=== PATIENT | female | born 1950 | race African-American/Black ===

== ENCOUNTER 2018-03-31 09:09 | Emergency (ER) | payer MEDICARE ==
[2018-03-31 10:10] LABS: #Basophils 0.1 thou/uL (0.0-0.2); #Eosinphils 0.1 thou/uL (0.0-0.7); #Monocytes 1.2 thou/uL (0.11-0.59); #Neutrophils 5.9 thou/uL (1.40-6.50); %Basophils 0.5 % (0.0-1.0); %Eosinophils 0.7 % (0.0-10.0); %Lymphocytes 21.6 % (21.0-51.0); %Monocytes 12.7 % (0.0-10.0); %Neutrophils 64.5 % (42.0-75.0); Hemoglobin 12.7 g/dL (12.0-16.0); Mean Corpuscular HGB CONC 32.3 g/dL (32.0-36.0); Mean Corpuscular Volume 80.3 fL (78.0-98.0); Mean Platelet Volume 8.4 fL (7.4-10.4); Platelet Count 314 thou/uL (130-400); Red Blood Cell (RBC) Count 4.88 mill/uL (4.20-5.40); White Blood Cell (WBC) Count 9.1 thou/uL (4.8-10.8)
[2018-03-31 10:27] LABS: ALT (SGPT) 36 U/L (8-55); AST (SGOT) 39 U/L (5-34); Albumin 3.9 g/dL (3.4-4.8); Alkaline Phosphatase 85 U/L (40-150); Anion Gap 13 mmol/L (10-20); BUN (Urea Nitrogen) 9 mg/dL (9.8-20.1); Bilirubin, Total 0.3 mg/dL (0.2-1.2); Calc. Creatinine Clearance 0 mL/min (70-130); Calcium 9.6 mg/dL (7.8-10.44); Carbon Dioxide 30 mmol/L (23-31); Chloride 91 mmol/L (98-107); Estimated GFR-MDRD 87; Globulin 4.6 g/dL (2.4-3.5); Glucose 68 mg/dL (80-115); Protein, Total 8.5 g/dL (6.0-8.3); Sodium 131 mmol/L (136-145)
[2018-03-31 10:32] LABS: Potassium 2.9 mmol/L (3.5-5.1)
[2018-03-31] MEDS ORDERED: Ondansetron HCl/PF 4 MG/2 ML Vial ONE (10:34)
--- NOTE | 2018-03-31 10:59 | RAD ---
CHEST ONE VIEW: HISTORY: Cough. COMPARISON: Radiograph from 12/13/2016 FINDINGS: The lungs are clear. No pneumothorax or effusion. The cardiac silhouette and mediastinal contours a re within normal limits. IMPRESSION: No acute intrathoracic abnormality. POS: [facility]
[2018-03-31] MEDS ORDERED: Potassium Chloride 20 MEQ TAB ONE (11:33)
== END 2018-03-31 12:35 | disposition home or self-care (01) ==
LOC: ERS 09:09
DX: R05 Cough (principal); E87.6 Hypokalemia; R11.0 Nausea; E11.9 Type 2 diabetes mellitus without complications; I10 Essential (primary) hypertension; J45.909 Unspecified asthma, uncomplicated; F32.9 Major depressive disorder, single episode, unspecified; Z87.891 Personal history of nicotine dependence
CPT/HCPCS: 36415; 71045; 80053; 83605; 85025; 87040; 87804; 96374; J2405

== ENCOUNTER 2018-05-14 08:35 | Outpatient (CLI) | payer MEDICARE ==
--- NOTE | 2018-05-14 11:17 | ULT ---
HEPATIC DOPPLER ULTRASOUND: 05/14/2018 HISTORY: Hepatitis C. TECHNIQUE: Multiplanar, pino-scale, sonographic imaging of the abdomen obtained. The hepatic and splenic vascul ature is assessed with color-flow and spectral analysis. FINDINGS: The imaged pancreas appears grossly unremarkable. No focal liver lesion or intrahepatic biliary dilatation is seen. The common bile duct measures 2-3 mm, within normal limits. The coastal/harbor defense officer reports a negative [place] sign. Imaged IVC is patent and demonstrates appropriate wa veform. The hepatic parenchyma is mildly heterogeneous, consistent with the provided history of hepatitis C. The main portal vein, the right portal vein, and the left portal vein are patent and demonstrate norm al directional flow. The hepatic artery is patent as well. The right, middle, and left hepatic veins are patent and demonstrate appropriate waveforms. Incidental note is made of cholelithiasis. No gallbladder wall thickening. The spleen is normal in size, measuring up to 7.6 cm. The splenic artery and vein are patent and dem onstrate appropriate arterial and venous waveforms bilaterally. Imaged abdominal aorta is grossly un remarkable. The kidneys are not imaged on this exam. IMPRESSION: Patent hepatic and splenic vasculature, as detailed above. Incidental note is made of cholelithiasis . POS: [facility]
== END 2018-05-14 08:36 | disposition home or self-care (01) ==
LOC: ULT 08:35
PROVIDERS: ATTEND Internal Medicine Gastroenterology
DX: B19.20 Unspecified viral hepatitis C without hepatic coma (principal)
CPT/HCPCS: 76705

== ENCOUNTER 2019-03-07 07:29 | Emergency (ER) | payer MEDICARE ==
[2019-03-07 08:48] LABS: #Basophils 0.1 thou/uL (0.0-0.2); #Eosinphils 0.3 thou/uL (0.0-0.7); #Lymphocytes 2.3 thou/uL (1.20-3.40); #Neutrophils 3.6 thou/uL (1.40-6.50); %Basophils 1.1 % (0.0-1.0); %Eosinophils 4.7 % (0.0-10.0); %Monocytes 14.2 % (0.0-10.0); Hemoglobin 13.5 g/dL (12.0-16.0); Mean Corpuscular HGB CONC 33.2 g/dL (32.0-36.0); Mean Corpuscular Hemoglobin 28.3 pg (27.0-31.0); Mean Corpuscular Volume 85.3 fL (78.0-98.0); Mean Platelet Volume 8.4 fL (7.4-10.4); Platelet Count 259 thou/uL (130-400); RBC Distribution Width 17.7 % (11.5-14.5); Red Blood Cell (RBC) Count 4.79 mill/uL (4.20-5.40); White Blood Cell (WBC) Count 7.3 thou/uL (4.8-10.8)
--- NOTE | 2019-03-07 08:59 | CT ---
CT Brain WO Con: 03/07/2019 8:26 AM CLINICAL HISTORY: Leg weakness. COMPARISON: None. FINDINGS: Hemorrhage: None. Ventricular system: Mild prominence of ventricular system. Cerebral parenchyma: Mild bilateral periventricular white matter hypoattenuation. Midline shift: None. Mass: No mass effect. Calvarium: Normal. Visualized Paranasal sinuses: Clear. IMPRESSION: No acute intracranial hemorrhage or mass effect Mild prominence of ventricular system. Possibility of normal pressure hydrocephalus should be exclude d clinically. Mild periventricular white matter hypoattenuation. This could relate to gliosis or transependymal CSF migration.
[2019-03-07 09:09] LABS: ALT (SGPT) 51 U/L (8-55); AST (SGOT) 88 U/L (5-34); Alkaline Phosphatase 88 U/L (40-110); Anion Gap 14 mmol/L (10-20); BUN (Urea Nitrogen) 12 mg/dL (9.8-20.1); Bilirubin, Total 0.4 mg/dL (0.2-1.2); CK (CPK) 161 U/L (29-168); Calc. Creatinine Clearance 0 mL/min (70-130); Calcium 9.8 mg/dL (7.8-10.44); Carbon Dioxide 29 mmol/L (23-31); Chloride 94 mmol/L (98-107); Estimated GFR-MDRD 74; Globulin 4.3 g/dL (2.4-3.5); Potassium 3.2 mmol/L (3.5-5.1); Protein, Total 8.3 g/dL (6.0-8.3); Sodium 134 mmol/L (136-145)
[2019-03-07 09:14] LABS: Glucose 48 mg/dL (80-115)
[2019-03-07] MEDS ORDERED: Dextrose 50% Abboject 50 ML SYRINGE ONE (09:26)
[2019-03-07 11:30] LABS: Bilirubin Negative (Negative); Blood, Urine Negative (Negative); Glucose, Urine (Dipstick) 100 mg/dL (Negative); Leukocyte Small (Negative); Nitrite Positive (Negative); Protein, Urine (Dipstick) Negative (Neg-Trace); Urobilinogen 0.2 mg/dL (Less than 2)
[2019-03-07 11:33] LABS: Clarity Clear (Clear)
[2019-03-07 11:39] LABS: Bacteria/HPF 3+ HPF (None Seen); RBC/HPF None Seen HPF (0-3); Squamous Epithelial 0-3 HPF (0-3)
[2019-03-07] MEDS ORDERED: Acetaminophen 500 MG TAB ONE (11:58)
--- NOTE | 2019-03-07 13:06 | RAD ---
Exam: XR Shoulder Rt 3 View STANDARD HISTORY: Right shoulder pain. COMPARISON: None FINDINGS: There are calcifications seen lateral to the right humeral head likely related to calcific peritendin itis. Mild right acromioclavicular joint osteoarthritis is present. No acute fracture, dislocation, or other acute osseous abnormality is identified. Vascular calcifications are seen in the thoracic aortic arch. IMPRESSION: 1. Mild right acromioclavicular joint osteoarthritis. 2. Findings likely related to calcific peritendinitis. 3. No acute osseous abnormality seen involving the right shoulder.
--- NOTE | 2019-03-12 10:35 | EKG ---
Test Reason : WEAKNESS Blood Pressure : / mmHG Vent. Rate : 079 BPM Atrial Rate : 079 BPM P-R Int : 146 ms QRS Dur : 074 ms QT Int : 386 ms P-R-T Axes : 048 005 019 degrees QTc Int : 442 ms Normal sinus rhythm Septal infarct , age undetermined Abnormal ECG Confirmed by RICHY LOVELL MD ([id number]), international editorial producer DOREEN FERRIS ([id number]) on 03/12/2019 10:35:27 AM Referred By: Confirmed By:RICHY LOVELL MD
== END 2019-03-07 15:17 | disposition home or self-care (01) ==
LOC: ERS 07:29
DX: N39.0 Urinary tract infection, site not specified (principal); M19.90 Unspecified osteoarthritis, unspecified site; I10 Essential (primary) hypertension; J45.909 Unspecified asthma, uncomplicated; F32.9 Major depressive disorder, single episode, unspecified; E11.9 Type 2 diabetes mellitus without complications; Z79.84 Long term (current) use of oral hypoglycemic drugs; Z87.891 Personal history of nicotine dependence; Z79.899 Other long term (current) drug therapy
CPT/HCPCS: 36415; 36416; 70450; 80053; 81003; 81015; 82550; 84443; 84484; 85025; 93005; 96361; 96374

== ENCOUNTER 2019-08-15 06:08 | Outpatient (CLI) | payer MEDICARE ==
[2019-08-15 09:49] LABS: Anion Gap 19 mmol/L (10-20); BUN (Urea Nitrogen) 9 mg/dL (9.8-20.1); Calc. Creatinine Clearance 0 mL/min (70-130); Calcium 9.6 mg/dL (7.8-10.44); Carbon Dioxide 22 mmol/L (23-31); Chloride 97 mmol/L (98-107); Estimated GFR-MDRD 73; Glucose 61 mg/dL (80-115); Potassium 4.8 mmol/L (3.5-5.1); Sodium 133 mmol/L (136-145)
[2019-08-15 11:01] LABS: #Eosinphils 0.2 thou/uL (0.0-0.7); #Lymphocytes 2.6 thou/uL (1.20-3.40); #Monocytes 0.9 thou/uL (0.11-0.59); #Neutrophils 4.1 thou/uL (1.40-6.50); %Basophils 0.1 % (0.0-1.0); %Eosinophils 2.7 % (0.0-10.0); %Lymphocytes 32.9 % (21.0-51.0); %Neutrophils 52.3 % (42.0-75.0); Hemoglobin 14.1 g/dL (12.0-16.0); MDiff Complete? YES; Mean Corpuscular HGB CONC 33.2 g/dL (32.0-36.0); Mean Corpuscular Hemoglobin 28.9 pg (27.0-31.0); Mean Corpuscular Volume 86.9 fL (78.0-98.0); Mean Platelet Volume 8.3 fL (7.4-10.4); Platelet Count 328 thou/uL (130-400); Platelet Morphology Comment Appears Adequate; Polychromasia SLIGHT = 2-3 cells (100X) (0-2/hpf); RBC Distribution Width 15.4 % (11.5-14.5); Red Blood Cell (RBC) Count 4.89 mill/uL (4.20-5.40); Target Cells MODERATE= 6-15 cells (100X) (0-1/hpf); White Blood Cell (WBC) Count 7.8 thou/uL (4.8-10.8)
== END 2019-08-15 06:09 | disposition home or self-care (01) ==
LOC: LABBT 06:08
PROVIDERS: ATTEND Thoracic Surgery (Cardiothoracic Vascular Surgery)
DX: Z01.812 Encounter for preprocedural laboratory examination (principal); I73.9 Peripheral vascular disease, unspecified
CPT/HCPCS: 80048; 85025

== ENCOUNTER → 2019-08-16 | Day surgery (SDC) | payer MEDICARE ==
[2019-08-15 08:24] VITALS: BMI 31.2
[~2019-08-16] MED LIST: Fentanyl 100 MCG/2 ML VIAL ONE; Iopamidol 370 76% 100 ML VIAL ONE; Lidocaine 1% (PF) 30 ML VIAL ONE; Midazolam HCl 2 mg/2 ml Vial ONE; hydrALAZINE 20 MG/ML VIAL ONE; traMADol HCl 50 MG TAB ONE
--- NOTE | 2019-08-16 13:20 | OP ---
DATE OF PROCEDURE: 08/16/2019 PROCEDURES PERFORMED: Left femoral venous line placement with ultrasound guidance, aortography with peripheral runoff with ultrasound guidance with selective left lower extremity arteriography. PREOPERATIVE DIAGNOSES: Peripheral vascular disease with ischemic tissue loss, left lower extremity. POSTOPERATIVE DIAGNOSES: Peripheral vascular disease with ischemic tissue loss, left lower extremity. ANESTHESIA: 1% lidocaine, local anesthesia with intravenous sedation consisting of 1 mg of Versed and 25 mcg of fentanyl. FINDINGS: Normal aortoiliac segments by arteriography with some calcification in the superficial femorals with minimal luminal irregularity bilaterally. There was trifurcation vessel disease on the right side. The anterior tibial and peroneal were both occluded. She had single-vessel runoff through the posterior tibial that was diseased proximally on the left lower extremity. Her posterior tibial was occluded and reconstituted very faintly at the ankle. The peroneal crossed down to the foot and was disease free. The anterior tibial crossed in well into the foot, but had proximal disease. FLOUROSCOPY TIME : 9.1 minutes CONTRAST: 60 ml NARRATIVE REPORT: After informed consent was obtained, the patient was taken to the blood bank laboratory professional and placed in supine position on the blood bank laboratory professional table because the patient had very poor peripheral venous access. Left femoral sheath was placed. Her left femoral pulse was palpated and the femoral vessels were identified ultrasonographically. Lidocaine was used to infiltrate skin and subcutaneous tissues in the upper thigh overlying the femoral vein and the femoral vein was punctured by the Seldinger technique. A 4-Finnish femoral line was placed and secured with suture and aspirated and flushed easily. The patient was then given IV sedation while the right femoral vasculature was ultrasonographically examined. Lidocaine was used to anesthetize the skin and subcutaneous tissues overlying the common femoral artery and then a micropuncture technique followed by a 5-Finnish femoral sheath was used to cannulate the right common femoral artery on both the right and left sides appropriate of vascular positioning. The wire was confirmed by fluoroscopy prior to cannulating the vessel with the sheath. Wire was placed through a Contra catheter and advanced up into the aorta at about the level of L1. Contrast was injected and then, the catheter was drawn down to just above the level of the bifurcation and an additional aortogram was performed to get better visualization of the iliofemoral segments. The iliofemoral segments were quite smooth in their contour and it was elected not to perform obliques to visualize the vessels as an overlock orthopedic hardware. Glidewire and angled catheter were used to selectively cannulate the left iliofemoral system, advancing the wire well down into the superficial femoral artery and the catheter down to just above the femoral bifurcation. Dye injection was performed, which flowed briskly and was followed down to below the knee. The principal abnormality lay in the trifurcation and additional images using DSA were used to map out the tibial vasculature and follow the outflow into the foot. Wire was reinserted and the catheter withdrawn through the right femoral sheath and injection was done to image the right lower extremity was followed down to the lower leg and again finding trifurcation disease. Additional DSA injections were performed to image the tibial vasculatures that crossed into the foot. The femoral sheath was then removed and hemostasis was achieved with direct pressure and the patient was taken to the recovery area in stable condition. Job ID: [id number] MTDD
== END ==
LOC: CCL 05:56
PROVIDERS: ATTEND Thoracic Surgery (Cardiothoracic Vascular Surgery)
PROC: 06HN33Z Insertion of Infusion Device into Left Femoral Vein, Percutaneous Approach (ICD-10-PCS; principal; 2019-08-16)
DX: I70.245 Atherosclerosis of native arteries of left leg with ulceration of other part of foot (principal); I10 Essential (primary) hypertension; E11.49 Type 2 diabetes mellitus with other diabetic neurological complication; F32.9 Major depressive disorder, single episode, unspecified; J45.909 Unspecified asthma, uncomplicated; Z79.4 Long term (current) use of insulin; Z79.899 Other long term (current) drug therapy; Z87.891 Personal history of nicotine dependence; Z88.0 Allergy status to penicillin; Z88.5 Allergy status to narcotic agent; Z88.8 Allergy status to other drugs, medicaments and biological substances; Z91.012 Allergy to eggs
CPT/HCPCS: 75630; 75716; 76942; 99152; 99153; C1725; C1769; J0360; J1644; J2001; J2250; J3010; Q9967

== ENCOUNTER 2019-08-24 09:03 | Outpatient (CLI) | payer MEDICARE ==
--- NOTE | 2019-08-25 12:12 | EKG ---
Test Reason : Blood Pressure : / mmHG Vent. Rate : 099 BPM Atrial Rate : 099 BPM P-R Int : 134 ms QRS Dur : 078 ms QT Int : 336 ms P-R-T Axes : 058 035 041 degrees QTc Int : 431 ms Normal sinus rhythm Cannot rule out Anterior infarct (cited on or before 07-MAR-2019) Abnormal ECG When compared with ECG of 07-MAR-2019 07:38, Questionable change in initial forces of Septal leads Confirmed by LYNN ROSS, SAlycia ([id number]) on 08/25/2019 12:12:09 PM Referred By: JACKELINE Confirmed By:DR. Antonio BAILEY MD
== END 2019-08-24 09:04 | disposition home or self-care (01) ==
LOC: LABBT 09:03
PROVIDERS: ATTEND Thoracic Surgery (Cardiothoracic Vascular Surgery)
DX: Z01.818 Encounter for other preprocedural examination (principal); I73.9 Peripheral vascular disease, unspecified
CPT/HCPCS: 93005; 93010

== ENCOUNTER 2019-08-24 13:30 | Inpatient (IN) | payer MEDICARE ==
[2019-08-29] MEDS ORDERED: Protamine Sulfate 50 MG/5 ML VIAL ONE (06:34)
[2019-08-29] MEDS ORDERED: Heparin 5,000 UNITS/ML VIAL ONE (06:34)
[2019-08-29] MEDS ORDERED: Fentanyl 250 MCG/5 ML VIAL ONE (06:47)
[2019-08-29] MEDS ORDERED: Heparin 10,000 UNITS/1 ML VIAL ONE ×2 (06:48→14:44)
[2019-08-29] MEDS ORDERED: Protamine Sulfate 250 MG/25 ML VIAL ONE (06:48)
[2019-08-29] MEDS ORDERED: Promethazine HCl 25 MG/ML VIAL SLOW IVP PRN (07:15)
[2019-08-29] MEDS ORDERED: Morphine Sulfate 2 MG/ML SYRINGE SLOW IVP PRN (07:15)
[2019-08-29] MEDS ORDERED: Ondansetron HCl/PF 4 MG/2 ML Vial IVP PRN (07:15)
[2019-08-29] MEDS ORDERED: Promethazine HCl 25 MG/ML VIAL IM PRN (07:15)
[2019-08-29] MEDS ORDERED: HYDROmorphone 2 MG/ML VIAL SLOW IVP PRN (07:15)
[2019-08-29] MEDS ORDERED: Meperidine HCl/PF 25 MG/ML VIAL SLOW IVP PRN (07:15)
[2019-08-29] MEDS ORDERED: PACU-Morphine 4MG/ML VIAL SLOW IVP PRN (07:15)
[2019-08-29 07:21] LABS: #Basophils 0.1 thou/uL (0.0-0.2); #Eosinphils 0.2 thou/uL (0.0-0.7); #Lymphocytes 1.7 thou/uL (1.20-3.40); #Monocytes 0.8 thou/uL (0.11-0.59); #Neutrophils 3.3 thou/uL (1.40-6.50); %Basophils 0.9 % (0.0-1.0); %Eosinophils 3.6 % (0.0-10.0); %Neutrophils 54.6 % (42.0-75.0); Hemoglobin 13.9 g/dL (12.0-16.0); Mean Corpuscular HGB CONC 33.3 g/dL (32.0-36.0); Mean Corpuscular Hemoglobin 28.8 pg (27.0-31.0); Mean Corpuscular Volume 86.4 fL (78.0-98.0); Mean Platelet Volume 8.4 fL (7.4-10.4); Platelet Count 253 thou/uL (130-400); RBC Distribution Width 15.2 % (11.5-14.5); Red Blood Cell (RBC) Count 4.83 mill/uL (4.20-5.40); White Blood Cell (WBC) Count 6.1 thou/uL (4.8-10.8)
[2019-08-29 07:31] LABS: Anion Gap 23 mmol/L (10-20); BUN (Urea Nitrogen) 7 mg/dL (9.8-20.1); Calc. Creatinine Clearance 71 mL/min (70-130); Carbon Dioxide 21 mmol/L (23-31); Chloride 92 mmol/L (98-107); Estimated GFR-MDRD 66; Glucose 199 mg/dL (80-115); Potassium 4.5 mmol/L (3.5-5.1); Sodium 131 mmol/L (136-145)
[2019-08-29] MEDS ORDERED: Promethazine 25 MG TAB PO PRN (07:34)
[2019-08-29] MEDS ORDERED: PROVENTIL INHALER 6.7 G (200 INHALATIONS) INH PRN ×2 (07:34→08:00)
[2019-08-29] MEDS ORDERED: Insulin Regular 300 UNITS/3 ML VIAL SC PRN (07:35)
[2019-08-29] MEDS ORDERED: Dextrose 5% in Water 1,000 ML IV PRN (07:35)
[2019-08-29] MEDS ORDERED: Acetaminophen 325 MG TAB PO PRN (07:35)
[2019-08-29] MEDS ORDERED: hydrALAZINE 20 MG/ML VIAL SLOW IVP PRN (07:35)
[2019-08-29] MEDS ORDERED: Ondansetron PF 4 MG/2 ML Vial IVP PRN (07:35)
[2019-08-29] MEDS ORDERED: Dextrose 50% Abboject 50 ML SYRINGE SLOW IVP PRN (07:35)
[2019-08-29] MEDS ORDERED: Fentanyl 100 MCG/2 ML VIAL SLOW IVP PRN (07:35)
[2019-08-29] MEDS ORDERED: traMADol HCl 50 MG TAB PO PRN (07:35)
[2019-08-29] MEDS ORDERED: Sodium Chloride 0.9% 1,000 ML IV SCH ×2 (07:45→15:45)
[2019-08-29] MEDS ORDERED: Sodium Chloride 0.9% 10 ML ONE ×2 (08:02→09:04)
--- NOTE | 2019-08-29 08:05 | RAD ---
XR Chest 1 View HISTORY: Preoperative evaluation COMPARISON: 03/31/2018 FINDINGS: The heart size is normal. The lungs are well expanded without focal areas of consolidation, pneumothorax or pleural effusions. IMPRESSION: No radiographic evidence of acute cardiopulmonary process.
[2019-08-29] MEDS ORDERED: Norepinephrine 4 MG/4 ML VIAL ONE ×2 (08:25→08:26)
[2019-08-29] MEDS ORDERED: Albuterol Sulfate HFA (OR ONLY) ONE (08:25)
[2019-08-29] MEDS ORDERED: SUGAMMADEX SODIUM 500 MG/5 ML VIAL ONE (08:28)
[2019-08-29] MEDS ORDERED: Digoxin 0.5 MG/2 ML AMP ONE (08:47)
[2019-08-29] MEDS ORDERED: Gabapentin 400 MG CAP PO SCH (09:00)
[2019-08-29] MEDS ORDERED: Non-Formulary Item 1 EACH (Gabapentin [Gabapentin] 2 TAB) PO SCH (09:00)
[2019-08-29] MEDS ORDERED: Aspirin Chewable 81 MG TAB PO SCH (09:00)
[2019-08-29] MEDS ORDERED: Diltiazem HCl 125 MG, Admixture Fee 1 EACH in Sodium Chloride 0.9% 100 ML IVPB SCH (09:00)
[2019-08-29] MEDS ORDERED: Iopamidol 370 76% 100 ML VIAL ONE ×2 (09:38→14:38)
--- NOTE | 2019-08-29 09:53 | RAD ---
XR Chest 1 View Portable HISTORY: Line placement COMPARISON: Earlier exam of same date FINDINGS: There has been interval placement of a right subclavian central venous catheter with tip in the projection of the SVC and a right-sided chest tube with tip directed inferiorly in the medial right lower chest.. No pneumothorax is seen. Remainder the exam is unremarkable. IMPRESSION: No radiographic evidence of acute cardiopulmonary process.
[2019-08-29] MEDS ORDERED: Rocuronium Bromide 10 MG/ML (10ML VIAL) ONE (10:27)
[2019-08-29] MEDS ORDERED: PROPOFOL 200 MG/20 ML VIAL ONE (10:27)
[2019-08-29] MEDS ORDERED: PHENYLEPHRINE-NS 100 MCG/ML 10 ML SYRINGE ONE (10:27)
[2019-08-29] MEDS ORDERED: Calcium Chloride 1 GM/10 ML Abboject SYRINGE ONE (10:27)
[2019-08-29] MEDS ORDERED: EPHEDRINE 25 MG/5 ML SYRINGE ONE (10:27)
[2019-08-29] MEDS: Hydrochlorothiazide 25 MG TAB PO SCH (10:28)
[2019-08-29] MEDS: Aspirin 81 mg Enteric Coated Tablet PO SCH (10:28)
[2019-08-29] MEDS ORDERED: Ketorolac Tromethamine 30 MG/ML VIAL IVP SCH (12:00)
[2019-08-29 13:37] LABS: CKMB 6.2 ng/mL (0-6.6)
[2019-08-29] MEDS: Fentanyl 100 MCG/2 ML VIAL SLOW IVP PRN ×3 (14:01→20:02)
--- NOTE | 2019-08-29 14:42 | CON ---
DATE OF CONSULTATION: 08/29/2019 REASON FOR CONSULTATION: Elevated troponin and recent decompensation prior to surgery. Primary utilization coordinator, none. HISTORY OF PRESENT ILLNESS: Ms. Cadet is a 69-year-old woman, who is scheduled for a fem-pop bypass to the left. She underwent induction and intubation. She began developing a tachycardia and hypotension. Initially, it was thought she had a pneumothorax. She underwent a chest tube placement successfully. Dr. Baldev Zaldivar, who was assisting also felt she had ST-segment elevation noted transiently. The patient was sedated at the time and has no recollection. Her troponin is mildly elevated at 0.6. Ms. Hartley who is now awake and alert, did state she does not recall having a chest pain, pressure, or other associated symptoms. She has no previous history of underlying coronary artery disease. She quit all tobacco products 11 years ago. She does have severe PVD as described above. PAST MEDICAL HISTORY: PAD, hypertension, asthma, depression, diabetes mellitus, avascular necrosis, hysterectomy, hip replacement, back surgery, elbow surgery. HOME MEDICATIONS: Include gabapentin, metformin, albuterol, Humalog, Lantus, promethazine, pantoprazole. FAMILY HISTORY: Positive for CAD. SOCIAL HISTORY: As described above. REVIEW OF SYSTEMS: Ten-point review of systems is reviewed and is as above, otherwise negative. PHYSICAL EXAMINATION: GENERAL: Patient is a pleasant female, who is in no acute distress. The patient appears their stated age. VITAL SIGNS: Blood pressure 160/69, pulse 113, respirations 20. NEUROLOGIC: The patient is alert and oriented x3 with no focal neurologic deficits. HEENT: Sclerae without icterus. Mouth has moist mucous membranes with normal pallor. NECK: No JVD. Carotid upstroke brisk. No bruits bilaterally. LUNGS: Clear to auscultation with unlabored respirations. BACK: No scoliosis or kyphosis. CARDIAC: Regular rate and rhythm with normal S1 and S2. No S3 or S4 noted. No significant rubs, murmurs, thrills, or gallops noted throughout the precordium. PMI is not displaced. There is no parasternal heave. ABDOMEN: Soft, nontender, nondistended. No peritoneal signs present. No hepatosplenomegaly. No abnormal striae. EXTREMITIES: Decreased pulse in left popliteal region versus right. No cyanosis, clubbing, or edema. SKIN: No gross abnormalities. PERTINENT LABORATORY DATA: Hemoglobin 13.9, hematocrit 41.7. Peak troponin 0.62, creatinine 1.01. IMPRESSION: 1. EKG changes. 2. Elevated troponin. 3. Tachycardia. 4. Peripheral arterial disease. RECOMMENDATIONS: Ms. Hartley has no previous symptoms of underlying coronary artery disease. She does have PAD, which increases her risk of having concomitant CAD. Given her risk factors in addition to the elevated troponin, we would recommend coronary angiography plus PCI. I discussed the procedure in full detail with Ms. Hartley. The risks of the procedure were also discussed. The risks of the procedure included but are not limited to the following: , stroke, ND, need for emergency surgery, loss of limb, bleeding, and infection, as well as a reaction to the dye causing kidney failure and needing long-term dialysis. I also discussed the risks of PCI to include all of the above including coronary dissection and perforation in addition to acute stent thrombosis and restenosis. All questions about the procedure were answered. Given the above, the patient agreed to proceed with above procedure. I would recommend a drug-coated stent if needed. The patient is in agreement. No contraindications. Job ID: [id number]
[2019-08-29] MEDS ORDERED: Verapamil 5 MG/2 ML VIAL ONE (14:44)
[2019-08-29] MEDS ORDERED: Nitroglycerin 100MG/250ML BOT 250 ML ONE (14:44)
--- NOTE | 2019-08-29 15:01 | CON ---
DATE OF CONSULTATION: 08/29/2019 SERVICE: Pulmonary Medicine. REASON FOR CONSULTATION: ICU patient. HISTORY OF PRESENT ILLNESS: The patient is a 69-year-old white female with past medical history significant for severe peripheral vascular disease. She presented for outpatient elective surgery. After induction of anesthesia, the patient had very severely dropped blood pressures. This happened in the time that her central line was being placed in the right subclavian. She became more challenging to ventilate, and apparently had a carbon dioxide level that went up. There was a concern that she had a tension pneumothorax. A chest tube was emergently placed in the operating room empirically. That being said, there was no significant gush of air, and the carbon dioxide level did not improve significantly. The case was abandoned after having never been attempted. The patient does have asthma at home and typically uses her albuterol less than once every 6 weeks. She came to this appointment in her usual state of health. She did get a nebulized medication during this event, but did not seem to have any significant impact on what occurred here. Either way, she was extubated comfortably in PACU and is currently on room air. She denies any current chest discomfort, nausea, or vomiting. She had never had any recent fevers or chills. She is not experiencing a cough. Otherwise, she is in her usual state of health. She is a little bummed out about having a chest tube, and not having a vascular procedure performed. PAST MEDICAL HISTORY: 1. Peripheral vascular disease. 2. Type 2 diabetes mellitus. 3. Hypertension. 4. Asthma, previously well controlled. 5. Major depressive disorder. 6. Avascular necrosis of bilateral hips. PAST SURGICAL HISTORY: 1. Hysterectomy, partial. 2. Bilateral hip replacement. 3. Back surgery x2. 4. Left elbow surgery. FAMILY HISTORY: Noncontributory. SOCIAL HISTORY: She quit smoking 10 years ago, but prior to that had a greater than [id number] history of smoking. Denies any alcohol or significant drug use. She has no exposure to chemicals, dust, asbestos, or tuberculosis. ALLERGIES: PENICILLIN, AND LISINOPRIL. REVIEW OF SYSTEMS: General, head, ears, eyes, nose, throat, cardiovascular, respiratory, GI, , musculoskeletal, neurologic, and skin is negative except as mentioned in the HPI. MEDICATIONS: List of the patient's inpatient and outpatient medications were reviewed. No specific updates were made at this time. PHYSICAL EXAMINATION: VITAL SIGNS: Afebrile; pulse 113; blood pressure 146/94; respirations 24; and saturation 99%, currently on room air. GENERAL: The patient is awake and alert, in no apparent distress. LUNGS: Decent air entry. There is really not a prolonged expiratory phase or significant wheezing. I had the patient do a forced exhalation and there is no wheezing elicited. HEART: Tachycardic. Regular. ABDOMEN: Soft, nontender, and nondistended. Bowel sounds are positive. MUSCULOSKELETAL: No cyanosis or clubbing. There is no pitting in bilateral lower extremities. NEUROLOGIC: Grossly nonfocal. LABORATORY DATA: WBC 6.1, hemoglobin 13.9, platelets 253,000. Differentials essentially unremarkable. INR 1.0. PH of 7.50, pCO2 of 26, pO2 of 158, while wearing 30% FiO2. At the time, she was intubated. Troponin 0.629, CK-MB 6.2. Calcium 10.0. Basic metabolic profile is essentially unremarkable with a slightly elevated anion gap, slightly reduced bicarb. Sodium 131. Nitrites are positive , though there is minimal pyuria present. HIV was previously negative though hepatitis C antibody was previously positive significantly so. IMAGING DATA: Chest x-ray demonstrates excellent aeration of bilateral lung koenig. There is not significant hyperexpansion of bilateral lungs. There is a chest tube in good position, as well as a right subclavian central venous catheter is in good position. ASSESSMENT: 1. Spell of undetermined etiology. 2. Pneumothorax secondary to empiric chest tube placement for presumed tension pneumothorax, which was not present. 3. Suspected low-cardiac output state. 4. [id number] myocardial infarction. PLAN: My suspicion is the stress of the surgery put her body into low-cardiac output state. I would encourage a risk stratification for heart-related issues prior to repeat attempts at a peripheral revascularization procedure. There is no evidence of ST elevation on her EKG. She continues to have a little bit of sinus tachycardia. I will get a D-dimer, we will trend the troponins through time. Cardiology consultation will be placed. It does not appear that she has any acute lung issues. DuoNeb will be provided as needed, and we will give the patient her insulin, gabapentin, and Protonix, which she takes at home. Critical Care will follow, but from my perspective, she is likely stable for transition to the floor. 70 minutes have been devoted to this patient in various activities. I personally reviewed all imaging studies and laboratory data noted within this document. For fifty percent of this time, I was interacting with the patient at the bedside or coordinating care with the care team. For the remainder of the time I was immediately available to the patient in the hospital unit. Job ID: [id number] MTDD
[2019-08-29] MEDS ORDERED: Sodium Chloride 0.9% 200 ML IV PRN (15:32)
[2019-08-29] MEDS ORDERED: Nitroglycerin 0.4 MG TAB (25 Tab Bottle) SL PRN (15:32)
--- NOTE | 2019-08-29 15:37 | OP ---
DATE OF PROCEDURE: 08/29/2019 PROCEDURES PERFORMED: Right subclavian central line placement, right 32-Swiss tube thoracostomy, and right femoral arterial line placement with ultrasonographic guidance. PREOPERATIVE DIAGNOSES: Peripheral vascular disease with poor peripheral venous access. POSTOPERATIVE DIAGNOSES: Peripheral vascular disease with poor peripheral venous access, high airway pressures associated with hemodynamic compromise, and atrial fibrillation. ANESTHESIA: General endotracheal anesthesia. INDICATIONS: The patient is a 69-year-old woman with severe peripheral vascular disease with gangrenous changes affecting the left great toe. She has very poor peripheral venous access and in the recent past, multiple attempts at peripheral IV establishment and even lobotomy for labs have been unsuccessful. She is to undergo a femoral distal bypass grafting for limb salvage. A 22-gauge IV had been established in the holding area, sufficient for induction. Shortly after induction, while anesthesia was attempting to place a left radial arterial line, I placed a subclavian line on the right side and shortly thereafter, her airway pressures were noted to have increased to around the peak of 40. They held stable initially, but then hilary associated with tachycardia and hypotension. FINDINGS: No air araujo heard upon entering the chest. NARRATIVE REPORT: After informed consent was obtained, the patient was taken to the operating room, placed in supine position on the operating table. After the induction of general anesthesia, an intubation using the GlideScope, the Anesthesia crew worked on placing a left radial arterial line with ultrasonographic guidance. Meanwhile, she was placed in Trendelenburg and a right upper chest was prepped and draped in sterile fashion. A single stick was used to place a right subclavian central line by the Seldinger technique, although the needle had to be redirected after initially hitting a rib. The subclavian vein was cannulated with a large-bore needle at a relatively shallow position. A guidewire placed easily. The tract was dilated and the line was advanced over the wire easily. All 3 ports easily aspirated and flushed. The line was secured to the skin with suture and dressed after several minutes of ongoing attempts at radial arterial line placement. The patient's airway pressures hilary, her end-tidal CO2 fell. She became tachycardic and her cuffed blood pressure began to fall. It was difficult to hear breath sounds on either side. Her right anterior chest was prepped and draped in sterile fashion and at the top of the breast and below the subclavian central line, incision was made slightly lateral to the midclavicular line. Blunt dissection was used to retract down through the subcutaneous tissue in the musculature of the anterior chest wall. An interspace was palpated and blunt dissection was used to enter the pleural space. No air araujo was heard in the lung, could readily be palpated. A chest tube was inserted and secured to the skin with suture and connected to close suction drainage. No air leak was noted in the Pleur-Evac. The patient's right leg was frog-legged. Femoral pulse was palpable, though somewhat diminished. Ultrasound was used to identify it and then, the right groin was prepped and draped in sterile fashion with the ultrasound probe in a sterile sleeve. The femoral bifurcation was identified and then, the probe advanced cephalad. Using a 5-Swiss femoral sheath kit, the common femoral artery was cannulated by the Seldinger technique. The wire and catheter easily advanced. There was good blood return from the IV catheter, although initially it was consistent with a somewhat low blood pressure. It was secured and connected to a pressure monitoring line while ongoing resuscitative efforts were continued. At about this point, the anesthetic agents and her paralytic agents were starting to wear off and her blood pressure increased. Initially, there had been a significant disparity between her cuff pressure and her femoral arterial pressure as she woke and ultimately was extubated. This difference dramatically narrowed. The patient was transported to the intensive care unit in stable condition choosing to abort the planned procedure. Job ID: [id number]
--- NOTE | 2019-08-29 16:14 | CT ---
CT arteriogram chest with IV contrast and 3-D imaging HISTORY: Chest pain. FINDINGS: No filling defects are evident within the central pulmonary arteries. There is poor opacifi cation of the peripheral arteries with motion artifact also obscuring detail. Good contrast opacification of the thoracic aorta with normal origin of the great vessels at the aort ic arch. Prominent calcification throughout the arterial structures. No mediastinal hematoma. Right thoracostomy tube extends through the lateral margin of the right pectoralis musculature and to the right posterior lung base. Moderate amount of right chest wall gas likely related to chest tube insertion. Minimal residual pneumothorax. Tiny nonspecific subpleural nodule within the anterolateral aspect of the left upper lobe. Dystrophic calcification associated with the partially visualized right rotator cuff. Within the partially visualized upper abdomen, calcifications are associated with the pancreatic pare nchyma and in the dependent portion of the gallbladder lumen. IMPRESSION : No CT evidence of pulmonary embolus. Prominent atherosclerosis. Right thoracostomy tube with minimal residual pneumothorax. Tube extends through the lateral aspect o f the right pectoralis musculature. Cholelithiasis. Chronic pancreatitis. Calcific tendinosis right rotator cuff.
[2019-08-29] MEDS: Gabapentin 300 MG CAP PO SCH ×2 (16:24→20:03)
[2019-08-29] MEDS: HumaLOG 300 UNITS/3 ML VIAL SC PRN ×2 (16:26→21:19)
[2019-08-29] MEDS: Sodium Chloride 0.9% 1,000 ML IV SCH ×2 (17:33→19:01)
[2019-08-29 19:18] LABS: CKMB 9.7 ng/mL (0-6.6)
[2019-08-29] MEDS ORDERED: Enoxaparin Sodium 40 MG/0.4 ML SYRINGE SC SCH (21:00)
[2019-08-29] MEDS: traMADol HCl 50 MG TAB PO PRN (21:18)
[2019-08-30] MEDS: Fentanyl 100 MCG/2 ML VIAL SLOW IVP PRN ×3 (02:02→18:20)
[2019-08-30 04:27] LABS: #Eosinphils 0.3 thou/uL (0.0-0.7); #Lymphocytes 2.1 thou/uL (1.20-3.40); #Monocytes 1.2 thou/uL (0.11-0.59); #Neutrophils 5.4 thou/uL (1.40-6.50); %Basophils 0.5 % (0.0-1.0); %Eosinophils 2.9 % (0.0-10.0); %Lymphocytes 23.5 % (21.0-51.0); %Monocytes 12.9 % (0.0-10.0); %Neutrophils 60.2 % (42.0-75.0); Mean Corpuscular HGB CONC 33.7 g/dL (32.0-36.0); Mean Corpuscular Hemoglobin 29.6 pg (27.0-31.0); Mean Corpuscular Volume 87.8 fL (78.0-98.0); Mean Platelet Volume 8.3 fL (7.4-10.4); Platelet Count 254 thou/uL (130-400); Red Blood Cell (RBC) Count 3.38 mill/uL (4.20-5.40); White Blood Cell (WBC) Count 8.9 thou/uL (4.8-10.8)
[2019-08-30 04:54] LABS: Anion Gap 10 mmol/L (10-20); BUN (Urea Nitrogen) 8 mg/dL (9.8-20.1); Calc. Creatinine Clearance 68 mL/min (70-130); Calcium 7.8 mg/dL (7.8-10.44); Carbon Dioxide 24 mmol/L (23-31); Chloride 102 mmol/L (98-107); Estimated GFR-MDRD 63; Glucose 260 mg/dL (80-115); Potassium 4.4 mmol/L (3.5-5.1); Sodium 132 mmol/L (136-145)
[2019-08-30] MEDS: traMADol HCl 50 MG TAB PO PRN ×2 (06:37→20:32)
[2019-08-30] MEDS: HumaLOG 300 UNITS/3 ML VIAL SC PRN ×3 (07:09→21:58)
[2019-08-30] MEDS ORDERED: Insulin Glargine 25 UNITS in Pre-Filled Syringe SC SCH (09:00)
[2019-08-30] MEDS ORDERED: Protamine Sulfate 50 MG/5 ML VIAL ONE (09:51)
[2019-08-30] MEDS ORDERED: Heparin 5,000 UNITS/ML VIAL ONE (09:51)
[2019-08-30] MEDS ORDERED: PROPOFOL 200 MG/20 ML VIAL ONE (10:19)
[2019-08-30] MEDS ORDERED: Rocuronium Bromide 10 MG/ML (10ML VIAL) ONE (10:19)
[2019-08-30] MEDS ORDERED: Ketorolac Tromethamine 30 MG/ML VIAL ONE (10:19)
[2019-08-30] MEDS ORDERED: Labetalol HCl 100 MG/20 ML VIAL ONE (10:19)
[2019-08-30] MEDS ORDERED: Succinylcholine Chloride 20 MG/ML 10 ml SYRINGE FS ONE (10:19)
[2019-08-30] MEDS ORDERED: Ondansetron PF 4 MG/2 ML Vial ONE (10:19)
[2019-08-30] MEDS ORDERED: Lidocaine 1% PF 5 ML VIAL ONE (10:19)
[2019-08-30] MEDS ORDERED: Fentanyl 100 MCG/2 ML VIAL ONE ×2 (10:53→14:49)
--- NOTE | 2019-08-30 14:52 | PRG ---
DATE OF SERVICE: 08/30/2019 SERVICE: Pulmonary Medicine. INTERVAL HISTORY: The patient is doing okay from respiratory standpoint. Denies any current chest discomfort, fevers, or chills. Otherwise, there have been no overnight events. She had a cardiac catheterization yesterday as well as a CT of the chest. All of these were negative for an explanation of what happened here. She remains with a chest tube on the right. PHYSICAL EXAMINATION: VITAL SIGNS: Afebrile, pulse 89, blood pressure 135/63, respirations 19, saturation 97%, currently on 2 L nasal cannula. GENERAL: The patient is awake and alert, in no apparent distress. LUNGS: Decent air entry. There is no prolonged expiratory phase or wheezing appreciated. HEART: Normal rate, regular. ABDOMEN: Soft, nontender, and nondistended. Bowel sounds are positive. MUSCULOSKELETAL: No cyanosis or clubbing. There is no pitting in the bilateral lower extremities. NEUROLOGIC: Grossly nonfocal. Chest tube on the right is without air leak. LABORATORY DATA: Sodium 132, which is gently up trending. Basic metabolic profile is otherwise unremarkable with a creatinine that is stable at 1.05. Troponin peaked at 1.17. Hemoglobin 10.0. Basic metabolic profile is otherwise unremarkable. IMAGING DATA: CTA of the chest demonstrates no evidence of a pulmonary embolism. Right-sided thoracostomy tube is traversing through some musculature. Subcutaneous air and minimal residual anterior pneumothorax are present, likely not communicating. ASSESSMENT: 1. Acute hypoxic respiratory failure, resolved. 2. Iatrogenic pneumothorax secondary to empiric chest tube placement for presumed tension, which ultimately was not present. 3. Lvl-MF-zwnurjont elevation myocardial infarction, cardiac catheterization non-impressive, by report. DISCUSSION AND PLAN: It is my understanding the patient will undergo her peripheral vascular procedure today. I will continue to follow in this location. Hopefully, the chest tube will be removed in short period of time. At this point, she is optimized from a respiratory standpoint to proceed with intervention. Job ID: [id number]
[2019-08-30] MEDS ORDERED: Ondansetron HCl/PF 4 MG/2 ML Vial IVP PRN (17:21)
[2019-08-30] MEDS ORDERED: Promethazine HCl 25 MG/ML VIAL IM PRN (17:21)
[2019-08-30] MEDS ORDERED: Promethazine HCl 25 MG/ML VIAL SLOW IVP PRN (17:21)
--- NOTE | 2019-08-30 18:03 | PRG ---
DATE OF SERVICE: 08/30/2019 SUBJECTIVE: Ms. Hartley is doing well. No current complaints. OBJECTIVE: VITAL SIGNS: Blood pressure 135/63, pulse 89, temperature afebrile. LUNGS: Clear to auscultation. HEART: Regular rate and rhythm. ABDOMEN: Soft, nontender, nondistended. EXTREMITIES: No edema. Decreased pulse on left versus right. IMPRESSION: 1. Coronary artery disease. 2. Preoperative clearance. 3. Ms. Hartley is currently doing well. She recently underwent coronary angiography and was found to have moderate underlying coronary artery disease. At this point, we would recommend continue medical therapy. After IV fluids, her heart rate improved. We will add low-dose beta-juancho therapy. Otherwise, I have no further recommendations. Job ID: [id number]
--- NOTE | 2019-08-30 18:24 | RAD ---
RADIOGRAPH CHEST 1 VIEW: DATE: 08/30/2019 HISTORY: 69-year-old female status post central line placement COMPARISON: 08/29/2019 FINDINGS: There are no airspace densities, pulmonary edema, pneumothorax, or cardiomegaly. The lateral costophr enic angles are sharp. Previously, right subclavian central venous catheter tip was at SVC/right atrial junction. Currently, that tip is in the right atrium. The right-sided chest tube has been daniel fili. IMPRESSION: 1. No acute cardiopulmonary findings. 2. Interval removal of right-sided large caliber chest tube, without pneumothorax. 3. Right subclavian central venous catheter distal tip is now in the right atrium.
[2019-08-30] MEDS: Gabapentin 300 MG CAP PO SCH ×2 (18:36→21:56)
[2019-08-30] MEDS: Aspirin 81 mg Enteric Coated Tablet PO SCH (18:36)
[2019-08-30] MEDS: Sodium Chloride 0.9% 1,000 ML IV SCH (18:37)
[2019-08-30] MEDS: Pantoprazole 40 MG GRANULES PACKET PO SCH (18:37)
[2019-08-30] MEDS: Hydrochlorothiazide 25 MG TAB PO SCH (18:37)
[2019-08-30] MEDS: Ketorolac Tromethamine 30 MG/ML VIAL IVP SCH (18:43)
--- NOTE | 2019-08-30 18:51 | OP ---
DATE OF PROCEDURE: 08/30/2019 PROCEDURES PERFORMED: Left iliofemoral endarterectomy and common femoral artery to anterior tibial artery bypass with reverse greater saphenous vein graft. PREOPERATIVE DIAGNOSIS: Peripheral vascular disease with ischemic tissue loss, left lower extremity. POSTOPERATIVE DIAGNOSIS: Peripheral vascular disease with ischemic tissue loss, left lower extremity. ANESTHESIA: General endotracheal anesthesia. INDICATIONS: The patient is a 69-year-old diabetic woman, who has developed a dry gangrenous changes of her left great toe. Arteriography demonstrated trifurcation vessel disease with anterior tibial runoff to the foot. Screening ultrasonography suggested good quality greater saphenous vein. She was taken to the operating room yesterday, but the procedure was aborted when she became unstable shortly after induction and placement of a right subclavian line because of poor peripheral venous access. She has had an extensive workup looking for cause of her deterioration and she has been stable overnight. She has returned to the operating room for revascularization. FINDINGS: Extensive plaque in the common femoral artery primarily posteriorly at about the level of a deep penetrating branch. The anterior tibial was diffusely diseased, but became better quality distally in the leg. The majority of the greater saphenous vein harvested from saphenofemoral junction to where it originated from the foot was fairly good size, 34 mm and fairly good quality. There was one segment that was about a handbreadth in length in the mid calf, where it was a paired system one vessel being about 1.5 mm and rather thin walled and the other being about 2 mm. Both of these branches were harvested and left intact. Postoperatively, she had a palpable pulse in the dorsalis pedis in the foot. DESCRIPTION OF PROCEDURE: After informed consent was obtained, the patient was taken to the operating room, placed in supine position on the operating table. After the induction of general anesthesia, her abdomen, left groin and left lower extremity were prepped and draped in sterile fashion excluding her gangrenous toe from the operative field. The leg was internally rotated to allow for exposure of the anterior compartment. An incision was made anterolaterally about 1/2 handbreadths below the knee and extended for about a handbreadth. The anterior compartment was entered and blunt dissection was used to separate the muscle bellies. The anterior tibial artery and vein were identified for the entire length of that when the anterior tibial was diseased vessel with much of it being fairly hard. The incision was extended about half a handbreadth or a little bit more to expose the anterior tibial more distally while it never became a normal vessel, fairly distally in the wound. The plaque became more scattered and the vessel was more compressible and that wound was packed and attention was turned to the groin. An oblique incision was made about a fingerbreadth below the groin crease. The incision was carried through the subcutaneous tissue. The greater saphenous vein was identified at the saphenofemoral junction and anterolateral tributary to the saphenous was mobilized to allow for medial retraction, so that the dissection could be carried deep to expose the femoral vasculature. The common femoral artery was identified. The bifurcation was relatively distal, but there was hard plaque palpable in the mid to proximal common femoral. The artery was mobilized proximally to a little bit above the inguinal ligament. The plaque primarily was posteriorly, but it did extend somewhat medially and anteriorly associated and that general area was a fairly large deep penetrating branch. The saphenous vein was then harvested through a skin bridge approach. The counter incisions in the thigh were able to be kept fairly small as was the most proximal incision below the knee. The middle incision in the calf was made about 1.5 Handbreadths below the knee to avoid issues of intersecting skin incisions in case of revascularization failure. At about the mid calf, the greater saphenous proved to be a paired system with a very small, very superficial branch and modest size deeper branch. These were both harvested intact and proved to become confluent with a greater saphenous below that level. The saphenous was taken down all the way to the ankle, ligating and dividing it as it emerged from the foot. It was delivered from the operative bed and it was prepared for use as a graft and the graft was very carefully examined. There seem to be better flow when injecting irrigation through the vein with both of those veins of the dual segment open. There did not seem to be enough uniform caliber vein to excise that and do an end-to-end anastomosis and examination of the anterolateral branch that drainage of the saphenous system showed that it became really quite small after just a very few centimeters. It was opted to leave the vein intact as harvested utilizing both branches of the dual segment. An interosseous tunnel was obliquely developed from the medial aspect of the lower leg to the anterolateral incision and the patient was heparinized. After adequate circulation time of heparin, the anterior tibial was opened longitudinally distally between vascular clamps and the reverse saphenous vein was anastomosed to it end-to-side with running 7-0 Prolene suture. It was distended and oriented past through the interosseous tunnel medially and then deep to the skin bridges up to the groin incision. A vascular clamp was applied to the vein graft at the groin incision to maintain its orientation while retractors were put in place to re-expose the iliofemoral system. Hemoclips were used to control small side branches and vascular clamps were applied to the distal external iliac and distal common femoral. Longitudinal arteriotomy was made in the common femoral and the anastomosis of the saphenous vein to it was initiated. The posterior plaque as it extended up along the medial aspect of the artery, though not sick proved to be too hard to drive a needle through and began to separate. The anastomosis was abandoned and an endarterectomy performed of the iliofemoral system. This required distal extension of the incision, transection of the plaque proximally and tacking down the feathered edges of the plaque in the distal common femoral. The vein was spatulated more generously and then anastomosed to the endarterectomized segment of the femoral artery with running 5-0 Prolene suture. The vessels forward and back bled. The suture line secured and antegrade flow was allowed into the graft as well as the [place] vasculature. The wound was inspected for hemostasis. One bleeding point on the proximal anastomosis was controlled with a [id number] Prolene suture and 2 bleeding points on the graft itself, where a very small side branches had not been ligated were controlled with silk sutures. Protamine was administered when hemostasis was adequate. The incisions were closed in layers of subcutaneous and subcuticular Vicryl. Dermabond was applied as the patient had no air leak for what proved for the empirically inserted chest tube. It was opted to remove it. A Valsalva maneuver was performed by the block stacker using the Ambu bag. The chest tube was removed after prepping the site and then the skin loosely closed with a 4-0 Vicryl subcuticular suture. The patient was awakened and extubated in operating room and taken to the recovery area in good condition with a palpable dorsalis pedis pulse. Estimated blood loss during the procedure was 200 mL. She received 2350 mL of crystalloid and had 450 mL urine output. Instrument, needle, and sponge counts were correct. Job ID: [id number]
[2019-08-30] MEDS: Metoprolol Tartrate 25 MG TAB PO SCH (21:56)
[2019-08-30] MEDS: Insulin Glargine 15 UNITS in Pre-Filled Syringe 1 EACH SC SCH (21:57)
[2019-08-30] MEDS ORDERED: methylPREDNISolone Sod Succ/PF 125 MG/2 ML VIAL IVP SCH (22:30)
[2019-08-31] MEDS: Ketorolac Tromethamine 30 MG/ML VIAL IVP SCH ×3 (00:43→10:58)
[2019-08-31] MEDS: Sodium Chloride 0.9% 1,000 ML IV SCH ×2 (01:20→07:30)
[2019-08-31] MEDS: Fentanyl 100 MCG/2 ML VIAL SLOW IVP PRN (03:18)
[2019-08-31 05:10] LABS: #Lymphocytes 0.5 thou/uL (1.20-3.40); #Monocytes 0.1 thou/uL (0.11-0.59); #Neutrophils 8.8 thou/uL (1.40-6.50); %Basophils 0.1 % (0.0-1.0); %Eosinophils 0.1 % (0.0-10.0); %Lymphocytes 5.1 % (21.0-51.0); %Monocytes 1.5 % (0.0-10.0); %Neutrophils 93.2 % (42.0-75.0); Hemoglobin 7.6 g/dL (12.0-16.0); Mean Corpuscular HGB CONC 32.9 g/dL (32.0-36.0); Mean Corpuscular Volume 88.2 fL (78.0-98.0); Mean Platelet Volume 8.2 fL (7.4-10.4); Platelet Count 211 thou/uL (130-400); Red Blood Cell (RBC) Count 2.63 mill/uL (4.20-5.40); White Blood Cell (WBC) Count 9.4 thou/uL (4.8-10.8)
[2019-08-31 05:22] LABS: Anion Gap 10 mmol/L (10-20); BUN (Urea Nitrogen) 5 mg/dL (9.8-20.1); Calc. Creatinine Clearance 87 mL/min (70-130); Calcium 7.3 mg/dL (7.8-10.44); Carbon Dioxide 24 mmol/L (23-31); Chloride 106 mmol/L (98-107); Estimated GFR-MDRD 82; Glucose 232 mg/dL (80-115); Potassium 4.5 mmol/L (3.5-5.1); Sodium 135 mmol/L (136-145)
[2019-08-31] MEDS: traMADol HCl 50 MG TAB PO PRN ×3 (05:22→19:43)
[2019-08-31] MEDS: Gabapentin 300 MG CAP PO SCH ×3 (07:26→19:43)
[2019-08-31] MEDS: Aspirin 81 mg Enteric Coated Tablet PO SCH (07:26)
[2019-08-31] MEDS: Hydrochlorothiazide 25 MG TAB PO SCH (07:26)
[2019-08-31] MEDS: Metoprolol Tartrate 25 MG TAB PO SCH ×2 (07:27→19:43)
[2019-08-31] MEDS: Pantoprazole 40 MG GRANULES PACKET PO SCH (07:27)
[2019-08-31] MEDS: Insulin Glargine 15 UNITS in Pre-Filled Syringe 1 EACH SC SCH ×2 (07:28→19:44)
[2019-08-31] MEDS: HumaLOG 300 UNITS/3 ML VIAL SC PRN ×4 (07:28→19:44)
[2019-08-31] MEDS: Iron Polysaccharides Complex 150 MG CAP PO SCH ×2 (09:42→17:21)
--- NOTE | 2019-08-31 10:22 | PRG ---
DATE OF SERVICE: 08/31/2019 SERVICE: Pulmonary Medicine. INTERVAL HISTORY: The patient is doing outstanding from respiratory standpoint. She is on room air. She had a vascular procedure done yesterday. This was without complication or incident at this time around. Otherwise, there has been no interval change to her condition. PHYSICAL EXAMINATION: VITAL SIGNS: Afebrile. Pulse 85, blood pressure 114/47, respirations 21, saturation 95%, currently on room air. GENERAL: The patient is awake and alert, in no apparent distress. LUNGS: Wonderful air entry without any prolonged expiratory phase or wheezing present. HEART: Normal rate and regular. ABDOMEN: Soft, nontender, nondistended. Bowel sounds are positive. MUSCULOSKELETAL: No cyanosis or clubbing. There is no pitting in the bilateral lower extremities. NEUROLOGIC: Grossly nonfocal. LABORATORY DATA: WBC 9.4, hemoglobin 7.6, and platelets 211,000. Basic metabolic profile is otherwise unremarkable. Calcium is 7.3. Sodium continues to improve to 135. IMAGING STUDIES: Chest x-ray demonstrates no acute cardiopulmonary abnormality. Right-sided chest tube has been removed without pneumothorax. Subclavian central venous catheter is in the right atrium. ASSESSMENT: 1. Acute hypoxic respiratory failure, resolved. 2. Iatrogenic pneumothorax, secondary to empiric chest tube placement for presumed tension, which ultimately was not present, status post removal. 3. Non-ST elevation myocardial infarction. 4. Peripheral vascular disease, status post left iliofemoral endarterectomy and common femoral artery to anterior tibial artery with reverse saphenous vein graft, postop day 1. 5. Acute blood loss anemia. DISCUSSION AND PLAN: The patient is doing great from respiratory standpoint. At this point, she has no further requirements for Inpatient Pulmonary or Critical Care opinion, and I will sign off. Please call with additional questions or concerns through time. Job ID: [id number]
--- NOTE | 2019-08-31 16:12 | PRG ---
DATE OF SERVICE: 08/31/2019 SUBJECTIVE: Ms. Hartley is doing very well postoperatively. No current complaints. Heart rate and blood pressure are stable. She did not require pressor agents. She did well postoperatively. OBJECTIVE: VITAL SIGNS: Blood pressure 120/70, pulse 96, and temperature 97.8. LUNGS: Clear to auscultation. HEART: Regular rate and rhythm. ABDOMEN: Soft, nontender, and nondistended. EXTREMITIES: No edema. IMPRESSION: 1. Moderate coronary artery disease. 2. Severe peripheral vascular disease, status post femoral-popliteal bypass. RECOMMENDATIONS: Ms. Hartley is currently doing well. Continue aspirin in addition to low-dose beta-juancho therapy. Physical therapy and rehab. Plan is to follow Ms. Hartley in the next 1 to 2 weeks. Please re-consult if needed. Job ID: [id number]
--- NOTE | 2019-08-31 22:27 | EKG ---
Test Reason : PREOP Blood Pressure : / mmHG Vent. Rate : 094 BPM Atrial Rate : 094 BPM P-R Int : 128 ms QRS Dur : 082 ms QT Int : 346 ms P-R-T Axes : 063 051 050 degrees QTc Int : 432 ms Normal sinus rhythm Normal ECG When compared with ECG of 24-AUG-2019 15:14, Nonspecific T wave abnormality no longer evident in Anterior leads Confirmed by Cristhian CUNHA ([id number]) on 08/31/2019 10:27:04 PM Referred By: JACKELINE Confirmed By:Cristhian CUNHA
--- NOTE | 2019-08-31 22:28 | EKG ---
Test Reason : Blood Pressure : / mmHG Vent. Rate : 119 BPM Atrial Rate : 119 BPM P-R Int : 140 ms QRS Dur : 078 ms QT Int : 328 ms P-R-T Axes : 063 032 043 degrees QTc Int : 461 ms Sinus tachycardia with Premature atrial complexes Otherwise normal ECG When compared with ECG of 29-AUG-2019 07:02, (Unconfirmed) Premature atrial complexes are now Present Confirmed by Cristhian CUNHA ([id number]) on 08/31/2019 10:28:35 PM Referred By: HAMZAH Confirmed By:Cristhian CUNHA
[2019-09-01 05:22] LABS: Band 4 % (5-11); Hemoglobin 7.2 g/dL (12.0-16.0); Hypochromia SLIGHT = 6-15 cells (100X) (0-5/hpf); Lymphocytes 8 % (21-51); MDiff Complete? YES; Mean Corpuscular HGB CONC 34.6 g/dL (32.0-36.0); Mean Corpuscular Hemoglobin 30.1 pg (27.0-31.0); Mean Corpuscular Volume 86.9 fL (78.0-98.0); Monocytes 3 % (0-10); Neutrophil 85 % (42-75); Platelet Count 201 thou/uL (130-400); Platelet Morphology Comment Appears Adequate; Red Blood Cell (RBC) Count 2.39 mill/uL (4.20-5.40); White Blood Cell (WBC) Count 19.7 thou/uL (4.8-10.8)
[2019-09-01] MEDS: HumaLOG 300 UNITS/3 ML VIAL SC PRN (05:43)
[2019-09-01 05:53] VITALS: BMI 32.1
[2019-09-01 07:15] VITALS: BP 121/72; TEMP 98.3
[2019-09-01] MEDS: Insulin Glargine 15 UNITS in Pre-Filled Syringe 1 EACH SC SCH (08:50)
[2019-09-01] MEDS: Gabapentin 300 MG CAP PO SCH (08:50)
[2019-09-01] MEDS: Pantoprazole 40 MG GRANULES PACKET PO SCH (08:50)
[2019-09-01] MEDS: Iron Polysaccharides Complex 150 MG CAP PO SCH (08:50)
[2019-09-01] MEDS: Hydrochlorothiazide 25 MG TAB PO SCH (08:50)
[2019-09-01] MEDS: Aspirin 81 mg Enteric Coated Tablet PO SCH (08:50)
[2019-09-01] MEDS: traMADol HCl 50 MG TAB PO PRN (08:56)
--- NOTE | 2019-09-01 18:35 | DIS ---
DATE OF ADMISSION: 08/29/2019 DATE OF DISCHARGE: 09/01/2019 PRINCIPAL DIAGNOSIS: Peripheral vascular disease with left lower extremity tissue loss. SECONDARY DIAGNOSES: Hemodynamic collapse under anesthesia, hypertension, diabetes mellitus, coronary artery disease, and acute blood loss anemia. PROCEDURES PERFORMED: Right subclavian central line placement, right femoral arterial line placement with ultrasonographic guidance, right chest tube placement on 08/29/2019, cardiac catheterization on 08/29/2019, left iliofemoral endarterectomy with common femoral artery to anterior tibial artery bypass with reverse greater saphenous vein graft on 08/30/2019. HISTORY OF PRESENT ILLNESS AND HOSPITAL COURSE: The patient is a 69-year-old diabetic hypertensive woman, who developed gangrenous changes involving the great toe on the left side. She had no palpable pulses in her feet, and arteriography demonstrated trifurcation vessel disease bilaterally. She appeared to have adequate runoff through the anterior tibial on the symptomatic side. She was admitted for revascularization because of extremely poor peripheral access. After induction of anesthesia, while the anesthesiologist attempted radial arterial line placement , I placed a right subclavian central line. Radial arterial line placement proved unsuccessful. Shortly after her central line placement, she was noted to have a rise in her peak airway pressures. It was difficult to appreciate breath sounds on either side, and her blood pressure and end-tidal CO2 dropped. A right-sided chest tube was placed anteriorly empirically. No air araujo was heard on entering the chest. The chest tube was secured, and while anesthesia addressed fluid and pressor management, I placed a right femoral arterial line for blood pressure control. She went into a rapid atrial fibrillation during this, but she converted with 0.5 mg of digoxin and a bolus of Cardizem. She remained tachycardic, however. Echocardiography showed no obvious wall motion abnormalities. Her RV appeared to be working well. Her LV was gallito well, but appeared empty. Cardiac catheterization because of an elevated troponin demonstrated some rather trivial disease in her LAD and circumflex system. A CT of the chest to rule out pulmonary embolism was negative. She was given further hydration overnight, and once she had been awakened in the operating room, her course was relatively uneventful other than the tachycardia. Low-dose beta blockade was added in addition to the fluids, and by the next morning, her heart rate was down into the 80s. The next day she underwent revascularization of her leg and had an uneventful overnight stay in the intensive care unit. Immediately postoperatively, it was easy to palpate the dorsalis pedis pulse, and in the mid thigh, the graft had a palpable pulse in it. Overnight, her foot and leg were a little bit swollen, and it was not quite as easy to feel dorsalis pedis pulse, and the pulse in the graft required Doppler interrogation to identify. She was transferred out of the intensive care unit to the [facility] unit. She ambulated without particular difficulty during the night, and this morning, her foot was noticeably more swollen and is considerably more difficult to palpate her pulse. She had brisk capillary refill, however, and she had no ischemic symptoms in her foot. Her hemoglobin had dropped to around 10 the morning of her revascularization, was in upper 7s on postop day 1, and in the low 7s this morning. She was started on Niferex on postop day 1. As she had no orthostatics symptoms either, it was opted to send her home on iron replacement rather than transfusing her. I will plan on seeing her in the office in about 2 weeks' time and a recheck of CBC then. Job ID: [id number] [facility]
== END 2019-09-01 10:58 | disposition home or self-care (01) | DRG 252 ==
LOC: SURG A 08-29 06:04 → CCU 08-29 09:01 → SURG A 08-31 11:34
PROVIDERS: ADMIT Thoracic Surgery (Cardiothoracic Vascular Surgery); ATTEND Thoracic Surgery (Cardiothoracic Vascular Surgery)
PROC: 05H533Z Insertion of Infusion Device into Right Subclavian Vein, Percutaneous Approach (ICD-10-PCS; 2019-08-29)
PROC: 04HY32Z Insertion of Monitoring Device into Lower Artery, Percutaneous Approach (ICD-10-PCS; 2019-08-29)
PROC: 0W9900Z Drainage of Right Pleural Cavity with Drainage Device, Open Approach (ICD-10-PCS; 2019-08-29)
PROC: 4A023N7 Measurement of Cardiac Sampling and Pressure, Left Heart, Percutaneous Approach (ICD-10-PCS; 2019-08-29)
PROC: 04CL0ZZ Extirpation of Matter from Left Femoral Artery, Open Approach (ICD-10-PCS; principal; 2019-08-30)
PROC: 041L09Q Bypass Left Femoral Artery to Lower Extremity Artery with Autologous Venous Tissue, Open Approach (ICD-10-PCS; 2019-08-30)
DX: E11.52 Type 2 diabetes mellitus with diabetic peripheral angiopathy with gangrene (principal); J96.01 Acute respiratory failure with hypoxia; I21.4 Non-ST elevation (NSTEMI) myocardial infarction; I96 Gangrene, not elsewhere classified; J93.83 Other pneumothorax; D62 Acute posthemorrhagic anemia; E11.49 Type 2 diabetes mellitus with other diabetic neurological complication; I10 Essential (primary) hypertension; J45.909 Unspecified asthma, uncomplicated; F32.9 Major depressive disorder, single episode, unspecified; Z96.643 Presence of artificial hip joint, bilateral; I48.91 Unspecified atrial fibrillation; I25.10 Atherosclerotic heart disease of native coronary artery without angina pectoris; R79.89 Other specified abnormal findings of blood chemistry; Z90.711 Acquired absence of uterus with remaining cervical stump; Z79.4 Long term (current) use of insulin
CPT/HCPCS: 36415; 36416; 71045; 71275; 76000; 80048; 82553; 84484; 85025; 86850; 86900; 86901; 93005; 93010; 93306; 93454; C1769; J0360; J1160; J1642; J1644; J1650; J1815; J1885; J2001; J2405; J2704; J2720; J2930; J3010; J3490; Q9967

== ENCOUNTER 2019-10-30 10:41 | Emergency (ER) | payer MEDICARE ==
[2019-10-30 11:25] LABS: #Basophils 0.1 thou/uL (0.0-0.2); #Eosinphils 0.1 thou/uL (0.0-0.7); #Lymphocytes 2.3 thou/uL (1.20-3.40); #Monocytes 0.9 thou/uL (0.11-0.59); #Neutrophils 4.1 thou/uL (1.40-6.50); %Basophils 1.1 % (0.0-1.0); %Eosinophils 1.4 % (0.0-10.0); %Lymphocytes 30.9 % (21.0-51.0); %Monocytes 11.6 % (0.0-10.0); Hemoglobin 9.9 g/dL (12.0-16.0); Mean Corpuscular HGB CONC 30.3 g/dL (32.0-36.0); Mean Corpuscular Hemoglobin 22.9 pg (27.0-31.0); Mean Corpuscular Volume 75.5 fL (78.0-98.0); Mean Platelet Volume 9.7 fL (7.4-10.4); Platelet Count 397 thou/uL (130-400); RBC Distribution Width 19.3 % (11.5-14.5); Red Blood Cell (RBC) Count 4.33 mill/uL (4.20-5.40); White Blood Cell (WBC) Count 7.4 thou/uL (4.8-10.8)
[2019-10-30 11:47] LABS: ALT (SGPT) 28 U/L (8-55); AST (SGOT) 61 U/L (5-34); Albumin 3.6 g/dL (3.4-4.8); Alkaline Phosphatase 82 U/L (40-110); Anion Gap 18 mmol/L (10-20); BUN (Urea Nitrogen) 13 mg/dL (9.8-20.1); Bilirubin, Total 0.3 mg/dL (0.2-1.2); Calc. Creatinine Clearance 0 mL/min (70-130); Calcium 9.2 mg/dL (7.8-10.44); Carbon Dioxide 22 mmol/L (23-31); Chloride 103 mmol/L (98-107); Estimated GFR-MDRD 70; Glucose 90 mg/dL (80-115); Lipase 32 U/L (8-78); Magnesium 1.3 mg/dL (1.6-2.6); Potassium 4.7 mmol/L (3.5-5.1); Protein, Total 8.6 g/dL (6.0-8.3); Sodium 138 mmol/L (136-145)
[2019-10-30] MEDS ORDERED: Ondansetron PF 4 MG/2 ML Vial ONE (12:02)
[2019-10-30] MEDS ORDERED: Morphine 4 MG/ML VIAL ONE (12:02)
[2019-10-30] MEDS ORDERED: Ketorolac Tromethamine 30 MG/ML VIAL ONE (12:06)
[2019-10-30 14:14] LABS: Lactic Acid 1.4 mmol/L (0.5-2.2)
== END 2019-10-30 14:50 | disposition home or self-care (01) ==
LOC: ERS 10:41
DX: R10.10 Upper abdominal pain, unspecified (principal); I10 Essential (primary) hypertension; R11.2 Nausea with vomiting, unspecified; E11.9 Type 2 diabetes mellitus without complications; J45.909 Unspecified asthma, uncomplicated; M19.90 Unspecified osteoarthritis, unspecified site; F32.9 Major depressive disorder, single episode, unspecified; Z87.891 Personal history of nicotine dependence; Z79.4 Long term (current) use of insulin; Z79.899 Other long term (current) drug therapy; Z79.82 Long term (current) use of aspirin
CPT/HCPCS: 80053; 83605; 83690; 83735; 85025; 93005; 94760; 96361; 96372; 96374; 96375; J0500; J1885; J2270; J2405

== ENCOUNTER 2019-12-23 19:39 | Emergency (ER) | payer MEDICARE ==
[2019-12-23 20:57] LABS: #Basophils 0.1 thou/uL (0.0-0.2); #Eosinphils 0.2 thou/uL (0.0-0.7); #Lymphocytes 4.1 thou/uL (1.20-3.40); %Basophils 1.2 % (0.0-1.0); %Eosinophils 2.3 % (0.0-10.0); %Lymphocytes 43.5 % (21.0-51.0); %Monocytes 10.8 % (0.0-10.0); %Neutrophils 42.2 % (42.0-75.0); Anisocytosis MODERATE=16-30 cells (100X) (0-5/hpf); Hemoglobin 10.2 g/dL (12.0-16.0); MDiff Complete? YES; Mean Corpuscular HGB CONC 31.9 g/dL (32.0-36.0); Mean Corpuscular Hemoglobin 23.8 pg (27.0-31.0); Mean Corpuscular Volume 74.6 fL (78.0-98.0); Mean Platelet Volume 10.3 fL (7.4-10.4); Platelet Count 338 thou/uL (130-400); Platelet Morphology Comment Appears Adequate; Red Blood Cell (RBC) Count 4.29 mill/uL (4.20-5.40); Target Cells SLIGHT = 2-5 cells (100X) (0-1/hpf); White Blood Cell (WBC) Count 9.4 thou/uL (4.8-10.8)
[2019-12-23 20:58] LABS: ALT (SGPT) 29 U/L (8-55); AST (SGOT) 65 U/L (5-34); Albumin 3.8 g/dL (3.4-4.8); Alkaline Phosphatase 97 U/L (40-110); Anion Gap 16 mmol/L (10-20); BUN (Urea Nitrogen) 7 mg/dL (9.8-20.1); Bilirubin, Total 0.3 mg/dL (0.2-1.2); Calc. Creatinine Clearance 0 mL/min (70-130); Calcium 8.9 mg/dL (7.8-10.44); Carbon Dioxide 22 mmol/L (23-31); Chloride 99 mmol/L (98-107); Estimated GFR-MDRD 58; Globulin 4.3 g/dL (2.4-3.5); Glucose 240 mg/dL (80-115); Potassium 4.4 mmol/L (3.5-5.1); Protein, Total 8.1 g/dL (6.0-8.3); Sodium 133 mmol/L (136-145)
--- NOTE | 2019-12-23 21:10 | CT ---
CT head noncontrast HISTORY: Fall. Syncope. COMPARISON: 03/07/2019. FINDINGS: There is no evidence of acute intracranial hemorrhage or infarct. The ventricles appear nor mal in size, shape and position. There is no mass effect or shift of midline structures. Scalp swelling and hyperdensity at the left parietal lobe and may represent the recent injury. IMPRESSION : No acute intracranial abnormalities are demonstrated.
--- NOTE | 2019-12-23 21:11 | RAD ---
Chest one view HISTORY: Syncope. COMPARISON: 08/30/2019. FINDINGS: Cardiac silhouette and pulmonary vasculature are unremarkable. Mediastinum is midline. No lobar consolidation or evidence of pneumothorax. IMPRESSION : No abnormalities are demonstrated.
[2019-12-23 21:13] LABS: CKMB 1.5 ng/mL (0-6.6)
[2019-12-23] MEDS ORDERED: Acetaminophen 500 MG TAB ONE (23:01)
[2019-12-23 23:06] LABS: Troponin I 0.018 ng/mL (< 0.028)
== END 2019-12-23 23:24 | disposition home or self-care (01) ==
LOC: ERS 19:39
DX: R55 Syncope and collapse (principal); S00.03XA Contusion of scalp, initial encounter; E11.9 Type 2 diabetes mellitus without complications; I10 Essential (primary) hypertension; J45.909 Unspecified asthma, uncomplicated; M19.90 Unspecified osteoarthritis, unspecified site; F32.9 Major depressive disorder, single episode, unspecified; K86.1 Other chronic pancreatitis; Z87.891 Personal history of nicotine dependence; Z79.4 Long term (current) use of insulin; Z79.82 Long term (current) use of aspirin; Z79.899 Other long term (current) drug therapy; W01.198A Fall on same level from slipping, tripping and stumbling with subsequent striking against other object, initial encounter
CPT/HCPCS: 36415; 70450; 71045; 80053; 82553; 84484; 85025; 93005

== ENCOUNTER 2019-12-26 14:52 | Observation (INO) | payer MEDICARE ==
[2019-12-26 16:11] LABS: #Basophils 0.1 thou/uL (0.0-0.2); #Eosinphils 0.3 thou/uL (0.0-0.7); #Lymphocytes 3.7 thou/uL (1.20-3.40); #Monocytes 0.8 thou/uL (0.11-0.59); #Neutrophils 4.7 thou/uL (1.40-6.50); %Basophils 1.1 % (0.0-1.0); %Eosinophils 3.2 % (0.0-10.0); %Lymphocytes 38.7 % (21.0-51.0); %Monocytes 7.9 % (0.0-10.0); %Neutrophils 49.2 % (42.0-75.0); Hemoglobin 10.1 g/dL (12.0-16.0); Mean Corpuscular HGB CONC 32.2 g/dL (32.0-36.0); Mean Corpuscular Hemoglobin 24.3 pg (27.0-31.0); Mean Corpuscular Volume 75.6 fL (78.0-98.0); Platelet Count 316 thou/uL (130-400); RBC Distribution Width 23.4 % (11.5-14.5); Red Blood Cell (RBC) Count 4.14 mill/uL (4.20-5.40); White Blood Cell (WBC) Count 9.6 thou/uL (4.8-10.8)
--- NOTE | 2019-12-26 16:17 | CT ---
EXAM: CT brain without contrast HISTORY: Syncope COMPARISON: 12/23/2019 TECHNIQUE: Multiple contiguous axial images were obtained and a CT of the brain without contrast. FINDINGS: There are scattered hypodensities in the subcortical and periventricular white matter consi stent with small vessel ischemic disease. There is no evidence of hydrocephalus, intracranial hemorrhage, or extra-axial fluid collection. The calvarium and overlying soft tissues are unremarkable. The visualized paranasal sinuses and masto id air cells are well aerated. IMPRESSION: No evidence of acute intracranial abnormality
[2019-12-26 16:24] LABS: ALT (SGPT) 21 U/L (8-55); AST (SGOT) 36 U/L (5-34); Alkaline Phosphatase 96 U/L (40-110); Anion Gap 17 mmol/L (10-20); BUN (Urea Nitrogen) 10 mg/dL (9.8-20.1); Bilirubin, Total 0.2 mg/dL (0.2-1.2); Calc. Creatinine Clearance 0 mL/min (70-130); Calcium 9.1 mg/dL (7.8-10.44); Carbon Dioxide 19 mmol/L (23-31); Chloride 103 mmol/L (98-107); Estimated GFR-MDRD 51; Globulin 4.6 g/dL (2.4-3.5); Glucose 221 mg/dL (80-115); Potassium 3.8 mmol/L (3.5-5.1); Protein, Total 8.6 g/dL (6.0-8.3); Sodium 135 mmol/L (136-145)
[2019-12-26 16:28] LABS: Hypochromia SLIGHT = 6-15 cells (100X) (0-5/hpf); Large Platelets SLIGHT; MDiff Complete? YES; Microcytosis SLIGHT = 6-15 cells (100X) (0-5/hpf); Platelet Morphology Comment Appears Adequate; Polychromasia SLIGHT = 2-3 cells (100X) (0-2/hpf); Schistocytes SLIGHT = 2-5 cells (100X) (0-1/hpf); Target Cells MARKED = >16 cells (100X) (0-1/hpf); Tear Drops SLIGHT = 2-5 cells (100X) (0-1/hpf)
--- NOTE | 2019-12-26 16:32 | RAD ---
XR Chest 1 View Portable HISTORY: Syncope COMPARISON: 12/23/2019 FINDINGS: The heart size is normal. The lungs are well expanded without focal areas of consolidation, pneumothorax or pleural effusions. IMPRESSION: No radiographic evidence of acute cardiopulmonary process.
[2019-12-26] MEDS ORDERED: Clopidogrel Bisulfate 300 MG TAB ONE (17:20)
--- NOTE | 2019-12-26 17:54 | PDOC.FPRHP ---
- History of Present Illness Chief Complaint: Syncope History of Present Illness: Patient presents with syncope. Has had 2 episodes of syncope since Thursday. She states these are the only episodes of syncope she has ever had. Was seen here in the ER for the same on 12/23/2019 and was d/c'd. She reports that the falls typically happen when she is walking. The most recent fall happened after she had walked 4-5 steps. Before that she was sitting down, slowly stood up to get her cane, then began to walk. She denies dizziness, lightheadedness, and vision changes prior to episodes. Patient endorsed LOC after syncopizing and hitting her head both times noting she feels knots on her head. She reports that when the episodes happen, the syncope "hits her" suddenly and she wakes up on the ground. She states "a long time ago" she was told she had an irregular heart rhythm but was not put on any medication as a result and has never been told that again. She denies hx of heart disease/murmurs/valve disorders, ID, stroke, of any blood disorders or past occurrences of anemia, hx of seizures, bowel/ urinary incontinence with syncope, postictal state, syncope with prolonged standing or when feeling hot, recent/recurrent low BGs, recent changes to HTN regimen and states she does not check her BP regularly but does not know of any recent lows. CXR was normal, head CT w/o contrast was normal. Reviewed inpatient/ER record from prior stay that showed patient had an elevated troponin of 0.018 with similar complaint on 12/23/2019 but the troponin resolved and the patient was discharged home at that time. Troponin today was 0.066 and are being trended. CBC showed a microcytic anemia with target cells but similar work up on 2019 showed a similar mild microcytic anemia with anisocytes but no significant target cells. - Allergies/Adverse Reactions Allergies Allergy/AdvReac Type Severity Reaction Status Date / Time CARL Inhibitors Allergy Verified 08/30/19 07:49 lisinopril Allergy Verified 08/30/19 07:49 nalbuphine HCl [From Nubain] Allergy Verified 08/30/19 07:49 Penicillins Allergy Verified 08/30/19 07:49 pentazocine lactate Allergy Verified 08/30/19 07:49 [From Talwin] EGGS Allergy Uncoded 08/30/19 07:49 - Home Medications Medication Instructions Recorded Confirmed Type Hydrochlorothiazide 50 mg PO DAILY #0 03/26/13 12/27/19 History Albuterol Sulfate [Proair HFA] 2 puff INH BID PRN 03/09/14 12/27/19 History Gabapentin 2 tab PO TID 09/09/16 12/27/19 History Insulin Glargine,Hum.Rec.Anlog 40 unit SQ BID 09/09/16 12/27/19 History [Lantus Solostar] Lidocaine [Lidocaine 5% Ointment] 1 - 2 applic TOP QID 09/09/16 12/27/19 History metFORMIN HCl [Metformin ER 1 tab PO BID 09/09/16 12/27/19 History Gastric] HumaLOG [HumaLOG Vial] 12 unit SC BID-AC 08/24/19 12/27/19 History Iron Polysaccharides Complex 150 mg PO BID-WM #1 cap 09/01/19 12/27/19 Rx [Niferex] Metoprolol Succinate [Toprol XL] 25 mg PO DAILY #30 tab 09/01/19 12/27/19 Rx traMADol HCl [Ultram] 50 mg PO Q6H PRN tab 09/01/19 12/27/19 Rx Calcium Carbonate [Tums] 1,000 mg PO Q4H PRN tab 12/27/19 Rx Gabapentin [Neurontin] 1,200 mg PO TID cap 12/27/19 Rx Hydrochlorothiazide 50 mg PO DAILY tab 12/27/19 Rx Insulin Glargine [Lantus Vial] 20 units SC BID vial 12/27/19 Rx Iron Polysaccharides Complex 150 mg PO BID-WM cap 12/27/19 Rx [Niferex] Metoprolol Succinate [Toprol XL] 25 mg PO DAILY tab 12/27/19 Rx Pantoprazole [Protonix] 40 mg PO DAILY 12/27/19 12/27/19 History Pantoprazole [Protonix] 40 mg PO DAILY tab 12/27/19 Rx - History PMHx: Flu vaccine up to date, Tetanus not up to date, Pneumococcal vaccine up to date. Chronic pancreatitis, DMII, HTN, asthma, arthritis, depression, NSTEMI 08/2019 PSHx: b/l hip replacement, back sx x2, L elbow sx, partial hysterectomy and tubal ligation, tonsillectomy FHx: Mom has "some kind of heart disease" Social: Patient is a former tobacco user but quit smoking about 15 years ago. Smokes marijuana about once/wk and drinks socially (2 drinks about once/wk). - Review of Systems General: denies: fever/chills, fatigue Eyes: denies: eye pain, vision changes ENT: denies: nasal congestion, rhinorrhea Respiratory: denies: cough, congestion, shortness of breath Cardiovascular: denies: chest pain, palpitation Gastrointestinal: reports: nausea (Persistent, not new). denies: vomiting, diarrhea, GI bleeding Genitourinary: denies: incontinence, dysuria, discharge Skin: denies: rashes, lesions Musculoskeletal: denies: pain, tenderness, stiffness, swelling Neurological: reports: numbness (tingling in fingers/toes w/out insulin), syncope, other (Headache 2/2 hitting head with syncopal episodes). denies: seizure, weakness Psychological: reports: depression (Known hx). denies: anxiety - Vital signs BP: 151/44, Pulse: 84, Resp: 18, Temp: 98.0 (Oral), Pain: 0, O2 sat: 99 on ( Room Air) - Physical Exam Constitutional: NAD, awake, alert and oriented, well developed HEENT: normocephalic and atraumatic, PERRLA (Minimal reactivity to light), EOMI , conjunctiva clear, no scleral icterus, grossly normal vision, grossly normal hearing -HEENT: Poor dentition, missing most teeth Neck: supple, FROM, no JVD Chest: no-tender to palpation, no lesions Heart: RRR, normal S1/S2, no murmurs/rubs/gallops, pulses present, no edema Lungs: CTAB, no respiratory distress, good air movement Abdomen: soft, non-tender, no masses/distention Musculoskeletal: normal structure, normal tone, ROM grossly normal Neurological: no focal deficit, CN II-XII intact, normal sensation -Neurological: No nystagmus Skin: good turgor, capillary refill <2 seconds, no jaundice, other (healing incision on L paz) Heme/Lymphatic: no unusual bruising or bleeding, no purpura, no petechia Psychiatric: normal mood and affect, intact recent and remote memory FMR H&P: Results - Labs Result Diagrams: 12/27/19 02:28 12/27/19 02:28 Lab results: WBC 9.6 thou/uL (4.8-10.8) 12/26/19 15:53 Hgb 10.1 g/dL (12.0-16.0) L 12/26/19 15:53 Hct 31.3 % (36.0-47.0) L 12/26/19 15:53 MCV 75.6 fL (78.0-98.0) L 12/26/19 15:53 Plt Count 316 thou/uL (130-400) 12/26/19 15:53 Neutrophils % 49.2 % (42.0-75.0) 12/26/19 15:53 Sodium 135 mmol/L (136-145) L 12/26/19 15:53 Potassium 3.8 mmol/L (3.5-5.1) 12/26/19 15:53 Chloride 103 mmol/L (98-107) 12/26/19 15:53 Carbon Dioxide 19 mmol/L (23-31) L 12/26/19 15:53 BUN 10 mg/dL (9.8-20.1) 12/26/19 15:53 Creatinine 1.27 mg/dL (0.6-1.1) H 12/26/19 15:53 Glucose 221 mg/dL (80-115) H 12/26/19 15:53 Calcium 9.1 mg/dL (7.8-10.44) 12/26/19 15:53 Total Bilirubin 0.2 mg/dL (0.2-1.2) 12/26/19 15:53 AST 36 U/L (5-34) H 12/26/19 15:53 ALT 21 U/L (8-55) 12/26/19 15:53 Alkaline Phosphatase 96 U/L (40-110) 12/26/19 15:53 CK-MB (CK-2) 2.0 ng/mL (0-6.6) 12/26/19 15:53 B-Natriuretic Peptide 65.3 pg/mL (0-100) 12/26/19 15:53 Serum Total Protein 8.6 g/dL (6.0-8.3) H 12/26/19 15:53 Albumin 4.0 g/dL (3.4-4.8) 12/26/19 15:53 - EKG Interpretation EKG: Normal sinus rhythm FMR H&P: A/P - Problem List (1) Microcytic anemia Current Visit: Yes Onset Date: Unknown Status: Chronic Code(s): D50.9 - IRON DEFICIENCY ANEMIA, UNSPECIFIED (2) Target cells present on peripheral blood smear Current Visit: Yes Status: Acute Code(s): R71.8 - OTHER ABNORMALITY OF RED BLOOD CELLS (3) Syncope Current Visit: Yes Onset Date: ~12/23/19 Status: Acute Code(s): R55 - SYNCOPE AND COLLAPSE Qualifiers: Syncope type: unspecified Qualified Code(s): R55 - Syncope and collapse Comment: Suspected 2/2 orthostatic hypotension (4) Diabetes mellitus Current Visit: Yes Status: Chronic Code(s): E11.9 - TYPE 2 DIABETES MELLITUS WITHOUT COMPLICATIONS Qualifiers: Diabetes mellitus type: type 2 Diabetes mellitus ad terminal makeup operator insulin use: with ad terminal makeup operator use Diabetes mellitus complication status: with hypoglycemia Diabetes mellitus complication detail: without coma Qualified Code(s): E11.649 - Type 2 diabetes mellitus with hypoglycemia without coma; Z79.4 - retirement (current) use of insulin (5) HTN (hypertension) Current Visit: Yes Status: Chronic Code(s): I10 - ESSENTIAL (PRIMARY) HYPERTENSION Qualifiers: Hypertension type: essential hypertension Qualified Code(s): I10 - Essential (primary) hypertension Assessment and Plan: - Hx of HTN, well-controlled on meds - Continue home meds - Monitor BP (6) Status post left hip replacement Current Visit: Yes Status: Acute Code(s): Z96.642 - PRESENCE OF LEFT ARTIFICIAL HIP JOINT - Plan Syncope, likely 2/2 orthostatic hypotension - Pt has had two episodes of syncope - the first on 12/23/2019 and the second on 12/25/2019 - with no prior episodes - Assoc with standing/walking - No hx of seizures/postictal state, heart disease, recent low BGs, changes in BP meds and recent low BPs, vasovagal Sx, mechanical - Was told once she had an irregular heart rhythm but did not require tx - no murmur on PE - Head CT (12/26/2019) normal - EKG normal - 08/2019: NSTEMI with heart cath by [place] who noted Bypass by Ze Echo showing mild mitral/tricuspid regurg but no aortic valve dysfunction/ structural abnormality; EF ~65% - UDS pending - Orthostatic BP pending - Soft fluids started - skin turgor and cap refill normal - Consider PT consult/walking program Microcytic anemia - CBC showed mild microcytic anemia (12/26/2019) consistent with prior visits - Blood smear (12/26/2019) showed marked target cells, inconsistent with prior visits - Iron studies pending (12/26/2019) - serum iron, ferritin, TIBC, % saturation DMII - Hx of DMII - Hypoglycemia protocol - Started SS - Heart healthy and carb conscious diet S/p b/l hip replacements - Patient endorses pain/instability with walking requiring use of a cane - Consider PT eval/walking program Disposition/LOS: Dispo: Admit to tele obs Diet: Heart healthy Code status: Full Ppx: Lovenox FMR H&P: Upper Level - Plan Date/Time: 12/26/191751 ISara MD, have evaluated this patient and agree with findings/plan as outlined by statistics intern resident. Pertinent changes/additions are listed here. This is a 69yo AA F with PMH DM, HTN, who presents to the ER after 2 syncopal episodes over the weekend. The patient was seen in the ER on 12/22 and evaluated for syncope. She then had another episode today. She states the episodes are mostly associated when getting up from sitting/lying down. She states that both times she had LOC. It was witnessed. No tongue biting, shaking, loss of bowels, or post ictal state. She denies dizziness, chest pain, NVD, abd pain, swelling in extremities, palpitations prio to or after episodes. She reports hx of arrhythmia, but is unsure what. She had an echo done recently here that was normal. She denies any vision changes or headache currently. Reports normal PO intake. Denies any dysuria. States she used to have hypoglycemic episodes but she changed her insulin regimen and has not had any issues with this lately. Endorses drug use - marijuana. See statistics intern note for full HPI/details PE: General: NAD, well developed HEENT: NC/AT, EOMI, trachea midline Cardio: RRR, no murmurs, rubs or gallops, normal S1/S2 Resp: CTAB, no wheezes, crackles, or rales Abd: soft, non distended, normal bs Skin: MMM, normal cap refill, good skin turgor Neuro: CN II-XII intact, no nystagmus noted, sensation decreased on L forehead and R chin MSK: scar noted on LLE, no edema b/l Psych: axox3 Plan: Syncope 2/2 suspected orthostatic hypotension Patient reporting syncope that is mostly associated with position. Denies any dizziness, vertigo episodes. EKG with no abnormalities. CXR normal. CT brain normal. Differential includes: orthostatics, vasovagal, cardiac cause ( arrhythmia vs structural), medication, drugs. - Will obtain orthostatics - Will start mIVF, encourage PO hydration - Patient with initial trop 0.066, will continue to trend to r/o ACS. - Patient with hx of CAD, echo in 08/2019 showing EF>65%, no noted or diastolic dysfunction. BNP nml. - Carotid doppler US ordered in ER - Will obtain UDS to r/o. Endorses marijuana use. - Admit to tele, obs Mild Anemia CBC with H/H: .07/08.3 - appears microcytic, will further work up with iron studies TEE BUN/Cr: - Will give mIVF, will continue to monitor Mod CAD - aware, s/p cath earlier this year - continue metoprolol, monitor on tele DM Glucose 220 on admission. - A1c pending - SS, will continue home meds PVD s/p femoral distal bypass grafting on LLE - aware HTN - aware, needs med rec Dispo: admit to tele, obs Ppx: lovenox Code: FULL Case discussed with Dr. Gongora Addendum - Attending - Attending Attestation Date/Time: 12/27/19 1383 I personally evaluated the patient and discussed the management with the team. I agree with the History, Examination, Assessment and Plan documented above with any addition or exceptions noted below. Recent TTE with no syncope-compatible findings. Will observe on tele. Get orthostatics.
--- NOTE | 2019-12-26 18:18 | PDOC.FPRHP ---
- History of Present Illness Chief Complaint: Syncope History of Present Illness: Patient presents with syncope. Has had 4 episodes of syncope since Thursday. Was seen here in the ER for the same and was d/c'd. Patient endorsed LOC after syncopizing and hitting her head recently as well. She endorsed positional and exertional syncope as well. Reviewed inpatient/ER record from prior stay patient had an elevated troponin with similar complaint on 22 December but the troponin resolved and the patient was discharged home at that time. She was referred to cardiology. - Allergies/Adverse Reactions Allergies Allergy/AdvReac Type Severity Reaction Status Date / Time CARL Inhibitors Allergy Verified 08/30/19 07:49 lisinopril Allergy Verified 08/30/19 07:49 nalbuphine HCl [From Nubain] Allergy Verified 08/30/19 07:49 Penicillins Allergy Verified 08/30/19 07:49 pentazocine lactate Allergy Verified 08/30/19 07:49 [From Talwin] EGGS Allergy Uncoded 08/30/19 07:49 - Home Medications Medication Instructions Recorded Confirmed Type Hydrochlorothiazide 25 mg PO DAILY #0 03/26/13 08/24/19 History Albuterol Sulfate [Proair HFA] 2 puff INH BID PRN 03/09/14 08/24/19 History Gabapentin 2 tab PO TID 09/09/16 08/24/19 History Insulin Glargine,Hum.Rec.Anlog 40 unit SQ BID 09/09/16 08/24/19 History [Lantus Solostar] Lidocaine [Lidocaine 5% Ointment] 1 - 2 applic TOP QID 09/09/16 08/24/19 History Tramadol HCl 1 - 2 tab PO TID PRN 09/09/16 08/24/19 History metFORMIN HCl [Metformin ER 0.5 tab PO BID 09/09/16 08/24/19 History Gastric] Aspirin [Aspir-Low] 81 mg PO DAILY 08/15/19 08/24/19 History HumaLOG [HumaLOG Vial] 12 unit SC BID-AC 08/24/19 08/24/19 History Promethazine [Phenergan] 25 mg PO Q6HR PRN 08/24/19 08/24/19 History HYDROcodone Bit/APAP 5/325 [[place] 1 - 2 tab PO Q4HR PRN 09/01/19 09/01/19 History 5/325] Iron Polysaccharides Complex 150 mg PO BID-WM #1 cap 09/01/19 Rx [Niferex] Metoprolol Succinate [Toprol XL] 25 mg PO DAILY #30 tab 09/01/19 Rx traMADol HCl [Ultram] 50 mg PO Q6H PRN tab 09/01/19 Rx traMADol HCl [Ultram] 100 mg PO Q6H PRN tab 09/01/19 Rx - History PMHx: Flu vaccine up to date, Tetanus not up to date, Pneumococcal vaccine up to date, CHRONIC PANCREATITIS, Past medical history includes history of diabetes , Past medical history includes history of hypertension, Past medical history includes pulmonary disease, asthma. confirmed , ARTHRITIS. Depression PSHx: bilat HIP REPLACEMENT, BACK SX X2, LT ELBOW SX, Surgical history of hysterectomy, Notes: PARTIAL, Surgical history of tonsillectomy, Surgical history of tubal ligation. FHx: Social: Patient is a former tobacco user, smoked cigarettes, Patient quit smoking more than 10 years ago, Patient currently uses drugs, abuses marijuana, Infrequent drug use, Patient drinks socially (2 drinks every other day). - Vital signs BP: [] HR: [] RR: [] Tmax: [] Pox: []% on [] Wt: [] FMR H&P: Results - Labs Result Diagrams: 12/26/19 15:53 12/26/19 15:53 Lab results: WBC 9.6 thou/uL (4.8-10.8) 12/26/19 15:53 Hgb 10.1 g/dL (12.0-16.0) L 12/26/19 15:53 Hct 31.3 % (36.0-47.0) L 12/26/19 15:53 MCV 75.6 fL (78.0-98.0) L 12/26/19 15:53 Plt Count 316 thou/uL (130-400) 12/26/19 15:53 Neutrophils % 49.2 % (42.0-75.0) 12/26/19 15:53 Sodium 135 mmol/L (136-145) L 12/26/19 15:53 Potassium 3.8 mmol/L (3.5-5.1) 12/26/19 15:53 Chloride 103 mmol/L (98-107) 12/26/19 15:53 Carbon Dioxide 19 mmol/L (23-31) L 12/26/19 15:53 BUN 10 mg/dL (9.8-20.1) 12/26/19 15:53 Creatinine 1.27 mg/dL (0.6-1.1) H 12/26/19 15:53 Glucose 221 mg/dL (80-115) H 12/26/19 15:53 Calcium 9.1 mg/dL (7.8-10.44) 12/26/19 15:53 Total Bilirubin 0.2 mg/dL (0.2-1.2) 12/26/19 15:53 AST 36 U/L (5-34) H 12/26/19 15:53 ALT 21 U/L (8-55) 12/26/19 15:53 Alkaline Phosphatase 96 U/L (40-110) 12/26/19 15:53 CK-MB (CK-2) 2.0 ng/mL (0-6.6) 12/26/19 15:53 B-Natriuretic Peptide 65.3 pg/mL (0-100) 12/26/19 15:53 Serum Total Protein 8.6 g/dL (6.0-8.3) H 12/26/19 15:53 Albumin 4.0 g/dL (3.4-4.8) 12/26/19 15:53 FMR H&P: Upper Level - Plan Date/Time: 12/26/191815 I, [], have evaluated this patient and agree with findings/plan as outlined by senior internet sales consultant resident. Pertinent changes/additions are listed here.
[2019-12-26 19:57] LABS: Troponin I 0.047 ng/mL (< 0.028)
[2019-12-26 21:40] LABS: Bilirubin Negative (Negative); Blood, Urine Negative (Negative); Clarity Clear (Clear); Glucose, Urine (Dipstick) Normal (Negative); Ketone, Urine Negative (Negative); Leukocyte 250 Leu/uL (Negative); Nitrite Negative (Negative); Protein, Urine (Dipstick) Negative (Neg-Trace); RBC/HPF 0-3 HPF (0-3); Specific Gravity, Urine 1.007 (1.002-1.036); Squamous Epithelial 0-3 HPF (0-3); Urobilinogen Normal mg/dL (Less than 2); pH, Urine 6.5 (5.0-9.0)
[2019-12-26 21:41] LABS: Bacteria/HPF 1+ HPF (None Seen)
[2019-12-26 23:11] LABS: Troponin I 0.068 ng/mL (< 0.028)
[2019-12-27 00:13] VITALS: BMI 29.6
[2019-12-27] MEDS ORDERED: Ondansetron ODT 4 MG TAB PO PRN (00:13)
[2019-12-27] MEDS ORDERED: Nicotine 14 MG PATCH TD PRN (00:13)
[2019-12-27] MEDS ORDERED: Calcium Carbonate 500 MG ChewTAB PO PRN (00:13)
[2019-12-27] MEDS ORDERED: Acetaminophen 650 MG Suppository PR PRN (00:13)
[2019-12-27] MEDS ORDERED: Ondansetron PF 4 MG/2 ML Vial IVP PRN (00:13)
[2019-12-27] MEDS ORDERED: Acetaminophen 325 MG TAB PO PRN (00:13)
[2019-12-27] MEDS ORDERED: Dextrose 5% in Water 1,000 ML IV PRN (00:13)
[2019-12-27] MEDS ORDERED: HumaLOG 300 UNITS/3 ML VIAL SC PRN (00:13)
[2019-12-27] MEDS ORDERED: Dextrose 50% Abboject 50 ML SYRINGE SLOW IVP PRN (00:13)
[2019-12-27] MEDS ORDERED: Insulin Glargine 20 UNITS in Pre-Filled Syringe 1 EACH SC SCH (00:30)
[2019-12-27 01:05] LABS: Amphetamine Not Detected (NotDetected); Barbiturates Screen Not Detected (NotDetected); Benzodiazepine Screen Not Detected (NotDetected); Cocaine Metabolite Screen Not Detected (NotDetected); Medtox Control Line Valid? VALID (VALID); Medtox Reader # READER 1; Methadone Not Detected (NotDetected); Methamphetamine Not Detected (NotDetected); Opiate Screen Not Detected (NotDetected); Oxycodone Screen Not Detected (NotDetected); Phencyclidine (PCP) Not Detected (NotDetected); THC/Cannabinoid Screen Detected (NotDetected); Tricyclic Screen Not Detected (NotDetected)
[2019-12-27] MEDS: Lactated Ringer's 1,000 ML IV SCH ×2 (01:11→08:45)
[2019-12-27 02:40] LABS: #Basophils 0.1 thou/uL (0.0-0.2); #Eosinphils 0.4 thou/uL (0.0-0.7); #Lymphocytes 2.9 thou/uL (1.20-3.40); #Monocytes 0.7 thou/uL (0.11-0.59); #Neutrophils 3.5 thou/uL (1.40-6.50); %Basophils 1.3 % (0.0-1.0); %Eosinophils 4.7 % (0.0-10.0); %Lymphocytes 38.4 % (21.0-51.0); %Monocytes 9.5 % (0.0-10.0); %Neutrophils 46.1 % (42.0-75.0); Hemoglobin 8.6 g/dL (12.0-16.0); Mean Corpuscular HGB CONC 30.9 g/dL (32.0-36.0); Mean Corpuscular Hemoglobin 23.3 pg (27.0-31.0); Mean Corpuscular Volume 75.5 fL (78.0-98.0); Platelet Count 269 thou/uL (130-400); RBC Distribution Width 23.2 % (11.5-14.5); Red Blood Cell (RBC) Count 3.67 mill/uL (4.20-5.40); White Blood Cell (WBC) Count 7.6 thou/uL (4.8-10.8)
[2019-12-27 02:44] LABS: Hemoglobin A1c 6.5 % (4.0-6.0)
[2019-12-27] MEDS ORDERED: PROVENTIL INHALER 6.7 G (200 INHALATIONS) INH PRN (02:44)
[2019-12-27 02:57] LABS: Iron 28 ug/dL (50-170); Iron Binding Capacity, Total 373 mcg/dL (265-497)
[2019-12-27 03:01] LABS: Troponin I 0.039 ng/mL (< 0.028)
[2019-12-27 03:07] LABS: Anion Gap 10 mmol/L (10-20); BUN (Urea Nitrogen) 7 mg/dL (9.8-20.1); Calc. Creatinine Clearance 89 mL/min (70-130); Calcium 8.7 mg/dL (7.8-10.44); Carbon Dioxide 25 mmol/L (23-31); Chloride 107 mmol/L (98-107); Estimated GFR-MDRD 83; Glucose 203 mg/dL (80-115); Potassium 3.4 mmol/L (3.5-5.1); Sodium 139 mmol/L (136-145)
--- NOTE | 2019-12-27 06:54 | PDOC.FM ---
- Subjective Subjective: Pt resting comfortably in bed at bedside. She had no complaints overnight. No acute events occurred overnight. She states that she is feeling better and not having any lightheadedness or dizziness. - Objective Vital Signs & Weight: Vital Signs (12 hours) Temp Pulse Resp BP Pulse Ox 12/27/19 04:13 98.2 F 75 18 141/67 H 96 12/26/19 20:00 98 Weight Weight 85.729 kg Result Diagrams: 12/27/19 02:28 12/27/19 02:28 Phys Exam - Physical Examination Constitutional: NAD HEENT: PERRLA, moist MMs Respiratory: no wheezing, no rales, no rhonchi, clear to auscultation bilateral Cardiovascular: RRR, no significant murmur, no rub Gastrointestinal: soft, non-tender, no distention, positive bowel sounds Musculoskeletal: no edema, pulses present Psychiatric: normal affect, A&O x 3 Dx/Plan - Plan Plan: 69 y/o F with DMII and HTN presented to ED after syncopal episodes. ## Syncope Patient reporting syncope that is mostly associated with position. Denies any dizziness, vertigo episodes. EKG with no abnormalities. CXR normal. CT brain normal. -vasovagal vs. orthostatic hypotension vs. mechanical/arrythmia vs. medicines/ drugs -echo in 08/2019 showing EF>65%, no noted or diastolic dysfunction -trend trops: 0.066-->0.047-->0.068-->0.039 -BNP = nl -UDS + cannabinoids -cartoid doppler ordered in ED, pending report -will obtain orthostatics ## TEE -[employer]: 1.27-->0.83 -mIVF started, PO hydration encouraged ## Asymptomatic UTI -UA showed leukocytesterase and WBCs ## CAD s/p bypass -continue metoprolol, monitor on tele ## Mild Anemia - H/H: 10.1/31.3--> 8.4 -appears microcyctic -serum iron low, TIBC, ferritin, % saturation nl -pt home medication: ferrous sulfate ## HTN - on HCTZ ## DM -mild SSI -A1C = 6.5 -held home metformin -on gabapentin ## PVD -s/p femoral distal bypass grafting on LLE ## Asthma -albuterol inhaler prn ## Tobacco abuse -counseling with patient -nicotine patch prn Code: Full VTE PPX: Lovenox GI PPX: Protonix Diet: CC PCP: Sanjay Dispo: admitted to observation telemetry, expected length of stay < 48 hours. had no telemetry events since hospitilization. pt feeling clinically better. f/ u with carotid doppler results. anemia work up can be managed outpatient. plan to d/c home today pending results of tests. Addendum - Attending - Attending Attestation Date/Time: 12/27/19 3862 I personally evaluated the patient and discussed the management with Dr. Grace. I agree with the History, Examination, Assessment and Plan documented above with any addition or exceptions noted below. Patient feeling improved. Negative workup thus far. No indication for further eval. Stable for discharge.
--- NOTE | 2019-12-27 07:54 | ULT ---
BILATERAL CAROTID DUPLEX ULTRASOUND: HISTORY: Syncope with fall TECHNIQUE: Grayscale, color-flow and spectral Doppler ultrasound imaging of the extracranial carotid artery syst ems was performed bilaterally. FINDINGS: There is plaque formation the right ICA and CCA. The left side cannot be evaluated due to bandages an d IV The peak systolic velocity in the right ICA measures 89 cm/s with an end-diastolic velocity of 22 cm/ s and a systolic ratio of 0.84. Flow in right vertebral artery remains antegrade. IMPRESSION: 1. No evidence of hemodynamically significant stenosis in the right ICA. 2. The left side could not be evaluated.
[2019-12-27] MEDS ORDERED: Iron Polysaccharides Complex 150 MG CAP PO SCH (08:00)
[2019-12-27 08:43] VITALS: TEMP 98.1
[2019-12-27] MEDS ORDERED: Enoxaparin Sodium 40 MG/0.4 ML SYRINGE SC SCH (09:00)
[2019-12-27] MEDS ORDERED: Prevnar 13-Val Conj/PF 0.5 ML SYRINGE IM ONE (09:00)
[2019-12-27] MEDS ORDERED: Hydrochlorothiazide 25 MG TAB PO SCH (09:00)
[2019-12-27] MEDS ORDERED: Gabapentin 400 MG CAP PO SCH (09:00)
[2019-12-27] MEDS: Insulin Glargine 20 UNITS in Pre-Filled Syringe 1 EACH SC SCH ×2 (10:47→12:01)
[2019-12-27 12:25] VITALS: BP 153/68
[2019-12-27 12:45] LABS: Glucose 278 mg/dL (80-115)
--- NOTE | 2019-12-28 12:56 | DIS ---
DATE OF ADMISSION: 12/26/2019 DATE OF DISCHARGE: 12/27/2019 RESIDENT: Aidee Grace DO ADMITTING ATTENDING: Davi Gongora MD DISCHARGE ATTENDING: Eulalio Rondon MD CONSULTS: None. PROCEDURES: CT brain without contrast showed no evidence of acute intracranial abnormality. Chest x-ray showed no radiographic evidence of acute cardiopulmonary process. Carotid ultrasound Doppler showed no evidence of hemodynamically significant stenosis in the right ICA. The left side could not be evaluated due to left EJ. PRIMARY DIAGNOSES: Syncope, acute kidney injury, microcytic anemia. SECONDARY DIAGNOSES: Hypertension, type 2 diabetes, peripheral vascular disease , asthma, and THC use. DISCHARGE MEDICATIONS: 1. Lantus 20 units b.i.d. 2. ProAir 2 puffs b.i.d. p.r.n. 3. Gabapentin 2 tabs p.o. t.i.d. 4. Humalog 12 units b.i.d. 5. Hydrochlorothiazide 50 mg p.o. daily. 6. Niferex 150 mg p.o. b.i.d. 7. Metoprolol succinate 25 mg p.o. daily. 8. Pantoprazole 40 mg p.o. daily. 9. Metformin 1 tab p.o. b.i.d. 10. Tramadol 50 p.o. q.6 p.r.n. DISCONTINUED MEDICATIONS: None. HISTORY OF PRESENT ILLNESS: This is a 69-year-old female with past medical history of hypertension and type 2 diabetes, who presented to the ED after a syncopal episode. She had 2 episodes of syncope since Thursday, and these are the only episodes of syncope she ever had. She reports that she was outside in the heat when she lost her balance and lost consciousness and hit her head. This was a witnessed event. She denied being on any anticoagulation and did not have any chest pain, shortness of breath, or palpitations and stated that her daughter did not notice any seizure like events. Pt denies recurrent low blood glucose readings or recent changes to hypertension regimen. HOSPITAL COURSE: The patient's hospital course included a syncopal workup and she was admitted to telemetry where she had no noted cardiac events. Her trended troponin declined. Her last echo had been done on 08/2019 and showed EF > 65 % with no or diastolic dysfunction. Orthostatic vital signs were obtained, and these were not positive for orthostasis, however, this was also after patient had 2 L of fluids. The patient was also found to have mild TEE with creatinine of 1.27 that resolved to 0.83 with fluids. The patient was also found to have mild anemia with initial hemoglobin of 10.1 that dropped to 8.4 the next day. Iron studies showed that her serum iron was low, but her TIBC, ferritin, and percent saturation was normal. She had no active bleeding and this was determined to be something that could be managed outpatient as patient has had chronic anemia since 2017. It was determined that the patient's syncope was a multifocal issues to do with orthostasis, her anemia and possibly sensitivity to her hypertensive medications in addition to being in the heat. Before discharge pt was feeling well. She understood the importance of outpatient follow up for her anemia and agreed to plan. DISPOSITION: Stable. DISCHARGE INSTRUCTIONS: 1. Location: Home. 2. Diet: Consistent carb. 3. Activity: As tolerated. 4. Follow up: 1 to 2 weeks with [facility] Job ID: [id number] [facility]ITAL[facility]
== END 2019-12-27 13:45 | disposition home or self-care (01) ==
LOC: ERS 14:52 → ERHOLD 17:17 → 2NO 23:59
PROVIDERS: ADMIT Emergency Medicine; ATTEND Emergency Medicine
DX: R55 Syncope and collapse (principal); N17.9 Acute kidney failure, unspecified; D50.9 Iron deficiency anemia, unspecified; I10 Essential (primary) hypertension; E11.649 Type 2 diabetes mellitus with hypoglycemia without coma; E11.51 Type 2 diabetes mellitus with diabetic peripheral angiopathy without gangrene; J45.909 Unspecified asthma, uncomplicated; F12.10 Cannabis abuse, uncomplicated; K86.1 Other chronic pancreatitis; M19.90 Unspecified osteoarthritis, unspecified site; F32.9 Major depressive disorder, single episode, unspecified; I25.2 Old myocardial infarction; I25.10 Atherosclerotic heart disease of native coronary artery without angina pectoris; N39.0 Urinary tract infection, site not specified; Z87.891 Personal history of nicotine dependence; Z79.4 Long term (current) use of insulin; Z79.899 Other long term (current) drug therapy; Z88.0 Allergy status to penicillin; Z88.5 Allergy status to narcotic agent; Z88.8 Allergy status to other drugs, medicaments and biological substances; Z91.012 Allergy to eggs; Z95.1 Presence of aortocoronary bypass graft; Z95.820 Peripheral vascular angioplasty status with implants and grafts; Z96.642 Presence of left artificial hip joint; Z23 Encounter for immunization
CPT/HCPCS: 70450; 71045; 80048; 80053; 80306; 82553; 82728; 82947; 82962; 83036; 83540; 83550; 83880; 84484 ×3; 85025 ×2; 90670; 93005; 93880; 96360; 96361; 99285; G0009; 36415; 36416; 81003; 81015; 90471; 96372; G0378; J1650; J1815

== ENCOUNTER 2020-05-15 20:15 | Inpatient (IN) | payer MEDICARE ==
[2020-05-15] MEDS ORDERED: Ondansetron PF 4 MG/2 ML Vial ONE (20:41)
--- NOTE | 2020-05-15 20:45 | RAD ---
PORTABLE CHEST: 05/15/20 COMPARISON: 12/26/19 exam. Heart size and mediastinum are within normal limits. The lungs are clear of infiltrates. IMPRESSION: No active intrathoracic disease. POS: [facility]
[2020-05-15 21:02] LABS: Mean Corpuscular Hemoglobin 30.4 pg (27.0-31.0); Mean Corpuscular Volume 89.6 fL (78.0-98.0); Mean Platelet Volume 8.8 fL (7.4-10.4); Platelet Count 263 thou/uL (130-400); Red Blood Cell (RBC) Count 4.62 mill/uL (4.20-5.40)
[2020-05-15 21:21] LABS: ALT (SGPT) 34 U/L (8-55); AST (SGOT) 41 U/L (5-34); Albumin 4.2 g/dL (3.4-4.8); Alkaline Phosphatase 92 U/L (40-110); Anion Gap 24 mmol/L (10-20); BUN (Urea Nitrogen) 23 mg/dL (9.8-20.1); Bilirubin, Total 0.8 mg/dL (0.2-1.2); CK (CPK) 67 U/L (29-168); Calc. Creatinine Clearance 0 mL/min (70-130); Calcium 9.7 mg/dL (7.8-10.44); Carbon Dioxide 26 mmol/L (23-31); Chloride 84 mmol/L (98-107); Globulin 5.3 g/dL (2.4-3.5); Glucose 516 mg/dL (80-115); Lipase 107 U/L (8-78); Potassium 4.9 mmol/L (3.5-5.1); Protein, Total 9.5 g/dL (6.0-8.3); Sodium 129 mmol/L (136-145)
--- NOTE | 2020-05-15 21:25 | CT ---
CT Brain WO Con History: Nausea and vomiting Comparison: CT brain December 26, 2019 Findings: No acute hemorrhage or infarct. No midline shift or mass effect. Ventricular size and extra -axial CSF spaces are normal. Calvarium is intact. Paranasal sinuses and mastoids are clear. Impression: Mild microangiopathic changes. No acute intracranial abnormality.
[2020-05-15 21:28] LABS: #Lymphocytes 1.5 thou/uL (1.20-3.40); #Neutrophils 14.4 thou/uL (1.40-6.50); %Basophils 0.2 % (0.0-1.0); %Eosinophils 0.1 % (0.0-10.0); %Lymphocytes 8.4 % (21.0-51.0); %Monocytes 11.3 % (0.0-10.0); %Neutrophils 80.1 % (42.0-75.0); Platelet Morphology Comment Appears Adequate; RBC Morphology Normal
[2020-05-15] MEDS ORDERED: Vancomycin 1 GM/200 ML BAG ONE ×2 (21:36→22:32)
[2020-05-15] MEDS ORDERED: Cefepime 2 GM VIAL ONE (21:36)
[2020-05-15 22:16] LABS: Bilirubin Negative (Negative); Blood, Urine Trace (Negative); Clarity Turbid (Clear); Glucose, Urine (Dipstick) Greater than 1000 mg/dL (Negative); Ketone, Urine 10 mg/dL (Negative); Leukocyte 75 Leu/uL (Negative); Nitrite Negative (Negative); Protein, Urine (Dipstick) 10 mg/dL (Neg-Trace); RBC/HPF 0-3 HPF (0-3); Specific Gravity, Urine 1.017 (1.002-1.036); Squamous Epithelial None Seen HPF (0-3); Urobilinogen Normal mg/dL (Less than 2); WBC/HPF 21-50 HPF (0-3)
[2020-05-15 22:18] LABS: Bacteria/HPF 2+ HPF (None Seen)
[2020-05-15] MEDS ORDERED: Dextrose 5% in Water 1,000 ML IV PRN (22:49)
[2020-05-15] MEDS ORDERED: Ondansetron PF 4 MG/2 ML Vial IVP PRN (22:49)
[2020-05-15] MEDS ORDERED: Dextrose 50% Abboject 50 ML SYRINGE SLOW IVP PRN (22:49)
[2020-05-15 23:01] LABS: SARS-CoV-2 NAA Rapid Test Not Detected (NotDetected)
--- NOTE | 2020-05-15 23:24 | PDOC.BPN ---
- Brief Progress Note [id number] dictated
[2020-05-15 23:46] LABS: Vancomycin, Trough 8.5 ug/mL
[2020-05-15] MEDS ORDERED: metroNIDAZOLE 500 MG in Premix Bag 1 BAG IVPB SCH (23:59)
[2020-05-16] MEDS ORDERED: Acetaminophen 500 MG TAB ONE (00:27)
[2020-05-16 00:33] LABS: Actual Bicarbonate (HCO3v) 18 mEq/L (22-28); Analyzer IN Cardio ER; Base Excess -2.6 mEq/L (-2.0 to +3.0); pH (venous) 7.51 (7.32-7.43)
--- NOTE | 2020-05-16 01:11 | HP ---
CHIEF COMPLAINT: Nausea, vomiting, and diarrhea. HISTORY OF PRESENT ILLNESS: Ms. Hartley is a 70-year-old female with past medical history of diabetes mellitus, chronic pancreatitis, hypertension, arthritis, among others, presented to the emergency room with generalized weakness, nausea, vomiting, diarrhea for the last 2 days. The patient is unable to keep anything in her stomach. She said that she fell and hit her head, but did not lose consciousness. She denies chest pain, shortness of breath, fever, or chills. Initial workup in the emergency room, the patient was found to be hyperglycemic with a glucose more than 500. Lipase 107. Anion gap is 24, but CO2 is 26. Venous pH is being done for further assessment at the time of dictation. The patient also was found to have urinary tract infection. The patient appeared septic. The patient is on IV antibiotics, on IV fluids, on insulin. She is being admitted to the hospital for further management. PAST MEDICAL HISTORY: 1. Chronic pancreatitis. 2. Diabetes mellitus. 3. Hypertension. 4. Asthma. 5. Arthritis. PAST SURGICAL HISTORY: 1. Bilateral hip replacement. 2. Back surgery. 3. Elbow surgery. 4. Hysterectomy. 5. Tonsillectomy. 6. Tubal ligation. PAST PSYCHIATRIC HISTORY: Depression. SOCIAL HISTORY: The patient is a former smoker. The patient uses marijuana. She drinks socially. FAMILY HISTORY: Reviewed and noncontributory. HOME MEDICATIONS: See home medication reconciliation form for updated medications. ALLERGIES: ALLERGIC TO CARL INHIBITORS, EGGS, NALBUPHINE (NUBAIN), PENICILLIN, PENTAZOCINE (TALWIN). REVIEW OF SYSTEMS: Review of 14 systems negative except what is mentioned in history of present illness. PHYSICAL EXAMINATION: GENERAL: The patient is awake, alert, in moderate distress. VITAL SIGNS: Blood pressure is 153/56, pulse is 118, respiratory rate is 24, oxygen saturation 95%, temperature is 99.1. HEAD AND NECK: Normocephalic, atraumatic. Mucous membranes dry. HEART: S1, S2. Regular. Tachycardic. ABDOMEN: Soft. Mild diffuse tenderness. Bowel sounds present. NEUROLOGIC: Awake, alert, oriented. No focal deficit. PSYCH: Unable to assess. EXTREMITIES: No clubbing or cyanosis. GENITOURINARY: Suprapubic tenderness. No flank tenderness. LABORATORY DATA: As mentioned above in history of present illness. CT of the brain was done. No acute finding. ASSESSMENT AND PLAN: 1. Severe hyperglycemia secondary to diabetes mellitus, at the time of this dictation. 2. Sepsis. 3. Acute urinary tract infection. 4. Acute kidney injury. 5. Hypertension. 6. Asthma. 7. Arthritis. PLAN: 1. Admit. 2. Continue with IV fluids. 3. Insulin. 4. Monitor and correct electrolytes. 5. Septic workup including urine cultures. 6. IV antibiotics. 7. Reconcile home medications. 8. DVT prophylaxis as appropriate. 9. Expected length of stay, 2 midnights or more. Job ID: [id number]
[2020-05-16] MEDS: HumaLOG 300 UNITS/3 ML VIAL SC PRN ×4 (02:15→17:41)
[2020-05-16] MEDS: Sodium Chloride 0.9% 1,000 ML IV SCH ×5 (02:16→23:47)
[2020-05-16 02:49] VITALS: BMI 27.2
[2020-05-16] MEDS: metroNIDAZOLE 500 MG in Premix Bag 1 BAG IVPB SCH ×4 (02:57→20:20)
[2020-05-16] MEDS ORDERED: Gabapentin 300 MG CAP PO SCH ×2 (03:00→20:00)
[2020-05-16] MEDS ORDERED: Pharmacy to Dose : VANC/ABX'S IVPB PRN (04:23)
--- NOTE | 2020-05-16 08:26 | PDOC.HOSPP ---
- Subjective Encounter Date: 05/16/20 Subjective: Patient with PMH of DM and HTN presents to ED for evaluation of weakness, nausea, vomiting & diarrhea x 2 days. With above symptoms also refers new onse of urinary frequency/hesitancy and back pain. Found to have sepsis due to UTI & hyperglycemia. During my assessment this morning she actually appears non toxic. Her only complain this morning is mild back pain as well as weakness. Currently on broad spectrum antibiotics, IVF and SQ insulin. - Objective Vital Signs & Weight: Vital Signs (12 hours) Temp Pulse Resp BP Pulse Ox 05/16/20 04:48 99.2 F 108 H 19 127/76 100 05/16/20 01:41 100.2 F H 118 H 20 153/74 H 94 L Weight Weight 158 lb 9 oz I&O: 05/15/20 05/16/20 05/17/20 06:59 06:59 06:59 Intake Total 1040 Balance 1040 Result Diagrams: 05/16/20 07:49 05/16/20 09:40 Additional Labs: Accuchecks 05/16/20 05/16/20 05/15/20 04:27 02:10 22:47 POC Glucose 375 H 473 H 382 H Hospitalist ROS - Review of Systems Constitutional: reports: weakness. denies: fever, chills, sweats, malaise, other Respiratory: denies: cough, dry, shortness of breath, hemoptysis, SOB with excertion, pleuritic pain, sputum, wheezing, other Cardiovascular: denies: chest pain, palpitations, orthopnea, paroxysmal noc. dyspnea, edema, light headedness, other Gastrointestinal: reports: nausea, vomiting, diarrhea. denies: abdominal pain, constipation, melena, hematochezia, other Genitourinary: reports: frequency, other (hesitancy) - Medication Medications: Active Medications Generic Name Dose Route Start Last Admin Trade Name Freq PRN Reason Stop Dose Admin Sodium Chloride 1,000 mls @ 175 mls/hr 05/15/20 23:00 05/16/20 06:12 Normal Saline 0.9% IV Not Given .Q5H43M MARGARITA Metronidazole 500 mg/ Device 100 mls @ 100 mls/hr 05/16/20 03:00 05/16/20 02:57 IVPB 100 mls 0300,0900,1500,2100 MARGARITA Administration Insulin Human Lispro 0 units 05/15/20 22:49 05/16/20 04:32 Humalog 300 Units/3 Ml Vial SC 13 unit .AGGRESSIVE SLIDING PRN Administration Aggressive Correctional Scale - Exam General Appearance: NAD, awake alert Eye: PERRL, anicteric sclera ENT: normocephalic atraumatic, no oropharyngeal lesions Neck: supple, symmetric, no JVD Heart: RRR, no murmur, no gallops Respiratory: CTAB, no wheezes, no rales, no ronchi, normal chest expansion, no tachypnea, normal percussion Gastrointestinal: soft, non-tender, non-distended, normal bowel sounds, no palpable masses, no hepatomegaly, no splenomegaly, no bruit Hosp A/P - Plan old records reviewed/req A/P: History of DM & HTN on insulin and diuretic presents with 2 day progression of feeling unwell including NVD, urinary frequency. Noted to have l eukocytosis of 18 increased to 29 this morning. UA suggestive of infection. Patient with tenderness to right CVA likely in setting of pyelonephritis. # Sepsis: Likely in setting or UTI/pyelonephritis. Urine culture growing E.coli >100,000. Blood cultures are negative. During my assessment she already appears and feels greatly improved. She will remain on IV Cefepime. Discontinue Vancomycin & Flagyl. If back pain remains and no clinical improvement observed we will proceed with CT abdomen to rule out obstructive uropathy or abscess. # DM with hyperglycemia: Infection contributing. Restarted on long acting insulin regimen per home dose plus sliding scale. Continue with aggressive IVF hydration. Continue with treatment of underlying infection. # TEE: Likely due to dehydration in setting of use of diuretics, poor oral intake and hyperosmolar diuresis in setting of hyperglycemia. Continue with generous IVF hydration. RF is improved this morning. Monitor closely. # HTN: Hold HCTZ, Lasix and Amlodipine. Can continue with Metoprolol. Monitor hemodynamics closely. # Generalized weakness: In setting of UTI and some degree of hydration. Continue with above management. Will consider PT/OT pending progression. Anticipate improvement with treatment of underlying issues. DISPOSITION: Inpatient treatment for sepsis. Likely will remain in the hospital for 2-3 days.
[2020-05-16] MEDS ORDERED: Albuterol Sulfate 1.25 MG/3 ML NEB NEB PRN (08:28)
[2020-05-16 08:36] LABS: Hemoglobin 11.8 g/dL (12.0-16.0); Mean Corpuscular HGB CONC 32.2 g/dL (32.0-36.0); Mean Corpuscular Hemoglobin 29.8 pg (27.0-31.0); Mean Corpuscular Volume 92.5 fL (78.0-98.0); Mean Platelet Volume 9.7 fL (7.4-10.4); Platelet Count 198 thou/uL (130-400); RBC Distribution Width 16.4 % (11.5-14.5); Red Blood Cell (RBC) Count 3.95 mill/uL (4.20-5.40); White Blood Cell (WBC) Count 29.9 thou/uL (4.8-10.8)
[2020-05-16] MEDS ORDERED: Famotidine/PF 20 mg/2ml Vial SLOW IVP SCH (09:00)
[2020-05-16] MEDS: Enoxaparin Sodium 30 MG/0.3 ML SYRINGE SC SCH (09:22)
[2020-05-16 09:57] LABS: Band 20 % (5-11); Lymphocytes 10 % (21-51); MDiff Complete? YES; Monocytes 6 % (0-10); Neutrophil 63 % (42-75); Platelet Morphology Comment Appears Adequate; Polychromasia SLIGHT = 2-3 cells (100X) (0-2/hpf); Target Cells SLIGHT = 2-5 cells (100X) (0-1/hpf)
[2020-05-16] MEDS ORDERED: Vancomycin 1 GM in Premix Bag 1 BAG IVPB SCH (10:00)
[2020-05-16 10:12] LABS: ALT (SGPT) 25 U/L (8-55); AST (SGOT) 26 U/L (5-34); Albumin 3.7 g/dL (3.4-4.8); Alkaline Phosphatase 79 U/L (40-110); Anion Gap 17 mmol/L (10-20); BUN (Urea Nitrogen) 16 mg/dL (9.8-20.1); Bilirubin, Total 0.8 mg/dL (0.2-1.2); Calc. Creatinine Clearance 48 mL/min (70-130); Calcium 9.1 mg/dL (7.8-10.44); Carbon Dioxide 24 mmol/L (23-31); Chloride 101 mmol/L (98-107); Globulin 4.3 g/dL (2.4-3.5); Glucose 141 mg/dL (80-115); Potassium 3.8 mmol/L (3.5-5.1); Sodium 138 mmol/L (136-145)
[2020-05-16] MEDS: Insulin Glargine 30 UNITS in Pre-Filled Syringe 1 EACH SC SCH ×2 (10:29→20:20)
[2020-05-16] MEDS: Acetaminophen 325 MG TAB PO PRN ×3 (13:33→23:47)
[2020-05-16] MEDS: traMADol HCl 50 MG TAB PO PRN (20:19)
[2020-05-16] MEDS ORDERED: Insulin Glargine 15 UNITS in Pre-Filled Syringe 1 EACH SC SCH (21:00)
[2020-05-16] MEDS: Cefepime 1 GM in Sodium Chloride 0.9% 100 ML IVPB SCH (21:27)
[2020-05-17] MEDS: metroNIDAZOLE 500 MG in Premix Bag 1 BAG IVPB SCH (03:06)
[2020-05-17 06:25] LABS: #Eosinphils 0.1 thou/uL (0.0-0.7); #Lymphocytes 2.2 thou/uL (1.20-3.40); #Monocytes 2.1 thou/uL (0.11-0.59); #Neutrophils 14.1 thou/uL (1.40-6.50); %Basophils 0.2 % (0.0-1.0); %Eosinophils 0.7 % (0.0-10.0); %Lymphocytes 11.8 % (21.0-51.0); %Monocytes 11.1 % (0.0-10.0); %Neutrophils 76.2 % (42.0-75.0); Hemoglobin 10.4 g/dL (12.0-16.0); Mean Corpuscular HGB CONC 33.2 g/dL (32.0-36.0); Mean Corpuscular Hemoglobin 30.6 pg (27.0-31.0); Mean Corpuscular Volume 92.1 fL (78.0-98.0); Mean Platelet Volume 8.9 fL (7.4-10.4); Platelet Count 178 thou/uL (130-400); RBC Distribution Width 14.1 % (11.5-14.5); Red Blood Cell (RBC) Count 3.39 mill/uL (4.20-5.40); White Blood Cell (WBC) Count 18.5 thou/uL (4.8-10.8)
[2020-05-17 06:27] LABS: ALT (SGPT) 22 U/L (8-55); AST (SGOT) 37 U/L (5-34); Albumin 2.9 g/dL (3.4-4.8); Alkaline Phosphatase 69 U/L (40-110); Anion Gap 12 mmol/L (10-20); BUN (Urea Nitrogen) 8 mg/dL (9.8-20.1); Bilirubin, Total 0.6 mg/dL (0.2-1.2); Calc. Creatinine Clearance 65 mL/min (70-130); Calcium 7.9 mg/dL (7.8-10.44); Carbon Dioxide 25 mmol/L (23-31); Chloride 101 mmol/L (98-107); Globulin 3.5 g/dL (2.4-3.5); Glucose 107 mg/dL (80-115); Potassium 3.4 mmol/L (3.5-5.1); Protein, Total 6.4 g/dL (6.0-8.3); Sodium 135 mmol/L (136-145)
[2020-05-17 06:41] LABS: Hemoglobin A1c 8.8 % (4.0-6.0)
[2020-05-17] MEDS: Insulin Glargine 30 UNITS in Pre-Filled Syringe 1 EACH SC SCH ×2 (09:33→20:26)
[2020-05-17] MEDS: traMADol HCl 50 MG TAB PO PRN ×2 (09:35→18:44)
[2020-05-17] MEDS: Famotidine/PF 20 mg/2ml Vial SLOW IVP SCH (09:35)
[2020-05-17] MEDS: Enoxaparin Sodium 30 MG/0.3 ML SYRINGE SC SCH (09:42)
[2020-05-17] MEDS: Sodium Chloride 0.9% 1,000 ML IV SCH ×2 (10:16→12:46)
--- NOTE | 2020-05-17 13:52 | PDOC.HOSPP ---
- Subjective Encounter Date: 05/17/20 Subjective: Patient seen and examined this morning at bedside. Patient refers great improvement over the last 24 hrs. Denies any fever chills malaise. Refers her back pain is also better with less urinary hesitancy. Denies any dysuria, abdominal pain, nausea, vomiting, diarrhea. - Objective Vital Signs & Weight: Vital Signs (12 hours) Temp Pulse Resp BP Pulse Ox 05/17/20 12:16 98.3 F 77 16 163/76 H 96 05/17/20 07:25 98.2 F 78 16 130/66 97 05/17/20 04:24 98.7 F 79 19 128/70 95 Weight Admit Weight 158 lb 8.96 oz Weight 158 lb 8.96 oz I&O: 05/16/20 05/17/20 05/18/20 06:59 06:59 06:59 Intake Total 1040 4774 Output Total 400 Balance 1040 4374 Result Diagrams: 05/17/20 05:41 05/17/20 05:41 Additional Labs: Accuchecks 05/17/20 05/17/20 05/16/20 08:43 04:18 23:38 POC Glucose 147 H 124 H 105 H 05/16/20 05/16/20 20:06 15:05 POC Glucose 140 H 261 H Hospitalist ROS - Review of Systems Constitutional: denies: fever, chills, sweats, weakness, malaise, other Respiratory: denies: cough, dry, shortness of breath, hemoptysis, SOB with excertion, pleuritic pain, sputum, wheezing, other Gastrointestinal: denies: nausea, vomiting, abdominal pain, diarrhea, constipation, melena, hematochezia, other Genitourinary: reports: frequency. denies: dysuria, incontinence, hematuria, retention Musculoskeletal: reports: back pain (improving back pain). denies: neck pain, shoulder pain, arm pain, hand pain, leg pain, foot pain, other Neurological: denies: weakness, numbness, incoordination, change in speech, confusion, seizures, other - Medication Medications: Active Medications Generic Name Dose Route Start Last Admin Trade Name Freq PRN Reason Stop Dose Admin Acetaminophen 650 mg 05/15/20 22:49 05/16/20 23:47 Acetaminophen 325 Mg Tab PO 650 mg Q4H PRN Administration Headache/Fever/Mild Pain (1-3) Enoxaparin Sodium 30 mg 05/16/20 09:00 05/17/20 09:42 Enoxaparin Sodium 30 Mg/0.3 Ml Syringe SC 30 mg 0900 MARGARITA Administration Famotidine 20 mg 05/17/20 09:00 05/17/20 09:35 Famotidine/Pf 20 Mg/2ml Vial SLOW IVP 20 mg DAILY MARGARITA Administration Sodium Chloride 1,000 mls @ 126 mls/hr 05/15/20 23:00 05/17/20 12:46 Normal Saline 0.9% IV Not Given .Q7H57M MARGARITA Cefepime HCl 1 gm/ Sodium 100 mls @ 200 mls/hr 05/16/20 21:00 05/16/20 21:27 Chloride IVPB 100 mls 2100 MARGARITA Administration Insulin Glargine 30 units/ 0.3 mls @ 0 mls/hr 05/16/20 09:00 05/17/20 09:33 Miscellaneous Medication SC 0.3 mls BID MARGARITA Administration Insulin Human Lispro 0 units 05/15/20 22:49 05/16/20 17:41 Humalog 300 Units/3 Ml Vial SC 9 unit .AGGRESSIVE SLIDING PRN Administration Aggressive Correctional Scale Metoprolol Succinate 50 mg 05/16/20 09:00 05/17/20 09:35 Metoprolol Succinate Xl 50 Mg Tab PO 50 mg DAILY MARGARITA Administration Ondansetron HCl 4 mg 05/15/20 22:49 05/17/20 09:32 Ondansetron Pf 4 Mg/2 Ml Vial IVP 4 mg Q6H PRN Administration Nausea/Vomiting Tramadol HCl 50 mg 05/16/20 19:51 05/17/20 09:35 Tramadol Hcl 50 Mg Tab PO 50 mg Q6H PRN Administration Mild Breakthrough Pain - Exam General Appearance: NAD, awake alert Eye: PERRL, anicteric sclera ENT: normocephalic atraumatic, no oropharyngeal lesions, moist mucosa Neck: supple, symmetric, no JVD, no thyromegaly, no lymphadenopathy, no carotid bruit Heart: RRR, no murmur, no gallops, no rubs, normal peripheral pulses Respiratory: CTAB, no wheezes, no rales, no ronchi, normal chest expansion, no tachypnea, normal percussion Gastrointestinal: soft, non-tender, non-distended, normal bowel sounds, no palpable masses, no hepatomegaly, no splenomegaly, no bruit Hosp A/P - Plan A/P: History of DM & HTN on insulin and diuretic presents with 2 day progression of feeling unwell including NVD, urinary frequency. Noted to have leukocytosis of 18 increased to 29 this morning. UA suggestive of infection. Patient with tenderness to right CVA likely in setting of pyelonephritis. # Sepsis: Likely in setting or UTI/pyelonephritis. Urine culture growing E.coli >100,000. Blood cultures are negative. Continues to improve steadily. Tells me her back pain and hesitancy are almost resolved. This morning she is feeling hungry and is asking to be fed. She will remain on IV Cefepime for now with plans to deescalate once sensitivities are available. # DM with hyperglycemia: Infection contributing. Continue with long acting insulin regimen per home dose plus sliding scale. Continue with generous IVF hydration. Continue with treatment of underlying infection. # TEE: Resolved. Likely due to dehydration in setting of use of diuretics, poor oral intake and hyperosmolar diuresis in setting of hyperglycemia. Continue with generous IVF hydration. Monitor closely. # HTN: Hold HCTZ, Lasix and Amlodipine. Can continue with Metoprolol. Monitor hemodynamics closely. # Generalized weakness: In setting of UTI and some degree of hydration. Continue with above management. Will consider PT/OT pending progression. Continues to improve with treatment of underlying issues. DISPOSITION: Inpatient treatment for sepsis. Anticipate DC home given her quick improvement.
[2020-05-17] MEDS: Cefepime 1 GM in Sodium Chloride 0.9% 100 ML IVPB SCH (20:26)
[2020-05-17] MEDS ORDERED: Gabapentin 300 MG CAP PO SCH (21:00)
[2020-05-18] MEDS: Sodium Chloride 0.9% 1,000 ML IV SCH ×2 (02:25→06:47)
[2020-05-18 06:42] LABS: Anion Gap 15 mmol/L (10-20); BUN (Urea Nitrogen) 5 mg/dL (9.8-20.1); Calc. Creatinine Clearance 79 mL/min (70-130); Calcium 8.3 mg/dL (7.8-10.44); Carbon Dioxide 23 mmol/L (23-31); Chloride 105 mmol/L (98-107); Potassium 3.5 mmol/L (3.5-5.1); Sodium 139 mmol/L (136-145)
[2020-05-18 06:46] LABS: Glucose 25 mg/dL (80-115)
[2020-05-18 07:51] LABS: Band 7 % (5-11); Hemoglobin 11.6 g/dL (12.0-16.0); Lymphocytes 11 % (21-51); MDiff Complete? YES; Mean Corpuscular Hemoglobin 31.4 pg (27.0-31.0); Mean Corpuscular Volume 92.4 fL (78.0-98.0); Mean Platelet Volume 8.9 fL (7.4-10.4); Monocytes 3 % (0-10); Neutrophil 79 % (42-75); Platelet Count 201 thou/uL (130-400); Platelet Morphology Comment Appears Adequate; Polychromasia SLIGHT = 2-3 cells (100X) (0-2/hpf); RBC Distribution Width 14.1 % (11.5-14.5); Red Blood Cell (RBC) Count 3.69 mill/uL (4.20-5.40); Target Cells SLIGHT = 2-5 cells (100X) (0-1/hpf); White Blood Cell (WBC) Count 13.8 thou/uL (4.8-10.8)
[2020-05-18] MEDS: Enoxaparin Sodium 30 MG/0.3 ML SYRINGE SC SCH (08:53)
[2020-05-18] MEDS: Insulin Glargine 30 UNITS in Pre-Filled Syringe 1 EACH SC SCH ×2 (08:54→20:54)
[2020-05-18] MEDS: Famotidine/PF 20 mg/2ml Vial SLOW IVP SCH (08:54)
--- NOTE | 2020-05-18 12:19 | PDOC.HOSPP ---
- Subjective Encounter Date: 05/18/20 Subjective: Seen and examined at bedside. No overnight events. Refers overall improvement with resolving weakness. No fever chills malaise. No dysuria, hesitancy, frequency or back pain. - Objective Vital Signs & Weight: Vital Signs (12 hours) Temp Pulse Resp BP Pulse Ox 05/18/20 10:50 97.4 F L 78 18 164/76 H 94 L 05/18/20 07:19 97.8 F 81 18 165/70 H 96 05/18/20 03:19 98.1 F 78 21 H 147/69 H 96 Weight Admit Weight 158 lb 8.96 oz Weight 158 lb 9.009 oz I&O: 05/17/20 05/18/20 05/19/20 06:59 06:59 06:59 Intake Total 4774 4462 Output Total 400 600 Balance 4374 3862 Result Diagrams: 05/18/20 05:36 05/18/20 05:36 Additional Labs: Accuchecks 05/18/20 05/18/20 05/17/20 10:54 06:20 19:35 POC Glucose 113 H 117 H 113 H 05/17/20 05/17/20 17:42 15:34 POC Glucose 83 66 L Hospitalist ROS - Review of Systems Constitutional: denies: fever, chills, sweats, weakness, malaise, other Respiratory: denies: cough, dry, shortness of breath, hemoptysis, SOB with excertion, pleuritic pain, sputum, wheezing, other Cardiovascular: denies: chest pain, palpitations, orthopnea, paroxysmal noc. dyspnea, edema, light headedness, other Gastrointestinal: denies: nausea, vomiting, abdominal pain, diarrhea, constipation, melena, hematochezia, other Genitourinary: denies: dysuria, frequency, incontinence, hematuria, retention, other Musculoskeletal: denies: neck pain, shoulder pain, arm pain, back pain, hand pain, leg pain, foot pain, other - Medication Medications: Active Medications Generic Name Dose Route Start Last Admin Trade Name Freq PRN Reason Stop Dose Admin Acetaminophen 650 mg 05/15/20 22:49 05/16/20 23:47 Acetaminophen 325 Mg Tab PO 650 mg Q4H PRN Administration Headache/Fever/Mild Pain (1-3) Dextrose/Water 25 gm 05/15/20 22:49 05/18/20 05:41 Dextrose 50% Abboject 50 Ml Syringe SLOW IVP 25 gm PRN PRN Administration Hypoglycemia Enoxaparin Sodium 30 mg 05/16/20 09:00 05/18/20 08:53 Enoxaparin Sodium 30 Mg/0.3 Ml Syringe SC 30 mg 0900 MARGARITA Administration Famotidine 20 mg 05/17/20 09:00 05/18/20 08:54 Famotidine/Pf 20 Mg/2ml Vial SLOW IVP 20 mg DAILY MARGARITA Administration Sodium Chloride 1,000 mls @ 126 mls/hr 05/15/20 23:00 05/18/20 06:47 Normal Saline 0.9% IV Not Given .Q7H57M MARGARITA Cefepime HCl 1 gm/ Sodium 100 mls @ 200 mls/hr 05/16/20 21:00 05/17/20 20:26 Chloride IVPB 100 mls 2100 MARGARITA Administration Insulin Glargine 30 units/ 0.3 mls @ 0 mls/hr 05/16/20 09:00 05/18/20 08:54 Miscellaneous Medication SC Not Given BID [facility] Insulin Human Lispro 0 units 05/15/20 22:49 05/16/20 17:41 Humalog 300 Units/3 Ml Vial SC 9 unit .AGGRESSIVE SLIDING PRN Administration Aggressive Correctional Scale Metoprolol Succinate 50 mg 05/16/20 09:00 05/18/20 08:54 Metoprolol Succinate Xl 50 Mg Tab PO 50 mg DAILY MARGARITA Administration Ondansetron HCl 4 mg 05/15/20 22:49 05/17/20 09:32 Ondansetron Pf 4 Mg/2 Ml Vial IVP 4 mg Q6H PRN Administration Nausea/Vomiting Tramadol HCl 50 mg 05/16/20 19:51 05/17/20 18:44 Tramadol Hcl 50 Mg Tab PO 50 mg Q6H PRN Administration Mild Breakthrough Pain - Exam General Appearance: NAD, awake alert Eye: PERRL, anicteric sclera ENT: normocephalic atraumatic, no oropharyngeal lesions, moist mucosa Neck: supple, symmetric, no JVD, no thyromegaly, no lymphadenopathy, no carotid bruit Heart: RRR, no murmur, no gallops, no rubs, normal peripheral pulses Respiratory: CTAB, no wheezes, no rales, no ronchi, normal chest expansion, no tachypnea, normal percussion Gastrointestinal: soft, non-tender, non-distended, normal bowel sounds, no palpable masses, no hepatomegaly, no splenomegaly, no bruit Hosp A/P - Plan A/P: History of DM & HTN on insulin and diuretic presents with 2 day progression of feeling unwell including NVD, urinary frequency. Noted to have leukocytosis of 18 increased to 29 during admission. UA suggestive of infection. Patient with tenderness to right CVA likely in setting of pyelonephritis. # Sepsis: Likely in setting or UTI/pyelonephritis. Urine culture growing P roteus & E.coli >100,000. Blood cultures are negative. Continues to improve steadily. Tells me her back pain and hesitancy have resolved. Continue with IV Cefepime and transition to PO ABX in AM if she continues to improve. # DM with hyperglycemia: Hypoglycemic this morning in the 20s. Patient was asleep. Does tell me that at home she takes 30U BID but sometimes she has to hold it if glucose is low. Extensively advised and educated about proper use of long acting insulin. Suggested outpatient follow up with PCP once discharge to assure long acting is better dosed. Hold morning dose insulin. # TEE: Resolved. Likely due to dehydration in setting of use of diuretics, poor oral intake and hyperosmolar diuresis in setting of hyperglycemia. Received generous IVFs. DC IVF and continue to encourage PO intake. Monitor closely. # HTN: Hold HCTZ & Lasix. Restart Amlodipine, cont Metoprolol. Monitor hemodynamics closely. # Generalized weakness: In setting of UTI and some degree of hydration. Continue with above management. DISPOSITION: Anticipate DC home in 1-2 days given her quick improvement.
[2020-05-18] MEDS: Gabapentin 300 MG CAP PO SCH ×2 (14:07→20:43)
[2020-05-18] MEDS: Acetaminophen 325 MG TAB PO PRN (17:30)
[2020-05-18] MEDS: traMADol HCl 50 MG TAB PO PRN (17:30)
[2020-05-18] MEDS: Cefepime 1 GM in Sodium Chloride 0.9% 100 ML IVPB SCH (20:43)
[2020-05-19 05:54] LABS: Anion Gap 16 mmol/L (10-20); BUN (Urea Nitrogen) 4 mg/dL (9.8-20.1); Calc. Creatinine Clearance 83 mL/min (70-130); Carbon Dioxide 21 mmol/L (23-31); Chloride 105 mmol/L (98-107); Glucose 96 mg/dL (80-115); Potassium 3.5 mmol/L (3.5-5.1); Sodium 138 mmol/L (136-145)
[2020-05-19 06:16] LABS: Band 2 % (5-11); Eosinophils 1 % (0-10); Hemoglobin 10.7 g/dL (12.0-16.0); Hypochromia SLIGHT = 6-15 cells (100X) (0-5/hpf); Lymphocytes 19 % (21-51); MDiff Complete? YES; Mean Corpuscular Hemoglobin 31.1 pg (27.0-31.0); Mean Corpuscular Volume 91.4 fL (78.0-98.0); Monocytes 15 % (0-10); Neutrophil 63 % (42-75); Platelet Count 177 thou/uL (130-400); Platelet Morphology Comment Appears Adequate; RBC Distribution Width 13.8 % (11.5-14.5); Red Blood Cell (RBC) Count 3.45 mill/uL (4.20-5.40); Target Cells SLIGHT = 2-5 cells (100X) (0-1/hpf); White Blood Cell (WBC) Count 8.6 thou/uL (4.8-10.8)
[2020-05-19] MEDS: traMADol HCl 50 MG TAB PO PRN (07:16)
[2020-05-19] MEDS: Enoxaparin Sodium 30 MG/0.3 ML SYRINGE SC SCH (08:54)
[2020-05-19] MEDS: Famotidine/PF 20 mg/2ml Vial SLOW IVP SCH (08:55)
[2020-05-19] MEDS: Gabapentin 300 MG CAP PO SCH (08:55)
[2020-05-19] MEDS: Insulin Glargine 30 UNITS in Pre-Filled Syringe 1 EACH SC SCH (08:56)
[2020-05-19] MEDS ORDERED: Amlodipine 10 MG TAB PO SCH (09:00)
--- NOTE | 2020-05-19 09:46 | PDOC.DS.DS ---
Provider - Provider Date of Admission: 05/15/20 23:42 Date of Discharge: 05/19/20 Admitting Provider: Neil Larkin MD Primary Care Physician: WALT Herbert Course - Hospital Course Hospital Course: Patient initially admitted with cc of nausea, vomiting, diarrhea, urinary hesitancy and back pain. Work up revealed evidence of urinary tract infection. Started on broad spectrum antibiotics with great response over several days. er urinary cultures are positive for E.coli & Proteus sp. Blood cultures remained negative. She has now been transitioned to PO ABX. During her stay she was also treated for hyperglycemia likely in setting of acute infection and holding one dose of insulin. During her stay she was noted to be hypoglycemic and after further question she admitted to frequently holding or adjusting her long acting insulin. I strongly advised patient to discuss her DM with PCP. She is medically stable to transition her care to the outpatient basis. Resuscitation Status: 05/15/20 22:49 Resuscitation Status Routine Resuscitation Status: FULL: Full Resuscitation - Labs Lab Results: 05/19/20 05:17 05/19/20 05:17 Abnormal Lab Results - Last 48 hrs 05/18/20 05:36: BUN 5 L 05/18/20 05:36: WBC 13.8 H, RBC 3.69 L, Hgb 11.6 L, Hct 34.1 L, MCH 31.4 H, Neut rophils % (Manual) 79 H, Lymphocytes % (Manual) 11 L 05/19/20 05:17: Carbon Dioxide 21 L, BUN 4 L 05/19/20 05:17: RBC 3.45 L, Hgb 10.7 L, Hct 31.5 L, MCH 31.1 H, Band Neuts % (Manual) 2 L, Lymphocytes % (Manual) 19 L, Monocytes % (Manual) 15 H Microbiology - Entire Visit 05/15/20 21:45 Urine Straight Catheter Urine Culture - Final Escherichia coli Proteus mirabilis 05/15/20 20:46 Venous blood - Left Hand Blood Culture - Preliminary NO GROWTH AT 48 HOURS 05/15/20 20:50 Venous blood - Right Hand Blood Culture - Preliminary NO GROWTH AT 48 HOURS - Physical Exam Vitals: Vital Signs (12 hours) Temp Pulse Resp BP Pulse Ox 05/19/20 08:00 98.2 F 89 16 148/81 H 97 05/19/20 03:40 98.1 F 73 20 150/75 H 96 05/18/20 23:30 97.9 F 69 20 151/73 H 97 Weight Admit Weight 158 lb 8.96 oz Weight 158 lb 9.009 oz Physical Exam: The patient was seen and examined on the day of discharge. Problem - Discharge Plan Assessment: A/P: History of DM & HTN on insulin and diuretic presents with 2 day progression of feeling unwell including NVD, urinary frequency. Noted to have leukocytosis of 18 increased to 29 during admission. UA suggestive of UTI. Patient with tenderness to right CVA likely in setting of pyelonephritis. # Sepsis: Likely in setting or UTI/pyelonephritis. Urine culture growing Proteus & E.coli >100,000. Blood cultures are negative. Afebrile, leukocytosis has resolved. Tells me her back pain and hesitancy have resolved. Treated with course of IV Cefepime now transitioned to PO ABX. # DM with hyperglycemia: Did have episode of hypoglycemia while admitted. Does tell me that at home she takes 30U BID but sometimes she has to hold it if glucose is low. Extensively advised and educated about proper use of long acting insulin. Suggested outpatient follow up with PCP once discharge to assure long acting is better dosed. # TEE: Resolved. Likely due to dehydration in setting of use of diuretics, poor oral intake and hyperosmolar diuresis in setting of hyperglycemia. Received generous IVFs. DC IVF and continue to encourage PO intake. # HTN: Restart Amlodipine, Metoprolol and diuretics upon discharge. # Generalized weakness: Resolved. In setting of UTI and some degree of dehydration. Plan - Discharge Medications Prescriptions: Cefuroxime Axetil [Ceftin] 500 mg PO BID 5 Days #20 tab Home Medications: Medication Instructions Recorded Confirmed Type Hydrochlorothiazide 50 mg PO DAILY #0 03/26/13 05/16/20 History Gabapentin 600 mg PO TID 09/09/16 05/16/20 History metFORMIN HCl [Metformin ER 1,000 mg PO BID 09/09/16 05/16/20 History Gastric] HumaLOG [HumaLOG Vial] 12 unit SC ACHS 08/24/19 05/16/20 History traMADol HCl [Ultram] 50 mg PO Q6H PRN tab 09/01/19 05/16/20 Rx Pantoprazole [Protonix] 40 mg PO DAILY 12/27/19 05/16/20 History Albuterol Sulfate [Albuterol 8.5 gm IH BID PRN 05/16/20 05/16/20 History Sulfate Hfa] Amlodipine [Norvasc] 10 mg PO DAILY 05/16/20 05/16/20 History Furosemide 20 mg PO DAILY 05/16/20 05/16/20 History Insulin Glargine [Lantus Vial] 30 units SC BID 05/16/20 05/16/20 History Metoprolol Succinate [Toprol XL] 50 mg PO DAILY 05/16/20 05/16/20 History Acetaminophen [Tylenol Regular 650 mg PO Q4H PRN tab 05/19/20 Rx Strength] Cefuroxime Axetil [Ceftin] 500 mg PO BID 5 Days #20 tab 05/19/20 Rx Allergies: CARL Inhibitors Allergy (Verified 05/16/20 02:37) aspirin Allergy (Verified 05/16/20 02:37) lisinopril Allergy (Verified 05/16/20 02:37) nalbuphine HCl [From Nubain] Allergy (Verified 05/16/20 02:37) Penicillins Allergy (Verified 05/16/20 02:37) pentazocine lactate [From Talwin] Allergy (Verified 05/16/20 02:37) EGGS Allergy (Uncoded 08/30/19 07:49) - Follow up Plan Referrals: Lorna Alexander FNP [Primary Care Provider] - Disposition: HOME Quality - Care Measures CORE MEASURES:: N/A
[2020-05-19 12:00] VITALS: BP 135/84; TEMP 97.9
--- NOTE | 2020-05-22 05:17 | PQF ---
CLINICAL DOCUMENTATION CLARIFICATION FORM: Dear : Ethan Rodriguez Date / Time: 05/22/20 5894 Please exercise your independent, professional judgment in responding to the clarification form. Clinical indicators are provided on the bottom of this form for your review Please check appropriate box(es): [ ] DKA with Coma [ ] DKA without Coma [ ] DM uncontrolled [ ] Other diagnosis, please specify: [ ] Unable to determine Physician Signature: Date/Time: For continuity of documentation, please document condition throughout progress notes and discharge summary. Thank You. To be completed by CDI/Coding staff for physician review: Present Clinical Indicators - Signs / Symptoms / Labs Results and Location in Medical Record [X] Glucose 516, POC Glucose 382, Lactic acid 3.9, Sodium 129, WBC 18.0, Ketones in urine 10 A Laboratory 05/15 [X] BP 127/91, Pulse 118, Resp 26, Temp 103.4 Vital signs 05/15 [X] Pt presented with generalized weakness, nausea, vomiting, diarrhea for last 2 days H&P p1 05/15 Dr Larkin [X] In ER found to be hyperglycemic with glucose more than 500 H&P p1 05/15 Dr Larkin [X] Severe Hyperglycemia secondary to DM H&P p2 05/15 Dr Larkin Present Risk Factors Results and Location in Medical Record [X] 70 year-old Female H&P p1 05/15 Dr Larkin [X] DM H&P p1 05/15 Dr Larkin [X] HTN H&P p1 05/15 Dr Larkin [X] Sepsis H&P p2 05/15 Dr Larkin [X] TEE H&P p2 05/15 Dr Larkin [X] UTI H&P p2 05/15 Dr Larkin Present Treatments Results and Location in Medical Record [X] Insulin Glargibe 30 Units AUG 17 [X] Humalog 9 units AUG 17 [X] IV Dextrose 50 % AUG 17 [X] Monitor and correct electrolytes .H&P p2 05/15 Dr Lrakin [employer] Signature: Ameena Thackerantonio Barragan Phone #: [phone] Date/Time: 05/22/2020 0517 This is a permanent part of the Medical Record [facility]
--- NOTE | 2020-05-26 16:27 | EKG ---
Test Reason : Blood Pressure : / mmHG Vent. Rate : 117 BPM Atrial Rate : 117 BPM P-R Int : 136 ms QRS Dur : 072 ms QT Int : 312 ms P-R-T Axes : 057 012 040 degrees QTc Int : 435 ms Sinus tachycardia Otherwise normal ECG Confirmed by RICK REYES M.D. ([id number]), film editor supervisor PATRIZIA HERNANDEZ ([id number]) on 05/26/2020 4:27:26 PM Referred By: Confirmed By:RICK REYES M.D.
== END 2020-05-19 11:50 | disposition home or self-care (01) | DRG 872 ==
LOC: ERS 20:15 → ERHOLD 23:42 → SURG B 05-16 01:54
PROVIDERS: ADMIT Internal Medicine; ATTEND Internal Medicine
DX: A41.51 Sepsis due to Escherichia coli [E. coli] (principal); N17.9 Acute kidney failure, unspecified; N12 Tubulo-interstitial nephritis, not specified as acute or chronic; Z20.828 Contact with and (suspected) exposure to other viral communicable diseases; E11.65 Type 2 diabetes mellitus with hyperglycemia; J45.909 Unspecified asthma, uncomplicated; I10 Essential (primary) hypertension; M19.90 Unspecified osteoarthritis, unspecified site; Z96.643 Presence of artificial hip joint, bilateral; F12.10 Cannabis abuse, uncomplicated; F32.9 Major depressive disorder, single episode, unspecified; E86.0 Dehydration; E11.649 Type 2 diabetes mellitus with hypoglycemia without coma; Z91.012 Allergy to eggs; Z88.0 Allergy status to penicillin; Z91.018 Allergy to other foods; Z98.51 Tubal ligation status; Z90.710 Acquired absence of both cervix and uterus; Z87.891 Personal history of nicotine dependence; Z79.899 Other long term (current) drug therapy; Z79.4 Long term (current) use of insulin
CPT/HCPCS: 36415; 36416; 70450; 71045; 80048; 80053; 80202; 81003; 81015; 82010; 82550; 82805; 83036; 83605; 83690; 85025; 87040; 87077; 87086; 87186; 93005; 96365; 96367; 96375; J0692; J1650; J1815; J2405; J3370; J3490; S0028; U0002

== ENCOUNTER 2020-06-06 13:10 | Inpatient (IN) | payer MEDICARE ==
[2020-06-06] MEDS ORDERED: Promethazine HCl 25 MG/ML VIAL ONE (14:15)
[2020-06-06 14:21] LABS: Hemoglobin 12.7 g/dL (12.0-16.0); Mean Corpuscular HGB CONC 32.2 g/dL (32.0-36.0); Mean Corpuscular Hemoglobin 28.8 pg (27.0-31.0); Mean Corpuscular Volume 89.5 fL (78.0-98.0); Mean Platelet Volume 8.4 fL (7.4-10.4); Platelet Count 314 thou/uL (130-400); RBC Distribution Width 13.6 % (11.5-14.5); White Blood Cell (WBC) Count 21.6 thou/uL (4.8-10.8)
[2020-06-06 14:31] LABS: ALT (SGPT) 19 U/L (8-55); AST (SGOT) 28 U/L (5-34); Albumin 3.8 g/dL (3.4-4.8); Alkaline Phosphatase 92 U/L (40-110); Anion Gap 21 mmol/L (10-20); BUN (Urea Nitrogen) 11 mg/dL (9.8-20.1); Bilirubin, Total 0.7 mg/dL (0.2-1.2); CK (CPK) 16 U/L (29-168); Calc. Creatinine Clearance 0 mL/min (70-130); Calcium 9.5 mg/dL (7.8-10.44); Carbon Dioxide 26 mmol/L (23-31); Chloride 92 mmol/L (98-107); Globulin 5.1 g/dL (2.4-3.5); Glucose 170 mg/dL (80-115); Lipase 24 U/L (8-78); Potassium 3.7 mmol/L (3.5-5.1); Protein, Total 8.9 g/dL (6.0-8.3); Sodium 135 mmol/L (136-145)
[2020-06-06 14:33] LABS: Band 9 % (5-11); Lymphocytes 8 % (21-51); MDiff Complete? YES; Monocytes 10 % (0-10); Neutrophil 73 % (42-75); Platelet Morphology Comment Appears Adequate; RBC Morphology Normal
--- NOTE | 2020-06-06 15:00 | CT ---
CT arteriogram chest with IV contrast and 3-D imaging HISTORY: Dyspnea. COMPARISON: 08/29/2019. FINDINGS: There is good contrast opacification pulmonary arteries and thoracic aorta with normal bran cj of the great vessels at the aortic arch. Tiny focus of residual scarring within the right middle lobe is stable. Tiny nonspecific subpleural nodule at the lateral aspect of the left upper lob e. No lobar consolidation, pleural fluid, or pneumothorax. Calcified granulomata are consistent with hea led granulomatous disease. Old right anterolateral rib fractures. Hyperdense stones in the dependent portion of the gallbladder lumen. IMPRESSION : No evidence of pulmonary embolus. Cholelithiasis. Chronic-type findings as detailed above.
--- NOTE | 2020-06-06 15:28 | RAD ---
PORTABLE CHEST ONE VIEW: 06/06/20 at 1:36 p.m. HISTORY: Nausea, vomiting, weakness, COMPARISON: 05/15/20. FINDINGS: The heart size is normal. The lungs are expanded without lobar consolidation, pneumothoraces, or pleu ral effusions. IMPRESSION: No radiographic evidence of acute cardiopulmonary process. POS: AH
[2020-06-06 15:31] LABS: Bilirubin Negative (Negative); Blood, Urine 2+ (Negative); Clarity Extra Turbid (Clear); Glucose, Urine (Dipstick) Normal (Negative); Ketone, Urine Negative (Negative); Leukocyte 500 Leu/uL (Negative); Nitrite Negative (Negative); Protein, Urine (Dipstick) 30 mg/dL (Neg-Trace); Specific Gravity, Urine 1.034 (1.002-1.036); Squamous Epithelial None Seen HPF (0-3); Urobilinogen Normal mg/dL (Less than 2); WBC/HPF Greater than 50 HPF (0-3)
[2020-06-06 15:32] LABS: Bacteria/HPF 1+ HPF (None Seen)
[2020-06-06] MEDS ORDERED: Vancomycin 1 GM/200 ML BAG ONE ×2 (15:48→16:18)
[2020-06-06 15:51] LABS: SARS-CoV-2 NAA Rapid Test DETECTED (NotDetected)
--- NOTE | 2020-06-06 16:13 | PDOC.FPRHP ---
- History of Present Illness Chief Complaint: dysuria History of Present Illness: 70 yo F with PMH DM2, HTN, HepC, chronic pancreatitis, asthma presents with a 1 week history of dysuria. She is shaking with chills, feeling unwell, and only responds with one word answers. History is difficult to obtain. She reports a history of UTI in the past. She denies any cough, respiratory symptoms, or covid contacts. Has chronic back pain that is bothering her now, but no CVA tenderness. I could not gather with who or where she lives. ED Course: plavix, decadron, vanc, levaquin, 30ml/kg bolus, phenergan - Allergies/Adverse Reactions Allergies Allergy/AdvReac Type Severity Reaction Status Date / Time CARL Inhibitors Allergy Verified 05/16/20 02:37 aspirin Allergy Verified 05/16/20 02:37 lisinopril Allergy Verified 05/16/20 02:37 nalbuphine HCl [From Nubain] Allergy Verified 05/16/20 02:37 Penicillins Allergy Verified 05/16/20 02:37 pentazocine lactate Allergy Verified 05/16/20 02:37 [From Talwin] EGGS Allergy Uncoded 08/30/19 07:49 - Home Medications Medication Instructions Recorded Confirmed Type Hydrochlorothiazide 50 mg PO DAILY #0 03/26/13 05/16/20 History Gabapentin 600 mg PO TID 09/09/16 05/16/20 History metFORMIN HCl [Metformin ER 1,000 mg PO BID 09/09/16 05/16/20 History Gastric] HumaLOG [HumaLOG Vial] 12 unit SC ACHS 08/24/19 05/16/20 History traMADol HCl [Ultram] 50 mg PO Q6H PRN tab 09/01/19 05/16/20 Rx Pantoprazole [Protonix] 40 mg PO DAILY 12/27/19 05/16/20 History Albuterol Sulfate [Albuterol 8.5 gm IH BID PRN 05/16/20 05/16/20 History Sulfate Hfa] Amlodipine [Norvasc] 10 mg PO DAILY 05/16/20 05/16/20 History Furosemide 20 mg PO DAILY 05/16/20 05/16/20 History Insulin Glargine [Lantus Vial] 30 units SC BID 05/16/20 05/16/20 History Metoprolol Succinate [Toprol XL] 50 mg PO DAILY 05/16/20 05/16/20 History Acetaminophen [Tylenol Regular 650 mg PO Q4H PRN tab 05/19/20 Rx Strength] Cefuroxime Axetil [Ceftin] 500 mg PO BID 5 Days #20 tab 05/19/20 Rx - History Past hx unable to be obtained from patient, obtained through chart review PMHx: Chronic pancreatitis, DMII, HTN, asthma, arthritis, depression, NSTEMI 08/2019 with cath PSHx: b/l hip replacement, back sx x2, L elbow sx, partial hysterectomy and tubal ligation, tonsillectomy, L iliofemoral endarterectomy w/ common femoral a to anterior tibial a bypass with reverse greater saphenous vein graft 08/30/19 FHx: HTN, DM, asthma Social: Patient is a former tobacco user but quit smoking about 15 years ago. Smokes marijuana about once/wk and drinks socially (2 drinks about once/wk). - Review of Systems General: reports: fever/chills, fatigue ENT: denies: nasal congestion, rhinorrhea Respiratory: reports: shortness of breath. denies: cough Cardiovascular: denies: chest pain, edema Gastrointestinal: denies: nausea, vomiting, diarrhea, constipation, abdominal pain Genitourinary: reports: incontinence, dysuria Skin: denies: rashes, lesions Musculoskeletal: reports: pain (back pain, chronic) Neurological: denies: syncope, seizure Psychological: reports: anxiety, depression - Vital signs BP: 176/98 HR: 114 RR: 30 Tmax: 103 Pox: 92% on RA Wt: 63 kg - Physical Exam -Constitutional: feeling unwell, tachypneic HEENT: normocephalic and atraumatic, EOMI, MMM Neck: trachea midline Heart: normal S1/S2, no murmurs/rubs/gallops (tachycardia), no edema Lungs: no wheezing, other (course breath sounds bilaterally) Abdomen: soft, non-tender Musculoskeletal: normal structure, normal tone -Musculoskeletal: no CVA tenderness Neurological: no focal deficit Skin: capillary refill <2 seconds Heme/Lymphatic: no unusual bruising or bleeding Psychiatric: intact recent and remote memory (oriented to person, place, and time) FMR H&P: Results - Labs Result Diagrams: 06/06/20 13:49 06/06/20 13:49 Lab results: WBC 21.6 thou/uL (4.8-10.8) H 06/06/20 13:49 Hgb 12.7 g/dL (12.0-16.0) 06/06/20 13:49 Hct 39.4 % (36.0-47.0) 06/06/20 13:49 MCV 89.5 fL (78.0-98.0) 06/06/20 13:49 Plt Count 314 thou/uL (130-400) 06/06/20 13:49 Band Neuts % (Manual) 9 % (5-11) 06/06/20 13:49 Sodium 135 mmol/L (136-145) L 06/06/20 13:49 Potassium 3.7 mmol/L (3.5-5.1) 06/06/20 13:49 Chloride 92 mmol/L (98-107) L 06/06/20 13:49 Carbon Dioxide 26 mmol/L (23-31) 06/06/20 13:49 BUN 11 mg/dL (9.8-20.1) 06/06/20 13:49 Creatinine 1.11 mg/dL (0.6-1.1) H 06/06/20 13:49 Glucose 170 mg/dL (80-115) H 06/06/20 13:49 Lactic Acid 2.2 mmol/L (0.5-2.2) 06/06/20 13:49 Calcium 9.5 mg/dL (7.8-10.44) 06/06/20 13:49 Total Bilirubin 0.7 mg/dL (0.2-1.2) 06/06/20 13:49 AST 28 U/L (5-34) 06/06/20 13:49 ALT 19 U/L (8-55) 06/06/20 13:49 Alkaline Phosphatase 92 U/L (40-110) 06/06/20 13:49 Creatine Kinase 16 U/L (29-168) L 06/06/20 13:49 B-Natriuretic Peptide 16.8 pg/mL (0-100) 06/06/20 13:49 Serum Total Protein 8.9 g/dL (6.0-8.3) H 06/06/20 13:49 Albumin 3.8 g/dL (3.4-4.8) 06/06/20 13:49 Lipase 24 U/L (8-78) 06/06/20 13:49 Urine Ketones Negative mg/dL (Negative) 06/06/20 15:13 Urine Blood 2+ (Negative) A 06/06/20 15:13 Urine Nitrite Negative (Negative) 06/06/20 15:13 Ur Leukocyte Esterase 500 Karen/uL (Negative) A 06/06/20 15:13 Urine RBC 11-20 HPF (0-3) A 06/06/20 15:13 Urine WBC Greater than 50 HPF (0-3) A 06/06/20 15:13 Ur Squamous Epith Cells None Seen HPF (0-3) 06/06/20 15:13 Urine Bacteria 1+ HPF (None Seen) A 06/06/20 15:13 - EKG Interpretation EKG: sinus tachycardia FMR H&P: Upper Level - Plan 70 yo F presents to the ED for dysuria and is admitted for sepsis 2/2 UTI. Sepsis 2/2 UTI - Tmax 103, tachycardia, tachypnea, WBC 21 on admission - UA with with WBC, LE, bacteria, protein, RBCs - Blood and urine cx pending - Has hx UTIs in past -ecoli and proteus. No history of obstruction but if clinical status worsens may consider this - CXR and CTA negative for acute process - s/p vanc, levaquin in ED, will continue levaquin (06/06) Anion gap metabolic acidosis - initial gap of 17 - likely 2/2 above with lactic acidosis possible - ABG is pending - lactic acid 2->11, will trend, continue IVF COVID+ - no respiratory symptoms or known contacts - test + 06/06 - s/p decadron in ED, will not continue or pursue other covid treatments at this time considering no O2 requirement - initial dimer 0.78 Leukocytosis 2/2 above IDDM2 - likely will not have good PO intake - start home long acting at half dose of 10u daily, continue metformin - SSI and hypoglycemia protocol CKD3 - stable, at baseline HTN - will restart home BP meds as tolerates - HCTZ, amlodipine, metoprolol Hx chronic pancreatitis, Hep C, anxiety, depression, former smoker IVF: LR @ 100 Diet: CC DVT ppx: lovenox PCP: Amor Attending: Mateus Dispo: admit to inpatient, expected LOS >48h Addendum - Attending - Attending Attestation Date/Time: 06/06/202107 I personally evaluated the patient and discussed the management with Dr. Wilson. I agree with the History, Examination, Assessment and Plan documented above with any addition or exceptions noted below. Patient is improved significantly since admission.
[2020-06-06] MEDS ORDERED: Dexamethasone 4 mg/ml Vial ONE (16:18)
[2020-06-06] MEDS ORDERED: Clopidogrel Bisulfate 75 MG TAB ONE (16:18)
[2020-06-06] MEDS ORDERED: Acetaminophen 650 MG Suppository PR PRN (16:35)
[2020-06-06] MEDS ORDERED: Calcium Carbonate 500 MG ChewTAB PO PRN (16:35)
[2020-06-06] MEDS ORDERED: Dextrose 50% Abboject 50 ML SYRINGE SLOW IVP PRN (16:48)
[2020-06-06] MEDS ORDERED: HumaLOG 300 UNITS/3 ML VIAL SC PRN (16:48)
[2020-06-06] MEDS ORDERED: Dextrose 5% in Water 1,000 ML IV PRN (16:48)
[2020-06-06] MEDS ORDERED: Lactated Ringer's 1,000 ML IV SCH (17:00)
[2020-06-06 17:26] LABS: Lactic Acid 11.1 mmol/L (0.5-2.2)
[2020-06-06] MEDS ORDERED: traMADol HCl 50 MG TAB PO PRN (18:51)
[2020-06-06 19:19] LABS: Actual Bicarbonate (HCO3a) 25.6 mEq/L (22-28); Analyzer IN Cardio ER; Base Excess (BEa) 1.5 mEq/L (-2.0 to +3.0); CO2 Tension 38.4 mmHg (35.0-45.0); Calcium, Ionized (arterial) 1.09 mmol/L (1.12-1.30); Carboxyhemoglobin (COHb) 0.3 gm% (0.0-3.0); Hemoglobin (Hb) 11.3 g/dL (12.0-16.0); Potassium - ABG Lab 3.64 mmol/L (3.70-5.30); pH, Arterial 7.44 (7.35-7.45)
[2020-06-06 19:21] LABS: Puncture Site RRA
[2020-06-06] MEDS: Gabapentin 300 MG CAP PO SCH (20:45)
[2020-06-06] MEDS: Lactated Ringer's 1,000 ML IV SCH (20:45)
[2020-06-06] MEDS: metFORMIN 500 MG TAB PO SCH (20:46)
[2020-06-06] MEDS: Acetaminophen 325 MG TAB PO PRN (21:27)
[2020-06-06 22:16] VITALS: BMI 21.2
[2020-06-07] MEDS: Lactated Ringer's 1,000 ML IV SCH ×5 (03:27→22:43)
[2020-06-07] MEDS: HumaLOG 300 UNITS/3 ML VIAL SC PRN ×3 (04:39→17:08)
[2020-06-07 07:00] LABS: Anion Gap 14 mmol/L (10-20); BUN (Urea Nitrogen) 10 mg/dL (9.8-20.1); Calc. Creatinine Clearance 56 mL/min (70-130); Calcium 8.7 mg/dL (7.8-10.44); Carbon Dioxide 26 mmol/L (23-31); Chloride 100 mmol/L (98-107); Glucose 272 mg/dL (80-115); Potassium 3.8 mmol/L (3.5-5.1); Sodium 136 mmol/L (136-145)
[2020-06-07 07:07] LABS: Band 13 % (5-11); Hemoglobin 11.1 g/dL (12.0-16.0); Hypochromia SLIGHT = 6-15 cells (100X) (0-5/hpf); Lymphocytes 4 % (21-51); MDiff Complete? YES; Mean Corpuscular HGB CONC 33.6 g/dL (32.0-36.0); Mean Corpuscular Hemoglobin 30.4 pg (27.0-31.0); Mean Corpuscular Volume 90.5 fL (78.0-98.0); Monocytes 3 % (0-10); Neutrophil 80 % (42-75); Platelet Count 240 thou/uL (130-400); Platelet Morphology Comment Appears Adequate; RBC Distribution Width 13.5 % (11.5-14.5); Red Blood Cell (RBC) Count 3.65 mill/uL (4.20-5.40); White Blood Cell (WBC) Count 25.2 thou/uL (4.8-10.8)
--- NOTE | 2020-06-07 07:13 | PDOC.FM ---
- Subjective Subjective: Pt is doing well this morning. Much improved. AAO x 3. She denies flank pain. She was treated with broad spectrum abx less than a month ago for similar experience and switched to PO abx. Proteus and E.coli were noted in urine on last visit fairly susceptible to most abx. She occasionally wears a brief but denies significant incontinence. - Objective Vital Signs & Weight: Vital Signs (12 hours) Temp Pulse Resp BP Pulse Ox 06/07/20 03:45 97.6 F 75 18 139/73 100 06/06/20 23:45 97.6 F 75 16 113/71 100 06/06/20 21:27 99.7 F H 06/06/20 19:30 100 06/06/20 19:25 99.4 F 97 18 132/79 100 Weight Weight 63.5 kg I&O: 06/06/20 06/07/20 06/08/20 06:59 06:59 06:59 Intake Total 1650 Balance 1650 Result Diagrams: 06/07/20 06:17 06/07/20 06:17 Phys Exam - Physical Examination Constitutional: NAD HEENT: PERRLA, sclera anicteric Respiratory: no wheezing, clear to auscultation bilateral Cardiovascular: RRR, no significant murmur Gastrointestinal: soft, non-tender, no distention, positive bowel sounds Musculoskeletal: no edema, pulses present Neurological: non-focal, normal sensation Psychiatric: normal affect, A&O x 3 Skin: no rash, cap refill <2 seconds Dx/Plan - Plan Plan: 70 yo F presents to the ED for dysuria and is admitted for sepsis 2/2 UTI. Sepsis (resolved) 2/2 Acute Complicated UTI - Tmax 103, tachycardia, tachypnea, WBC 21 on admission - UA with with WBC, LE, bacteria, protein, RBCs - Blood and urine cx pending - Has hx UTIs in past -ecoli and proteus. No history of obstruction and clinically improving. - CXR and CTA negative for acute process - s/p vanc, levaquin in ED, will continue levaquin (06/06) and consider switching to ceftriaxone. She was treated in the last 90 days with broad spectrum abx but as she is improving will not increase coverage. No imaging indicated. Anion gap metabolic acidosis - resolved, likely 2/2 lactic acidosis COVID+ - no respiratory symptoms or known contacts - test + 06/06 - Pt placed on 2 L NC yesterday but is doing well at this time without oxygen therapy. Continue to monitor. Does not require COVID medications. - initial dimer 0.78 Leukocytosis 2/2 above IDDM2 - Has appetite today. Monitor. - start home long acting at half dose of 10u daily, continue metformin - SSI and hypoglycemia protocol CKD3 - stable, at baseline HTN - will restart home BP meds as tolerates - HCTZ, amlodipine, metoprolol Hx chronic pancreatitis, Hep C, anxiety, depression, former smoker IVF: LR @ 100 Diet: CC DVT ppx: lovenox PCP: Amor Attending: Mateus Dispo: admit to inpatient, expected LOS >48h Addendum - Attending - Attending Attestation Date/Time: 06/07/20 2508 I personally evaluated the patient and discussed the management with Dr. Olivier. I agree with the History, Examination, Assessment and Plan documented above with any addition or exceptions noted below. Patient feeling much better. Continue treatment for UTI. Her sepsis picture is improved. Continue IV abx and await culture results. Hopeful d/c tomorrow. Suspect that COVID is not the cause of her presentation to hospital.
[2020-06-07] MEDS: Gabapentin 300 MG CAP PO SCH ×3 (08:44→21:32)
[2020-06-07] MEDS: metFORMIN 500 MG TAB PO SCH ×2 (08:44→21:32)
[2020-06-07] MEDS: Enoxaparin Sodium 40 MG/0.4 ML SYRINGE SC SCH (08:44)
[2020-06-07] MEDS: Acetaminophen 325 MG TAB PO PRN (08:55)
[2020-06-07] MEDS ORDERED: Insulin Glargine 20 UNITS in Pre-Filled Syringe SC SCH (09:00)
[2020-06-07] MEDS ORDERED: Insulin Glargine 10 UNITS in Pre-Filled Syringe SC SCH (09:00)
[2020-06-07] MEDS ORDERED: Insulin Glargine 30 UNITS in Pre-Filled Syringe 1 EACH SC SCH (21:00)
[2020-06-08] MEDS: Lactated Ringer's 1,000 ML IV SCH (04:35)
[2020-06-08] MEDS: HumaLOG 300 UNITS/3 ML VIAL SC PRN (05:11)
--- NOTE | 2020-06-08 06:56 | PDOC.FM ---
- Subjective Subjective: Pt is doing well. She has no concerns. She was unable to get IV access yesterday and was not administered levaquin IV for 12 hours. At 0500 she was administered PO levaquin. AAO x 3. - Objective Vital Signs & Weight: Vital Signs (12 hours) Temp Pulse Resp BP Pulse Ox 06/08/20 04:00 98.4 F 90 20 144/82 H 99 06/08/20 00:00 98.2 F 92 20 146/80 H 98 06/07/20 20:00 97.8 F 93 20 136/74 100 Weight Weight 63.5 kg I&O: 06/06/20 06/07/20 06/08/20 06:59 06:59 06:59 Intake Total 1650 950 Balance 1650 950 Result Diagrams: 06/08/20 06:34 06/08/20 06:34 Phys Exam - Physical Examination Constitutional: NAD HEENT: PERRLA, moist MMs Neck: no JVD, full ROM Respiratory: no wheezing, clear to auscultation bilateral Cardiovascular: RRR, no significant murmur Gastrointestinal: soft, positive bowel sounds Musculoskeletal: no edema, pulses present Neurological: non-focal, moves all 4 limbs Psychiatric: normal affect, A&O x 3 Skin: no rash, cap refill <2 seconds Dx/Plan - Plan Plan: 70 yo F presents to the ED for dysuria and is admitted for sepsis 2/2 UTI. Sepsis (resolved) 2/2 Acute Complicated UTI - Will switch to bactrim DS BID x 13 more days. Follow up with [facility] in 10 days. - procalcintonin downtrending COVID+ - no respiratory symptoms or known contacts - test + 06/06 - Discussed return precautions and Isolation precautions. Leukocytosis 2/2 above IDDM2 - start home long acting insulin, continue metformin - BG 200's so but only received 1 dose of long acting. Will not change at this time. - SSI and hypoglycemia protocol CKD3 - stable, at baseline HTN - will restart home BP meds Hx chronic pancreatitis, Hep C, anxiety, depression, former smoker IVF: PO Diet: CC DVT ppx: lovenox PCP: Amor Dispo: hopeful discharge today Addendum - Attending - Attending Attestation Date/Time: 06/08/20 1103 I personally evaluated the patient and discussed the management with Dr. Olivier. I agree with the History, Examination, Assessment and Plan documented above with any addition or exceptions noted below. Patient stable, feeling well. She is overall stable for discharge. Has no respiratory issues from her COVID infection at this time. Presentation more c/w UTI. On appropriate abx therapy and stable for discharge with continued oral abx.
[2020-06-08 06:57] LABS: Anion Gap 18 mmol/L (10-20); BUN (Urea Nitrogen) 8 mg/dL (9.8-20.1); Calc. Creatinine Clearance 59 mL/min (70-130); Calcium 8.8 mg/dL (7.8-10.44); Carbon Dioxide 25 mmol/L (23-31); Chloride 98 mmol/L (98-107); Glucose 238 mg/dL (80-115); Potassium 3.7 mmol/L (3.5-5.1); Sodium 137 mmol/L (136-145)
[2020-06-08] MEDS ORDERED: Non-Formulary Item 1 EACH (Albuterol Sulfate [Albuterol Sulfate Hfa] 8.5 GM Hfa.Aer.Ad) IH PRN (06:58)
[2020-06-08] MEDS ORDERED: PROVENTIL INHALER 6.7 G (200 INHALATIONS) INH PRN (07:07)
[2020-06-08 07:48] LABS: Band 7 % (5-11); Hemoglobin 11.1 g/dL (12.0-16.0); Lymphocytes 18 % (21-51); MDiff Complete? YES; Mean Corpuscular HGB CONC 33.3 g/dL (32.0-36.0); Mean Corpuscular Hemoglobin 30.4 pg (27.0-31.0); Mean Corpuscular Volume 91.2 fL (78.0-98.0); Mean Platelet Volume 9.1 fL (7.4-10.4); Monocytes 6 % (0-10); Neutrophil 69 % (42-75); Platelet Count 123 thou/uL (130-400); RBC Distribution Width 13.2 % (11.5-14.5); Red Blood Cell (RBC) Count 3.66 mill/uL (4.20-5.40); White Blood Cell (WBC) Count 16.8 thou/uL (4.8-10.8)
[2020-06-08 08:41] VITALS: BP 144/83; TEMP 98.3
[2020-06-08] MEDS: Enoxaparin Sodium 40 MG/0.4 ML SYRINGE SC SCH (09:00)
[2020-06-08] MEDS ORDERED: Amlodipine 10 MG TAB PO SCH (09:00)
[2020-06-08] MEDS ORDERED: Metoprolol Tartrate 25 MG TAB PO SCH (09:00)
[2020-06-08] MEDS ORDERED: Aspirin 81 mg Enteric Coated Tablet PO SCH (09:00)
[2020-06-08] MEDS ORDERED: Metoprolol Tartrate 50 MG TAB PO SCH (09:00)
[2020-06-08] MEDS ORDERED: Hydrochlorothiazide 25 MG TAB PO SCH (09:00)
[2020-06-08] MEDS ORDERED: Insulin Glargine 30 UNITS in Pre-Filled Syringe 1 EACH SC SCH (09:00)
[2020-06-08] MEDS: metFORMIN 500 MG TAB PO SCH (09:28)
[2020-06-08] MEDS: Gabapentin 300 MG CAP PO SCH ×2 (09:29→16:27)
--- NOTE | 2020-06-09 15:23 | EKG ---
Test Reason : Blood Pressure : / mmHG Vent. Rate : 107 BPM Atrial Rate : 107 BPM P-R Int : 118 ms QRS Dur : 074 ms QT Int : 326 ms P-R-T Axes : 054 007 031 degrees QTc Int : 435 ms Sinus tachycardia Otherwise normal ECG Confirmed by MAARIS ROSS, SRAVANI ([id number]), food editor PATRIZIA HERNANDEZ ([id number]) on 06/09/2020 3:22:29 PM Referred By: Confirmed By:SRAVANI GLEZ MD
== END 2020-06-08 15:22 | disposition home or self-care (01) | DRG 871 ==
LOC: ERS 13:10 → T4-B 16:06
PROVIDERS: ADMIT Student in an Organized Health Care Education/Training Program; ATTEND Student in an Organized Health Care Education/Training Program
PROC: 8E0ZXY6 Isolation (ICD-10-PCS; principal; 2020-06-06)
DX: A41.9 Sepsis, unspecified organism (principal); U07.1 COVID-19; K86.1 Other chronic pancreatitis; N39.0 Urinary tract infection, site not specified; E87.2 Acidosis; J45.909 Unspecified asthma, uncomplicated; M19.90 Unspecified osteoarthritis, unspecified site; E11.22 Type 2 diabetes mellitus with diabetic chronic kidney disease; I12.9 Hypertensive chronic kidney disease with stage 1 through stage 4 chronic kidney disease, or unspecified chronic kidney disease; N18.30 Chronic kidney disease, stage 3 unspecified; B18.2 Chronic viral hepatitis C; Z96.643 Presence of artificial hip joint, bilateral; Z90.710 Acquired absence of both cervix and uterus; Z98.51 Tubal ligation status; Z87.891 Personal history of nicotine dependence; Z88.8 Allergy status to other drugs, medicaments and biological substances; Z88.0 Allergy status to penicillin; Z79.82 Long term (current) use of aspirin; Z79.899 Other long term (current) drug therapy; Z79.51 Long term (current) use of inhaled steroids; Z79.4 Long term (current) use of insulin; I25.2 Old myocardial infarction
CPT/HCPCS: 0240U; 36415; 36416; 36600; 71045; 71275; 80048; 80053; 81003; 81015; 82550; 82805; 83605; 83690; 83880; 84145; 84484; 85025; 85379; 87040; 87077; 87086; 87186; 93005; J1100; J1650; J1815; J1956; J2550; J3370

== ENCOUNTER 2020-07-02 13:33 | Inpatient (IN) | payer MEDICARE ==
[2020-07-02 14:23] LABS: Bacteria/HPF 3+ HPF (None Seen); Bilirubin Negative (Negative); Blood, Urine 2+ (Negative); Clarity Extra Turbid (Clear); Glucose, Urine (Dipstick) Normal (Negative); Ketone, Urine Negative (Negative); Leukocyte 500 Leu/uL (Negative); Nitrite Negative (Negative); Protein, Urine (Dipstick) 100 mg/dL (Neg-Trace); RBC/HPF 21-50 HPF (0-3); Squamous Epithelial None Seen HPF (0-3); Transitional Epithelial 0-3 HPF (None Seen); Urobilinogen 3 mg/dL (Less than 2); WBC/HPF Greater than 50 HPF (0-3)
[2020-07-02 15:10] LABS: Hemoglobin 11.4 g/dL (12.0-16.0); Mean Corpuscular HGB CONC 32.3 g/dL (32.0-36.0); Mean Corpuscular Hemoglobin 29.2 pg (27.0-31.0); Mean Corpuscular Volume 90.6 fL (78.0-98.0); Platelet Count 256 thou/uL (130-400); RBC Distribution Width 14.4 % (11.5-14.5); Red Blood Cell (RBC) Count 3.91 mill/uL (4.20-5.40); White Blood Cell (WBC) Count 20.3 thou/uL (4.8-10.8)
[2020-07-02 15:28] LABS: ALT (SGPT) 17 U/L (8-55); AST (SGOT) 39 U/L (5-34); Albumin 3.5 g/dL (3.4-4.8); Alkaline Phosphatase 110 U/L (40-110); Anion Gap 18 mmol/L (10-20); BUN (Urea Nitrogen) 17 mg/dL (9.8-20.1); Band 20 % (5-11); Bilirubin, Total 1.4 mg/dL (0.2-1.2); Calc. Creatinine Clearance 0 mL/min (70-130); Calcium 9.2 mg/dL (7.8-10.44); Carbon Dioxide 28 mmol/L (23-31); Chloride 101 mmol/L (98-107); Globulin 4.6 g/dL (2.4-3.5); Glucose 181 mg/dL (80-115); Lymphocytes 5 % (21-51); MDiff Complete? YES; Monocytes 6 % (0-10); Neutrophil 69 % (42-75); Platelet Morphology Comment Appears Adequate; Polychromasia SLIGHT = 2-3 cells (100X) (0-2/hpf); Potassium 4.5 mmol/L (3.5-5.1); Protein, Total 8.1 g/dL (5.8-8.1); Sodium 142 mmol/L (136-145); Target Cells SLIGHT = 2-5 cells (100X) (0-1/hpf)
[2020-07-02] MEDS ORDERED: Acetaminophen 500 MG TAB ONE ×2 (15:38→15:41)
[2020-07-02] MEDS ORDERED: Vancomycin 1 GM/200 ML BAG ONE ×2 (16:03→17:01)
[2020-07-02] MEDS ORDERED: cefTRIAXone\\ROCEPHIN 2 GM VIAL ONE (16:03)
--- NOTE | 2020-07-02 16:14 | PDOC.FPRHP ---
- History of Present Illness Chief Complaint: AMS History of Present Illness: Pt is a 70 yo F with a pmh of DM, HTN, Hx of pancreatitis, asthma, Neuropathy, and GERD who presents to the ED for uncontrollable urination x2 days. She was having confusion, diarrhea, and vomiting for 3 days. She has had two UTIs recently and she was hospitalized for one last month. She wears briefs and is incontinent. ED Course: She received Tylenol, 2L of NS, Vanc, and Rocephin. - Allergies/Adverse Reactions Allergies Allergy/AdvReac Type Severity Reaction Status Date / Time CARL Inhibitors Allergy Verified 06/07/20 03:56 egg Allergy Verified 06/07/20 04:07 lisinopril Allergy Verified 06/07/20 03:56 nalbuphine HCl [From Nubain] Allergy Verified 06/07/20 03:56 Penicillins Allergy Verified 06/07/20 03:56 pentazocine lactate Allergy Verified 06/07/20 03:56 [From Ronn] - Home Medications Medication Instructions Recorded Confirmed Type Hydrochlorothiazide 50 mg PO DAILY #0 03/26/13 07/02/20 History Gabapentin 600 mg PO TID 09/09/16 07/02/20 History metFORMIN HCl [Metformin ER 1,000 mg PO BID 09/09/16 07/02/20 History Gastric] HumaLOG [HumaLOG Vial] 12 unit SC ACHS 08/24/19 07/02/20 History traMADol HCl [Ultram] 50 mg PO Q6H PRN tab 09/01/19 07/02/20 Rx Pantoprazole [Protonix] 40 mg PO DAILY 12/27/19 07/02/20 History Albuterol Sulfate [Albuterol 8.5 gm IH BID PRN 05/16/20 07/02/20 History Sulfate Hfa] Amlodipine [Norvasc] 10 mg PO DAILY 05/16/20 07/02/20 History Furosemide 20 mg PO DAILY 05/16/20 07/02/20 History Insulin Glargine [Lantus Vial] 30 units SC BID 05/16/20 06/06/20 History Acetaminophen [Tylenol Regular 650 mg PO Q4H PRN tab 05/19/20 06/06/20 Rx Strength] Aspirin [Ecotrin Low Strength] 81 mg PO DAILY 06/06/20 07/02/20 History Cholecalciferol (Vitamin D3) 125 mcg PO DAILY 06/06/20 07/02/20 History [Vitamin D3] Metoprolol Tartrate [Lopressor] 0.5 tab PO BID 06/06/20 07/02/20 History [place]-3 Fatty Acids/Fish Oil [Fish 1 cap PO DAILY 06/06/20 07/02/20 History Oil 1,000 mg Capsule] Levofloxacin [Levaquin] 750 mg PO DAILY #8 tab 06/08/20 Rx - History PMHx: DM, HTN, Pancreatitis, Neuropathy, Asthma, GERD PSHx: Hysterectomy, Tonsillectomy, Bilateral hip replacement, Back Surgery FHx: DM, HTN, Cancer unknown Social: No tobacco or recreational drugs. Drinks occasionally - Review of Systems General: denies: fever/chills ENT: reports: rhinorrhea. denies: nasal congestion Respiratory: denies: cough, shortness of breath Cardiovascular: denies: chest pain Gastrointestinal: reports: nausea, vomiting, diarrhea, abdominal pain Genitourinary: reports: polyuria Skin: denies: rashes, lesions Musculoskeletal: denies: pain, arthritis/arthralgias Neurological: denies: syncope, weakness - Vital signs BP: 148/63 HR: 102 RR: 23 Tmax: 103.0 Pox: 100% on RA Wt: 63.5 kg - Physical Exam Constitutional: NAD, awake, alert and oriented (A&O x2) HEENT: normocephalic and atraumatic, conjunctiva clear, MMM, oropharynx clear Neck: supple, FROM Heart: normal S1/S2 -Heart: Tachycardic Lungs: CTAB, no respiratory distress Abdomen: soft, non-tender, bowel sounds present -Abdomen: tender to palpitation over the epigastrium Musculoskeletal: normal structure, normal tone Neurological: no focal deficit, CN II-XII intact Skin: no rash/lesions, good turgor Heme/Lymphatic: no unusual bruising or bleeding, no purpura Psychiatric: normal mood and affect FMR H&P: Results - Labs Result Diagrams: 07/02/20 14:53 07/02/20 14:53 Lab results: WBC 20.3 thou/uL (4.8-10.8) H 07/02/20 14:53 Hgb 11.4 g/dL (12.0-16.0) L 07/02/20 14:53 Hct 35.4 % (36.0-47.0) L 07/02/20 14:53 MCV 90.6 fL (78.0-98.0) 07/02/20 14:53 Plt Count 256 thou/uL (130-400) 07/02/20 14:53 Band Neuts % (Manual) 20 % (5-11) H 07/02/20 14:53 Sodium 142 mmol/L (136-145) 07/02/20 14:53 Potassium 4.5 mmol/L (3.5-5.1) 07/02/20 14:53 Chloride 101 mmol/L (98-107) 07/02/20 14:53 Carbon Dioxide 28 mmol/L (23-31) 07/02/20 14:53 BUN 17 mg/dL (9.8-20.1) 07/02/20 14:53 Creatinine 1.45 mg/dL (0.6-1.1) H 07/02/20 14:53 Glucose 181 mg/dL (80-115) H 07/02/20 14:53 Lactic Acid 2.8 mmol/L (0.5-2.2) H 07/02/20 14:53 Calcium 9.2 mg/dL (7.8-10.44) 07/02/20 14:53 Total Bilirubin 1.4 mg/dL (0.2-1.2) H 07/02/20 14:53 AST 39 U/L (5-34) H 07/02/20 14:53 ALT 17 U/L (8-55) 07/02/20 14:53 Alkaline Phosphatase 110 U/L (40-110) 07/02/20 14:53 Serum Total Protein 8.1 g/dL (5.8-8.1) 07/02/20 14:53 Albumin 3.5 g/dL (3.4-4.8) 07/02/20 14:53 Urine Ketones Negative mg/dL (Negative) 07/02/20 13:50 Urine Blood 2+ (Negative) A 07/02/20 13:50 Urine Nitrite Negative (Negative) 07/02/20 13:50 Ur Leukocyte Esterase 500 Karen/uL (Negative) A 07/02/20 13:50 Urine RBC 21-50 HPF (0-3) A 07/02/20 13:50 Urine WBC Greater than 50 HPF (0-3) A 07/02/20 13:50 Ur Squamous Epith Cells None Seen HPF (0-3) 07/02/20 13:50 Urine Bacteria 3+ HPF (None Seen) A 07/02/20 13:50 - EKG Interpretation EKG: Tachycardic, Q waves but no T wave inversions FMR H&P: A/P - Problem List (1) Sepsis Current Visit: Yes Status: Acute Code(s): A41.9 - SEPSIS, UNSPECIFIED ORGANISM (2) UTI (urinary tract infection) Current Visit: Yes Status: Acute (3) Asthma Current Visit: No Status: Acute Code(s): J45.909 - UNSPECIFIED ASTHMA, UNCOMPLICATED Qualifiers: Asthma severity: mild intermittent Asthma complication type: uncomplicated (4) GERD (gastroesophageal reflux disease) Current Visit: No Status: Acute Code(s): K21.9 - GASTRO-ESOPHAGEAL REFLUX DISEASE WITHOUT ESOPHAGITIS (5) Diabetes mellitus Current Visit: No Status: Chronic Code(s): E11.9 - TYPE 2 DIABETES MELLITUS WITHOUT COMPLICATIONS Qualifiers: Diabetes mellitus type: type 2 Diabetes mellitus jail insulin use: with jail use Diabetes mellitus complication status: with hypoglycemia Diabetes mellitus complication detail: without coma Qualified Code(s): E11.649 - Type 2 diabetes mellitus with hypoglycemia without coma; Z79.4 - snf (current) use of insulin (6) HTN (hypertension) Current Visit: No Status: Chronic Code(s): I10 - ESSENTIAL (PRIMARY) HYPERTENSION Qualifiers: Hypertension type: essential hypertension Qualified Code(s): I10 - Essential (primary) hypertension - Plan 70 yo F with a pmh of DM, HTN, Hx of pancreatitis, Neuropathy, and GERD who presents to the ED for uncontrollable urination x2 days. Sepsis 2/2 UTI - s/p Vanc, rocephin, 2L NS in ED - will bolus 1 L LR followed by 75 mls/hr of LR - will continue vanc and rocephin pending cultures - UA Dirty - Ucx pending - consider imaging tomorrow due to recurrent UTIs DM - home Metformin, Humalog - mild SSI and hypoglycemic protocol ordered Asthma - home Albuterol prn - Will Monitor, no sxs at this time HTN - home Metoprolol, Amlodipine, Lasix - ECHO (08/25): EF > 65, Mild TR & MR - Will monitor GERD - home Pantoprazole Neuropathy - home Gabapentin Dispo: Tele inpt, admit and await cultures. DVT PPx: Lovenox GI PPx: Pantoprazole Fluids: 75 mls/hr of LR Code Status: Full PCP: Amor Oshea FMR H&P: Upper Level - Pertinent history Pt is a 70 yo F with a pmh of DM, HTN, Hx of pancreatitis, asthma, Neuropathy, and GERD who presents to the ED for uncontrollable urination x2 days. ROS: +nausea, vomiting, diarrhea, fever, AMS PE: Tachycardia, MMM, lungs CTAB, TTP over epigastrium A&P: 1. Sepsis 2/2 UTI -Vanc, [place], 3L NS -UA Dirty -Awaiting UCx 2. DM -Metformin, Humalog -SSI, ACHS 3. Asthma -Albuterol -Will Monitor, no sxs at this time 4. HTN -Metoprolol, Amlodipine, Lasix -ECHO (08/25): EF > 65, Mild TR & MR -Will monitor 5. GERD -Pantoprazole 6. Neuropathy -Gabapentin Dispo: Tele inpt, admit and await cultures. - Plan Date/Time: 07/02/20 1611 I, Taras Nixon, have evaluated this patient and agree with findings/plan as outlined by internet designer resident. Pertinent changes/additions are listed here. Addendum - Attending - Attending Attestation Date/Time: 07/02/202025 I personally evaluated the patient and discussed the management with Dr. Marlena kimble. I agree with the History, Examination, Assessment and Plan documented above with any addition or exceptions noted below.
[2020-07-02] MEDS ORDERED: Ondansetron PF 4 MG/2 ML Vial IVP PRN (16:52)
[2020-07-02] MEDS ORDERED: Dextrose 50% Abboject 50 ML SYRINGE SLOW IVP PRN (16:52)
[2020-07-02] MEDS ORDERED: Dextrose 5% in Water 1,000 ML IV PRN (16:52)
[2020-07-02] MEDS ORDERED: Ondansetron ODT 4 MG TAB PO PRN (16:52)
[2020-07-02] MEDS ORDERED: HumaLOG 300 UNITS/3 ML VIAL SC PRN (16:59)
[2020-07-02] MEDS ORDERED: Lactated Ringer's 1,000 ML IV SCH (17:15)
[2020-07-02 17:34] LABS: SARS-CoV-2 NAA Rapid Test Not Detected (NotDetected)
[2020-07-02] MEDS ORDERED: Albuterol Sulfate 2.5 mg/3 ml Neb NEB PRN (17:39)
[2020-07-02 18:29] LABS: Lactic Acid 2.3 mmol/L (0.5-2.2)
[2020-07-02 20:33] LABS: Lactic Acid 2.6 mmol/L (0.5-2.2)
[2020-07-02] MEDS: HumaLOG 300 UNITS/3 ML VIAL SC SCH (20:58)
[2020-07-02] MEDS: Metoprolol Tartrate 25 MG TAB PO SCH (20:59)
[2020-07-02] MEDS: Gabapentin 300 MG CAP PO SCH (20:59)
[2020-07-02] MEDS: Lactated Ringer's 1,000 ML IV SCH (22:22)
[2020-07-02 23:50] VITALS: BMI 26.9
[2020-07-03] MEDS ORDERED: Vancomycin 1 GM in Premix Bag 1 BAG IVPB SCH (04:00)
[2020-07-03] MEDS: HumaLOG 300 UNITS/3 ML VIAL SC PRN (05:58)
[2020-07-03 06:04] LABS: Band 8 % (5-11); Hemoglobin 8.8 g/dL (12.0-16.0); Hypochromia SLIGHT = 6-15 cells (100X) (0-5/hpf); Lymphocytes 14 % (21-51); MDiff Complete? YES; Mean Corpuscular Hemoglobin 29.6 pg (27.0-31.0); Mean Corpuscular Volume 89.8 fL (78.0-98.0); Mean Platelet Volume 9.2 fL (7.4-10.4); Metamyelocyte 1 % (0-0); Monocytes 12 % (0-10); Neutrophil 65 % (42-75); Platelet Count 178 thou/uL (130-400); Platelet Morphology Comment Appears Adequate; RBC Distribution Width 14.4 % (11.5-14.5); Red Blood Cell (RBC) Count 2.99 mill/uL (4.20-5.40); Target Cells SLIGHT = 2-5 cells (100X) (0-1/hpf); White Blood Cell (WBC) Count 17.4 thou/uL (4.8-10.8)
[2020-07-03] MEDS: Lactated Ringer's 1,000 ML IV SCH ×2 (06:10→08:50)
[2020-07-03 06:27] LABS: Anion Gap 13 mmol/L (10-20); BUN (Urea Nitrogen) 15 mg/dL (9.8-20.1); Calc. Creatinine Clearance 48 mL/min (70-130); Calcium 7.9 mg/dL (7.8-10.44); Carbon Dioxide 25 mmol/L (23-31); Chloride 102 mmol/L (98-107); Glucose 206 mg/dL (80-115); Potassium 3.5 mmol/L (3.5-5.1); Sodium 136 mmol/L (136-145)
--- NOTE | 2020-07-03 07:19 | PDOC.FM ---
- Subjective Subjective: Doing well this morning. States she slept well overnight. C/o mild lower back pain. Denies upper back pain or CVA tenderness. - Objective MAR Reviewed: Yes Vital Signs & Weight: Vital Signs (12 hours) Temp Pulse Resp BP Pulse Ox 07/03/20 04:15 98.9 F 07/03/20 03:29 102.8 F H 89 18 133/61 95 07/02/20 23:06 98.4 F 83 16 137/77 97 Weight Weight 71.033 kg I&O: 07/02/20 07/03/20 07/04/20 06:59 06:59 06:59 Intake Total 2420 Balance 2420 Result Diagrams: 07/03/20 05:20 07/03/20 05:20 Phys Exam - Physical Examination Constitutional: NAD HEENT: PERRLA, moist MMs Neck: no nodes, no JVD Respiratory: no wheezing, no rales, no rhonchi, clear to auscultation bilateral Cardiovascular: RRR, no significant murmur Gastrointestinal: soft, non-tender, no distention, positive bowel sounds Musculoskeletal: no edema, pulses present Neurological: non-focal, normal sensation, moves all 4 limbs Psychiatric: normal affect, A&O x 3 Skin: no rash, normal turgor Dx/Plan (1) Sepsis Code(s): A41.9 - SEPSIS, UNSPECIFIED ORGANISM Status: Acute (2) UTI (urinary tract infection) Status: Acute (3) Asthma Code(s): J45.909 - UNSPECIFIED ASTHMA, UNCOMPLICATED Status: Acute Qualifiers: Asthma severity: mild intermittent Asthma complication type: uncomplicated (4) Depression Code(s): F32.9 - MAJOR DEPRESSIVE DISORDER, SINGLE EPISODE, UNSPECIFIED Status: Acute Qualifiers: Depression Type: dysthymia Qualified Code(s): F34.1 - Dysthymic disorder (5) GERD (gastroesophageal reflux disease) Code(s): K21.9 - GASTRO-ESOPHAGEAL REFLUX DISEASE WITHOUT ESOPHAGITIS Status: Acute (6) Insomnia Code(s): G47.00 - INSOMNIA, UNSPECIFIED Status: Acute - Plan Plan: Sepsis 2/2 UTI - 75 mls/hr of LR - Preliminary cultures show gram negative rods in urine and blood. Previous cultures show E. Coli that is sensitive to cephalosporins. - D/c vancomycin DM - home Metformin, Humalog - mild SSI and hypoglycemic protocol ordered Asthma - home Albuterol prn - Will Monitor, no sxs at this time HTN - home Metoprolol, Amlodipine, Lasix - ECHO (08/25): EF > 65, Mild TR & MR - Will monitor GERD - home Pantoprazole Neuropathy - home Gabapentin Dispo: admit to inpatient and await cultures. DVT PPx: Lovenox GI PPx: Pantoprazole Fluids: 75 mls/hr of LR Code Status: Full PCP: Amor Oshea Addendum - Attending - Attending Attestation Date/Time: 07/03/20 2124 I personally evaluated the patient and discussed the management with Dr. Lees. I agree with the History, Examination, Assessment and Plan documented above with any addition or exceptions noted below. Patient here with GNR bacteremia and Sepsis 2/2 UTI. Continue Rocephin, IVF, pain control. Monitor fever curve and trend labs.
[2020-07-03] MEDS: HumaLOG 300 UNITS/3 ML VIAL SC SCH ×2 (08:50→13:17)
[2020-07-03] MEDS: Amlodipine 10 MG TAB PO SCH (08:51)
[2020-07-03] MEDS: metFORMIN 500 MG TAB PO SCH ×2 (08:51→16:22)
[2020-07-03] MEDS: Cholecalciferol 1,000 UNITS (25 MCG) TAB PO SCH (08:52)
[2020-07-03] MEDS: Aspirin 81 mg Enteric Coated Tablet PO SCH (08:53)
[2020-07-03] MEDS: Gabapentin 300 MG CAP PO SCH ×3 (08:53→20:35)
[2020-07-03] MEDS: Enoxaparin Sodium 40 MG/0.4 ML SYRINGE SC SCH (09:01)
[2020-07-03] MEDS: Metoprolol Tartrate 25 MG TAB PO SCH ×2 (09:01→20:36)
[2020-07-03] MEDS: Fish Oil 1,000 MG CAP PO SCH (09:02)
[2020-07-03] MEDS: traMADol HCl 50 MG TAB PO PRN ×2 (09:24→18:24)
[2020-07-03] MEDS: Hydrochlorothiazide 25 MG TAB PO SCH (12:21)
[2020-07-03] MEDS: Furosemide 20 MG TAB PO SCH (13:00)
[2020-07-03] MEDS: Acetaminophen 325 MG TAB PO PRN (14:36)
[2020-07-03] MEDS: MEROPENEM 1 GM/50 ML 1 GM in Premix Bag 1 BAG IVPB SCH (15:01)
[2020-07-03] MEDS ORDERED: cefTRIAXone\\ROCEPHIN 1 GM in Sodium Chloride 0.9% 100 ML IVPB SCH (16:00)
[2020-07-03] MEDS: Insulin Glargine 20 UNITS in Pre-Filled Syringe 1 EACH SC SCH (20:39)
[2020-07-04] MEDS: Lactated Ringer's 1,000 ML IV SCH (00:35)
[2020-07-04] MEDS: MEROPENEM 1 GM/50 ML 1 GM in Premix Bag 1 BAG IVPB SCH ×2 (01:33→14:01)
[2020-07-04 05:49] LABS: Anion Gap 16 mmol/L (10-20); BUN (Urea Nitrogen) 14 mg/dL (9.8-20.1); Calc. Creatinine Clearance 59 mL/min (70-130); Calcium 8.3 mg/dL (7.8-10.44); Carbon Dioxide 24 mmol/L (23-31); Chloride 99 mmol/L (98-107); Glucose 135 mg/dL (80-115); Potassium 3.7 mmol/L (3.5-5.1); Sodium 135 mmol/L (136-145)
[2020-07-04 05:50] LABS: Band 1 % (5-11); Eosinophils 2 % (0-10); Hemoglobin 11.3 g/dL (12.0-16.0); Lymphocytes 16 % (21-51); MDiff Complete? YES; Mean Corpuscular Volume 91.2 fL (78.0-98.0); Mean Platelet Volume 9.2 fL (7.4-10.4); Monocytes 17 % (0-10); Neutrophil 64 % (42-75); Platelet Count 181 thou/uL (130-400); Platelet Morphology Comment Appears Adequate; RBC Distribution Width 14.3 % (11.5-14.5); Red Blood Cell (RBC) Count 3.64 mill/uL (4.20-5.40); White Blood Cell (WBC) Count 17.5 thou/uL (4.8-10.8)
--- NOTE | 2020-07-04 07:04 | PDOC.FM ---
- Subjective Subjective: Doing well this morning. Eager to d/c home. - Objective MAR Reviewed: Yes Vital Signs & Weight: Vital Signs (12 hours) Temp Pulse Resp BP Pulse Ox 07/04/20 03:13 98.6 F 93 16 146/74 H 96 07/03/20 23:08 98.4 F 82 18 138/75 96 07/03/20 19:25 98.0 F 84 16 112/80 97 Weight Weight 71.033 kg I&O: 07/03/20 07/04/20 07/05/20 06:59 06:59 06:59 Intake Total 2420 3120 Output Total 950 Balance 2420 2170 Result Diagrams: 07/04/20 05:24 07/04/20 05:24 Phys Exam - Physical Examination Constitutional: NAD HEENT: PERRLA, moist MMs, sclera anicteric Neck: no nodes, no JVD, supple Respiratory: no wheezing, no rales, no rhonchi, clear to auscultation bilateral Cardiovascular: RRR, no significant murmur Gastrointestinal: soft, non-tender Musculoskeletal: no edema, pulses present Neurological: non-focal, normal sensation, moves all 4 limbs Psychiatric: normal affect, A&O x 3 Skin: no rash, normal turgor Dx/Plan (1) Sepsis Code(s): A41.9 - SEPSIS, UNSPECIFIED ORGANISM Status: Acute (2) UTI (urinary tract infection) Status: Acute (3) Asthma Code(s): J45.909 - UNSPECIFIED ASTHMA, UNCOMPLICATED Status: Acute Qualifiers: Asthma severity: mild intermittent Asthma complication type: uncomplicated (4) Depression Code(s): F32.9 - MAJOR DEPRESSIVE DISORDER, SINGLE EPISODE, UNSPECIFIED Status: Acute Qualifiers: Depression Type: dysthymia Qualified Code(s): F34.1 - Dysthymic disorder (5) GERD (gastroesophageal reflux disease) Code(s): K21.9 - GASTRO-ESOPHAGEAL REFLUX DISEASE WITHOUT ESOPHAGITIS Status: Acute (6) Insomnia Code(s): G47.00 - INSOMNIA, UNSPECIFIED Status: Acute - Plan Plan: Sepsis 2/2 UTI, improving - Prelim cultures show E. Coli that is resistant to ceftriaxone per Verigene analysis. - Changed abx to Meropenem 07/03. Plan to keep on IV abx 48 hours prior to considering d/c home. - Procal down trending 4.06 > 3.76. DM - home Metformin, Humalog - mild SSI and hypoglycemic protocol ordered Asthma - home Albuterol prn - Will Monitor, no sxs at this time HTN - home Metoprolol, Amlodipine, Lasix - ECHO (08/25): EF > 65, Mild TR & MR - Will monitor GERD - home Pantoprazole Neuropathy - home Gabapentin Dispo: Stable, inpatient. Will likely need outpatient IV antibiotics. DVT PPx: Lovenox GI PPx: Pantoprazole Fluids: SL Code Status: Full PCP: Denis Oshea Addendum - Attending - Attending Attestation Date/Time: 07/04/20 6014 I personally evaluated the patient and discussed the management with Dr. Lees. I agree with the History, Examination, Assessment and Plan documented above with any addition or exceptions noted below. Patient feeling well. She has ESBL E. coli bacteremia and UTI. On Meropenem. Will discuss with ID length of therapy needed and work on disposition in the next few days.
[2020-07-04] MEDS: traMADol HCl 50 MG TAB PO PRN ×3 (07:58→20:44)
[2020-07-04] MEDS: Gabapentin 300 MG CAP PO SCH ×3 (08:01→20:01)
[2020-07-04] MEDS: metFORMIN 500 MG TAB PO SCH ×2 (08:01→18:10)
[2020-07-04] MEDS: Amlodipine 10 MG TAB PO SCH (08:02)
[2020-07-04] MEDS: Fish Oil 1,000 MG CAP PO SCH (08:02)
[2020-07-04] MEDS: Aspirin 81 mg Enteric Coated Tablet PO SCH (08:02)
[2020-07-04] MEDS: Cholecalciferol 1,000 UNITS (25 MCG) TAB PO SCH (08:02)
[2020-07-04] MEDS: Furosemide 20 MG TAB PO SCH (08:03)
[2020-07-04] MEDS: Enoxaparin Sodium 40 MG/0.4 ML SYRINGE SC SCH (08:03)
[2020-07-04] MEDS: Metoprolol Tartrate 25 MG TAB PO SCH ×2 (08:03→20:02)
[2020-07-04] MEDS: Hydrochlorothiazide 25 MG TAB PO SCH (08:04)
[2020-07-04] MEDS ORDERED: Insulin Glargine 20 UNITS in Pre-Filled Syringe 1 EACH SC SCH (09:00)
[2020-07-04] MEDS: HumaLOG 300 UNITS/3 ML VIAL SC PRN (12:55)
[2020-07-04] MEDS: Acetaminophen 325 MG TAB PO PRN ×2 (15:08→20:45)
[2020-07-04] MEDS: Insulin Glargine 20 UNITS in Pre-Filled Syringe 1 EACH SC SCH (20:38)
[2020-07-05] MEDS: MEROPENEM 1 GM/50 ML 1 GM in Premix Bag 1 BAG IVPB SCH ×2 (01:35→14:46)
[2020-07-05 06:07] LABS: Hemoglobin 10.4 g/dL (12.0-16.0); Mean Corpuscular HGB CONC 32.1 g/dL (32.0-36.0); Mean Corpuscular Hemoglobin 28.7 pg (27.0-31.0); Mean Corpuscular Volume 89.4 fL (78.0-98.0); Mean Platelet Volume 8.9 fL (7.4-10.4); Platelet Count 261 thou/uL (130-400); RBC Distribution Width 14.6 % (11.5-14.5); White Blood Cell (WBC) Count 12.1 thou/uL (4.8-10.8)
[2020-07-05 06:08] LABS: #Eosinphils 0.2 thou/uL (0.0-0.7); #Lymphocytes 1.4 thou/uL (1.20-3.40); #Monocytes 1.4 thou/uL (0.11-0.59); #Neutrophils 9.1 thou/uL (1.40-6.50); %Basophils 0.1 % (0.0-1.0); %Eosinophils 1.4 % (0.0-10.0); %Lymphocytes 11.6 % (21.0-51.0); %Monocytes 11.7 % (0.0-10.0); %Neutrophils 75.1 % (42.0-75.0)
[2020-07-05 06:18] LABS: Anion Gap 13 mmol/L (10-20); BUN (Urea Nitrogen) 13 mg/dL (9.8-20.1); Calc. Creatinine Clearance 62 mL/min (70-130); Calcium 8.8 mg/dL (7.8-10.44); Carbon Dioxide 30 mmol/L (23-31); Chloride 96 mmol/L (98-107); Glucose 123 mg/dL (80-115); Potassium 3.5 mmol/L (3.5-5.1); Sodium 135 mmol/L (136-145)
--- NOTE | 2020-07-05 06:43 | PDOC.FM ---
- Subjective Subjective: Doing well this morning. Eager for d/c home. - Objective MAR Reviewed: Yes Vital Signs & Weight: Vital Signs (12 hours) Temp Pulse Resp BP Pulse Ox 07/05/20 03:49 97.5 F L 81 16 134/75 98 07/04/20 23:36 97.6 F 69 16 125/76 99 07/04/20 19:30 97.5 F L 76 16 129/71 96 Weight Weight 71.033 kg I&O: 07/03/20 07/04/20 07/05/20 06:59 06:59 06:59 Intake Total 2420 3120 1745 Output Total 950 1600 Balance 2420 2170 145 Result Diagrams: 07/05/20 05:41 07/05/20 05:41 Phys Exam - Physical Examination Constitutional: NAD HEENT: PERRLA, moist MMs Neck: no nodes, no JVD Respiratory: no wheezing, no rales, no rhonchi, clear to auscultation bilateral Cardiovascular: RRR, no significant murmur, no rub Gastrointestinal: soft, non-tender Musculoskeletal: no edema, pulses present Neurological: non-focal, normal sensation, moves all 4 limbs Psychiatric: normal affect, A&O x 3 Skin: no rash, normal turgor Dx/Plan (1) Sepsis Code(s): A41.9 - SEPSIS, UNSPECIFIED ORGANISM Status: Acute (2) UTI (urinary tract infection) Status: Acute (3) Asthma Code(s): J45.909 - UNSPECIFIED ASTHMA, UNCOMPLICATED Status: Acute Qualifiers: Asthma severity: mild intermittent Asthma complication type: uncomplicated (4) Depression Code(s): F32.9 - MAJOR DEPRESSIVE DISORDER, SINGLE EPISODE, UNSPECIFIED Status: Acute Qualifiers: Depression Type: dysthymia Qualified Code(s): F34.1 - Dysthymic disorder (5) GERD (gastroesophageal reflux disease) Code(s): K21.9 - GASTRO-ESOPHAGEAL REFLUX DISEASE WITHOUT ESOPHAGITIS Status: Acute (6) Insomnia Code(s): G47.00 - INSOMNIA, UNSPECIFIED Status: Acute - Plan Plan: Sepsis 2/2 UTI, improving - Prelim cultures show E. Coli that is resistant to ceftriaxone per Verigene analysis. - Changed abx to Meropenem 07/03. ID consulted to determine length of therapy and to assist with ordering outpatient IV abx therapy. - Procal down trending 4.06 > 3.76 > DM - home Metformin, Humalog - mild SSI and hypoglycemic protocol ordered Asthma - home Albuterol prn - Will Monitor, no sxs at this time HTN - home Metoprolol, Amlodipine, Lasix - ECHO (08/25): EF > 65, Mild TR & MR - Will monitor GERD - home Pantoprazole Neuropathy - home Gabapentin Dispo: Stable, inpatient. Will likely need outpatient IV antibiotics. DVT PPx: Lovenox GI PPx: Pantoprazole Fluids: SL Code Status: Full PCP: Amor Oshea Addendum - Attending - Attending Attestation Date/Time: 07/05/20 5103 I personally evaluated the patient and discussed the management with Dr. Lees. I agree with the History, Examination, Assessment and Plan documented above with any addition or exceptions noted below. Patient feeling well from infection standpoint. She has had no recurrent fevers and inflammatory markers downtrending from her sepsis/bacteremia. She has an ESBL E. coli in urine and blood. Awaiting consultation from ID regarding length of therapy so we can work to arrange that outpatient.
[2020-07-05] MEDS: metFORMIN 500 MG TAB PO SCH ×2 (08:50→16:36)
[2020-07-05] MEDS: Aspirin 81 mg Enteric Coated Tablet PO SCH (08:50)
[2020-07-05] MEDS: Cholecalciferol 1,000 UNITS (25 MCG) TAB PO SCH (08:51)
[2020-07-05] MEDS: Metoprolol Tartrate 25 MG TAB PO SCH ×2 (08:51→20:36)
[2020-07-05] MEDS: Fish Oil 1,000 MG CAP PO SCH (08:51)
[2020-07-05] MEDS: Amlodipine 10 MG TAB PO SCH (08:51)
[2020-07-05] MEDS: Hydrochlorothiazide 25 MG TAB PO SCH (08:51)
[2020-07-05] MEDS: Enoxaparin Sodium 40 MG/0.4 ML SYRINGE SC SCH (08:52)
[2020-07-05] MEDS: Furosemide 20 MG TAB PO SCH (08:52)
[2020-07-05] MEDS: Gabapentin 300 MG CAP PO SCH ×3 (09:05→20:33)
[2020-07-05] MEDS: traMADol HCl 50 MG TAB PO PRN ×2 (09:05→16:37)
--- NOTE | 2020-07-05 12:29 | CT ---
CT Stone Protocol 07/05/2020 12:00 PM HISTORY: UTI with bacteremia. COMPARISON: None. Technique: Multiple contiguous axial CT images are obtained through the abdomen and pelvis without IV contrast. Coronal reformats are provided. FINDINGS: This examination is limited for the evaluation of solid organs and vascular structures due to the lac k of intravenous contrast. Lower Chest: Calcified granulomata are seen at the right lung base and were also seen on CTA chest on 06/06/2020. Minimal pleural-based nodular density is seen along the right hemidiaphragm stable from prior exam. Atelectasis is present at the left lung base. Liver: Calcified granuloma left hepatic lobe. Gallbladder: Multiple gallbladder calculi. Pancreas: Multiple calcifications seen throughout the pancreas related to combination of vascular typ e calcifications and calcifications secondary to prior pancreatitis. Distal body and tail of the pancreas are atrophied. Findings were also seen on study on 06/06/2020. Spleen: Grossly normal nonenhanced CT appearance. Adrenals: Grossly normal nonenhanced CT appearance. Kidneys and ureters: No renal or ureteral calculi are seen bilaterally. No hydronephrosis is present. Symmetric bilateral perinephric stranding is identified. Distal left ureters are not well assessed due to streak artifact from bilateral total hip prostheses. Urinary bladder: Within normal limits allowing for streak artifact. Reproductive Organs: Evidence of hysterectomy. Lymph Nodes: No enlarged lymph nodes. Bowel: A few scattered colonic diverticula are seen. Loops of small bowel are normal in caliber. Appendix: The appendix is normal in caliber. Peritoneum: No free fluid, free air, or fluid collection. Retroperitoneum: Nonspecific increased number of aortocaval lymph nodes. No enlarged lymph nodes seen by CT size criteria. Vessels: Vascular calcifications present in the abdominal aorta and iliac arteries.. Abdominal Wall: Mild stranding and subcutaneous emphysema just to the right of midline anterior wall right pelvis likely related to site of recent injection. Bones: Postoperative changes lower lumbar spine related to posterior fusion. Bilateral total hip pros theses are present. Degenerative changes are seen in the spine. IMPRESSION: 1. No renal or ureteral calculi are seen bilaterally, and there is no hydronephrosis. 2. Hysterectomy. 3. Cholelithiasis.
[2020-07-05] MEDS: HumaLOG 300 UNITS/3 ML VIAL SC PRN (12:42)
[2020-07-05] MEDS: Acetaminophen 325 MG TAB PO PRN (12:42)
--- NOTE | 2020-07-05 12:49 | CON ---
DATE OF CONSULTATION: 07/05/2020 REASON: UTI with bacteremia with a resistant pathogen. HISTORY OF PRESENT ILLNESS: A 70-year-old with history of type 2 diabetes, hypertension, pancreatitis, and asthma, who developed a change in mental state and frequent urination, diarrhea, and vomiting for 3 days before admission. The patient has a history of recurrent UTIs in the past. The last time she presented and was admitted at the end of May 2020, and she had a sense of general malaise and had chills with altered mental state as well. At that time, she had an Escherichia coli, which was fairly susceptible to various antimicrobial therapies. 2 sets of blood cultures were negative, and she was discharged on June 11 with levofloxacin for 8 days. So this time, she comes in about 3 weeks after the last episode with a fairly similar presentation, and we have now Escherichia coli which has developed resistance to 3rd generation cephalosporins. So, she was treated with IV meropenem with improvement and currently, she is feeling back to normal. Denies headaches, visual symptoms, sore throat, odynophagia, or dysphagia. No cough or sputum production. She has some urinary incontinence intermittently, but does not feel that she cannot void to empty her bladder. No back pain. No joint symptoms other than chronic arthrosis or related symptoms. PAST MEDICAL HISTORY: Type 2 diabetes, hypertension, pancreatitis, neuropathy, asthma, GERD, and recurrent UTIs. PAST SURGICAL HISTORY: Hysterectomy, tonsillectomy, hip replacements, back surgery which was a laminectomy. FAMILY HISTORY: Diabetes, hypertension, and cancer. SOCIAL HISTORY: Quit smoking 12 years ago. Lives in [place]. Drinks occasionally. Has family members around. ALLERGY HISTORY: CARL inhibitors, penicillin, pentazocine. PHYSICAL EXAMINATION: VITAL SIGNS: T-max 102.8, she has been afebrile since admission, blood pressure 140/80, heart rate 88, respirations 18, and O2 saturation 96 on room air. SKIN: Normal. She has a peripheral IV access. She is voiding in the diaper. No lymphadenopathy. HEENT: Ocular movements conjugate. Oral cavity normal except for marked decay in her dental structures and enamel desiccation. NECK: Supple. No jugular vein distention or no thyromegaly. LUNGS: Symmetric. Clear breath sounds. HEART: S1, S2. Regular rate. No S3 or S4. ABDOMEN: Soft, not distended or tender. The bladder might be a little bit distended or moderately distended not clear yet. We will have to check it with a postvoid residual check. EXTREMITIES: No joint inflammatory activity. No edema. Pulses 1+ in dorsalis pedis. Plantar response are flexor. Moves all extremities equally. NEUROLOGIC: Cognitive function appears to be intact. Speech is normal. LABORATORY DATA: White cell count is 20,000, down to 12,000. Platelets are normal. Hemoglobin 11.4, now 10.4 and bands were 20 on admission, now is down to 1%. Sodium 135, creatinine 0.97. Liver profile with a bilirubin of 1.4, AST 39, ALT 17, alkaline phosphatase 110. Urinalysis greater than 50 wbc's, protein was 100. SARS-CoV-2 RT- PCR negative. We have 2 sets of blood cultures positive for Escherichia coli, the same organism in the urine as well. At this time, has acquired new resistance with extended-spectrum beta-lactamases phenotype organism. She has a chest CT done at last admission, which did not show any infiltrates, just chronic type findings. ASSESSMENT: Type 2 diabetes, neuropathy, recurrent urinary tract infections, possible urinary retention, extended-spectrum beta-lactamases positive Escherichia coli with bacteremia causing invasive urinary tract infection. No other sites of involvement are apparent. DISCUSSION: The main task at hand is to verify proper bladder emptying and absence of other factors causing obstruction of urinary tract with a CT stone protocol. She will need a PICC line and a few weeks of IV ertapenem. Assuming that she does not require any urological intervention. She may have neurogenic bladder with urinary retention. Job ID: [id number] [facility]
[2020-07-05] MEDS: Insulin Glargine 20 UNITS in Pre-Filled Syringe 1 EACH SC SCH (20:33)
[2020-07-06] MEDS: MEROPENEM 1 GM/50 ML 1 GM in Premix Bag 1 BAG IVPB SCH ×2 (01:29→14:10)
[2020-07-06 06:01] LABS: Hemoglobin 8.8 g/dL (12.0-16.0); Mean Corpuscular HGB CONC 32.9 g/dL (32.0-36.0); Mean Corpuscular Volume 88.2 fL (78.0-98.0); Mean Platelet Volume 8.4 fL (7.4-10.4); Platelet Count 305 thou/uL (130-400); RBC Distribution Width 14.5 % (11.5-14.5); Red Blood Cell (RBC) Count 3.03 mill/uL (4.20-5.40); White Blood Cell (WBC) Count 10.7 thou/uL (4.8-10.8)
[2020-07-06 06:29] LABS: Band 2 % (5-11); Lymphocytes 23 % (21-51); MDiff Complete? YES; Monocytes 13 % (0-10); Neutrophil 61 % (42-75); Target Cells MODERATE= 6-15 cells (100X) (0-1/hpf)
--- NOTE | 2020-07-06 06:33 | PDOC.FM ---
- Subjective Subjective: Doing well this morning. Eager for d/c. - Objective MAR Reviewed: Yes Vital Signs & Weight: Vital Signs (12 hours) Temp Pulse Resp BP Pulse Ox 07/06/20 05:17 98.3 F 85 16 148/79 H 94 L 07/06/20 01:37 98.0 F 80 14 133/75 95 07/05/20 20:40 98.1 F 86 16 149/71 H 93 L Weight Weight 71.033 kg I&O: 07/04/20 07/05/20 07/06/20 06:59 06:59 06:59 Intake Total 3120 2325 2310 Output Total 950 2600 1100 Balance 2170 -275 1210 Result Diagrams: 07/06/20 05:24 07/06/20 05:24 Phys Exam - Physical Examination Constitutional: NAD HEENT: PERRLA, moist MMs, sclera anicteric Neck: no nodes, no JVD Respiratory: no wheezing, no rales, no rhonchi, clear to auscultation bilateral Cardiovascular: RRR, no significant murmur Gastrointestinal: soft, non-tender Musculoskeletal: no edema, pulses present Neurological: non-focal, normal sensation Psychiatric: normal affect, A&O x 3 Skin: no rash, normal turgor Dx/Plan (1) Sepsis Code(s): A41.9 - SEPSIS, UNSPECIFIED ORGANISM Status: Acute (2) UTI (urinary tract infection) Status: Acute (3) Asthma Code(s): J45.909 - UNSPECIFIED ASTHMA, UNCOMPLICATED Status: Acute Qualifiers: Asthma severity: mild intermittent Asthma complication type: uncomplicated (4) Depression Code(s): F32.9 - MAJOR DEPRESSIVE DISORDER, SINGLE EPISODE, UNSPECIFIED Status: Acute Qualifiers: Depression Type: dysthymia Qualified Code(s): F34.1 - Dysthymic disorder (5) GERD (gastroesophageal reflux disease) Code(s): K21.9 - GASTRO-ESOPHAGEAL REFLUX DISEASE WITHOUT ESOPHAGITIS Status: Acute (6) Insomnia Code(s): G47.00 - INSOMNIA, UNSPECIFIED Status: Acute - Plan Plan: Sepsis 2/2 UTI, improving Bacteremia - ESBL E. Coli UTI complicated by bacteremia - Changed abx to Meropenem 07/03. ID consulted to determine length of therapy and to assist with ordering outpatient IV abx therapy. - Procal down trending 4.06 > 3.76 > 2.44 > 1.53 DM - home Metformin, Humalog - mild SSI and hypoglycemic protocol ordered Asthma - home Albuterol prn - Will Monitor, no sxs at this time HTN - home Metoprolol, Amlodipine, Lasix - ECHO (08/25): EF > 65, Mild TR & MR - Will monitor GERD - home Pantoprazole Neuropathy - home Gabapentin Dispo: Stable, inpatient. Will likely need outpatient IV antibiotics. DVT PPx: Lovenox GI PPx: Pantoprazole Fluids: SL Code Status: Full PCP: Amor Oshea Addendum - Attending - Attending Attestation Date/Time: 07/06/20 8280 I personally evaluated the patient and discussed the management with Dr. Lees. I agree with the History, Examination, Assessment and Plan documented above with any addition or exceptions noted below. Patient feels well. We are awaiting outpatient abx orders and set up and hopefully can get her a PICC line and discharge today.
[2020-07-06 06:41] LABS: Anion Gap 15 mmol/L (10-20); BUN (Urea Nitrogen) 11 mg/dL (9.8-20.1); Calc. Creatinine Clearance 58 mL/min (70-130); Calcium 8.6 mg/dL (7.8-10.44); Carbon Dioxide 31 mmol/L (23-31); Chloride 96 mmol/L (98-107); Glucose 95 mg/dL (80-115); Potassium 3.5 mmol/L (3.5-5.1); Sodium 138 mmol/L (136-145)
[2020-07-06] MEDS: Amlodipine 10 MG TAB PO SCH (09:34)
[2020-07-06] MEDS: Fish Oil 1,000 MG CAP PO SCH (09:34)
[2020-07-06] MEDS: Metoprolol Tartrate 25 MG TAB PO SCH ×2 (09:34→20:27)
[2020-07-06] MEDS: Hydrochlorothiazide 25 MG TAB PO SCH (09:34)
[2020-07-06] MEDS: Furosemide 20 MG TAB PO SCH (09:34)
[2020-07-06] MEDS: Aspirin 81 mg Enteric Coated Tablet PO SCH (09:34)
[2020-07-06] MEDS: metFORMIN 500 MG TAB PO SCH ×2 (09:34→16:09)
[2020-07-06] MEDS: Enoxaparin Sodium 40 MG/0.4 ML SYRINGE SC SCH (09:35)
[2020-07-06] MEDS: Gabapentin 300 MG CAP PO SCH ×3 (09:35→20:26)
[2020-07-06] MEDS: Cholecalciferol 1,000 UNITS (25 MCG) TAB PO SCH (09:35)
[2020-07-06] MEDS: Acetaminophen 325 MG TAB PO PRN (09:37)
[2020-07-06] MEDS: traMADol HCl 50 MG TAB PO PRN ×2 (09:38→23:45)
--- NOTE | 2020-07-06 12:21 | SPC ---
Ultrasound and Fluoroscopic guided left upper extremity PICC placement HISTORY: Urinary tract infection. Patient is long-term IV antibiotics. FINDINGS: Informed consent obtained prior to the procedure. An appropriate access site was determined with ultrasound guidance. The area was then meticulously pr epped and draped in usual sterile fashion. Skin overlying the left basilic vein anesthetized with 1% buffered lidocaine. Utilizing direct sonogr aphic guidance, vascular access is obtained via the left basilic vein, and an 0.018in guidewire was advanced to the distal SVC. Intravascular length is calculated at 40 cm, and the PICC is cut accordin gly. Needle is removed and replaced with a peel-away sheath. The PICC was advanced over the wire. Wire and peel-away sheath were removed. The tip of the catheter overlies the distal SVC. The catheter was accessed and aspirated/flushed easily. Exposure data: 0 minutes of fluoroscopic time 118 mGy centimeter squared FINDINGS: Technically successful placement of a 40 centimeter single lumen 5 Stateless left upper extremity PICC l ine. IMPRESSION: Successful ultrasound guided placement of a left upper extremity PICC.
[2020-07-06] MEDS: Insulin Glargine 20 UNITS in Pre-Filled Syringe 1 EACH SC SCH (20:27)
[2020-07-07] MEDS: MEROPENEM 1 GM/50 ML 1 GM in Premix Bag 1 BAG IVPB SCH ×2 (01:02→13:30)
--- NOTE | 2020-07-07 05:50 | PDOC.FM ---
- Subjective Subjective: Doing well this morning. Frustrated and eager for d/c home. - Objective Vital Signs & Weight: Vital Signs (12 hours) Temp Pulse Resp BP Pulse Ox 07/07/20 03:30 98.0 F 79 16 134/72 96 07/06/20 23:40 98.4 F 71 16 134/79 96 07/06/20 20:26 97 07/06/20 20:20 98.0 F 84 18 126/68 97 Weight Weight 71.033 kg I&O: 07/05/20 07/06/20 07/07/20 06:59 06:59 06:59 Intake Total 2325 2310 1370 Output Total 2600 1100 Balance -275 1210 1370 Result Diagrams: 07/07/20 05:50 07/07/20 05:50 Phys Exam - Physical Examination Constitutional: NAD HEENT: PERRLA, moist MMs Neck: no nodes, no JVD, supple Respiratory: no wheezing, no rales, no rhonchi, clear to auscultation bilateral Cardiovascular: RRR, no significant murmur, no rub Gastrointestinal: soft, non-tender Musculoskeletal: no edema, pulses present Neurological: non-focal, normal sensation Psychiatric: normal affect, A&O x 3 Skin: no rash, normal turgor Dx/Plan (1) Sepsis Code(s): A41.9 - SEPSIS, UNSPECIFIED ORGANISM Status: Acute (2) UTI (urinary tract infection) Status: Acute (3) Asthma Code(s): J45.909 - UNSPECIFIED ASTHMA, UNCOMPLICATED Status: Acute Qualifiers: Asthma severity: mild intermittent Asthma complication type: uncomplicated (4) Depression Code(s): F32.9 - MAJOR DEPRESSIVE DISORDER, SINGLE EPISODE, UNSPECIFIED Status: Acute Qualifiers: Depression Type: dysthymia Qualified Code(s): F34.1 - Dysthymic disorder (5) GERD (gastroesophageal reflux disease) Code(s): K21.9 - GASTRO-ESOPHAGEAL REFLUX DISEASE WITHOUT ESOPHAGITIS Status: Acute (6) Insomnia Code(s): G47.00 - INSOMNIA, UNSPECIFIED Status: Acute - Plan Plan: Sepsis 2/2 UTI, improving Bacteremia - ESBL E. Coli UTI complicated by bacteremia - Changed abx to Meropenem 07/03. ID consulted to determine length of therapy and to assist with ordering outpatient IV abx therapy. - Procal down trending 4.06 > 3.76 > 2.44 > 1.53 - d/c is dependent on insurance approval of outpatient antibiotic therapy. Hypokalemia - 2.9 this morning. Replete. Mag level pending. DM - home Metformin, Humalog - mild SSI and hypoglycemic protocol ordered Asthma - home Albuterol prn - Will Monitor, no sxs at this time HTN - home Metoprolol, Amlodipine, Lasix - ECHO (08/25): EF > 65, Mild TR & MR - Will monitor GERD - home Pantoprazole Neuropathy - home Gabapentin Dispo: Stable, ready for d/c pending insurance approval. DVT PPx: Lovenox GI PPx: Pantoprazole Fluids: SL Code Status: Full PCP: Amor Oshea Addendum - Attending - Attending Attestation Date/Time: 07/07/20 0715 I personally evaluated the patient and discussed the management with Dr. Lees. I agree with the History, Examination, Assessment and Plan documented above with any addition or exceptions noted below. Patient resting comfortably. She is overall feeling well and stable for discharge, PICC line placed. Needing outpatient abx therapy set up and she will be stable for discharge. Potassium repletion with recheck this morning.
[2020-07-07 06:27] LABS: Anion Gap 14 mmol/L (10-20); BUN (Urea Nitrogen) 10 mg/dL (9.8-20.1); Calc. Creatinine Clearance 60 mL/min (70-130); Calcium 8.8 mg/dL (7.8-10.44); Carbon Dioxide 33 mmol/L (23-31); Chloride 94 mmol/L (98-107); Glucose 73 mg/dL (80-115); Sodium 138 mmol/L (136-145)
[2020-07-07 06:33] LABS: Potassium 2.9 mmol/L (3.5-5.1)
[2020-07-07 06:50] LABS: Band 5 % (5-11); Hemoglobin 9.3 g/dL (12.0-16.0); Lymphocytes 29 % (21-51); MDiff Complete? YES; Mean Corpuscular HGB CONC 33.2 g/dL (32.0-36.0); Mean Corpuscular Hemoglobin 29.1 pg (27.0-31.0); Mean Corpuscular Volume 87.6 fL (78.0-98.0); Mean Platelet Volume 8.3 fL (7.4-10.4); Monocytes 9 % (0-10); Neutrophil 54 % (42-75); Platelet Count 398 thou/uL (130-400); RBC Distribution Width 14.6 % (11.5-14.5); Reactive Lymphocytes 3 % (0-10); Red Blood Cell (RBC) Count 3.21 mill/uL (4.20-5.40); White Blood Cell (WBC) Count 10.7 thou/uL (4.8-10.8)
[2020-07-07] MEDS ORDERED: Potassium Chloride 20 MEQ in Premix Bag 1 BAG IVPB SCH ×2 (07:00→09:00)
[2020-07-07] MEDS ORDERED: Potassium Chloride 20 MEQ TAB PO SCH (07:00)
[2020-07-07] MEDS ORDERED: Magnesium 2 GM/50 ML 2 GM in Premix Bag 1 BAG IVPB SCH (08:30)
[2020-07-07] MEDS: Enoxaparin Sodium 40 MG/0.4 ML SYRINGE SC SCH (09:00)
[2020-07-07] MEDS: Aspirin 81 mg Enteric Coated Tablet PO SCH (09:01)
[2020-07-07] MEDS: Hydrochlorothiazide 25 MG TAB PO SCH (09:01)
[2020-07-07] MEDS: Gabapentin 300 MG CAP PO SCH ×3 (09:01→20:52)
[2020-07-07] MEDS: Fish Oil 1,000 MG CAP PO SCH (09:02)
[2020-07-07] MEDS: Cholecalciferol 1,000 UNITS (25 MCG) TAB PO SCH (09:02)
[2020-07-07] MEDS: Furosemide 20 MG TAB PO SCH (09:03)
[2020-07-07] MEDS: Amlodipine 10 MG TAB PO SCH (09:03)
[2020-07-07] MEDS: metFORMIN 500 MG TAB PO SCH ×2 (09:03→17:59)
[2020-07-07] MEDS: Metoprolol Tartrate 25 MG TAB PO SCH ×2 (09:03→20:51)
[2020-07-07] MEDS: traMADol HCl 50 MG TAB PO PRN ×2 (09:22→17:59)
[2020-07-07] MEDS: Acetaminophen 325 MG TAB PO PRN ×2 (09:22→17:59)
[2020-07-07 15:48] LABS: Anion Gap 14 mmol/L (10-20); BUN (Urea Nitrogen) 9 mg/dL (9.8-20.1); Calc. Creatinine Clearance 69 mL/min (70-130); Calcium 9.3 mg/dL (7.8-10.44); Carbon Dioxide 29 mmol/L (23-31); Chloride 97 mmol/L (98-107); Glucose 71 mg/dL (80-115); Potassium 4.6 mmol/L (3.5-5.1); Sodium 135 mmol/L (136-145)
[2020-07-07] MEDS: Insulin Glargine 20 UNITS in Pre-Filled Syringe 1 EACH SC SCH (20:52)
[2020-07-08] MEDS: MEROPENEM 1 GM/50 ML 1 GM in Premix Bag 1 BAG IVPB SCH ×2 (01:00→14:20)
[2020-07-08 05:37] LABS: #Basophils 0.1 thou/uL (0.0-0.2); #Eosinphils 0.3 thou/uL (0.0-0.7); #Lymphocytes 2.4 thou/uL (1.20-3.40); #Monocytes 1.7 thou/uL (0.11-0.59); #Neutrophils 8.4 thou/uL (1.40-6.50); %Basophils 0.9 % (0.0-1.0); %Lymphocytes 18.5 % (21.0-51.0); %Monocytes 13.1 % (0.0-10.0); %Neutrophils 65.5 % (42.0-75.0); Hemoglobin 9.3 g/dL (12.0-16.0); Mean Corpuscular HGB CONC 33.1 g/dL (32.0-36.0); Mean Corpuscular Volume 87.6 fL (78.0-98.0); Platelet Count 467 thou/uL (130-400); RBC Distribution Width 14.5 % (11.5-14.5); Red Blood Cell (RBC) Count 3.22 mill/uL (4.20-5.40); White Blood Cell (WBC) Count 12.9 thou/uL (4.8-10.8)
[2020-07-08 05:53] LABS: Anion Gap 11 mmol/L (10-20); BUN (Urea Nitrogen) 9 mg/dL (9.8-20.1); Calc. Creatinine Clearance 62 mL/min (70-130); Calcium 8.7 mg/dL (7.8-10.44); Carbon Dioxide 33 mmol/L (23-31); Chloride 97 mmol/L (98-107); Potassium 3.2 mmol/L (3.5-5.1); Sodium 138 mmol/L (136-145)
[2020-07-08 05:57] LABS: Glucose 47 mg/dL (80-115)
--- NOTE | 2020-07-08 06:04 | PDOC.FM ---
- Subjective Subjective: Doing well this morning. mood significantly improved from yesterday. - Objective MAR Reviewed: Yes Vital Signs & Weight: Vital Signs (12 hours) Temp Pulse Resp BP Pulse Ox 07/08/20 04:00 97.4 F L 77 18 132/75 97 07/08/20 00:24 97.8 F 63 18 118/72 97 07/07/20 20:52 97 07/07/20 19:00 97.8 F 80 18 116/76 97 Weight Weight 71.033 kg I&O: 07/06/20 07/07/20 07/08/20 06:59 06:59 06:59 Intake Total 2310 2420 1215 Output Total 1100 Balance 1210 2420 1215 Result Diagrams: 07/08/20 05:23 07/08/20 05:23 Phys Exam - Physical Examination Constitutional: NAD HEENT: PERRLA, moist MMs Neck: no nodes, no JVD Respiratory: no wheezing, no rales, no rhonchi, clear to auscultation bilateral Cardiovascular: RRR, no significant murmur Gastrointestinal: soft, non-tender Musculoskeletal: no edema, pulses present Neurological: non-focal, normal sensation, moves all 4 limbs Psychiatric: normal affect, A&O x 3 Skin: no rash, normal turgor Dx/Plan (1) Sepsis Code(s): A41.9 - SEPSIS, UNSPECIFIED ORGANISM Status: Acute (2) UTI (urinary tract infection) Status: Acute (3) Asthma Code(s): J45.909 - UNSPECIFIED ASTHMA, UNCOMPLICATED Status: Acute Qualifiers: Asthma severity: mild intermittent Asthma complication type: uncomplicated (4) Depression Code(s): F32.9 - MAJOR DEPRESSIVE DISORDER, SINGLE EPISODE, UNSPECIFIED Status: Acute Qualifiers: Depression Type: dysthymia Qualified Code(s): F34.1 - Dysthymic disorder (5) GERD (gastroesophageal reflux disease) Code(s): K21.9 - GASTRO-ESOPHAGEAL REFLUX DISEASE WITHOUT ESOPHAGITIS Status: Acute (6) Insomnia Code(s): G47.00 - INSOMNIA, UNSPECIFIED Status: Acute - Plan Plan: Sepsis 2/2 UTI, improving Bacteremia - ESBL E. Coli UTI complicated by bacteremia - Changed abx to Meropenem 07/03. ID consulted to determine length of therapy and to assist with ordering outpatient IV abx therapy. - Procal down trending 4.06 > 3.76 > 2.44 > 1.53 - d/c is dependent on insurance approval of outpatient antibiotic therapy. Hypokalemia - 2.9 this morning. Replete. Mag level pending. DM - home Metformin, Humalog - mild SSI and hypoglycemic protocol ordered - Lantus 20u qHS w/ SSI. Will decrease to 18u d/t am hypoglycemia. - Instructed patient that she may go home on a different regimen than she came in with. She plans to f/u with PCP next week. Asthma - home Albuterol prn - Will Monitor, no sxs at this time HTN - home Metoprolol, Amlodipine, Lasix - ECHO (08/25): EF > 65, Mild TR & MR - Will monitor GERD - home Pantoprazole Neuropathy - home Gabapentin Dispo: Stable, ready for d/c pending insurance approval. Addendum - Attending - Attending Attestation Date/Time: 07/08/20 6498 I personally evaluated the patient and discussed the management with Dr. Lees. I agree with the History, Examination, Assessment and Plan documented above with any addition or exceptions noted below. Patient has been stable for discharge for the last 3 days. We are awaiting outpatient antibiotic therapy set up and she will be fine to discharge at that time. Will relax anti-diabetic regimen today. Continue to replete potassium.
[2020-07-08] MEDS: traMADol HCl 50 MG TAB PO PRN ×2 (07:35→20:29)
[2020-07-08] MEDS: Enoxaparin Sodium 40 MG/0.4 ML SYRINGE SC SCH (07:35)
[2020-07-08] MEDS: Acetaminophen 325 MG TAB PO PRN (07:36)
[2020-07-08] MEDS: Fish Oil 1,000 MG CAP PO SCH (07:36)
[2020-07-08] MEDS: Cholecalciferol 1,000 UNITS (25 MCG) TAB PO SCH (07:37)
[2020-07-08] MEDS: Aspirin 81 mg Enteric Coated Tablet PO SCH (07:37)
[2020-07-08] MEDS: Hydrochlorothiazide 25 MG TAB PO SCH (07:37)
[2020-07-08] MEDS: Metoprolol Tartrate 25 MG TAB PO SCH ×2 (07:38→20:26)
[2020-07-08] MEDS: Amlodipine 10 MG TAB PO SCH (07:38)
[2020-07-08] MEDS: Furosemide 20 MG TAB PO SCH (07:38)
[2020-07-08] MEDS: Gabapentin 300 MG CAP PO SCH ×3 (07:38→20:26)
[2020-07-08] MEDS: Potassium Chloride 20 MEQ TAB PO SCH ×2 (07:38→17:57)
[2020-07-08] MEDS: metFORMIN 500 MG TAB PO SCH ×2 (07:39→17:57)
[2020-07-08] MEDS: Insulin Glargine 18 UNITS in Pre-Filled Syringe 1 EACH SC SCH (20:25)
[2020-07-08] MEDS ORDERED: diphenhydrAMINE 25 MG CAP PO SCH (22:30)
[2020-07-09] MEDS: MEROPENEM 1 GM/50 ML 1 GM in Premix Bag 1 BAG IVPB SCH ×2 (01:03→13:26)
--- NOTE | 2020-07-09 06:36 | PDOC.FM ---
- Subjective Subjective: Doing well this morning. Ready for d/c. - Objective MAR Reviewed: Yes Vital Signs & Weight: Vital Signs (12 hours) Temp Pulse Resp BP BP Pulse Ox 07/09/20 04:15 98 F 80 20 120/82 96 07/09/20 01:13 97.7 F 76 18 100/56 L 95 07/08/20 20:22 98.1 F 91 16 136/67 96 Weight Weight 71.033 kg I&O: 07/07/20 07/08/20 07/09/20 06:59 06:59 06:59 Intake Total 2420 1215 1890 Balance 2420 1215 1890 Result Diagrams: 07/09/20 05:10 07/09/20 05:10 Phys Exam - Physical Examination Constitutional: NAD HEENT: PERRLA, moist MMs Neck: no nodes, no JVD, supple Respiratory: no wheezing, no rales, no rhonchi, clear to auscultation bilateral Cardiovascular: RRR, no significant murmur Gastrointestinal: soft, non-tender, no distention, positive bowel sounds Musculoskeletal: no edema, pulses present Neurological: non-focal, normal sensation, moves all 4 limbs Lymphatic: no nodes Psychiatric: normal affect, A&O x 3 Dx/Plan (1) Sepsis Code(s): A41.9 - SEPSIS, UNSPECIFIED ORGANISM Status: Acute (2) UTI (urinary tract infection) Status: Acute (3) Asthma Code(s): J45.909 - UNSPECIFIED ASTHMA, UNCOMPLICATED Status: Acute Qualifiers: Asthma severity: mild intermittent Asthma complication type: uncomplicated (4) Depression Code(s): F32.9 - MAJOR DEPRESSIVE DISORDER, SINGLE EPISODE, UNSPECIFIED Status: Acute Qualifiers: Depression Type: dysthymia Qualified Code(s): F34.1 - Dysthymic disorder (5) GERD (gastroesophageal reflux disease) Code(s): K21.9 - GASTRO-ESOPHAGEAL REFLUX DISEASE WITHOUT ESOPHAGITIS Status: Acute (6) Insomnia Code(s): G47.00 - INSOMNIA, UNSPECIFIED Status: Acute - Plan Plan: Sepsis 2/2 UTI, improving Bacteremia - ESBL E. Coli UTI complicated by bacteremia - Changed abx to Meropenem 07/03. ID consulted to determine length of therapy and to assist with ordering outpatient IV abx therapy. - Procal down trending 4.06 > 3.76 > 2.44 > 1.53 - d/c is dependent on insurance approval of outpatient antibiotic therapy. DM - home Metformin, Humalog - mild SSI and hypoglycemic protocol ordered - Lantus 20u qHS w/ SSI. Will decrease to 18u d/t am hypoglycemia. - Instructed patient that she may go home on a different regimen than she came in with. She plans to f/u with PCP next week. Asthma - home Albuterol prn - Will Monitor, no sxs at this time HTN - home Metoprolol, Amlodipine, Lasix - ECHO (08/25): EF > 65, Mild TR & MR - Will monitor GERD - home Pantoprazole Neuropathy - home Gabapentin Hypokalemia, resolved. Dispo: Stable, ready for d/c pending insurance approval.
[2020-07-09 06:38] LABS: #Basophils 0.1 thou/uL (0.0-0.2); #Eosinphils 0.3 thou/uL (0.0-0.7); #Lymphocytes 3.6 thou/uL (1.20-3.40); #Monocytes 1.5 thou/uL (0.11-0.59); #Neutrophils 8.2 thou/uL (1.40-6.50); %Basophils 0.7 % (0.0-1.0); %Lymphocytes 26.3 % (21.0-51.0); %Monocytes 10.9 % (0.0-10.0); %Neutrophils 60.2 % (42.0-75.0); Hemoglobin 8.3 g/dL (12.0-16.0); Mean Corpuscular HGB CONC 32.7 g/dL (32.0-36.0); Mean Corpuscular Hemoglobin 28.6 pg (27.0-31.0); Mean Corpuscular Volume 87.5 fL (78.0-98.0); Mean Platelet Volume 8.3 fL (7.4-10.4); Platelet Count 542 thou/uL (130-400); RBC Distribution Width 14.4 % (11.5-14.5); Red Blood Cell (RBC) Count 2.91 mill/uL (4.20-5.40); White Blood Cell (WBC) Count 13.6 thou/uL (4.8-10.8)
[2020-07-09 06:41] LABS: Anion Gap 14 mmol/L (10-20); BUN (Urea Nitrogen) 10 mg/dL (9.8-20.1); Calc. Creatinine Clearance 54 mL/min (70-130); Calcium 8.8 mg/dL (7.8-10.44); Carbon Dioxide 30 mmol/L (23-31); Chloride 96 mmol/L (98-107); Glucose 103 mg/dL (80-115); Potassium 4.2 mmol/L (3.5-5.1); Sodium 136 mmol/L (136-145)
[2020-07-09] MEDS: Hydrochlorothiazide 25 MG TAB PO SCH (09:21)
[2020-07-09] MEDS: Aspirin 81 mg Enteric Coated Tablet PO SCH (09:21)
[2020-07-09] MEDS: Metoprolol Tartrate 25 MG TAB PO SCH ×2 (09:22→21:20)
[2020-07-09] MEDS: Gabapentin 300 MG CAP PO SCH ×3 (09:22→21:20)
[2020-07-09] MEDS: Potassium Chloride 20 MEQ TAB PO SCH ×2 (09:23→16:25)
[2020-07-09] MEDS: Furosemide 20 MG TAB PO SCH (09:23)
[2020-07-09] MEDS: Fish Oil 1,000 MG CAP PO SCH (09:23)
[2020-07-09] MEDS: Amlodipine 10 MG TAB PO SCH (09:23)
[2020-07-09] MEDS: metFORMIN 500 MG TAB PO SCH ×2 (09:24→16:25)
[2020-07-09] MEDS: Cholecalciferol 1,000 UNITS (25 MCG) TAB PO SCH (09:24)
[2020-07-09] MEDS: Enoxaparin Sodium 40 MG/0.4 ML SYRINGE SC SCH (09:26)
[2020-07-09] MEDS: HumaLOG 300 UNITS/3 ML VIAL SC PRN (11:22)
[2020-07-09] MEDS: traMADol HCl 50 MG TAB PO PRN ×2 (13:24→21:20)
[2020-07-09] MEDS: Insulin Glargine 18 UNITS in Pre-Filled Syringe 1 EACH SC SCH (22:12)
[2020-07-10] MEDS: MEROPENEM 1 GM/50 ML 1 GM in Premix Bag 1 BAG IVPB SCH ×2 (01:08→13:43)
[2020-07-10 05:11] LABS: #Basophils 0.1 thou/uL (0.0-0.2); #Eosinphils 0.2 thou/uL (0.0-0.7); #Lymphocytes 3.3 thou/uL (1.20-3.40); #Monocytes 1.3 thou/uL (0.11-0.59); #Neutrophils 7.9 thou/uL (1.40-6.50); %Basophils 0.8 % (0.0-1.0); %Eosinophils 1.9 % (0.0-10.0); %Lymphocytes 25.8 % (21.0-51.0); %Monocytes 10.3 % (0.0-10.0); %Neutrophils 61.2 % (42.0-75.0); Hemoglobin 9.1 g/dL (12.0-16.0); Mean Corpuscular HGB CONC 32.3 g/dL (32.0-36.0); Mean Corpuscular Hemoglobin 28.1 pg (27.0-31.0); Mean Corpuscular Volume 86.8 fL (78.0-98.0); Mean Platelet Volume 7.8 fL (7.4-10.4); Platelet Count 613 thou/uL (130-400); RBC Distribution Width 14.6 % (11.5-14.5); Red Blood Cell (RBC) Count 3.25 mill/uL (4.20-5.40)
[2020-07-10 05:27] LABS: Anion Gap 14 mmol/L (10-20); BUN (Urea Nitrogen) 10 mg/dL (9.8-20.1); Calc. Creatinine Clearance 49 mL/min (70-130); Calcium 8.8 mg/dL (7.8-10.44); Carbon Dioxide 26 mmol/L (23-31); Chloride 95 mmol/L (98-107); Glucose 246 mg/dL (80-115); Potassium 4.6 mmol/L (3.5-5.1); Sodium 130 mmol/L (136-145)
[2020-07-10] MEDS: HumaLOG 300 UNITS/3 ML VIAL SC PRN ×2 (06:00→13:45)
[2020-07-10] MEDS ORDERED: Insulin Glargine 10 UNITS in Pre-Filled Syringe 1 EACH SC SCH (07:00)
--- NOTE | 2020-07-10 07:00 | PDOC.FM ---
- Subjective Subjective: Doing well this morning. Awaiting d/c home. - Objective MAR Reviewed: Yes Vital Signs & Weight: Vital Signs (12 hours) Temp Pulse Resp BP BP Pulse Ox 07/10/20 04:56 97.9 F 84 16 146/76 H 96 07/10/20 00:00 97.8 F 88 16 138/76 96 07/09/20 19:30 97.8 F 90 16 125/75 97 Weight Weight 71.033 kg I&O: 07/08/20 07/09/20 07/10/20 06:59 06:59 06:59 Intake Total 1215 1890 2500 Output Total 200 Balance 1215 1890 2300 Result Diagrams: 07/10/20 04:53 07/10/20 04:53 Phys Exam - Physical Examination Constitutional: NAD HEENT: PERRLA, moist MMs Neck: no nodes, no JVD, supple Respiratory: no wheezing, no rales, no rhonchi, clear to auscultation bilateral Cardiovascular: RRR, no significant murmur, no rub Gastrointestinal: soft, non-tender, no distention Musculoskeletal: no edema, pulses present Neurological: non-focal, normal sensation, moves all 4 limbs Lymphatic: no nodes Psychiatric: normal affect, A&O x 3 Skin: no rash, normal turgor, cap refill <2 seconds Dx/Plan (1) Sepsis Code(s): A41.9 - SEPSIS, UNSPECIFIED ORGANISM Status: Acute (2) UTI (urinary tract infection) Status: Acute (3) Asthma Code(s): J45.909 - UNSPECIFIED ASTHMA, UNCOMPLICATED Status: Acute Qualifiers: Asthma severity: mild intermittent Asthma complication type: uncomplicated (4) Depression Code(s): F32.9 - MAJOR DEPRESSIVE DISORDER, SINGLE EPISODE, UNSPECIFIED Status: Acute Qualifiers: Depression Type: dysthymia Qualified Code(s): F34.1 - Dysthymic disorder (5) GERD (gastroesophageal reflux disease) Code(s): K21.9 - GASTRO-ESOPHAGEAL REFLUX DISEASE WITHOUT ESOPHAGITIS Status: Acute (6) Insomnia Code(s): G47.00 - INSOMNIA, UNSPECIFIED Status: Acute - Plan Plan: Sepsis 2/2 UTI, improving Bacteremia - ESBL E. Coli UTI complicated by bacteremia - Changed abx to Meropenem 07/03. ID consulted to determine length of therapy and to assist with ordering outpatient IV abx therapy. - Procal down trending 4.06 > 3.76 > 2.44 > 1.53 - d/c is dependent on insurance approval of outpatient antibiotic therapy. DM - home Metformin, Humalog - mild SSI and hypoglycemic protocol ordered - Lantus 10u this morning. She had hypoglycemia with 20u. We will monitor and she will need outpatient f/u once she's back on her regular diet. Asthma - home Albuterol prn - Will Monitor, no sxs at this time HTN - home Metoprolol, Amlodipine, Lasix - ECHO (08/25): EF > 65, Mild TR & MR - Will monitor GERD - home Pantoprazole Neuropathy - home Gabapentin Hypokalemia, resolved. Dispo: Stable, ready for d/c pending insurance approval.
[2020-07-10] MEDS: Cholecalciferol 1,000 UNITS (25 MCG) TAB PO SCH (08:07)
[2020-07-10] MEDS: Gabapentin 300 MG CAP PO SCH ×2 (08:08→16:29)
[2020-07-10] MEDS: Aspirin 81 mg Enteric Coated Tablet PO SCH (08:09)
[2020-07-10] MEDS: Amlodipine 10 MG TAB PO SCH (08:09)
[2020-07-10] MEDS: Fish Oil 1,000 MG CAP PO SCH (08:09)
[2020-07-10] MEDS: Metoprolol Tartrate 25 MG TAB PO SCH (08:09)
[2020-07-10] MEDS: Hydrochlorothiazide 25 MG TAB PO SCH (08:09)
[2020-07-10] MEDS: Furosemide 20 MG TAB PO SCH (08:09)
[2020-07-10] MEDS: metFORMIN 500 MG TAB PO SCH ×2 (08:09→18:27)
[2020-07-10] MEDS: Enoxaparin Sodium 40 MG/0.4 ML SYRINGE SC SCH (08:10)
[2020-07-10] MEDS: traMADol HCl 50 MG TAB PO PRN (13:43)
--- NOTE | 2020-07-10 15:50 | PRG ---
DATE OF SERVICE: 07/10/2020 SUBJECTIVE: The patient is feeling much better. No respiratory symptoms or abdominal pain. Able to eat. Voiding without difficulty. She has been afebrile. Blood pressure 130/80, heart rate 87. White cell count 13,000, hemoglobin 9.1, platelets 613. CT abdomen on July 05 with multiple gallbladder calculi, multiple calcifications in the pancreas. Kidneys and ureters were normal. No calculi or hydronephrosis. Urinary bladder appeared normal. Creatinine is 1.2. ASSESSMENT AND DISCUSSION: Type 2 diabetes, hypertension, pancreatitis, cholelithiasis, bacteremic urinary tract infection with extended-spectrum beta-lactamases Escherichia coli. The patient is ready for discharge for a few weeks of IV Invanz. Job ID: [id number] [facility]
[2020-07-10 15:58] VITALS: BP 117/73; TEMP 97.2
--- NOTE | 2020-07-11 13:11 | DIS ---
DATE OF ADMISSION: 07/02/2020 DATE OF DISCHARGE: 07/10/2020 ADMITTING ATTENDING: Colleen Daugherty MD DISCHARGE ATTENDING: Eulalio Rondon MD CONSULTS: Infectious Disease, Dr. Quintero. PROCEDURES: PICC line placement and abdomen and pelvis CT, which showed no renal or ureteral calculi. No hydronephrosis. PRIMARY DIAGNOSIS: Sepsis secondary to urinary tract infection. SECONDARY DIAGNOSES: Extended spectrum beta-lactamase Escherichia coli urinary tract infection, extended spectrum beta-lactamase Escherichia coli bacteremia, type 2 diabetes, asthma, hypertension, gastroesophageal reflux disease, and neuropathy. DISCHARGE MEDICATIONS: 1. IV ertapenem, set up outpatient. 2. Tramadol. 3. Acetaminophen. 4. Lantus 10 units daily. 5. Vitamin D3. 6. Protonix. 7. Amlodipine. 8. Metformin. 9. Metoprolol. 10. HCTZ. 11. Gabapentin. 12. Lasix. 13. Aspirin. 14. Albuterol. 15. Carver-3 fatty acids. DISCONTINUED MEDICATIONS: None. HISTORY OF PRESENT ILLNESS/HOSPITAL COURSE: Ms. Hartley is a 70-year-old female, who presented to the ER with a chief complaint of altered mental status. Her urine was found to be infected and she was deemed to have sepsis secondary to UTI. Blood cultures were obtained, which were positive for the same bacteria that were growing in her urine. She began targeted IV antibiotic therapy for the bacteremia and UTI. Dr. Quintero was consulted for recommendations as far as how long to treat the patient for this infection and multiple attempts were made to set up her outpatient IV infusion and antibiotics to hasten her discharge from the hospital. However, insurance significantly slowed this process. Throughout the course of her hospitalization, we changed her diabetes regimen from b.i.d. long-acting and premeal insulin to once daily long-acting and normal sliding scale. She will likely need to follow up outpatient with her primary care physician to further titrate this once she is back on her regular diet. We also recommended an outpatient followup with Dr. Martinez to evaluate her bladder emptying function once her infection is cleared to help prevent further infection. DISPOSITION: Stable. DISCHARGE INSTRUCTIONS: 1. Location: Home. 2. Diet: Regular. 3. Activity: Ad woody. 4. Followup: With primary care physician within 1 week. Of note, this patient now sees [facility] for her primary care physician and will no longer be admitted to the [facility] if she continues to see [facility]. Job ID: [id number] [facility]
--- NOTE | 2020-07-12 01:46 | PQF ---
Dear : Eulalio Jones Date 07/12/2020 Please exercise your independent, professional judgment in responding to the clarification form. Clinical indicators are provided on the bottom of this form for your review Can you please further clarify the diagnosis of the patient? Please check appropriate box(es): [ X ] Encephalopathy: Etiology: [ ] Metabolic [ ] Toxic [ X] Sepsis [ ] Unspecified [ ] Other (please specify) [ ] Other diagnosis,please specify [ ] Unable to determine Physician Signature: Date/Time: For continuity of documentation, please document condition throughout progress notes and discharge summary. Thank You. To be completed by CDI/Coding staff for physician review: Present Clinical Indicators - Signs / Symptoms / Labs Results and Location in Medical Record [ x ] Admitted and treated for UTI and AMS ED Provider pg.8 [ x ] Sepsis 2/2 UTI H and P pg.5 [ x ] DM with hypoglycemia H and P pg.4 [ x ] Develop a change in mental state and frequent urination Consult pg.1 [ x ] She was having confusion HP 07/02 Present Risk Factors Results and Location in Medical Record [ x ] Acute cystitis ED Provider pg.9 [ x ] 70 years old H and P pg.1 [ x ] Sepsis H and P pg.5 [ x ] DM H and P pg.4 [ x ] Former Smoker ED Notes 07/02 [ x ] Hypokalemia PN 07/07 Present Treatments Results and Location in Medical Record [ x ] IV Fluids MAR [ x ] Infectious Consult Dr. Quintero 07/05 [ x ] PICC line placement Interventional procedure 07/06 [ x ] Rocephin 2gm IV MAR [ x ] Vancomycin 11gm IV MAR [ x ] Meropenem 1gm IV MAR [ x ] Monitor and replacement of electrolytes PN 07/07 CDS/Cargo Handler Signature: Wesley Fairchildtherese Phone #: ext [phone] Date 07/12/2020 This is a permanent part of the Medical Record [facility]
--- NOTE | 2020-07-14 16:14 | EKG ---
Test Reason : Blood Pressure : / mmHG Vent. Rate : 103 BPM Atrial Rate : 103 BPM P-R Int : 122 ms QRS Dur : 074 ms QT Int : 324 ms P-R-T Axes : 061 035 045 degrees QTc Int : 424 ms Sinus tachycardia with Premature atrial complexes with Abberant conduction Otherwise normal ECG Confirmed by RICHY GONCALVES DO ([id number]), science editor PATRIZIA HERNANDEZ ([id number]) on 07/14/2020 4:13:47 PM Referred By: Confirmed By:RICHY GONCALVES DO
== END 2020-07-10 18:10 | disposition home health service (06) | DRG 871 ==
LOC: ERS 13:33 → SURG B 16:14
PROVIDERS: ADMIT Student in an Organized Health Care Education/Training Program; ATTEND Student in an Organized Health Care Education/Training Program
PROC: 8E0ZXY6 Isolation (ICD-10-PCS; principal; 2020-07-02)
PROC: 02HV33Z Insertion of Infusion Device into Superior Vena Cava, Percutaneous Approach (ICD-10-PCS; 2020-07-06)
PROC: B548ZZA Ultrasonography of Superior Vena Cava, Guidance (ICD-10-PCS; 2020-07-06)
DX: A41.51 Sepsis due to Escherichia coli [E. coli] (principal); G93.41 Metabolic encephalopathy; Z16.29 Resistance to other single specified antibiotic; Z16.19 Resistance to other specified beta lactam antibiotics; N39.0 Urinary tract infection, site not specified; K86.1 Other chronic pancreatitis; Z20.822 Contact with and (suspected) exposure to COVID-19; I10 Essential (primary) hypertension; E11.42 Type 2 diabetes mellitus with diabetic polyneuropathy; K21.9 Gastro-esophageal reflux disease without esophagitis; Z96.643 Presence of artificial hip joint, bilateral; E11.649 Type 2 diabetes mellitus with hypoglycemia without coma; M54.5 Low back pain; G89.29 Other chronic pain; G47.33 Obstructive sleep apnea (adult) (pediatric); M19.90 Unspecified osteoarthritis, unspecified site; J45.20 Mild intermittent asthma, uncomplicated; F34.1 Dysthymic disorder; E87.6 Hypokalemia; Z88.0 Allergy status to penicillin; Z88.8 Allergy status to other drugs, medicaments and biological substances; Z91.012 Allergy to eggs; Z79.4 Long term (current) use of insulin; Z79.51 Long term (current) use of inhaled steroids; Z79.899 Other long term (current) drug therapy; Z90.710 Acquired absence of both cervix and uterus; Z88.6 Allergy status to analgesic agent; Z87.891 Personal history of nicotine dependence
CPT/HCPCS: 0240U; 36415; 36416; 36569; 51701; 74176; 80048; 80053; 81003; 81015; 83605; 83735; 84145; 85025; 87040; 87077; 87086; 87149; 87186; 93005; 96365; 96366; 96367; C1751; J0696; J1650; J1815; J2185; J3370; J3475; J3480; Q0163

== ENCOUNTER 2021-04-23 11:27 | Inpatient (IN) | payer MEDICARE ==
[2021-04-23] MEDS ORDERED: Iopamidol-370 76% 500 ML 1 ML ONE (11:39)
[2021-04-23 12:22] LABS: #Basophils 0.1 thou/uL (0.0-0.2); #Eosinphils 0.1 thou/uL (0.0-0.7); #Lymphocytes 2.3 thou/uL (1.20-3.40); #Monocytes 0.6 thou/uL (0.11-0.59); #Neutrophils 8.5 thou/uL (1.40-6.50); %Basophils 1.1 % (0.0-1.0); %Eosinophils 0.5 % (0.0-10.0); %Lymphocytes 19.7 % (21.0-51.0); %Monocytes 4.9 % (0.0-10.0); %Neutrophils 73.8 % (42.0-75.0); Hemoglobin 11.5 g/dL (12.0-16.0); Mean Corpuscular Hemoglobin 23.3 pg (27.0-31.0); Mean Corpuscular Volume 75.3 fL (78.0-98.0); Mean Platelet Volume 10.7 fL (7.4-10.4); Platelet Count 388 thou/uL (130-400); RBC Distribution Width 19.9 % (11.5-14.5); Red Blood Cell (RBC) Count 4.92 mill/uL (4.20-5.40); White Blood Cell (WBC) Count 11.4 thou/uL (4.8-10.8)
[2021-04-23 12:34] LABS: Actual Bicarbonate (HCO3v) 15 mEq/L (22-28); Analyzer IN Cardio ER; Base Excess -11.4 mEq/L (-2.0 to +3.0); Calcium, Ionized (venous) 1.21 mmol/L (1.16-1.32); Chloride (VBG) 89 mmol/L (98-106); Hemoglobin (Hb) 11.7 g/dL (11.7-16.1); Potassium (VBG) 5.43 mmol/L (3.70-5.30); Sodium 136.1 mmol/L (133-146)
[2021-04-23 12:35] LABS: pH (venous) 7.24 (7.32-7.43)
[2021-04-23 12:43] LABS: ALT (SGPT) 43 U/L (8-55); AST (SGOT) 40 U/L (5-34); Albumin 4.6 g/dL (3.4-4.8); Alkaline Phosphatase 139 U/L (40-110); Anion Gap 37 mmol/L (10-20); BUN (Urea Nitrogen) 34 mg/dL (9.8-20.1); Bilirubin, Total 0.5 mg/dL (0.2-1.2); Calc. Creatinine Clearance 0 mL/min (70-130); Carbon Dioxide 15 mmol/L (23-31); Chloride 86 mmol/L (98-107); Globulin 5.9 g/dL (2.4-3.5); Lipase 125 U/L (8-78); Phosphorus 6.8 mg/dL (2.3-4.7); Potassium 5.2 mmol/L (3.5-5.1); Protein, Total 10.5 g/dL (5.8-8.1); Sodium 133 mmol/L (136-145)
[2021-04-23 12:52] LABS: Magnesium 2.5 mg/dL (1.6-2.6)
[2021-04-23 12:58] LABS: Glucose 760 mg/dL (80-115)
[2021-04-23] MEDS ORDERED: INSULIN REGULAR IN 0.9 % NACL 100 UNIT/100 ML BAG ONE (13:52)
[2021-04-23] MEDS ORDERED: Dextrose 5 %-0.45 % NaCl 1,000 ML IV PRN (14:50)
[2021-04-23] MEDS ORDERED: NS 0.9% w/ 20 MEQ KCL 1,000 ML IV PRN ×2 (14:50)
[2021-04-23] MEDS ORDERED: Electrolyte Replacement Protocol 1 EACH IVPB ONE (14:50)
[2021-04-23] MEDS ORDERED: Sodium Chloride 0.9% 1,000 ML IV PRN (14:50)
[2021-04-23] MEDS ORDERED: HUMULIN R 100 UNITS in Sodium Chloride 0.9% 100 ML IVPB SCH (15:00)
[2021-04-23] MEDS ORDERED: Dextrose 50% Abboject 50 ML SYRINGE SLOW IVP PRN (15:12)
[2021-04-23] MEDS ORDERED: Insulin Regular 300 UNITS/3 ML VIAL SC PRN (15:12)
[2021-04-23] MEDS ORDERED: Dextrose 5% in Water 1,000 ML IV PRN (15:12)
[2021-04-23] MEDS ORDERED: Morphine 4 MG/ML VIAL ONE (15:14)
[2021-04-23 16:07] LABS: Bacteria/HPF None Seen HPF (None Seen); Bilirubin Negative (Negative); Blood, Urine Negative (Negative); Clarity Clear (Clear); Glucose, Urine (Dipstick) Greater than 1000 mg/dL (Negative); Ketone, Urine 80 mg/dL (Negative); Leukocyte 250 Leu/uL (Negative); Nitrite Negative (Negative); Protein, Urine (Dipstick) Negative (Neg-Trace); RBC/HPF 0-3 HPF (0-3); Squamous Epithelial 0-3 HPF (0-3); Urobilinogen Normal mg/dL (Less than 2); WBC/HPF 21-50 HPF (0-3)
[2021-04-23 16:37] LABS: Anion Gap 32 mmol/L (10-20); BUN (Urea Nitrogen) 29 mg/dL (9.8-20.1); Calc. Creatinine Clearance 0 mL/min (70-130); Calcium 9.7 mg/dL (7.8-10.44); Carbon Dioxide 11 mmol/L (23-31); Chloride 101 mmol/L (98-107); Glucose 483 mg/dL (80-115); Potassium 3.9 mmol/L (3.5-5.1); Sodium 140 mmol/L (136-145)
[2021-04-23] MEDS ORDERED: NS 0.9% w/ 20 MEQ KCL 1,000 ML ONE (16:43)
[2021-04-23] MEDS ORDERED: Ketamine 50 MG/ML (10ML VIAL) ONE (18:22)
[2021-04-23] MEDS ORDERED: Norepinephrine 8 MG/0.9% NS 250 ML ONE ×2 (18:22→18:33)
[2021-04-23] MEDS ORDERED: EPINEPHrine 1 MG/10 ML Abboject SYRINGE ONE (18:22)
[2021-04-23 18:42] LABS: Actual Bicarbonate (HCO3a) 13.1 mEq/L (22-28); Analyzer IN Cardio ER; Base Excess (BEa) -14.6 mEq/L (-2.0 to +3.0); CO2 Tension 37.8 mmHg (35.0-45.0); Calcium, Ionized (arterial) 1.16 mmol/L (1.12-1.30); Carboxyhemoglobin (COHb) 0.3 gm% (0.0-3.0); Hemoglobin (Hb) 8.5 g/dL (12.0-16.0); O2 Tension (PaO2), arterial 94.7 mmHg (> 80.0); Potassium - ABG Lab 3.22 mmol/L (3.70-5.30)
[2021-04-23] MEDS ORDERED: Diltiazem 125 MG/25 ML ONE (18:43)
[2021-04-23 18:45] LABS: Puncture Site RRA; pH, Arterial 7.16 (7.35-7.45)
[2021-04-23] MEDS ORDERED: Diltiazem 125 MG in Sodium Chloride 0.9% 100 ML IVPB SCH (18:45)
[2021-04-23] MEDS ORDERED: Lorazepam 2 MG/ML VIAL ONE (18:55)
[2021-04-23] MEDS ORDERED: Fentanyl 100 MCG/2 ML VIAL ONE (18:55)
[2021-04-23] MEDS ORDERED: Fentanyl CADD 100 ML IV SCH (19:30)
[2021-04-23] MEDS ORDERED: Ventilator Sedation Protocol 1 EACH FS SCH (19:45)
[2021-04-23] MEDS ORDERED: DISCONTINUE PREVIOUS NARCOTIC PAIN MEDICATIONS AND BENZODIAZEPINES FS SCH (20:15)
[2021-04-23] MEDS ORDERED: Lorazepam 2 MG/ML VIAL SLOW IVP PRN (20:15)
[2021-04-23] MEDS ORDERED: Propofol 1,000 MG/100 ML VIAL IV PRN (20:15)
[2021-04-23] MEDS ORDERED: Propofol BOLUS 1,000 MG/100 ML VIAL IV PRN (20:15)
[2021-04-23] MEDS ORDERED: Morphine 2 MG/ML VIAL SLOW IVP PRN (20:15)
[2021-04-23] MEDS ORDERED: Fentanyl BOLUS 250 ML IVPB PRN (20:15)
[2021-04-23] MEDS ORDERED: Morphine 4 MG/ML VIAL SLOW IVP PRN (20:30)
[2021-04-23 20:44] LABS: Anion Gap 26 mmol/L (10-20); BUN (Urea Nitrogen) 28 mg/dL (9.8-20.1); Calc. Creatinine Clearance 0 mL/min (70-130); Calcium 8.8 mg/dL (7.8-10.44); Carbon Dioxide 13 mmol/L (23-31); Chloride 103 mmol/L (98-107); Glucose 386 mg/dL (80-115); Potassium 4.2 mmol/L (3.5-5.1); Sodium 138 mmol/L (136-145)
[2021-04-23] MEDS ORDERED: Lantus 1000 UNITS/10 ML VIAL SC SCH (21:00)
[2021-04-23] MEDS ORDERED: Midazolam HCl 2 mg/2 ml Vial ONE (22:00)
[2021-04-23 22:14] LABS: SARS-CoV-2 NAA Rapid Test Not Detected (NotDetected)
[2021-04-23] MEDS: D5 1/2 NS w/20 mEq KCL 1,000 ML IV PRN (23:10)
[2021-04-23 23:39] LABS: Anion Gap 20 mmol/L (10-20); BUN (Urea Nitrogen) 25 mg/dL (9.8-20.1); Calc. Creatinine Clearance 31 mL/min (70-130); Calcium 8.6 mg/dL (7.8-10.44); Carbon Dioxide 16 mmol/L (23-31); Chloride 110 mmol/L (98-107); Glucose 253 mg/dL (80-115); Potassium 3.7 mmol/L (3.5-5.1); Sodium 142 mmol/L (136-145)
[2021-04-24] MEDS: D5 1/2 NS w/20 mEq KCL 1,000 ML IV PRN (02:24)
[2021-04-24 06:26] LABS: #Eosinphils 0.2 thou/uL (0.0-0.7); #Lymphocytes 2.5 thou/uL (1.20-3.40); #Monocytes 0.9 thou/uL (0.11-0.59); #Neutrophils 11.2 thou/uL (1.40-6.50); %Basophils 0.3 % (0.0-1.0); %Eosinophils 1.3 % (0.0-10.0); %Monocytes 6.1 % (0.0-10.0); %Neutrophils 75.4 % (42.0-75.0); Hemoglobin 6.7 g/dL (12.0-16.0); Mean Corpuscular HGB CONC 32.1 g/dL (32.0-36.0); Mean Corpuscular Hemoglobin 23.7 pg (27.0-31.0); Mean Corpuscular Volume 73.8 fL (78.0-98.0); Mean Platelet Volume 9.1 fL (7.4-10.4); Platelet Count 255 thou/uL (130-400); RBC Distribution Width 18.7 % (11.5-14.5); Red Blood Cell (RBC) Count 2.84 mill/uL (4.20-5.40); White Blood Cell (WBC) Count 14.8 thou/uL (4.8-10.8)
[2021-04-24 07:00] LABS: ALT (SGPT) 20 U/L (8-55); AST (SGOT) 23 U/L (5-34); Albumin 2.7 g/dL (3.4-4.8); Alkaline Phosphatase 70 U/L (40-110); Anion Gap 12 mmol/L (10-20); BUN (Urea Nitrogen) 17 mg/dL (9.8-20.1); Bilirubin, Total 0.2 mg/dL (0.2-1.2); Calc. Creatinine Clearance 39 mL/min (70-130); Calcium 8.5 mg/dL (7.8-10.44); Carbon Dioxide 21 mmol/L (23-31); Chloride 113 mmol/L (98-107); Globulin 3.8 g/dL (2.4-3.5); Glucose 95 mg/dL (80-115); Protein, Total 6.5 g/dL (5.8-8.1); Sodium 143 mmol/L (136-145)
[2021-04-24 07:10] LABS: Actual Bicarbonate (HCO3a) 19.4 mEq/L (22-28); Base Excess (BEa) -2.3 mEq/L (-2.0 to +3.0); Calcium, Ionized (arterial) 1.13 mmol/L (1.12-1.30); Carboxyhemoglobin (COHb) 0.7 gm% (0.0-3.0); O2 Tension (PaO2), arterial 365.5 mmHg (> 80.0); Potassium - ABG Lab 3.11 mmol/L (3.70-5.30)
[2021-04-24 07:17] LABS: Puncture Site RRA; pH, Arterial 7.55 (7.35-7.45)
[2021-04-24] MEDS ORDERED: DC Sedation Protocol FS ONE (07:23)
[2021-04-24] MEDS ORDERED: Electrolyte Replacement Protocol 1 EACH FS PRN (07:45)
[2021-04-24] MEDS ORDERED: Dextrose 5 %-0.45 % NaCl 1,000 ML IV SCH (07:45)
[2021-04-24] MEDS ORDERED: Potassium Chloride 40 MEQ in Sodium Chloride 0.9% 250 ML 250 ML IVPB SCH (08:00)
[2021-04-24] MEDS ORDERED: Pantoprazole 40 MG VIAL IVP SCH (09:00)
[2021-04-24] MEDS ORDERED: Amlodipine 10 MG TAB PO SCH (11:00)
[2021-04-24] MEDS ORDERED: Metoprolol Tartrate 25 MG TAB PO SCH (11:00)
[2021-04-24] MEDS: NPH, Human Insulin Isophane 300 UNIT/3 ML VIAL SC SCH ×2 (11:34→22:37)
[2021-04-24] MEDS ORDERED: Dextrose 50% Abboject 50 ML SYRINGE SLOW IVP PRN (11:50)
[2021-04-24] MEDS ORDERED: Dextrose 5% in Water 1,000 ML IV PRN (11:50)
[2021-04-24] MEDS ORDERED: Insulin Regular 300 UNITS/3 ML VIAL SC PRN (11:50)
[2021-04-24] MEDS: Insulin Regular 300 UNITS/3 ML VIAL SC PRN ×2 (12:26→16:27)
[2021-04-24 15:31] LABS: Potassium 6.3 mmol/L (3.5-5.1)
[2021-04-24] MEDS: Sodium Chloride 0.45% 1,000 ML IV SCH (16:04)
[2021-04-24 16:20] LABS: #Basophils 0.1 thou/uL (0.0-0.2); #Eosinphils 0.4 thou/uL (0.0-0.7); #Monocytes 1.3 thou/uL (0.11-0.59); #Neutrophils 15.6 thou/uL (1.40-6.50); %Basophils 0.3 % (0.0-1.0); %Eosinophils 1.9 % (0.0-10.0); %Lymphocytes 10.5 % (21.0-51.0); %Monocytes 6.6 % (0.0-10.0); %Neutrophils 80.7 % (42.0-75.0); Hemoglobin 9.5 g/dL (12.0-16.0); Mean Corpuscular HGB CONC 32.7 g/dL (32.0-36.0); Mean Corpuscular Volume 76.5 fL (78.0-98.0); Mean Platelet Volume 9.8 fL (7.4-10.4); Platelet Count 219 thou/uL (130-400); RBC Distribution Width 18.5 % (11.5-14.5); Red Blood Cell (RBC) Count 3.78 mill/uL (4.20-5.40); White Blood Cell (WBC) Count 19.3 thou/uL (4.8-10.8)
[2021-04-24] MEDS: metFORMIN 500 MG TAB PO SCH (16:27)
[2021-04-24 16:47] LABS: Anion Gap 11 mmol/L (10-20); BUN (Urea Nitrogen) 12 mg/dL (9.8-20.1); Calc. Creatinine Clearance 36 mL/min (70-130); Calcium 8.2 mg/dL (7.8-10.44); Carbon Dioxide 20 mmol/L (23-31); Chloride 109 mmol/L (98-107); Glucose 358 mg/dL (80-115); Iron 83 ug/dL (50-170); Iron Binding Capacity, Total 360 mcg/dL (265-497); Potassium 5.3 mmol/L (3.5-5.1); Sodium 135 mmol/L (136-145)
[2021-04-24 17:07] LABS: Ferritin 24.07 ng/mL (10-291)
[2021-04-24] MEDS: Metoprolol Tartrate 25 MG TAB PO SCH (22:36)
[2021-04-24] MEDS ORDERED: traMADol HCl 50 MG TAB PO SCH (23:15)
[2021-04-25] MEDS: Sodium Chloride 0.45% 1,000 ML IV SCH (04:47)
[2021-04-25 05:20] LABS: #Eosinphils 0.6 thou/uL (0.0-0.7); #Lymphocytes 3.1 thou/uL (1.20-3.40); #Monocytes 0.9 thou/uL (0.11-0.59); #Neutrophils 10.9 thou/uL (1.40-6.50); %Basophils 0.3 % (0.0-1.0); %Eosinophils 3.6 % (0.0-10.0); %Neutrophils 70.1 % (42.0-75.0); Hemoglobin 9.5 g/dL (12.0-16.0); Mean Corpuscular HGB CONC 31.9 g/dL (32.0-36.0); Mean Corpuscular Hemoglobin 24.3 pg (27.0-31.0); Mean Corpuscular Volume 76.1 fL (78.0-98.0); Mean Platelet Volume 10.2 fL (7.4-10.4); Platelet Count 200 thou/uL (130-400); RBC Distribution Width 18.1 % (11.5-14.5); Red Blood Cell (RBC) Count 3.93 mill/uL (4.20-5.40); White Blood Cell (WBC) Count 15.5 thou/uL (4.8-10.8)
[2021-04-25 05:43] LABS: ALT (SGPT) 22 U/L (8-55); AST (SGOT) 38 U/L (5-34); Albumin 2.8 g/dL (3.4-4.8); Alkaline Phosphatase 79 U/L (40-110); Anion Gap 11 mmol/L (10-20); BUN (Urea Nitrogen) 8 mg/dL (9.8-20.1); Bilirubin, Total 0.3 mg/dL (0.2-1.2); Calc. Creatinine Clearance 49 mL/min (70-130); Calcium 8.6 mg/dL (7.8-10.44); Carbon Dioxide 19 mmol/L (23-31); Chloride 110 mmol/L (98-107); Globulin 3.8 g/dL (2.4-3.5); Glucose 125 mg/dL (80-115); Potassium 4.2 mmol/L (3.5-5.1); Protein, Total 6.6 g/dL (5.8-8.1); Sodium 136 mmol/L (136-145)
[2021-04-25] MEDS: metFORMIN 500 MG TAB PO SCH ×2 (09:20→17:38)
[2021-04-25] MEDS: Amlodipine 10 MG TAB PO SCH (09:21)
[2021-04-25] MEDS: Metoprolol Tartrate 25 MG TAB PO SCH ×2 (09:21→21:50)
[2021-04-25] MEDS: NPH, Human Insulin Isophane 300 UNIT/3 ML VIAL SC SCH (09:21)
[2021-04-25] MEDS: Insulin Regular 300 UNITS/3 ML VIAL SC PRN (12:19)
[2021-04-25] MEDS ORDERED: Morphine 4 MG/ML VIAL SLOW IVP PRN (12:54)
[2021-04-25] MEDS: traMADol HCl 50 MG TAB PO PRN ×2 (14:04→21:50)
[2021-04-25] MEDS: Gabapentin 400 MG CAP PO SCH ×2 (14:04→21:49)
[2021-04-25] MEDS ORDERED: Lantus 1000 UNITS/10 ML VIAL SC SCH (21:00)
[2021-04-26 06:37] LABS: ALT (SGPT) 23 U/L (8-55); AST (SGOT) 36 U/L (5-34); Albumin 2.6 g/dL (3.4-4.8); Alkaline Phosphatase 76 U/L (40-110); Anion Gap 10 mmol/L (10-20); BUN (Urea Nitrogen) 7 mg/dL (9.8-20.1); Bilirubin, Total 0.4 mg/dL (0.2-1.2); Calc. Creatinine Clearance 54 mL/min (70-130); Calcium 8.5 mg/dL (7.8-10.44); Carbon Dioxide 21 mmol/L (23-31); Chloride 109 mmol/L (98-107); Globulin 3.8 g/dL (2.4-3.5); Glucose 166 mg/dL (80-115); Potassium 3.9 mmol/L (3.5-5.1); Protein, Total 6.4 g/dL (5.8-8.1); Sodium 136 mmol/L (136-145)
[2021-04-26 06:47] LABS: #Basophils 0.1 thou/uL (0.0-0.2); #Eosinphils 0.5 thou/uL (0.0-0.7); #Lymphocytes 2.5 thou/uL (1.20-3.40); #Monocytes 0.8 thou/uL (0.11-0.59); %Basophils 0.7 % (0.0-1.0); %Eosinophils 5.5 % (0.0-10.0); %Lymphocytes 28.2 % (21.0-51.0); %Monocytes 8.6 % (0.0-10.0); Hemoglobin 9.6 g/dL (12.0-16.0); Mean Corpuscular HGB CONC 32.5 g/dL (32.0-36.0); Mean Corpuscular Hemoglobin 24.6 pg (27.0-31.0); Mean Corpuscular Volume 75.6 fL (78.0-98.0); Mean Platelet Volume 10.1 fL (7.4-10.4); Platelet Count 195 thou/uL (130-400); RBC Distribution Width 18.2 % (11.5-14.5); White Blood Cell (WBC) Count 8.8 thou/uL (4.8-10.8)
[2021-04-26] MEDS ORDERED: Fish Oil 1,000 MG CAP PO SCH (09:00)
[2021-04-26] MEDS: Gabapentin 400 MG CAP PO SCH (09:00)
[2021-04-26] MEDS: Amlodipine 10 MG TAB PO SCH (09:00)
[2021-04-26] MEDS ORDERED: Loratadine 10 MG TAB PO SCH (09:00)
[2021-04-26] MEDS ORDERED: Aspirin 81 mg Enteric Coated Tablet PO SCH (09:00)
[2021-04-26] MEDS: metFORMIN 500 MG TAB PO SCH (09:00)
[2021-04-26] MEDS: Metoprolol Tartrate 25 MG TAB PO SCH (09:00)
[2021-04-26] MEDS ORDERED: Lantus 1000 UNITS/10 ML VIAL SC SCH (09:00)
[2021-04-26] MEDS: traMADol HCl 50 MG TAB PO PRN (09:01)
[2021-04-26 11:43] VITALS: TEMP 98.7
[2021-04-26] MEDS: Insulin Regular 300 UNITS/3 ML VIAL SC PRN (12:24)
[2021-04-26 12:51] VITALS: BP 120/57
== END 2021-04-26 14:59 | disposition home health service (06) | DRG 637 ==
LOC: ERS 11:27 → ERHOLD 13:57 → CCU 21:36 → 2NO 04-24 19:41
PROVIDERS: ADMIT Hospitalist; ATTEND Internal Medicine
PROC: 02HV33Z Insertion of Infusion Device into Superior Vena Cava, Percutaneous Approach (ICD-10-PCS; 2021-04-23)
PROC: 30233N1 Transfusion of Nonautologous Red Blood Cells into Peripheral Vein, Percutaneous Approach (ICD-10-PCS; principal; 2021-04-24)
PROC: 3E033XZ Introduction of Vasopressor into Peripheral Vein, Percutaneous Approach (ICD-10-PCS; 2021-04-24)
PROC: 5A1935Z Respiratory Ventilation, Less than 24 Consecutive Hours (ICD-10-PCS; 2021-04-24)
PROC: 0D9670Z Drainage of Stomach with Drainage Device, Via Natural or Artificial Opening (ICD-10-PCS; 2021-04-24)
PROC: 0BH18EZ Insertion of Endotracheal Airway into Trachea, Via Natural or Artificial Opening Endoscopic (ICD-10-PCS; 2021-04-24)
PROC: B548ZZA Ultrasonography of Superior Vena Cava, Guidance (ICD-10-PCS; 2021-04-24)
DX: E11.10 Type 2 diabetes mellitus with ketoacidosis without coma (principal); N17.0 Acute kidney failure with tubular necrosis; J96.01 Acute respiratory failure with hypoxia; I26.99 Other pulmonary embolism without acute cor pulmonale; E87.1 Hypo-osmolality and hyponatremia; N30.00 Acute cystitis without hematuria; K86.1 Other chronic pancreatitis; T81.718A Complication of other artery following a procedure, not elsewhere classified, initial encounter; Z20.822 Contact with and (suspected) exposure to COVID-19; I10 Essential (primary) hypertension; J45.909 Unspecified asthma, uncomplicated; M19.90 Unspecified osteoarthritis, unspecified site; Z96.643 Presence of artificial hip joint, bilateral; F32.A Depression, unspecified; E86.9 Volume depletion, unspecified; I08.1 Rheumatic disorders of both mitral and tricuspid valves; D50.9 Iron deficiency anemia, unspecified; I48.91 Unspecified atrial fibrillation; E11.649 Type 2 diabetes mellitus with hypoglycemia without coma; Y84.8 Other medical procedures as the cause of abnormal reaction of the patient, or of later complication, without mention of misadventure at the time of the procedure; Z78.1 Physical restraint status; Z90.710 Acquired absence of both cervix and uterus; Z98.51 Tubal ligation status; Z87.891 Personal history of nicotine dependence; Z88.0 Allergy status to penicillin; Z88.8 Allergy status to other drugs, medicaments and biological substances; Z91.018 Allergy to other foods; Z79.899 Other long term (current) drug therapy; Z79.84 Long term (current) use of oral hypoglycemic drugs; Z91.012 Allergy to eggs; Z79.82 Long term (current) use of aspirin; Z79.4 Long term (current) use of insulin; Z90.89 Acquired absence of other organs; Z83.3 Family history of diabetes mellitus; Z86.19 Personal history of other infectious and parasitic diseases
CPT/HCPCS: 36415; 36416; 36430; 36600; 70496; 70498; 71045; 72128; 74176; 80053; 81003; 81015; 82010; 82607; 82728; 82746; 82805; 83540; 83550; 83690; 83735; 84100; 85025; 86850; 86900; 86901; 87040; 87077; 87086; 87186; 93005; 93306; 94002; 94003; 94640; J0171; J1815; J1956; J2060; J2270; J2704; J3010; J3480; J3490; J7042; J7050; J7620; P9016; Q9967; U0002

== ENCOUNTER 2021-09-27 16:25 | Inpatient (IN) | payer MEDICARE ==
[2021-09-27] MEDS ORDERED: Adenosine 6 MG/2 ML VIAL ONE ×2 (16:44)
[2021-09-27] MEDS ORDERED: Lidocaine 1% PF 5 ML VIAL ONE (16:58)
[2021-09-27] MEDS ORDERED: Ondansetron PF 4 MG/2 ML Vial ONE (17:05)
[2021-09-27 17:09] LABS: #Basophils 0.1 thou/uL (0.0-0.2); #Lymphocytes 2.3 thou/uL (1.20-3.40); #Monocytes 0.7 thou/uL (0.11-0.59); #Neutrophils 6.8 thou/uL (1.40-6.50); %Basophils 1.1 % (0.0-1.0); %Eosinophils 0.4 % (0.0-10.0); %Monocytes 6.7 % (0.0-10.0); %Neutrophils 68.8 % (42.0-75.0); Hemoglobin 14.3 g/dL (12.0-16.0); Mean Corpuscular HGB CONC 32.9 g/dL (32.0-36.0); Mean Corpuscular Hemoglobin 32.7 pg (27.0-31.0); Mean Corpuscular Volume 99.4 fL (78.0-98.0); Mean Platelet Volume 9.4 fL (7.4-10.4); Platelet Count 221 thou/uL (130-400); RBC Distribution Width 14.8 % (11.5-14.5); Red Blood Cell (RBC) Count 4.37 mill/uL (4.20-5.40); White Blood Cell (WBC) Count 9.9 thou/uL (4.8-10.8)
[2021-09-27] MEDS ORDERED: Diltiazem 125 MG/25 ML ONE (17:17)
[2021-09-27 17:24] LABS: Actual Bicarbonate (HCO3v) 14 mEq/L (22-28); Analyzer IN Cardio ER; Base Excess -11.2 mEq/L (-2.0 to +3.0); Hemoglobin (Hb) 15.1 g/dL (11.7-16.1)
[2021-09-27 17:25] LABS: Calcium, Ionized (venous) 1.13 mmol/L (1.16-1.32); Chloride (VBG) 93 mmol/L (98-106); Potassium (VBG) 4.71 mmol/L (3.70-5.30); Sodium 136.9 mmol/L (133-146)
[2021-09-27 17:33] LABS: ALT (SGPT) 33 U/L (8-55); AST (SGOT) 53 U/L (5-34); Albumin 3.9 g/dL (3.4-4.8); Alkaline Phosphatase 108 U/L (40-110); Anion Gap 36 mmol/L (10-20); BUN (Urea Nitrogen) 12 mg/dL (9.8-20.1); Bilirubin, Total 0.5 mg/dL (0.2-1.2); Calc. Creatinine Clearance 0 mL/min (70-130); Calcium 9.8 mg/dL (7.8-10.44); Carbon Dioxide 11 mmol/L (23-31); Chloride 89 mmol/L (98-107); Globulin 4.8 g/dL (2.4-3.5); Glucose 682 mg/dL (80-115); Potassium 6.1 mmol/L (3.5-5.1); Protein, Total 8.7 g/dL (5.8-8.1); Sodium 130 mmol/L (136-145)
[2021-09-27] MEDS ORDERED: CALCIUM GLUC 1GM/NS 50ML BAG ONE (18:07)
[2021-09-27] MEDS ORDERED: INSULIN REGULAR IN 0.9 % NACL 100 UNIT/100 ML BAG ONE (18:07)
[2021-09-27 18:24] LABS: Lipase 123 U/L (8-78); Magnesium 1.8 mg/dL (1.6-2.6)
[2021-09-27] MEDS ORDERED: Sodium Chloride 0.9% 1,000 ML IV PRN ×4 (19:13)
[2021-09-27] MEDS ORDERED: Electrolyte Replacement Protocol 1 EACH IVPB SCH (19:13)
[2021-09-27] MEDS ORDERED: Dextrose 5 %-0.45 % NaCl 1,000 ML IV PRN (19:13)
[2021-09-27] MEDS ORDERED: Dextrose 5% in Water 1,000 ML IV PRN (19:13)
[2021-09-27] MEDS ORDERED: D5 1/2 NS w/20 mEq KCL 1,000 ML IV PRN (19:13)
[2021-09-27] MEDS ORDERED: NS 0.9% w/ 20 MEQ KCL 1,000 ML IV PRN ×2 (19:13)
[2021-09-27] MEDS ORDERED: Dextrose 50% Abboject 50 ML SYRINGE SLOW IVP PRN (19:13)
[2021-09-27] MEDS ORDERED: HUMULIN R 100 UNITS in Sodium Chloride 0.9% 100 ML IVPB SCH (19:15)
[2021-09-27 19:52] LABS: SARS-CoV-2 NAA Rapid Test Not Detected (NotDetected)
[2021-09-27 20:08] LABS: Anion Gap 30 mmol/L (10-20); BUN (Urea Nitrogen) 11 mg/dL (9.8-20.1); Calc. Creatinine Clearance 0 mL/min (70-130); Calcium 9.4 mg/dL (7.8-10.44); Carbon Dioxide 12 mmol/L (23-31); Chloride 102 mmol/L (98-107); Glucose 405 mg/dL (80-115); Potassium 3.6 mmol/L (3.5-5.1); Sodium 140 mmol/L (136-145)
[2021-09-27] MEDS: Heparin 5,000 UNITS/ML VIAL SC SCH (20:21)
[2021-09-27] MEDS ORDERED: Morphine 2 MG/ML VIAL SLOW IVP SCH (20:45)
[2021-09-27] MEDS ORDERED: Diltiazem HCl 125 MG, Admixture Fee 1 EACH in Sodium Chloride 0.9% 100 ML IVPB SCH (21:15)
[2021-09-27 21:21] LABS: Bacteria/HPF None Seen HPF (None Seen); Bilirubin Negative (Negative); Blood, Urine Negative (Negative); Clarity Clear (Clear); Glucose, Urine (Dipstick) Greater than 1000 mg/dL (Negative); Ketone, Urine 100 mg/dL (Negative); Leukocyte 75 Leu/uL (Negative); Nitrite Negative (Negative); Protein, Urine (Dipstick) Negative (Neg-Trace); RBC/HPF 0-3 HPF (0-3); Specific Gravity, Urine 1.011 (1.002-1.036); Squamous Epithelial 0-3 HPF (0-3); Urobilinogen Normal mg/dL (Less than 2)
[2021-09-27 21:46] LABS: Lactic Acid 2.9 mmol/L (0.5-2.2)
[2021-09-27 21:49] LABS: Anion Gap 21 mmol/L (10-20); BUN (Urea Nitrogen) 10 mg/dL (9.8-20.1); Calc. Creatinine Clearance 29 mL/min (70-130); Carbon Dioxide 19 mmol/L (23-31); Chloride 104 mmol/L (98-107); Glucose 217 mg/dL (80-115); Potassium 3.2 mmol/L (3.5-5.1); Sodium 141 mmol/L (136-145)
[2021-09-27] MEDS: D5 1/2 NS w/40 mEq KCL 1,000 ML IV SCH (22:30)
[2021-09-27] MEDS ORDERED: Famotidine/PF 20 mg/2ml Vial SLOW IVP SCH (23:30)
[2021-09-27] MEDS ORDERED: Magnesium 2 GM/50 ML(in water) 2 GM in Premix Bag 1 BAG IVPB SCH (23:59)
[2021-09-28 01:49] LABS: Anion Gap 18 mmol/L (10-20); BUN (Urea Nitrogen) Less than 4 mg/dL (9.8-20.1); Calc. Creatinine Clearance 38 mL/min (70-130); Calcium 8.1 mg/dL (7.8-10.44); Carbon Dioxide 18 mmol/L (23-31); Chloride 107 mmol/L (98-107); Sodium 139 mmol/L (136-145)
[2021-09-28] MEDS: D5 1/2 NS w/40 mEq KCL 1,000 ML IV SCH ×2 (02:06→06:13)
[2021-09-28 02:09] LABS: Glucose 165 mg/dL (80-115)
[2021-09-28 05:26] LABS: #Basophils 0.1 thou/uL (0.0-0.2); #Eosinphils 0.1 thou/uL (0.0-0.7); #Lymphocytes 2.8 thou/uL (1.20-3.40); #Monocytes 0.7 thou/uL (0.11-0.59); #Neutrophils 4.4 thou/uL (1.40-6.50); %Basophils 1.6 % (0.0-1.0); %Lymphocytes 33.9 % (21.0-51.0); %Neutrophils 54.5 % (42.0-75.0); Mean Corpuscular HGB CONC 33.5 g/dL (32.0-36.0); Mean Corpuscular Volume 98.6 fL (78.0-98.0); Mean Platelet Volume 8.4 fL (7.4-10.4); Platelet Count 174 thou/uL (130-400); RBC Distribution Width 14.4 % (11.5-14.5); Red Blood Cell (RBC) Count 3.63 mill/uL (4.20-5.40); White Blood Cell (WBC) Count 8.1 thou/uL (4.8-10.8)
[2021-09-28 05:47] LABS: Anion Gap 10 mmol/L (10-20); BUN (Urea Nitrogen) 6 mg/dL (9.8-20.1); Calc. Creatinine Clearance 37 mL/min (70-130); Calcium 8.3 mg/dL (7.8-10.44); Carbon Dioxide 22 mmol/L (23-31); Chloride 110 mmol/L (98-107); Glucose 180 mg/dL (80-115); Potassium 4.2 mmol/L (3.5-5.1); Sodium 138 mmol/L (136-145)
[2021-09-28] MEDS ORDERED: Insulin Glargine 30 UNITS/0.3 ML VIAL SC SCH (06:00)
[2021-09-28] MEDS: Heparin 5,000 UNITS/ML VIAL SC SCH ×3 (08:28→20:31)
[2021-09-28] MEDS ORDERED: Pantoprazole 40 MG VIAL IVP SCH (09:00)
[2021-09-28] MEDS ORDERED: Hydrochlorothiazide 25 MG TAB PO SCH (10:30)
[2021-09-28 13:18] LABS: Anion Gap 11 mmol/L (10-20); BUN (Urea Nitrogen) 4 mg/dL (9.8-20.1); Calc. Creatinine Clearance 37 mL/min (70-130); Calcium 8.6 mg/dL (7.8-10.44); Carbon Dioxide 23 mmol/L (23-31); Chloride 102 mmol/L (98-107); Glucose 323 mg/dL (80-115); Potassium 4.4 mmol/L (3.5-5.1); Sodium 132 mmol/L (136-145)
[2021-09-28] MEDS: Gabapentin 400 MG CAP PO SCH ×2 (14:45→20:31)
[2021-09-28] MEDS: Metoprolol Tartrate 50 MG TAB PO SCH ×2 (14:46→20:33)
[2021-09-28] MEDS: HumaLOG 300 UNITS/3 ML VIAL SC PRN (14:51)
[2021-09-29] MEDS: HumaLOG 300 UNITS/3 ML VIAL SC PRN ×3 (03:06→23:34)
[2021-09-29 04:08] LABS: Anion Gap 10 mmol/L (10-20); BUN (Urea Nitrogen) 4 mg/dL (9.8-20.1); Calc. Creatinine Clearance 46 mL/min (70-130); Calcium 8.3 mg/dL (7.8-10.44); Carbon Dioxide 24 mmol/L (23-31); Chloride 104 mmol/L (98-107); Glucose 254 mg/dL (80-115); Potassium 3.8 mmol/L (3.5-5.1); Sodium 134 mmol/L (136-145)
[2021-09-29] MEDS ORDERED: Electrolyte Replacement Protocol FS PRN (09:00)
[2021-09-29] MEDS: Metoprolol Tartrate 50 MG TAB PO SCH ×2 (09:48→21:05)
[2021-09-29] MEDS: Furosemide 20 MG TAB PO SCH (09:48)
[2021-09-29] MEDS: Gabapentin 400 MG CAP PO SCH ×3 (09:49→21:04)
[2021-09-29] MEDS: Amlodipine 10 MG TAB PO SCH (09:50)
[2021-09-29] MEDS: Aspirin 81 mg Enteric Coated Tablet PO SCH (09:50)
[2021-09-29] MEDS: Hydrochlorothiazide 25 MG TAB PO SCH (09:50)
[2021-09-29] MEDS: Heparin 5,000 UNITS/ML VIAL SC SCH ×3 (09:51→21:05)
[2021-09-29] MEDS ORDERED: Insulin Glargine 30 UNITS/0.3 ML VIAL SC SCH ×2 (12:15→19:30)
[2021-09-29] MEDS: Ondansetron PF 4 MG/2 ML Vial IVP PRN (15:22)
[2021-09-29] MEDS: metFORMIN 500 MG TAB PO SCH (18:01)
[2021-09-29 18:48] LABS: Anion Gap 17 mmol/L (10-20); BUN (Urea Nitrogen) 4 mg/dL (9.8-20.1); Calc. Creatinine Clearance 41 mL/min (70-130); Calcium 8.4 mg/dL (7.8-10.44); Carbon Dioxide 22 mmol/L (23-31); Chloride 94 mmol/L (98-107); Potassium 3.9 mmol/L (3.5-5.1); Sodium 129 mmol/L (136-145)
[2021-09-29 18:53] LABS: Glucose 562 mg/dL (80-115)
[2021-09-29 23:07] LABS: Glucose 508 mg/dL (80-115)
[2021-09-30 04:21] LABS: Anion Gap 17 mmol/L (10-20); BUN (Urea Nitrogen) 6 mg/dL (9.8-20.1); Calc. Creatinine Clearance 42 mL/min (70-130); Calcium 8.7 mg/dL (7.8-10.44); Carbon Dioxide 20 mmol/L (23-31); Chloride 99 mmol/L (98-107); Glucose 189 mg/dL (80-115); Magnesium 1.5 mg/dL (1.6-2.6); Potassium 3.7 mmol/L (3.5-5.1); Sodium 132 mmol/L (136-145)
[2021-09-30] MEDS ORDERED: Magnesium 2 GM/50 ML(in water) 2 GM in Premix Bag 1 BAG IVPB SCH (06:00)
[2021-09-30] MEDS: HumaLOG 300 UNITS/3 ML VIAL SC PRN ×3 (06:32→20:31)
[2021-09-30] MEDS: Aspirin 81 mg Enteric Coated Tablet PO SCH (09:26)
[2021-09-30] MEDS: Amlodipine 10 MG TAB PO SCH (09:26)
[2021-09-30] MEDS: Hydrochlorothiazide 25 MG TAB PO SCH (09:26)
[2021-09-30] MEDS: Gabapentin 400 MG CAP PO SCH ×3 (09:26→20:31)
[2021-09-30] MEDS: Heparin 5,000 UNITS/ML VIAL SC SCH ×3 (09:27→20:30)
[2021-09-30] MEDS: Metoprolol Tartrate 50 MG TAB PO SCH ×2 (09:27→20:31)
[2021-09-30] MEDS: metFORMIN 500 MG TAB PO SCH ×2 (09:27→17:51)
[2021-09-30] MEDS: Insulin Glargine 30 UNITS/0.3 ML VIAL SC SCH (09:27)
[2021-09-30] MEDS: Furosemide 20 MG TAB PO SCH (09:27)
[2021-09-30] MEDS: traMADol HCl 50 MG TAB PO PRN ×2 (17:50→21:45)
[2021-10-01 03:47] LABS: Anion Gap 14 mmol/L (10-20); BUN (Urea Nitrogen) 8 mg/dL (9.8-20.1); Calc. Creatinine Clearance 46 mL/min (70-130); Calcium 8.9 mg/dL (7.8-10.44); Carbon Dioxide 26 mmol/L (23-31); Chloride 97 mmol/L (98-107); Glucose 138 mg/dL (80-115); Magnesium 1.7 mg/dL (1.6-2.6); Potassium 3.7 mmol/L (3.5-5.1); Sodium 133 mmol/L (136-145)
[2021-10-01] MEDS: traMADol HCl 50 MG TAB PO PRN ×3 (04:41→22:14)
[2021-10-01] MEDS ORDERED: Magnesium 2 GM/50 ML(in water) 2 GM in Premix Bag 1 BAG IVPB SCH (05:00)
[2021-10-01] MEDS: HumaLOG 300 UNITS/3 ML VIAL SC PRN (06:09)
[2021-10-01] MEDS: Aspirin 81 mg Enteric Coated Tablet PO SCH (09:33)
[2021-10-01] MEDS: Hydrochlorothiazide 25 MG TAB PO SCH (09:33)
[2021-10-01] MEDS: metFORMIN 500 MG TAB PO SCH ×2 (09:34→16:57)
[2021-10-01] MEDS: Furosemide 20 MG TAB PO SCH (09:35)
[2021-10-01] MEDS: Amlodipine 10 MG TAB PO SCH (09:35)
[2021-10-01] MEDS: Metoprolol Tartrate 50 MG TAB PO SCH ×2 (09:35→20:24)
[2021-10-01] MEDS: Gabapentin 400 MG CAP PO SCH ×3 (09:36→20:22)
[2021-10-01] MEDS: Heparin 5,000 UNITS/ML VIAL SC SCH ×3 (09:37→20:23)
[2021-10-01] MEDS: Ondansetron PF 4 MG/2 ML Vial IVP PRN ×2 (09:37→14:21)
[2021-10-01] MEDS: Insulin Glargine 30 UNITS/0.3 ML VIAL SC SCH (09:37)
[2021-10-02] MEDS: Gabapentin 400 MG CAP PO SCH ×3 (08:16→20:19)
[2021-10-02] MEDS: Heparin 5,000 UNITS/ML VIAL SC SCH ×3 (08:16→20:22)
[2021-10-02] MEDS: Furosemide 20 MG TAB PO SCH (08:16)
[2021-10-02] MEDS: Aspirin 81 mg Enteric Coated Tablet PO SCH (08:16)
[2021-10-02] MEDS: metFORMIN 500 MG TAB PO SCH ×2 (08:16→17:27)
[2021-10-02] MEDS: Hydrochlorothiazide 25 MG TAB PO SCH (08:16)
[2021-10-02] MEDS: Insulin Glargine 30 UNITS/0.3 ML VIAL SC SCH (08:17)
[2021-10-02] MEDS: Amlodipine 10 MG TAB PO SCH (08:17)
[2021-10-02] MEDS: Metoprolol Tartrate 50 MG TAB PO SCH ×2 (08:17→20:22)
[2021-10-02] MEDS: HumaLOG 300 UNITS/3 ML VIAL SC PRN (11:52)
[2021-10-02 18:24] LABS: Anion Gap 19 mmol/L (10-20); BUN (Urea Nitrogen) 18 mg/dL (9.8-20.1); Calc. Creatinine Clearance 31 mL/min (70-130); Calcium 9.3 mg/dL (7.8-10.44); Carbon Dioxide 24 mmol/L (23-31); Chloride 93 mmol/L (98-107); Glucose 121 mg/dL (80-115); Potassium 4.2 mmol/L (3.5-5.1); Sodium 132 mmol/L (136-145)
[2021-10-02] MEDS ORDERED: Magnesium 2 GM/50 ML(in water) 2 GM in Premix Bag 1 BAG IVPB SCH (20:00)
[2021-10-03 06:38] LABS: Anion Gap 15 mmol/L (10-20); BUN (Urea Nitrogen) 16 mg/dL (9.8-20.1); Calc. Creatinine Clearance 42 mL/min (70-130); Calcium 9.3 mg/dL (7.8-10.44); Carbon Dioxide 26 mmol/L (23-31); Chloride 93 mmol/L (98-107); Glucose 121 mg/dL (80-115); Magnesium 2.1 mg/dL (1.6-2.6); Potassium 3.9 mmol/L (3.5-5.1); Sodium 130 mmol/L (136-145)
[2021-10-03] MEDS: Metoprolol Tartrate 50 MG TAB PO SCH ×2 (08:28→21:01)
[2021-10-03] MEDS: metFORMIN 500 MG TAB PO SCH ×2 (08:29→16:00)
[2021-10-03] MEDS: Amlodipine 5 MG TAB PO SCH (08:29)
[2021-10-03] MEDS: Furosemide 20 MG TAB PO SCH (08:29)
[2021-10-03] MEDS: Gabapentin 400 MG CAP PO SCH ×3 (08:29→20:59)
[2021-10-03] MEDS: Hydrochlorothiazide 25 MG TAB PO SCH (08:29)
[2021-10-03] MEDS: Heparin 5,000 UNITS/ML VIAL SC SCH ×3 (08:30→21:00)
[2021-10-03] MEDS: Aspirin 81 mg Enteric Coated Tablet PO SCH (08:30)
[2021-10-03] MEDS: Insulin Glargine 30 UNITS/0.3 ML VIAL SC SCH (08:30)
[2021-10-03] MEDS ORDERED: Amlodipine 10 MG TAB PO SCH (09:00)
[2021-10-03] MEDS: traMADol HCl 50 MG TAB PO PRN ×2 (13:15→21:34)
[2021-10-04] MEDS: Ondansetron PF 4 MG/2 ML Vial IVP PRN (02:39)
[2021-10-04] MEDS ORDERED: Meclizine HCl 25 MG TAB PO PRN (03:08)
[2021-10-04 05:39] VITALS: BMI 22.5
[2021-10-04 06:46] LABS: Anion Gap 13 mmol/L (10-20); BUN (Urea Nitrogen) 13 mg/dL (9.8-20.1); Calc. Creatinine Clearance 38 mL/min (70-130); Calcium 9.1 mg/dL (7.8-10.44); Carbon Dioxide 27 mmol/L (23-31); Chloride 93 mmol/L (98-107); Glucose 226 mg/dL (80-115); Potassium 4.3 mmol/L (3.5-5.1); Sodium 129 mmol/L (136-145)
[2021-10-04 07:51] LABS: Mean Corpuscular HGB CONC 33.4 g/dL (32.0-36.0); Mean Corpuscular Hemoglobin 32.7 pg (27.0-31.0); Mean Corpuscular Volume 97.9 fL (78.0-98.0); Mean Platelet Volume 8.1 fL (7.4-10.4); Platelet Count 203 thou/uL (130-400); RBC Distribution Width 14.1 % (11.5-14.5); Red Blood Cell (RBC) Count 3.98 mill/uL (4.20-5.40); White Blood Cell (WBC) Count 7.2 thou/uL (4.8-10.8)
[2021-10-04] MEDS: Heparin 5,000 UNITS/ML VIAL SC SCH ×3 (08:26→20:27)
[2021-10-04] MEDS: Aspirin 81 mg Enteric Coated Tablet PO SCH (08:28)
[2021-10-04] MEDS: Gabapentin 400 MG CAP PO SCH ×3 (08:28→20:27)
[2021-10-04] MEDS: Metoprolol Tartrate 50 MG TAB PO SCH ×2 (08:28→20:30)
[2021-10-04] MEDS: Furosemide 20 MG TAB PO SCH (08:28)
[2021-10-04] MEDS: Amlodipine 5 MG TAB PO SCH (08:28)
[2021-10-04] MEDS: Insulin Glargine 30 UNITS/0.3 ML VIAL SC SCH (08:29)
[2021-10-04] MEDS: metFORMIN 500 MG TAB PO SCH ×2 (08:36→16:11)
[2021-10-04 09:40] LABS: Magnesium 1.6 mg/dL (1.6-2.6)
[2021-10-04] MEDS ORDERED: Magnesium 2 GM/50 ML(in water) 2 GM in Premix Bag 1 BAG IVPB SCH (10:00)
[2021-10-04] MEDS: Empagliflozin 10 MG TAB PO SCH (10:19)
[2021-10-04] MEDS: HumaLOG 300 UNITS/3 ML VIAL SC PRN (11:53)
[2021-10-04 11:55] LABS: SARS-CoV-2 PCR by NAA Not Detected (NotDetected)
[2021-10-04] MEDS: traMADol HCl 50 MG TAB PO PRN (21:10)
[2021-10-05] MEDS: HumaLOG 300 UNITS/3 ML VIAL SC PRN ×2 (03:58→11:41)
[2021-10-05 06:35] LABS: Anion Gap 15 mmol/L (10-20); BUN (Urea Nitrogen) 13 mg/dL (9.8-20.1); Calc. Creatinine Clearance 37 mL/min (70-130); Calcium 9.4 mg/dL (7.8-10.44); Carbon Dioxide 26 mmol/L (23-31); Chloride 94 mmol/L (98-107); Glucose 115 mg/dL (80-115); Magnesium 1.8 mg/dL (1.6-2.6); Sodium 131 mmol/L (136-145)
[2021-10-05] MEDS ORDERED: Magnesium 2 GM/50 ML(in water) 2 GM in Premix Bag 1 BAG IVPB SCH (07:00)
[2021-10-05] MEDS: Metoprolol Tartrate 50 MG TAB PO SCH (08:44)
[2021-10-05] MEDS: metFORMIN 500 MG TAB PO SCH ×2 (08:44→17:25)
[2021-10-05] MEDS: Heparin 5,000 UNITS/ML VIAL SC SCH ×3 (08:44→20:46)
[2021-10-05] MEDS: Amlodipine 5 MG TAB PO SCH (08:44)
[2021-10-05] MEDS: Aspirin 81 mg Enteric Coated Tablet PO SCH (08:44)
[2021-10-05] MEDS: Furosemide 20 MG TAB PO SCH (08:44)
[2021-10-05] MEDS: Gabapentin 400 MG CAP PO SCH ×3 (08:44→20:47)
[2021-10-05] MEDS: Metoprolol Tartrate 25 MG TAB PO SCH ×2 (11:01→20:47)
[2021-10-05] MEDS: Empagliflozin 10 MG TAB PO SCH (11:37)
[2021-10-05] MEDS: traMADol HCl 50 MG TAB PO PRN ×2 (13:55→20:55)
[2021-10-05] MEDS: Ondansetron PF 4 MG/2 ML Vial IVP PRN (20:57)
[2021-10-06] MEDS: HumaLOG 300 UNITS/3 ML VIAL SC PRN ×3 (04:21→20:34)
[2021-10-06 07:12] LABS: Anion Gap 13 mmol/L (10-20); BUN (Urea Nitrogen) 14 mg/dL (9.8-20.1); Calc. Creatinine Clearance 33 mL/min (70-130); Calcium 9.4 mg/dL (7.8-10.44); Carbon Dioxide 28 mmol/L (23-31); Chloride 95 mmol/L (98-107); Glucose 83 mg/dL (80-115); Potassium 3.9 mmol/L (3.5-5.1); Sodium 132 mmol/L (136-145)
[2021-10-06] MEDS ORDERED: Magnesium 2 GM/50 ML(in water) 2 GM in Premix Bag 1 BAG IVPB SCH (07:45)
[2021-10-06] MEDS: Empagliflozin 10 MG TAB PO SCH (08:16)
[2021-10-06] MEDS: Gabapentin 400 MG CAP PO SCH ×3 (08:17→20:33)
[2021-10-06] MEDS: Metoprolol Tartrate 25 MG TAB PO SCH ×2 (08:17→20:32)
[2021-10-06] MEDS: Amlodipine 5 MG TAB PO SCH (08:17)
[2021-10-06] MEDS: metFORMIN 500 MG TAB PO SCH ×2 (08:17→16:49)
[2021-10-06] MEDS: Furosemide 20 MG TAB PO SCH (08:18)
[2021-10-06] MEDS: Aspirin 81 mg Enteric Coated Tablet PO SCH (08:18)
[2021-10-06] MEDS: Heparin 5,000 UNITS/ML VIAL SC SCH ×3 (08:18→20:32)
[2021-10-06] MEDS: traMADol HCl 50 MG TAB PO PRN ×2 (09:25→20:33)
[2021-10-07] MEDS: HumaLOG 300 UNITS/3 ML VIAL SC PRN ×2 (05:41→12:33)
[2021-10-07 06:33] LABS: Anion Gap 18 mmol/L (10-20); BUN (Urea Nitrogen) 13 mg/dL (9.8-20.1); Calc. Creatinine Clearance 31 mL/min (70-130); Calcium 9.4 mg/dL (7.8-10.44); Carbon Dioxide 25 mmol/L (23-31); Chloride 93 mmol/L (98-107); Glucose 209 mg/dL (80-115); Magnesium 2.2 mg/dL (1.6-2.6); Potassium 4.5 mmol/L (3.5-5.1); Sodium 131 mmol/L (136-145)
[2021-10-07] MEDS: Furosemide 20 MG TAB PO SCH (09:00)
[2021-10-07] MEDS: Aspirin 81 mg Enteric Coated Tablet PO SCH (09:00)
[2021-10-07] MEDS: Gabapentin 400 MG CAP PO SCH ×2 (09:00→15:35)
[2021-10-07] MEDS ORDERED: Empagliflozin 10 MG TAB PO SCH (09:00)
[2021-10-07] MEDS: Amlodipine 5 MG TAB PO SCH (09:00)
[2021-10-07] MEDS: metFORMIN 500 MG TAB PO SCH (09:00)
[2021-10-07] MEDS: Metoprolol Tartrate 25 MG TAB PO SCH (09:00)
[2021-10-07] MEDS: Heparin 5,000 UNITS/ML VIAL SC SCH ×2 (09:01→15:36)
[2021-10-07] MEDS ORDERED: Insulin Glargine 30 UNITS/0.3 ML VIAL SC SCH (09:45)
[2021-10-07 11:04] LABS: Hemoglobin A1c 11.2 % (4.0-6.0)
[2021-10-07] MEDS: traMADol HCl 50 MG TAB PO PRN (12:28)
[2021-10-07 14:49] VITALS: TEMP 97.9
[2021-10-07 15:44] VITALS: BP 123/75
[2021-10-07] MEDS ORDERED: metFORMIN 500 MG TAB PO SCH (17:00)
== END 2021-10-07 15:40 | DRG 638 ==
LOC: ERS 16:25 → CCU 18:22 → IMCU/EMU 09-29 07:44 → T4-A 10-01 14:58
PROVIDERS: ADMIT Family Medicine; ATTEND Family Medicine
DX: E11.10 Type 2 diabetes mellitus with ketoacidosis without coma (principal); N17.9 Acute kidney failure, unspecified; E87.1 Hypo-osmolality and hyponatremia; I47.1 Supraventricular tachycardia; I10 Essential (primary) hypertension; G89.29 Other chronic pain; I48.91 Unspecified atrial fibrillation; B18.2 Chronic viral hepatitis C; E78.5 Hyperlipidemia, unspecified; K21.9 Gastro-esophageal reflux disease without esophagitis; J45.909 Unspecified asthma, uncomplicated; I95.1 Orthostatic hypotension; E11.649 Type 2 diabetes mellitus with hypoglycemia without coma
CPT/HCPCS: 36415; 36416; 71045; 80048; 80053; 81001; 82010; 82805; 83036; 83605; 83690; 83735; 83880; 84443; 84484; 84681; 85025; 85027; 86850; 86900; 86901; 87040; 87086; 87149; 93005; 93010; 96365; 96366; 96375; 96376; 99292; C9113; J0153; J0610; J1644; J1815; J2270; J2405; J3475; J3480; S0028; U0002; U0003; U0005

== ENCOUNTER 2021-12-28 22:08 | Emergency (ER) | payer OTHER ==
[2021-12-28 22:42] LABS: #Basophils 0.1 thou/uL (0.0-0.2); #Eosinphils 0.1 thou/uL (0.0-0.7); #Lymphocytes 2.4 thou/uL (1.20-3.40); #Monocytes 0.7 thou/uL (0.11-0.59); #Neutrophils 4.2 thou/uL (1.40-6.50); %Basophils 1.1 % (0.0-1.0); %Eosinophils 1.6 % (0.0-10.0); %Lymphocytes 31.5 % (21.0-51.0); %Monocytes 9.3 % (0.0-10.0); %Neutrophils 56.5 % (42.0-75.0); Hemoglobin 12.3 g/dL (12.0-16.0); Mean Corpuscular HGB CONC 33.8 g/dL (32.0-36.0); Mean Corpuscular Hemoglobin 33.4 pg (27.0-31.0); Mean Platelet Volume 9.2 fL (7.4-10.4); Platelet Count 197 thou/uL (130-400); RBC Distribution Width 12.3 % (11.5-14.5); Red Blood Cell (RBC) Count 3.67 mill/uL (4.20-5.40); White Blood Cell (WBC) Count 7.5 thou/uL (4.8-10.8)
[2021-12-28 22:58] LABS: Phosphorus 4.3 mg/dL (2.3-4.7)
[2021-12-28 23:07] LABS: ALT (SGPT) 17 U/L (8-55); AST (SGOT) 33 U/L (5-34); Albumin 3.4 g/dL (3.4-4.8); Alkaline Phosphatase 123 U/L (40-110); Anion Gap 16 mmol/L (10-20); BUN (Urea Nitrogen) 11 mg/dL (9.8-20.1); Bilirubin, Total 0.4 mg/dL (0.2-1.2); Calc. Creatinine Clearance 0 mL/min (70-130); Calcium 8.8 mg/dL (7.8-10.44); Carbon Dioxide 25 mmol/L (23-31); Chloride 96 mmol/L (98-107); Estimated GFR 34; Globulin 4.3 g/dL (2.4-3.5); Glucose 665 mg/dL (80-115); Magnesium 1.9 mg/dL (1.6-2.6); Potassium 4.6 mmol/L (3.5-5.1); Protein, Total 7.7 g/dL (5.8-8.1); Sodium 132 mmol/L (136-145)
== END 2021-12-29 04:30 | disposition home or self-care (01) ==
LOC: ERS 22:08
DX: R60.0 Localized edema (principal); E11.9 Type 2 diabetes mellitus without complications; I10 Essential (primary) hypertension; Z87.891 Personal history of nicotine dependence; Z79.899 Other long term (current) drug therapy; Z79.4 Long term (current) use of insulin; Z79.82 Long term (current) use of aspirin; Z79.84 Long term (current) use of oral hypoglycemic drugs
CPT/HCPCS: 36416; 71045; 80053; 82010; 83735; 83880; 84100; 84484; 85025; 93005

== ENCOUNTER 2022-03-16 16:09 | Inpatient (IN) | payer OTHER ==
[2022-03-16] MEDS ORDERED: Fentanyl 100 MCG/2 ML VIAL ONE ×2 (17:16→19:54)
[2022-03-16 17:25] LABS: #Basophils 0.1 thou/uL (0.0-0.2); #Lymphocytes 1.5 thou/uL (1.20-3.40); #Monocytes 0.5 thou/uL (0.11-0.59); #Neutrophils 7.7 thou/uL (1.40-6.50); %Basophils 0.6 % (0.0-1.0); %Eosinophils 0.5 % (0.0-10.0); %Lymphocytes 15.3 % (21.0-51.0); %Neutrophils 78.6 % (42.0-75.0); Hemoglobin 14.9 g/dL (12.0-16.0); Mean Corpuscular HGB CONC 34.1 g/dL (32.0-36.0); Mean Corpuscular Hemoglobin 32.5 pg (27.0-31.0); Mean Corpuscular Volume 95.4 fL (78.0-98.0); Mean Platelet Volume 10.3 fL (7.4-10.4); Platelet Count 157 thou/uL (130-400); RBC Distribution Width 12.6 % (11.5-14.5); Red Blood Cell (RBC) Count 4.57 mill/uL (4.20-5.40); White Blood Cell (WBC) Count 9.8 thou/uL (4.8-10.8)
[2022-03-16 17:38] LABS: ALT (SGPT) 53 U/L (8-55); AST (SGOT) 71 U/L (5-34); Albumin 3.8 g/dL (3.4-4.8); Alkaline Phosphatase 145 U/L (40-110); Anion Gap 31 mmol/L (10-20); BUN (Urea Nitrogen) 22 mg/dL (9.8-20.1); Bilirubin, Total 0.4 mg/dL (0.2-1.2); Calc. Creatinine Clearance 0 mL/min (70-130); Calcium 9.9 mg/dL (7.8-10.44); Carbon Dioxide 12 mmol/L (23-31); Chloride 99 mmol/L (98-107); Estimated GFR 32; Globulin 4.6 g/dL (2.4-3.5); Glucose 411 mg/dL (80-115); Lipase 29 U/L (8-78); Potassium 4.9 mmol/L (3.5-5.1); Protein, Total 8.4 g/dL (5.8-8.1); Sodium 137 mmol/L (136-145)
[2022-03-16 20:17] LABS: Bacteria/HPF None Seen HPF (None Seen); Bilirubin Negative (Negative); Blood, Urine Negative (Negative); Clarity Clear (Clear); Glucose, Urine (Dipstick) Greater than 1000 mg/dL (Negative); Ketone, Urine 80 mg/dL (Negative); Leukocyte 250 Leu/uL (Negative); Nitrite Negative (Negative); Protein, Urine (Dipstick) Negative (Neg-Trace); RBC/HPF 0-3 HPF (0-3); Squamous Epithelial 0-3 HPF (0-3); Urobilinogen Normal mg/dL (Less than 2); WBC/HPF 21-50 HPF (0-3)
[2022-03-16] MEDS ORDERED: cefTRIAXone\\ROCEPHIN 2 GM VIAL ONE (20:58)
[2022-03-16] MEDS ORDERED: INSULIN REGULAR IN 0.9 % NACL 100 UNIT/100 ML BAG ONE (21:37)
[2022-03-16] MEDS ORDERED: NS 0.9% w/ 20 MEQ KCL 1,000 ML ONE (22:06)
[2022-03-16] MEDS ORDERED: Dextrose 5 %-0.45 % NaCl 1,000 ML IV PRN (22:42)
[2022-03-16] MEDS ORDERED: Sodium Chloride 0.9% 1,000 ML IV PRN ×4 (22:42)
[2022-03-16] MEDS ORDERED: Electrolyte Replacement Protocol 1 EACH IVPB PRN (22:42)
[2022-03-16] MEDS ORDERED: NS 0.9% w/ 20 MEQ KCL 1,000 ML IV PRN ×2 (22:42)
[2022-03-16] MEDS ORDERED: D5 1/2 NS w/20 mEq KCL 1,000 ML IV PRN (22:42)
[2022-03-16] MEDS ORDERED: Ondansetron PF 4 MG/2 ML Vial IVP PRN (22:42)
[2022-03-16] MEDS ORDERED: HUMULIN R 100 UNITS in Sodium Chloride 0.9% 100 ML IVPB SCH (22:45)
[2022-03-16] MEDS ORDERED: Dextrose 50% Abboject 50 ML SYRINGE SLOW IVP PRN (22:52)
[2022-03-16] MEDS ORDERED: Dextrose 5% in Water 1,000 ML IV PRN (22:52)
[2022-03-16 23:01] LABS: Glucose 319 mg/dL (80-115)
[2022-03-16 23:05] LABS: BUN (Urea Nitrogen) 19 mg/dL (9.8-20.1); Calc. Creatinine Clearance 0 mL/min (70-130); Estimated GFR 36
[2022-03-16 23:08] LABS: Potassium 5.3 mmol/L (3.5-5.1); Sodium 141 mmol/L (136-145)
[2022-03-16 23:09] LABS: Chloride 109 mmol/L (98-107)
[2022-03-16] MEDS ORDERED: Gabapentin 300 MG CAP PO SCH (23:15)
[2022-03-16 23:18] LABS: Carbon Dioxide Less than 8 mmol/L (23-31); Hemoglobin A1c 12.5 % (4.0-6.0)
[2022-03-16 23:18] LABS: SARS-CoV-2 NAA Rapid Test Not Detected (NotDetected)
[2022-03-16 23:41] LABS: Magnesium 1.9 mg/dL (1.6-2.6); Phosphorus 5.5 mg/dL (2.3-4.7)
[2022-03-16] MEDS ORDERED: Multivit, Therapeutic 1 TAB PO SCH (23:59)
[2022-03-16] MEDS ORDERED: Folic Acid 1 MG TAB PO SCH (23:59)
[2022-03-17] MEDS ORDERED: NS 0.9% w/ 20 MEQ KCL 1,000 ML ONE (00:15)
[2022-03-17] MEDS ORDERED: Magnesium 2 GM/50 ML(in water) 2 GM in Premix Bag 1 BAG IVPB SCH (01:15)
[2022-03-17] MEDS ORDERED: Dextrose 10% in Water 250 ML IVPB PRN (02:04)
[2022-03-17 02:33] LABS: #Basophils 0.1 thou/uL (0.0-0.2); #Lymphocytes 2.8 thou/uL (1.20-3.40); #Monocytes 0.8 thou/uL (0.11-0.59); #Neutrophils 6.1 thou/uL (1.40-6.50); %Basophils 0.7 % (0.0-1.0); %Eosinophils 0.3 % (0.0-10.0); %Lymphocytes 28.9 % (21.0-51.0); %Monocytes 7.8 % (0.0-10.0); %Neutrophils 62.4 % (42.0-75.0); Hemoglobin 13.4 g/dL (12.0-16.0); Mean Corpuscular HGB CONC 32.7 g/dL (32.0-36.0); Mean Corpuscular Hemoglobin 30.7 pg (27.0-31.0); Mean Corpuscular Volume 93.9 fL (78.0-98.0); Mean Platelet Volume 9.9 fL (7.4-10.4); Platelet Count 157 thou/uL (130-400); RBC Distribution Width 12.6 % (11.5-14.5); Red Blood Cell (RBC) Count 4.37 mill/uL (4.20-5.40); White Blood Cell (WBC) Count 9.8 thou/uL (4.8-10.8)
[2022-03-17 02:43] LABS: Anion Gap 19 mmol/L (10-20); BUN (Urea Nitrogen) 18 mg/dL (9.8-20.1); Calc. Creatinine Clearance 33 mL/min (70-130); Calcium 8.9 mg/dL (7.8-10.44); Carbon Dioxide 19 mmol/L (23-31); Chloride 112 mmol/L (98-107); Estimated GFR 42; Glucose 104 mg/dL (80-115); Potassium 3.9 mmol/L (3.5-5.1); Sodium 146 mmol/L (136-145)
[2022-03-17 05:16] LABS: Anion Gap 13 mmol/L (10-20); BUN (Urea Nitrogen) 16 mg/dL (9.8-20.1); Calc. Creatinine Clearance 35 mL/min (70-130); Calcium 8.7 mg/dL (7.8-10.44); Carbon Dioxide 20 mmol/L (23-31); Chloride 112 mmol/L (98-107); Estimated GFR 44; Glucose 149 mg/dL (80-115); Potassium 4.2 mmol/L (3.5-5.1); Sodium 141 mmol/L (136-145)
[2022-03-17] MEDS ORDERED: Insulin Glargine 30 UNITS/0.3 ML VIAL SC SCH (06:00)
[2022-03-17] MEDS ORDERED: DICLOFENAC POTASSIUM 50 MG TOP PRN (08:07)
[2022-03-17] MEDS ORDERED: Albuterol Sulfate 2.5 mg/3 ml Neb NEB PRN (08:26)
[2022-03-17 08:44] LABS: Phosphorus 2.2 mg/dL (2.3-4.7)
[2022-03-17] MEDS: Amlodipine 5 MG TAB PO SCH (08:56)
[2022-03-17] MEDS: Multivit, Therapeutic 1 TAB PO SCH (08:56)
[2022-03-17] MEDS: Metoprolol Tartrate 25 MG TAB PO SCH ×2 (08:56→20:56)
[2022-03-17] MEDS: Aspirin 81 mg Enteric Coated Tablet PO SCH (08:56)
[2022-03-17] MEDS: Fish Oil 1,000 MG CAP PO SCH (08:56)
[2022-03-17] MEDS: Cholecalciferol 1,000 UNITS (25 MCG) TAB PO SCH (08:56)
[2022-03-17] MEDS: Furosemide 20 MG TAB PO SCH (08:56)
[2022-03-17] MEDS: Folic Acid 1 MG TAB PO SCH (08:56)
[2022-03-17] MEDS: Loratadine 10 MG TAB PO SCH (08:57)
[2022-03-17] MEDS: Cyanocobalamin (Vitamin B-12) 1,000 MCG TAB PO SCH (08:57)
[2022-03-17] MEDS: Heparin 5,000 UNITS/ML VIAL SC SCH ×3 (08:57→20:56)
[2022-03-17] MEDS ORDERED: Gabapentin 300 MG CAP PO SCH (09:00)
[2022-03-17] MEDS ORDERED: FLU VACC QS2022-23(65YR UP)/PF 240 MCG/0.7 ML SYRINGE IM ONE (09:00)
[2022-03-17] MEDS ORDERED: Gabapentin 400 MG CAP PO SCH (09:00)
[2022-03-17] MEDS ORDERED: HumaLOG 300 UNITS/3 ML VIAL SC PRN (09:36)
[2022-03-17 10:44] LABS: Anion Gap 16 mmol/L (10-20); BUN (Urea Nitrogen) 15 mg/dL (9.8-20.1); Calc. Creatinine Clearance 31 mL/min (70-130); Calcium 8.7 mg/dL (7.8-10.44); Carbon Dioxide 13 mmol/L (23-31); Chloride 115 mmol/L (98-107); Estimated GFR 39; Glucose 239 mg/dL (80-115); Potassium 6.1 mmol/L (3.5-5.1); Sodium 138 mmol/L (136-145)
[2022-03-17] MEDS: Gabapentin 300 MG CAP PO SCH ×2 (15:19→20:56)
[2022-03-17 15:31] LABS: Anion Gap 16 mmol/L (10-20); BUN (Urea Nitrogen) 12 mg/dL (9.8-20.1); Calc. Creatinine Clearance 36 mL/min (70-130); Calcium 9.1 mg/dL (7.8-10.44); Carbon Dioxide 19 mmol/L (23-31); Chloride 105 mmol/L (98-107); Estimated GFR 45; Glucose 155 mg/dL (80-115); Potassium 4.3 mmol/L (3.5-5.1); Sodium 136 mmol/L (136-145)
[2022-03-17] MEDS: HumaLOG 300 UNITS/3 ML VIAL SC PRN (18:16)
[2022-03-17 18:46] LABS: Anion Gap 14 mmol/L (10-20); BUN (Urea Nitrogen) 11 mg/dL (9.8-20.1); Calc. Creatinine Clearance 36 mL/min (70-130); Calcium 8.8 mg/dL (7.8-10.44); Carbon Dioxide 21 mmol/L (23-31); Chloride 103 mmol/L (98-107); Estimated GFR 45; Glucose 322 mg/dL (80-115); Sodium 134 mmol/L (136-145)
[2022-03-17] MEDS ORDERED: Rosuvastatin 20 MG TAB PO SCH (21:00)
[2022-03-17] MEDS ORDERED: Thiamine 100 MG TAB PO SCH (23:59)
[2022-03-18] MEDS: HumaLOG 300 UNITS/3 ML VIAL SC PRN ×3 (05:29→17:12)
[2022-03-18 06:44] LABS: #Eosinphils 0.2 thou/uL (0.0-0.7); #Lymphocytes 2.6 thou/uL (1.20-3.40); #Monocytes 0.6 thou/uL (0.11-0.59); #Neutrophils 1.9 thou/uL (1.40-6.50); %Basophils 0.7 % (0.0-1.0); %Eosinophils 3.2 % (0.0-10.0); %Lymphocytes 48.8 % (21.0-51.0); %Monocytes 10.9 % (0.0-10.0); %Neutrophils 36.3 % (42.0-75.0); Mean Corpuscular HGB CONC 32.3 g/dL (32.0-36.0); Mean Corpuscular Hemoglobin 30.8 pg (27.0-31.0); Mean Corpuscular Volume 95.4 fL (78.0-98.0); Platelet Count 150 thou/uL (130-400); RBC Distribution Width 12.7 % (11.5-14.5); White Blood Cell (WBC) Count 5.2 thou/uL (4.8-10.8)
[2022-03-18 07:24] LABS: Anion Gap 12 mmol/L (10-20); BUN (Urea Nitrogen) 10 mg/dL (9.8-20.1); Calc. Creatinine Clearance 35 mL/min (70-130); Calcium 8.8 mg/dL (7.8-10.44); Carbon Dioxide 23 mmol/L (23-31); Chloride 107 mmol/L (98-107); Estimated GFR 43; Glucose 158 mg/dL (80-115); Potassium 4.1 mmol/L (3.5-5.1); Sodium 138 mmol/L (136-145)
[2022-03-18] MEDS ORDERED: Insulin Glargine 30 UNITS/0.3 ML VIAL SC SCH (09:00)
[2022-03-18] MEDS: Fish Oil 1,000 MG CAP PO SCH (09:16)
[2022-03-18] MEDS: Furosemide 20 MG TAB PO SCH (09:16)
[2022-03-18] MEDS: Metoprolol Tartrate 25 MG TAB PO SCH (09:16)
[2022-03-18] MEDS: Loratadine 10 MG TAB PO SCH (09:16)
[2022-03-18] MEDS: Cyanocobalamin (Vitamin B-12) 1,000 MCG TAB PO SCH (09:16)
[2022-03-18] MEDS: Heparin 5,000 UNITS/ML VIAL SC SCH ×2 (09:16→15:21)
[2022-03-18] MEDS: Multivit, Therapeutic 1 TAB PO SCH (09:17)
[2022-03-18] MEDS: Folic Acid 1 MG TAB PO SCH (09:17)
[2022-03-18] MEDS: Gabapentin 300 MG CAP PO SCH ×2 (09:17→15:21)
[2022-03-18] MEDS: Aspirin 81 mg Enteric Coated Tablet PO SCH (09:17)
[2022-03-18] MEDS: Cholecalciferol 1,000 UNITS (25 MCG) TAB PO SCH (09:17)
[2022-03-18] MEDS: Amlodipine 5 MG TAB PO SCH (09:17)
[2022-03-18 15:43] VITALS: BMI 21.1
[2022-03-18 16:33] VITALS: BP 159/85; TEMP 98.4
[2022-03-18] MEDS ORDERED: metFORMIN 500 MG TAB PO SCH (17:00)
== END 2022-03-18 18:05 | disposition home or self-care (01) | DRG 638 ==
LOC: ERS 16:09 → IMCU/EMU 21:37 → T4-A 03-17 16:30
PROVIDERS: ADMIT Family Medicine; ATTEND Student in an Organized Health Care Education/Training Program
DX: E11.10 Type 2 diabetes mellitus with ketoacidosis without coma (principal); K86.1 Other chronic pancreatitis; N17.9 Acute kidney failure, unspecified; N39.0 Urinary tract infection, site not specified; B18.2 Chronic viral hepatitis C; E78.5 Hyperlipidemia, unspecified; F41.9 Anxiety disorder, unspecified; J45.909 Unspecified asthma, uncomplicated; F32.A Depression, unspecified; Z96.643 Presence of artificial hip joint, bilateral; N18.9 Chronic kidney disease, unspecified; F10.10 Alcohol abuse, uncomplicated; E11.40 Type 2 diabetes mellitus with diabetic neuropathy, unspecified; Z66 Do not resuscitate; K21.9 Gastro-esophageal reflux disease without esophagitis; M19.90 Unspecified osteoarthritis, unspecified site; I12.9 Hypertensive chronic kidney disease with stage 1 through stage 4 chronic kidney disease, or unspecified chronic kidney disease; E11.22 Type 2 diabetes mellitus with diabetic chronic kidney disease; Z20.822 Contact with and (suspected) exposure to COVID-19; Z88.0 Allergy status to penicillin; Z88.8 Allergy status to other drugs, medicaments and biological substances; Z79.51 Long term (current) use of inhaled steroids; Z79.84 Long term (current) use of oral hypoglycemic drugs; Z79.4 Long term (current) use of insulin; Z79.899 Other long term (current) drug therapy; Z98.890 Other specified postprocedural states; Z90.49 Acquired absence of other specified parts of digestive tract; Z90.710 Acquired absence of both cervix and uterus
CPT/HCPCS: 36415; 36416; 71045; 80048; 80053; 80307; 81003; 81015; 82010; 82607; 83036; 83690; 83735; 84100; 84484; 85025; 87086; 93005; 93010; 96361; 96374; 96375; 96376; J0696; J1644; J1815; J3010; J3475; J3480; J7042; U0002

== ENCOUNTER 2022-04-13 17:02 | Inpatient (IN) | payer OTHER ==
[2022-04-13] MEDS ORDERED: Ondansetron PF 4 MG/2 ML Vial ONE (18:38)
[2022-04-13 19:06] LABS: #Basophils 0.1 thou/uL (0.0-0.2); #Eosinphils 0.3 thou/uL (0.0-0.7); #Lymphocytes 3.4 thou/uL (1.20-3.40); #Monocytes 0.6 thou/uL (0.11-0.59); #Neutrophils 4.3 thou/uL (1.40-6.50); %Basophils 1.1 % (0.0-1.0); %Monocytes 6.8 % (0.0-10.0); %Neutrophils 50.1 % (42.0-75.0); Hemoglobin 12.8 g/dL (12.0-16.0); Mean Corpuscular HGB CONC 33.7 g/dL (32.0-36.0); Mean Platelet Volume 9.9 fL (7.4-10.4); Platelet Count 187 thou/uL (130-400); RBC Distribution Width 12.7 % (11.5-14.5); Red Blood Cell (RBC) Count 4.12 mill/uL (4.20-5.40); White Blood Cell (WBC) Count 8.6 thou/uL (4.8-10.8)
[2022-04-13 19:29] LABS: ALT (SGPT) 49 U/L (8-55); AST (SGOT) 50 U/L (5-34); Albumin 4.2 g/dL (3.4-4.8); Alkaline Phosphatase 216 U/L (40-110); Anion Gap 16 mmol/L (10-20); BUN (Urea Nitrogen) 24 mg/dL (9.8-20.1); Bilirubin, Total 0.3 mg/dL (0.2-1.2); Calc. Creatinine Clearance 0 mL/min (70-130); Calcium 10.3 mg/dL (7.8-10.44); Carbon Dioxide 23 mmol/L (23-31); Chloride 99 mmol/L (98-107); Estimated GFR 27; Globulin 4.9 g/dL (2.4-3.5); Glucose 481 mg/dL (80-115); Potassium 4.7 mmol/L (3.5-5.1); Protein, Total 9.1 g/dL (5.8-8.1); Sodium 133 mmol/L (136-145)
[2022-04-13] MEDS ORDERED: Morphine 4 MG/ML VIAL ONE (20:22)
[2022-04-13 21:03] LABS: Bacteria/HPF Rare-Few HPF (None Seen); Bilirubin Negative (Negative); Blood, Urine Negative (Negative); Clarity Clear (Clear); Glucose, Urine (Dipstick) Greater than 1000 mg/dL (Negative); Ketone, Urine Negative (Negative); Leukocyte 75 Leu/uL (Negative); Nitrite Negative (Negative); Protein, Urine (Dipstick) Negative (Neg-Trace); RBC/HPF 0-3 HPF (0-3); Specific Gravity, Urine 1.016 (1.002-1.036); Squamous Epithelial None Seen HPF (0-3); Urobilinogen Normal mg/dL (Less than 2)
[2022-04-13] MEDS ORDERED: Dextrose 50% Abboject 50 ML SYRINGE SLOW IVP PRN (22:39)
[2022-04-13] MEDS ORDERED: Dextrose 5% in Water 1,000 ML IV PRN (22:39)
[2022-04-13] MEDS ORDERED: Calcium Carbonate 500 MG ChewTAB PO PRN (22:39)
[2022-04-13] MEDS ORDERED: Ondansetron PF 4 MG/2 ML Vial IVP PRN (22:39)
[2022-04-13] MEDS ORDERED: Ondansetron ODT 4 MG TAB PO PRN (22:39)
[2022-04-13] MEDS ORDERED: HumaLOG 300 UNITS/3 ML VIAL SC PRN (22:43)
[2022-04-13] MEDS ORDERED: Insulin Glargine 30 UNITS/0.3 ML VIAL SC SCH (23:00)
[2022-04-13] MEDS: Acetaminophen 325 MG TAB PO PRN (23:44)
[2022-04-14] MEDS: Lactated Ringer's 1,000 ML IV SCH ×3 (01:16→18:38)
[2022-04-14 01:50] VITALS: BMI 22.0
[2022-04-14 03:08] LABS: SARS-CoV-2 NAA Rapid Test Not Detected (NotDetected)
[2022-04-14] MEDS: HumaLOG 300 UNITS/3 ML VIAL SC PRN ×3 (06:11→16:24)
[2022-04-14 06:18] LABS: ALT (SGPT) 36 U/L (8-55); AST (SGOT) 43 U/L (5-34); Albumin 3.1 g/dL (3.4-4.8); Alkaline Phosphatase 121 U/L (40-110); Anion Gap 13 mmol/L (10-20); BUN (Urea Nitrogen) 18 mg/dL (9.8-20.1); Bilirubin, Total 0.3 mg/dL (0.2-1.2); Calc. Creatinine Clearance 37 mL/min (70-130); Calcium 8.9 mg/dL (7.8-10.44); Carbon Dioxide 19 mmol/L (23-31); Chloride 110 mmol/L (98-107); Estimated GFR 44; Globulin 3.5 g/dL (2.4-3.5); Glucose 181 mg/dL (80-115); Potassium 4.5 mmol/L (3.5-5.1); Protein, Total 6.6 g/dL (5.8-8.1); Sodium 137 mmol/L (136-145)
[2022-04-14] MEDS: Loratadine 10 MG TAB PO SCH (08:27)
[2022-04-14] MEDS: Promethazine 25 MG TAB PO SCH ×2 (08:27→19:59)
[2022-04-14] MEDS: Senokot 8.6 MG TAB PO SCH (08:27)
[2022-04-14] MEDS: Gabapentin 300 MG CAP PO SCH ×3 (08:28→20:00)
[2022-04-14] MEDS: Polyethylene Glycol 3350 17 GM Packet PO SCH ×2 (08:28→20:00)
[2022-04-14] MEDS ORDERED: Enoxaparin Sodium 30 MG/0.3 ML SYRINGE SC SCH (09:00)
[2022-04-14] MEDS ORDERED: FLU VACC QS2022-23(65YR UP)/PF 240 MCG/0.7 ML SYRINGE IM ONE (09:00)
[2022-04-14] MEDS: Acetaminophen 325 MG TAB PO PRN ×2 (11:51→20:00)
[2022-04-14 16:27] LABS: #Basophils 0.1 thou/uL (0.0-0.2); #Eosinphils 0.2 thou/uL (0.0-0.7); #Lymphocytes 2.5 thou/uL (1.20-3.40); #Monocytes 0.5 thou/uL (0.11-0.59); #Neutrophils 2.3 thou/uL (1.40-6.50); %Basophils 1.6 % (0.0-1.0); %Eosinophils 4.1 % (0.0-10.0); %Lymphocytes 44.3 % (21.0-51.0); %Monocytes 8.8 % (0.0-10.0); %Neutrophils 41.3 % (42.0-75.0); Hemoglobin 11.7 g/dL (12.0-16.0); Mean Corpuscular HGB CONC 33.1 g/dL (32.0-36.0); Mean Corpuscular Hemoglobin 30.9 pg (27.0-31.0); Mean Corpuscular Volume 93.3 fl (78.0-98.0); Mean Platelet Volume 9.7 fL (7.4-10.4); Platelet Count 171 thou/uL (130-400); RBC Distribution Width 12.7 % (11.5-14.5); Red Blood Cell (RBC) Count 3.78 mill/uL (4.20-5.40); White Blood Cell (WBC) Count 5.6 thou/uL (4.8-10.8)
[2022-04-14] MEDS ORDERED: Insulin Glargine 30 UNITS/0.3 ML VIAL SC SCH ×2 (21:00)
[2022-04-15] MEDS: Lactated Ringer's 1,000 ML IV SCH ×2 (01:57→08:48)
[2022-04-15] MEDS: HumaLOG 300 UNITS/3 ML VIAL SC PRN ×2 (06:04→11:24)
[2022-04-15 07:22] LABS: Hemoglobin 12.6 g/dL (12.0-16.0); Mean Corpuscular HGB CONC 33.4 g/dL (32.0-36.0); Mean Corpuscular Hemoglobin 31.4 pg (27.0-31.0); Mean Corpuscular Volume 94.1 fl (78.0-98.0); Platelet Count 149 thou/uL (130-400); Red Blood Cell (RBC) Count 4.02 mill/uL (4.20-5.40); White Blood Cell (WBC) Count 6.9 thou/uL (4.8-10.8)
[2022-04-15 08:30] LABS: Band 11 % (5-11); Eosinophils 2 % (0-10); Lymphocytes 10 % (21-51); MDiff Complete? YES; Monocytes 8 % (0-10); Neutrophil 69 % (42-75); Platelet Morphology Comment Appears Adequate; RBC Morphology Normal
[2022-04-15] MEDS: Polyethylene Glycol 3350 17 GM Packet PO SCH (08:47)
[2022-04-15] MEDS: Gabapentin 300 MG CAP PO SCH ×2 (08:48→15:36)
[2022-04-15] MEDS: Promethazine 25 MG TAB PO SCH (08:48)
[2022-04-15] MEDS: Senokot 8.6 MG TAB PO SCH (08:48)
[2022-04-15] MEDS: Loratadine 10 MG TAB PO SCH (08:48)
[2022-04-15] MEDS ORDERED: Enoxaparin Sodium 40 MG/0.4 ML SYRINGE SC SCH (09:00)
[2022-04-15 09:52] LABS: ALT (SGPT) 49 U/L (8-55); AST (SGOT) 79 U/L (5-34); Albumin 3.4 g/dL (3.4-4.8); Alkaline Phosphatase 137 U/L (40-110); Anion Gap 12 mmol/L (10-20); BUN (Urea Nitrogen) 15 mg/dL (9.8-20.1); Bilirubin, Total 0.5 mg/dL (0.2-1.2); Calc. Creatinine Clearance 36 mL/min (70-130); Calcium 9.4 mg/dL (7.8-10.44); Carbon Dioxide 25 mmol/L (23-31); Chloride 103 mmol/L (98-107); Estimated GFR 43; Glucose 195 mg/dL (80-115); Potassium 4.8 mmol/L (3.5-5.1); Protein, Total 7.4 g/dL (5.8-8.1); Sodium 135 mmol/L (136-145)
[2022-04-15] MEDS: Acetaminophen 325 MG TAB PO PRN (15:43)
[2022-04-16 02:46] VITALS: BP 175/81; TEMP 98.3
== END 2022-04-15 16:52 | disposition home or self-care (01) | DRG 683 ==
LOC: ERS 17:02 → SURG A 22:03 → OBSVTOIN 04-14 09:40
PROVIDERS: ADMIT Emergency Medicine; ATTEND Emergency Medicine
DX: N17.9 Acute kidney failure, unspecified (principal); K86.1 Other chronic pancreatitis; Z20.822 Contact with and (suspected) exposure to COVID-19; Z23 Encounter for immunization; E11.40 Type 2 diabetes mellitus with diabetic neuropathy, unspecified; E11.65 Type 2 diabetes mellitus with hyperglycemia; E86.0 Dehydration; E78.5 Hyperlipidemia, unspecified; B18.2 Chronic viral hepatitis C; N18.30 Chronic kidney disease, stage 3 unspecified; E11.22 Type 2 diabetes mellitus with diabetic chronic kidney disease; I12.9 Hypertensive chronic kidney disease with stage 1 through stage 4 chronic kidney disease, or unspecified chronic kidney disease; F41.9 Anxiety disorder, unspecified; F32.A Depression, unspecified; Z96.643 Presence of artificial hip joint, bilateral; Z98.890 Other specified postprocedural states; Z91.14 Patient's other noncompliance with medication regimen; Z90.711 Acquired absence of uterus with remaining cervical stump; Z88.0 Allergy status to penicillin; Z88.8 Allergy status to other drugs, medicaments and biological substances; Z79.899 Other long term (current) drug therapy; Z79.4 Long term (current) use of insulin; Z98.51 Tubal ligation status; Z90.89 Acquired absence of other organs; Z82.49 Family history of ischemic heart disease and other diseases of the circulatory system; Z83.3 Family history of diabetes mellitus; Z84.1 Family history of disorders of kidney and ureter
CPT/HCPCS: 36415; 36416; 51701; 71045; 74176; 80053; 81003; 81015; 82010; 83605; 83880; 85025; 87040; 87086; 87149; 90471; 90662; 96372; 96374; 96375; G0008; G0378; J1650; J1815; J2270; J2405; J7120; Q0169; U0002

== ENCOUNTER 2022-04-27 21:14 | Inpatient (IN) | payer OTHER ==
[2022-04-27] MEDS ORDERED: Acetaminophen 500 MG TAB ONE (23:09)
[2022-04-27 23:15] LABS: SARS-CoV-2 NAA Rapid Test Not Detected (NotDetected)
[2022-04-27 23:29] LABS: #Lymphocytes 1.6 thou/uL (1.20-3.40); #Monocytes 1.9 thou/uL (0.11-0.59); #Neutrophils 14.5 thou/uL (1.40-6.50); %Basophils 0.1 % (0.0-1.0); %Eosinophils 0.1 % (0.0-10.0); %Monocytes 10.5 % (0.0-10.0); %Neutrophils 80.3 % (42.0-75.0); Hemoglobin 10.5 g/dL (12.0-16.0); Mean Corpuscular HGB CONC 32.7 g/dL (32.0-36.0); Mean Corpuscular Volume 91.7 fl (78.0-98.0); Mean Platelet Volume 8.7 fL (7.4-10.4); Platelet Count 257 10x3/uL (130-400); RBC Distribution Width 13.1 % (11.5-14.5)
[2022-04-27 23:48] LABS: ALT (SGPT) 20 U/L (8-55); AST (SGOT) 22 U/L (5-34); Albumin 3.2 g/dL (3.4-4.8); Alkaline Phosphatase 121 U/L (40-110); Anion Gap 12 mmol/L (10-20); BUN (Urea Nitrogen) 16 mg/dL (9.8-20.1); Bilirubin, Total 0.5 mg/dL (0.2-1.2); Calc. Creatinine Clearance 0 mL/min (70-130); Calcium 8.6 mg/dL (7.8-10.44); Carbon Dioxide 25 mmol/L (23-31); Chloride 108 mmol/L (98-107); Estimated GFR 35; Globulin 4.1 g/dL (2.4-3.5); Glucose 309 mg/dL (80-115); Potassium 3.5 mmol/L (3.5-5.1); Protein, Total 7.3 g/dL (5.8-8.1); Sodium 141 mmol/L (136-145)
[2022-04-28 00:12] LABS: Bacteria/HPF 2+ HPF (None Seen); Bilirubin Negative (Negative); Blood, Urine 3+ (Negative); Clarity Turbid (Clear); Glucose, Urine (Dipstick) Greater than 1000 mg/dL (Negative); Ketone, Urine Negative (Negative); Leukocyte 75 Leu/uL (Negative); Nitrite Negative (Negative); Protein, Urine (Dipstick) 20 mg/dL (Neg-Trace); Specific Gravity, Urine 1.018 (1.002-1.036); Squamous Epithelial None Seen HPF (0-3); Urobilinogen Normal mg/dL (Less than 2); WBC/HPF 21-50 HPF (0-3)
[2022-04-28] MEDS ORDERED: cefTRIAXone\\ROCEPHIN 1 GM VIAL ONE (01:22)
[2022-04-28] MEDS ORDERED: Ondansetron PF 4 MG/2 ML Vial IVP PRN (01:33)
[2022-04-28] MEDS ORDERED: Ondansetron ODT 4 MG TAB PO PRN (01:33)
[2022-04-28] MEDS ORDERED: Dextrose 50% Abboject 50 ML SYRINGE SLOW IVP PRN (01:33)
[2022-04-28] MEDS ORDERED: Dextrose 5% in Water 1,000 ML IV PRN (01:33)
[2022-04-28 02:11] VITALS: BMI 21.4
[2022-04-28] MEDS ORDERED: Insulin Glargine 30 UNITS/0.3 ML VIAL SC SCH (02:30)
[2022-04-28] MEDS: Gabapentin 300 MG CAP PO SCH ×2 (09:07→20:34)
[2022-04-28] MEDS: Acetaminophen 325 MG TAB PO PRN ×2 (09:07→17:18)
[2022-04-28] MEDS: Senokot 8.6 MG TAB PO SCH (09:08)
[2022-04-28] MEDS: Enoxaparin Sodium 30 MG/0.3 ML SYRINGE SC SCH (09:08)
[2022-04-28] MEDS: Polyethylene Glycol 3350 17 GM Packet PO SCH ×2 (09:09→20:34)
[2022-04-28] MEDS: HumaLOG 300 UNITS/3 ML VIAL SC PRN (12:26)
[2022-04-28 13:19] LABS: #Basophils 0.1 thou/uL (0.0-0.2); #Eosinphils 0.1 thou/uL (0.0-0.7); #Lymphocytes 1.6 thou/uL (1.20-3.40); #Monocytes 1.3 thou/uL (0.11-0.59); #Neutrophils 11.7 thou/uL (1.40-6.50); %Basophils 0.4 % (0.0-1.0); %Eosinophils 0.5 % (0.0-10.0); %Lymphocytes 10.9 % (21.0-51.0); %Neutrophils 79.1 % (42.0-75.0); Hemoglobin 10.2 g/dL (12.0-16.0); Mean Corpuscular HGB CONC 33.2 g/dL (32.0-36.0); Mean Corpuscular Hemoglobin 31.2 pg (27.0-31.0); Mean Corpuscular Volume 93.9 fl (78.0-98.0); Mean Platelet Volume 8.4 fL (7.4-10.4); Platelet Count 252 10x3/uL (130-400); RBC Distribution Width 13.1 % (11.5-14.5); Red Blood Cell (RBC) Count 3.28 mill/uL (4.20-5.40); White Blood Cell (WBC) Count 14.8 10x3/uL (4.8-10.8)
[2022-04-28 13:53] LABS: Anion Gap 11 mmol/L (10-20); BUN (Urea Nitrogen) 14 mg/dL (9.8-20.1); Calc. Creatinine Clearance 30 mL/min (70-130); Calcium 8.5 mg/dL (7.8-10.44); Carbon Dioxide 22 mmol/L (23-31); Chloride 103 mmol/L (98-107); Estimated GFR 36; Glucose 288 mg/dL (80-115); Potassium 3.4 mmol/L (3.5-5.1); Sodium 133 mmol/L (136-145)
[2022-04-28] MEDS: Insulin Glargine 30 UNITS/0.3 ML VIAL SC SCH (20:34)
[2022-04-28] MEDS ORDERED: cefTRIAXone\\ROCEPHIN 1 GM in Sodium Chloride 0.9% 100 ML IVPB SCH (22:00)
[2022-04-29 07:43] LABS: #Eosinphils 0.1 thou/uL (0.0-0.7); #Lymphocytes 1.5 thou/uL (1.20-3.40); #Monocytes 1.4 thou/uL (0.11-0.59); #Neutrophils 12.4 thou/uL (1.40-6.50); %Basophils 0.3 % (0.0-1.0); %Eosinophils 0.5 % (0.0-10.0); %Lymphocytes 9.7 % (21.0-51.0); %Monocytes 9.1 % (0.0-10.0); %Neutrophils 80.4 % (42.0-75.0); Hemoglobin 11.6 g/dL (12.0-16.0); Mean Corpuscular HGB CONC 34.5 g/dL (32.0-36.0); Mean Corpuscular Hemoglobin 32.7 pg (27.0-31.0); Mean Corpuscular Volume 94.6 fl (78.0-98.0); Mean Platelet Volume 8.7 fL (7.4-10.4); Platelet Count 275 10x3/uL (130-400); RBC Distribution Width 13.2 % (11.5-14.5); Red Blood Cell (RBC) Count 3.56 mill/uL (4.20-5.40); White Blood Cell (WBC) Count 15.5 10x3/uL (4.8-10.8)
[2022-04-29 07:45] LABS: ALT (SGPT) 18 U/L (8-55); AST (SGOT) 25 U/L (5-34); Albumin 2.7 g/dL (3.4-4.8); Alkaline Phosphatase 107 U/L (40-110); Anion Gap 12 mmol/L (10-20); BUN (Urea Nitrogen) 13 mg/dL (9.8-20.1); Bilirubin, Total 0.4 mg/dL (0.2-1.2); Calc. Creatinine Clearance 32 mL/min (70-130); Calcium 8.5 mg/dL (7.8-10.44); Carbon Dioxide 23 mmol/L (23-31); Chloride 104 mmol/L (98-107); Estimated GFR 38; Globulin 4.5 g/dL (2.4-3.5); Glucose 189 mg/dL (80-115); Protein, Total 7.2 g/dL (5.8-8.1); Sodium 135 mmol/L (136-145)
[2022-04-29] MEDS: Senokot 8.6 MG TAB PO SCH (09:02)
[2022-04-29] MEDS: Sulfameth/Trimethoprim DS 800-160mg TAB PO SCH ×2 (09:02→20:22)
[2022-04-29] MEDS: Polyethylene Glycol 3350 17 GM Packet PO SCH ×2 (09:02→20:22)
[2022-04-29] MEDS: Gabapentin 300 MG CAP PO SCH ×2 (09:02→20:22)
[2022-04-29] MEDS: Enoxaparin Sodium 30 MG/0.3 ML SYRINGE SC SCH (09:02)
[2022-04-29] MEDS: HumaLOG 300 UNITS/3 ML VIAL SC PRN ×3 (12:11→20:26)
[2022-04-29] MEDS: Acetaminophen 325 MG TAB PO PRN (16:49)
[2022-04-29] MEDS: Insulin Glargine 30 UNITS/0.3 ML VIAL SC SCH (20:21)
[2022-04-30] MEDS: HumaLOG 300 UNITS/3 ML VIAL SC PRN ×4 (04:44→20:00)
[2022-04-30 06:02] LABS: #Eosinphils 0.1 thou/uL (0.0-0.7); #Lymphocytes 1.6 thou/uL (1.20-3.40); #Monocytes 0.8 thou/uL (0.11-0.59); #Neutrophils 8.1 thou/uL (1.40-6.50); %Basophils 0.2 % (0.0-1.0); %Eosinophils 1.2 % (0.0-10.0); %Lymphocytes 14.9 % (21.0-51.0); %Monocytes 7.5 % (0.0-10.0); %Neutrophils 76.3 % (42.0-75.0); Hemoglobin 10.4 g/dL (12.0-16.0); Mean Corpuscular HGB CONC 32.2 g/dL (32.0-36.0); Mean Corpuscular Hemoglobin 30.2 pg (27.0-31.0); Mean Corpuscular Volume 93.9 fl (78.0-98.0); Mean Platelet Volume 8.4 fL (7.4-10.4); Platelet Count 302 10x3/uL (130-400); RBC Distribution Width 13.3 % (11.5-14.5); Red Blood Cell (RBC) Count 3.43 mill/uL (4.20-5.40); White Blood Cell (WBC) Count 10.6 10x3/uL (4.8-10.8)
[2022-04-30 06:33] LABS: ALT (SGPT) 13 U/L (8-55); AST (SGOT) 15 U/L (5-34); Albumin 2.8 g/dL (3.4-4.8); Alkaline Phosphatase 98 U/L (40-110); Anion Gap 11 mmol/L (10-20); BUN (Urea Nitrogen) 12 mg/dL (9.8-20.1); Bilirubin, Total 0.3 mg/dL (0.2-1.2); Calc. Creatinine Clearance 28 mL/min (70-130); Calcium 8.6 mg/dL (7.8-10.44); Carbon Dioxide 24 mmol/L (23-31); Chloride 105 mmol/L (98-107); Estimated GFR 32; Globulin 4.2 g/dL (2.4-3.5); Glucose 220 mg/dL (80-115); Potassium 3.8 mmol/L (3.5-5.1); Sodium 136 mmol/L (136-145)
[2022-04-30] MEDS: Polyethylene Glycol 3350 17 GM Packet PO SCH ×2 (08:39→20:00)
[2022-04-30] MEDS: Sulfameth/Trimethoprim DS 800-160mg TAB PO SCH ×2 (08:39→19:59)
[2022-04-30] MEDS: Gabapentin 300 MG CAP PO SCH ×2 (08:39→19:59)
[2022-04-30] MEDS: Enoxaparin Sodium 30 MG/0.3 ML SYRINGE SC SCH (08:39)
[2022-04-30] MEDS: Senokot 8.6 MG TAB PO SCH (08:39)
[2022-04-30] MEDS: Acetaminophen 325 MG TAB PO PRN (19:59)
[2022-04-30] MEDS: Insulin Glargine 30 UNITS/0.3 ML VIAL SC SCH (19:59)
[2022-05-01] MEDS: Acetaminophen 325 MG TAB PO PRN ×2 (04:21→20:47)
[2022-05-01 08:38] LABS: #Eosinphils 0.3 thou/uL (0.0-0.7); #Lymphocytes 2.2 thou/uL (1.20-3.40); #Monocytes 1.1 thou/uL (0.11-0.59); %Basophils 0.3 % (0.0-1.0); %Eosinophils 2.4 % (0.0-10.0); %Lymphocytes 20.9 % (21.0-51.0); %Monocytes 10.6 % (0.0-10.0); %Neutrophils 65.8 % (42.0-75.0); Mean Corpuscular HGB CONC 31.7 g/dL (32.0-36.0); Mean Corpuscular Hemoglobin 29.9 pg (27.0-31.0); Mean Corpuscular Volume 94.4 fl (78.0-98.0); Mean Platelet Volume 8.1 fL (7.4-10.4); Platelet Count 354 10x3/uL (130-400); RBC Distribution Width 13.5 % (11.5-14.5); Red Blood Cell (RBC) Count 4.34 mill/uL (4.20-5.40); White Blood Cell (WBC) Count 10.6 10x3/uL (4.8-10.8)
[2022-05-01 09:14] LABS: ALT (SGPT) 18 U/L (8-55); AST (SGOT) 25 U/L (5-34); Albumin 3.5 g/dL (3.4-4.8); Alkaline Phosphatase 123 U/L (40-110); Anion Gap 16 mmol/L (10-20); BUN (Urea Nitrogen) 14 mg/dL (9.8-20.1); Bilirubin, Total 0.3 mg/dL (0.2-1.2); Calc. Creatinine Clearance 27 mL/min (70-130); Calcium 9.5 mg/dL (7.8-10.44); Carbon Dioxide 24 mmol/L (23-31); Chloride 100 mmol/L (98-107); Estimated GFR 32; Globulin 5.6 g/dL (2.4-3.5); Glucose 144 mg/dL (80-115); Potassium 4.2 mmol/L (3.5-5.1); Protein, Total 9.1 g/dL (5.8-8.1); Sodium 136 mmol/L (136-145)
[2022-05-01] MEDS: Sulfameth/Trimethoprim DS 800-160mg TAB PO SCH (09:50)
[2022-05-01] MEDS: Gabapentin 300 MG CAP PO SCH ×2 (09:50→20:45)
[2022-05-01] MEDS: Polyethylene Glycol 3350 17 GM Packet PO SCH ×2 (09:50→20:46)
[2022-05-01] MEDS: Senokot 8.6 MG TAB PO SCH (09:52)
[2022-05-01] MEDS: Enoxaparin Sodium 30 MG/0.3 ML SYRINGE SC SCH (10:01)
[2022-05-01] MEDS: traMADol HCl 50 MG TAB PO PRN ×2 (12:10→20:46)
[2022-05-01] MEDS: HumaLOG 300 UNITS/3 ML VIAL SC PRN (12:11)
[2022-05-01] MEDS: Insulin Glargine 30 UNITS/0.3 ML VIAL SC SCH (20:47)
[2022-05-02 06:21] LABS: #Basophils 0.1 thou/uL (0.0-0.2); #Eosinphils 0.3 thou/uL (0.0-0.7); #Lymphocytes 2.9 thou/uL (1.20-3.40); #Monocytes 1.3 thou/uL (0.11-0.59); #Neutrophils 4.9 thou/uL (1.40-6.50); %Basophils 0.9 % (0.0-1.0); %Eosinophils 2.8 % (0.0-10.0); %Lymphocytes 30.6 % (21.0-51.0); %Neutrophils 51.7 % (42.0-75.0); Mean Corpuscular HGB CONC 34.3 g/dL (32.0-36.0); Mean Corpuscular Hemoglobin 32.3 pg (27.0-31.0); Mean Corpuscular Volume 94.2 fl (78.0-98.0); Mean Platelet Volume 8.4 fL (7.4-10.4); Platelet Count 339 10x3/uL (130-400); RBC Distribution Width 13.3 % (11.5-14.5); Red Blood Cell (RBC) Count 3.42 mill/uL (4.20-5.40); White Blood Cell (WBC) Count 9.5 10x3/uL (4.8-10.8)
[2022-05-02 06:40] LABS: ALT (SGPT) 12 U/L (8-55); AST (SGOT) 21 U/L (5-34); Albumin 2.8 g/dL (3.4-4.8); Alkaline Phosphatase 106 U/L (40-110); Anion Gap 14 mmol/L (10-20); BUN (Urea Nitrogen) 15 mg/dL (9.8-20.1); Bilirubin, Total 0.2 mg/dL (0.2-1.2); Calc. Creatinine Clearance 27 mL/min (70-130); Carbon Dioxide 25 mmol/L (23-31); Chloride 103 mmol/L (98-107); Estimated GFR 31; Globulin 4.6 g/dL (2.4-3.5); Glucose 79 mg/dL (80-115); Potassium 4.7 mmol/L (3.5-5.1); Protein, Total 7.4 g/dL (5.8-8.1); Sodium 137 mmol/L (136-145)
[2022-05-02] MEDS: Polyethylene Glycol 3350 17 GM Packet PO SCH ×2 (08:31→20:11)
[2022-05-02] MEDS: Gabapentin 300 MG CAP PO SCH ×2 (08:31→20:13)
[2022-05-02] MEDS: Enoxaparin Sodium 30 MG/0.3 ML SYRINGE SC SCH (08:31)
[2022-05-02] MEDS: Sulfameth/Trimethoprim DS 800-160mg TAB PO SCH (08:32)
[2022-05-02] MEDS: Senokot 8.6 MG TAB PO SCH (08:32)
[2022-05-02] MEDS: traMADol HCl 50 MG TAB PO PRN ×2 (10:12→20:12)
[2022-05-02] MEDS: HumaLOG 300 UNITS/3 ML VIAL SC PRN (17:20)
[2022-05-02] MEDS: Acetaminophen 325 MG TAB PO PRN (20:12)
[2022-05-02] MEDS: Insulin Glargine 30 UNITS/0.3 ML VIAL SC SCH (20:13)
[2022-05-03 07:50] LABS: Protein, Total 9.5 g/dL (5.8-8.1)
[2022-05-03 07:52] LABS: ALT (SGPT) 20 U/L (8-55); AST (SGOT) 38 U/L (5-34); Albumin 3.6 g/dL (3.4-4.8); Alkaline Phosphatase 143 U/L (40-110); Anion Gap 15 mmol/L (10-20); BUN (Urea Nitrogen) 14 mg/dL (9.8-20.1); Bilirubin, Total 0.3 mg/dL (0.2-1.2); Calc. Creatinine Clearance 25 mL/min (70-130); Calcium 10.1 mg/dL (7.8-10.44); Carbon Dioxide 26 mmol/L (23-31); Chloride 100 mmol/L (98-107); Estimated GFR 29; Globulin 5.9 g/dL (2.4-3.5); Glucose 85 mg/dL (80-115); Potassium 5.3 mmol/L (3.5-5.1); Sodium 136 mmol/L (136-145)
[2022-05-03 08:16] LABS: Hemoglobin 12.9 g/dL (12.0-16.0); Mean Corpuscular HGB CONC 31.7 g/dL (32.0-36.0); Mean Corpuscular Hemoglobin 29.9 pg (27.0-31.0); Mean Corpuscular Volume 94.2 fl (78.0-98.0); Mean Platelet Volume 8.4 fL (7.4-10.4); Platelet Count 406 10x3/uL (130-400); RBC Distribution Width 13.6 % (11.5-14.5); Red Blood Cell (RBC) Count 4.32 mill/uL (4.20-5.40); White Blood Cell (WBC) Count 6.9 10x3/uL (4.8-10.8)
[2022-05-03 08:17] LABS: #Eosinphils 0.2 thou/uL (0.0-0.7); #Lymphocytes 2.8 thou/uL (1.20-3.40); #Monocytes 0.7 thou/uL (0.11-0.59); #Neutrophils 3.1 thou/uL (1.40-6.50); %Basophils 0.7 % (0.0-1.0); %Eosinophils 3.5 % (0.0-10.0); %Lymphocytes 39.9 % (21.0-51.0); %Monocytes 10.7 % (0.0-10.0); %Neutrophils 45.1 % (42.0-75.0)
[2022-05-03] MEDS: Enoxaparin Sodium 30 MG/0.3 ML SYRINGE SC SCH (08:18)
[2022-05-03] MEDS: Polyethylene Glycol 3350 17 GM Packet PO SCH ×2 (08:19→20:13)
[2022-05-03] MEDS: Gabapentin 300 MG CAP PO SCH ×2 (08:19→20:14)
[2022-05-03] MEDS: Senokot 8.6 MG TAB PO SCH (08:19)
[2022-05-03] MEDS: Sulfameth/Trimethoprim DS 800-160mg TAB PO SCH (08:19)
[2022-05-03] MEDS ORDERED: Lactated Ringer's 500 ML IV SCH (08:45)
[2022-05-03] MEDS: HumaLOG 300 UNITS/3 ML VIAL SC PRN ×2 (12:48→20:10)
[2022-05-03] MEDS: traMADol HCl 50 MG TAB PO PRN ×2 (12:52→20:13)
[2022-05-03] MEDS: Insulin Glargine 30 UNITS/0.3 ML VIAL SC SCH (20:09)
[2022-05-03] MEDS: Acetaminophen 325 MG TAB PO PRN (20:14)
[2022-05-04] MEDS: Enoxaparin Sodium 30 MG/0.3 ML SYRINGE SC SCH (08:18)
[2022-05-04] MEDS: Gabapentin 300 MG CAP PO SCH ×2 (08:18→20:25)
[2022-05-04] MEDS: Senokot 8.6 MG TAB PO SCH (08:19)
[2022-05-04] MEDS: Polyethylene Glycol 3350 17 GM Packet PO SCH ×2 (08:19→20:46)
[2022-05-04 08:24] LABS: #Basophils 0.1 thou/uL (0.0-0.2); #Eosinphils 0.3 thou/uL (0.0-0.7); #Lymphocytes 2.5 thou/uL (1.20-3.40); #Monocytes 0.9 thou/uL (0.11-0.59); #Neutrophils 3.6 thou/uL (1.40-6.50); %Eosinophils 3.7 % (0.0-10.0); %Lymphocytes 33.9 % (21.0-51.0); %Monocytes 12.5 % (0.0-10.0); %Neutrophils 48.9 % (42.0-75.0); Hemoglobin 11.1 g/dL (12.0-16.0); Mean Corpuscular Hemoglobin 30.1 pg (27.0-31.0); Mean Corpuscular Volume 94.1 fl (78.0-98.0); Mean Platelet Volume 7.9 fL (7.4-10.4); Platelet Count 368 10x3/uL (130-400); RBC Distribution Width 13.5 % (11.5-14.5); White Blood Cell (WBC) Count 7.4 10x3/uL (4.8-10.8)
[2022-05-04 08:49] LABS: ALT (SGPT) 20 U/L (8-55); AST (SGOT) 29 U/L (5-34); Albumin 3.3 g/dL (3.4-4.8); Alkaline Phosphatase 130 U/L (40-110); Anion Gap 14 mmol/L (10-20); BUN (Urea Nitrogen) 15 mg/dL (9.8-20.1); Bilirubin, Total 0.2 mg/dL (0.2-1.2); Calc. Creatinine Clearance 24 mL/min (70-130); Calcium 9.5 mg/dL (7.8-10.44); Carbon Dioxide 27 mmol/L (23-31); Chloride 99 mmol/L (98-107); Estimated GFR 27; Globulin 5.2 g/dL (2.4-3.5); Glucose 120 mg/dL (80-115); Potassium 5.8 mmol/L (3.5-5.1); Protein, Total 8.5 g/dL (5.8-8.1); Sodium 134 mmol/L (136-145)
[2022-05-04] MEDS ORDERED: Lactated Ringer's 500 ML IV SCH (10:00)
[2022-05-04] MEDS: HumaLOG 300 UNITS/3 ML VIAL SC PRN ×3 (13:07→20:27)
[2022-05-04] MEDS: traMADol HCl 50 MG TAB PO PRN (20:25)
[2022-05-04] MEDS: Insulin Glargine 30 UNITS/0.3 ML VIAL SC SCH (20:26)
[2022-05-04] MEDS: Acetaminophen 325 MG TAB PO PRN (20:26)
[2022-05-05 07:32] LABS: #Basophils 0.1 thou/uL (0.0-0.2); #Eosinphils 0.2 thou/uL (0.0-0.7); #Lymphocytes 2.2 thou/uL (1.20-3.40); #Monocytes 0.7 thou/uL (0.11-0.59); #Neutrophils 3.2 thou/uL (1.40-6.50); %Basophils 1.2 % (0.0-1.0); %Eosinophils 3.3 % (0.0-10.0); %Lymphocytes 34.1 % (21.0-51.0); %Monocytes 11.3 % (0.0-10.0); %Neutrophils 50.1 % (42.0-75.0); Hemoglobin 11.6 g/dL (12.0-16.0); Mean Corpuscular HGB CONC 31.5 g/dL (32.0-36.0); Mean Corpuscular Hemoglobin 29.7 pg (27.0-31.0); Mean Corpuscular Volume 94.4 fl (78.0-98.0); Mean Platelet Volume 7.9 fL (7.4-10.4); Platelet Count 404 10x3/uL (130-400); RBC Distribution Width 13.7 % (11.5-14.5); White Blood Cell (WBC) Count 6.3 10x3/uL (4.8-10.8)
[2022-05-05 07:33] LABS: Creatinine, Urine 30.66 mg/dL (47-110)
[2022-05-05 07:50] LABS: ALT (SGPT) 20 U/L (8-55); AST (SGOT) 28 U/L (5-34); Albumin 3.1 g/dL (3.4-4.8); Alkaline Phosphatase 139 U/L (40-110); Anion Gap 11 mmol/L (10-20); BUN (Urea Nitrogen) 17 mg/dL (9.8-20.1); Bilirubin, Total 0.2 mg/dL (0.2-1.2); Calc. Creatinine Clearance 24 mL/min (70-130); Calcium 9.4 mg/dL (7.8-10.44); Carbon Dioxide 27 mmol/L (23-31); Chloride 99 mmol/L (98-107); Estimated GFR 27; Globulin 4.9 g/dL (2.4-3.5); Glucose 286 mg/dL (80-115); Sodium 131 mmol/L (136-145)
[2022-05-05 07:55] LABS: Potassium 6.4 mmol/L (3.5-5.1)
[2022-05-05] MEDS: traMADol HCl 50 MG TAB PO PRN ×2 (08:24→17:06)
[2022-05-05] MEDS: Empagliflozin 25 MG TAB PO SCH (08:24)
[2022-05-05] MEDS: Polyethylene Glycol 3350 17 GM Packet PO SCH ×2 (08:25→21:04)
[2022-05-05] MEDS: Senokot 8.6 MG TAB PO SCH (08:25)
[2022-05-05] MEDS: Gabapentin 300 MG CAP PO SCH ×2 (08:25→20:59)
[2022-05-05] MEDS: Enoxaparin Sodium 30 MG/0.3 ML SYRINGE SC SCH (08:25)
[2022-05-05] MEDS ORDERED: Lactated Ringer's 1,000 ML IV SCH (10:00)
[2022-05-05 10:36] LABS: Anion Gap 15 mmol/L (10-20); BUN (Urea Nitrogen) 17 mg/dL (9.8-20.1); Calc. Creatinine Clearance 23 mL/min (70-130); Carbon Dioxide 24 mmol/L (23-31); Chloride 98 mmol/L (98-107); Sodium 130 mmol/L (136-145)
[2022-05-05 10:37] LABS: Calcium 9.5 mg/dL (7.8-10.44); Estimated GFR 26; Glucose 366 mg/dL (80-115)
[2022-05-05 10:54] LABS: Potassium 6.8 mmol/L (3.5-5.1)
[2022-05-05] MEDS ORDERED: HumaLOG 300 UNITS/3 ML VIAL SC SCH (11:00)
[2022-05-05] MEDS ORDERED: LOKELMA 10 GM PACKET PO SCH (12:15)
[2022-05-05] MEDS ORDERED: Sodium Chloride 0.9% 1,000 ML IV SCH (12:15)
[2022-05-05] MEDS: HumaLOG 300 UNITS/3 ML VIAL SC PRN ×2 (13:25→21:01)
[2022-05-05] MEDS ORDERED: Insulin Regular 300 UNITS/3 ML VIAL SC PRN (13:25)
[2022-05-05 13:29] LABS: Anion Gap 15 mmol/L (10-20); BUN (Urea Nitrogen) 16 mg/dL (9.8-20.1); Calc. Creatinine Clearance 23 mL/min (70-130); Calcium 9.4 mg/dL (7.8-10.44); Carbon Dioxide 24 mmol/L (23-31); Chloride 97 mmol/L (98-107); Estimated GFR 26; Glucose 280 mg/dL (80-115); Potassium 5.5 mmol/L (3.5-5.1); Sodium 130 mmol/L (136-145)
[2022-05-05] MEDS ORDERED: NIFEdipine XL 60 MG TAB PO SCH (13:45)
[2022-05-05 16:31] LABS: Potassium 5.8 mmol/L (3.5-5.1)
[2022-05-05] MEDS: LOKELMA 10 GM PACKET PO SCH ×2 (17:06→21:27)
[2022-05-05] MEDS: Acetaminophen 325 MG TAB PO PRN (17:07)
[2022-05-05] MEDS ORDERED: Lidocaine 5% Patch TD SCH (20:00)
[2022-05-05] MEDS ORDERED: traMADol HCl 50 MG TAB PO SCH (20:00)
[2022-05-05] MEDS ORDERED: Insulin Glargine 30 UNITS/0.3 ML VIAL SC SCH ×2 (21:00)
[2022-05-06 04:15] LABS: #Basophils 0.1 thou/uL (0.0-0.2); #Eosinphils 0.3 thou/uL (0.0-0.7); #Lymphocytes 4.1 thou/uL (1.20-3.40); #Monocytes 1.2 thou/uL (0.11-0.59); #Neutrophils 4.2 thou/uL (1.40-6.50); %Basophils 0.6 % (0.0-1.0); %Eosinophils 3.5 % (0.0-10.0); %Lymphocytes 41.1 % (21.0-51.0); %Monocytes 12.4 % (0.0-10.0); %Neutrophils 42.4 % (42.0-75.0); Hemoglobin 10.9 g/dL (12.0-16.0); Mean Corpuscular HGB CONC 33.2 g/dL (32.0-36.0); Mean Corpuscular Hemoglobin 31.2 pg (27.0-31.0); Mean Corpuscular Volume 93.9 fl (78.0-98.0); Mean Platelet Volume 7.9 fL (7.4-10.4); Platelet Count 449 10x3/uL (130-400); RBC Distribution Width 13.8 % (11.5-14.5)
[2022-05-06 04:39] LABS: Anion Gap 14 mmol/L (10-20); BUN (Urea Nitrogen) 18 mg/dL (9.8-20.1); Calc. Creatinine Clearance 26 mL/min (70-130); Calcium 9.4 mg/dL (7.8-10.44); Carbon Dioxide 26 mmol/L (23-31); Chloride 101 mmol/L (98-107); Estimated GFR 30; Potassium 3.9 mmol/L (3.5-5.1); Sodium 137 mmol/L (136-145)
[2022-05-06 04:49] LABS: Glucose 45 mg/dL (80-115)
[2022-05-06] MEDS ORDERED: Transdermal Patch Removal TOP SCH (08:00)
[2022-05-06] MEDS: Gabapentin 300 MG CAP PO SCH ×2 (09:21→19:46)
[2022-05-06] MEDS: NIFEdipine XL 30 MG TAB PO SCH (09:21)
[2022-05-06] MEDS: Senokot 8.6 MG TAB PO SCH (09:21)
[2022-05-06] MEDS: Polyethylene Glycol 3350 17 GM Packet PO SCH ×2 (09:22→19:48)
[2022-05-06] MEDS: Enoxaparin Sodium 30 MG/0.3 ML SYRINGE SC SCH (09:22)
[2022-05-06] MEDS: Empagliflozin 25 MG TAB PO SCH (09:58)
[2022-05-06] MEDS: HumaLOG 300 UNITS/3 ML VIAL SC PRN ×2 (17:16→19:48)
[2022-05-06] MEDS: traMADol HCl 50 MG TAB PO PRN (19:48)
[2022-05-06] MEDS ORDERED: Insulin Glargine 30 UNITS/0.3 ML VIAL SC SCH (21:00)
[2022-05-07 05:03] LABS: #Basophils 0.1 thou/uL (0.0-0.2); #Eosinphils 0.2 thou/uL (0.0-0.7); #Lymphocytes 2.7 thou/uL (1.20-3.40); #Monocytes 1.1 thou/uL (0.11-0.59); #Neutrophils 3.8 thou/uL (1.40-6.50); %Basophils 1.2 % (0.0-1.0); %Eosinophils 2.7 % (0.0-10.0); %Lymphocytes 34.2 % (21.0-51.0); %Monocytes 13.8 % (0.0-10.0); %Neutrophils 48.2 % (42.0-75.0); Hemoglobin 10.3 g/dL (12.0-16.0); Mean Corpuscular Hemoglobin 30.3 pg (27.0-31.0); Mean Corpuscular Volume 91.6 fl (78.0-98.0); Platelet Count 399 10x3/uL (130-400); White Blood Cell (WBC) Count 7.8 10x3/uL (4.8-10.8)
[2022-05-07 05:28] LABS: Anion Gap 14 mmol/L (10-20); BUN (Urea Nitrogen) 19 mg/dL (9.8-20.1); Calc. Creatinine Clearance 23 mL/min (70-130); Carbon Dioxide 27 mmol/L (23-31); Chloride 101 mmol/L (98-107); Estimated GFR 26; Glucose 125 mg/dL (80-115); Potassium 4.8 mmol/L (3.5-5.1); Sodium 137 mmol/L (136-145)
[2022-05-07] MEDS: NIFEdipine XL 30 MG TAB PO SCH (09:22)
[2022-05-07] MEDS: Gabapentin 300 MG CAP PO SCH (09:22)
[2022-05-07] MEDS: Empagliflozin 25 MG TAB PO SCH (09:22)
[2022-05-07] MEDS: Senokot 8.6 MG TAB PO SCH (09:23)
[2022-05-07] MEDS: Polyethylene Glycol 3350 17 GM Packet PO SCH (09:23)
[2022-05-07] MEDS: Enoxaparin Sodium 30 MG/0.3 ML SYRINGE SC SCH (09:23)
[2022-05-07] MEDS: HumaLOG 300 UNITS/3 ML VIAL SC PRN ×2 (11:49→17:12)
[2022-05-07 16:03] VITALS: BP 147/67; TEMP 97.7
== END 2022-05-07 17:25 | DRG 690 ==
LOC: ERS 21:14 → T4-A 04-28 00:49 → OBSVTOIN 04-30 14:18 → 2NO 05-05 15:05
PROVIDERS: ADMIT Family Medicine; ATTEND Family Medicine
DX: N39.0 Urinary tract infection, site not specified (principal); K86.1 Other chronic pancreatitis; E87.1 Hypo-osmolality and hyponatremia; E11.65 Type 2 diabetes mellitus with hyperglycemia; Z66 Do not resuscitate; B18.2 Chronic viral hepatitis C; Z20.822 Contact with and (suspected) exposure to COVID-19; F32.A Depression, unspecified; E11.22 Type 2 diabetes mellitus with diabetic chronic kidney disease; I12.9 Hypertensive chronic kidney disease with stage 1 through stage 4 chronic kidney disease, or unspecified chronic kidney disease; F10.10 Alcohol abuse, uncomplicated; E87.5 Hyperkalemia; N18.30 Chronic kidney disease, stage 3 unspecified; D63.1 Anemia in chronic kidney disease; Z96.642 Presence of left artificial hip joint; Z88.0 Allergy status to penicillin; Z88.8 Allergy status to other drugs, medicaments and biological substances; Z88.6 Allergy status to analgesic agent; Z79.899 Other long term (current) drug therapy; Z79.4 Long term (current) use of insulin; Z98.51 Tubal ligation status; Z90.710 Acquired absence of both cervix and uterus; Z87.891 Personal history of nicotine dependence
CPT/HCPCS: 36415; 36416; 51701; 72100; 72220; 80048; 80053; 81003; 81015; 82010; 82570; 84145; 84300; 85025; 87077; 87086; 87186; 87811; 93005; 93010; 96372; 96374; 96376; G0378; J0696; J1650; J1815; J3490; J7050; J7120

== ENCOUNTER 2022-05-30 16:19 | Inpatient (IN) | payer OTHER ==
[2022-05-30 16:40] LABS: Actual Bicarbonate (HCO3v) 16 mEq/L (22-28); Analyzer IN Cardio ER; Base Excess -9.6 mEq/L (-2.0 to +3.0); Calcium, Ionized (venous) 1.14 mmol/L (1.16-1.32); Chloride (VBG) 98 mmol/L (98-106); Hemoglobin (Hb) 14.4 g/dL (11.7-16.1); Potassium (VBG) 4.95 mmol/L (3.70-5.30); Sodium 145.1 mmol/L (133-146)
[2022-05-30] MEDS ORDERED: Ondansetron PF 4 MG/2 ML Vial ONE (16:52)
[2022-05-30 16:56] LABS: #Lymphocytes 1.4 thou/uL (1.20-3.40); #Monocytes 0.3 thou/uL (0.11-0.59); #Neutrophils 9.3 thou/uL (1.40-6.50); %Basophils 0.1 % (0.0-1.0); %Eosinophils 0.2 % (0.0-10.0); %Lymphocytes 12.4 % (21.0-51.0); %Monocytes 2.9 % (0.0-10.0); %Neutrophils 84.4 % (42.0-75.0); Hemoglobin 14.3 g/dL (12.0-16.0); Platelet Count 328 10x3/uL (130-400); RBC Distribution Width 14.2 % (11.5-14.5); Red Blood Cell (RBC) Count 4.61 mill/uL (4.20-5.40)
[2022-05-30 17:20] LABS: ALT (SGPT) 23 U/L (8-55); AST (SGOT) 31 U/L (5-34); Albumin 4.8 g/dL (3.4-4.8); Alkaline Phosphatase 161 U/L (40-110); Anion Gap 37 mmol/L (10-20); BUN (Urea Nitrogen) 26 mg/dL (9.8-20.1); Bilirubin, Total 0.5 mg/dL (0.2-1.2); Calc. Creatinine Clearance 0 mL/min (70-130); Calcium 10.9 mg/dL (7.8-10.44); Carbon Dioxide 12 mmol/L (23-31); Chloride 97 mmol/L (98-107); Estimated GFR 22; Globulin 6.1 g/dL (2.4-3.5); Lipase 15 U/L (8-78); Potassium 5.4 mmol/L (3.5-5.1); Protein, Total 10.9 g/dL (5.8-8.1); Sodium 141 mmol/L (136-145)
[2022-05-30 17:23] LABS: Glucose 415 mg/dL (80-115)
[2022-05-30] MEDS ORDERED: Metoclopramide HCl 10 MG/2 ML VIAL ONE (17:32)
[2022-05-30] MEDS ORDERED: Dextrose 5 %-0.45 % NaCl 1,000 ML IV PRN (19:15)
[2022-05-30] MEDS ORDERED: Electrolyte Replacement Protocol 1 EACH IVPB ONE (19:15)
[2022-05-30] MEDS ORDERED: Sodium Chloride 0.9% 1,000 ML IV PRN ×4 (19:15)
[2022-05-30] MEDS ORDERED: D5 1/2 NS w/20 mEq KCL 1,000 ML IV PRN (19:15)
[2022-05-30] MEDS ORDERED: HUMULIN R 100 UNITS in Sodium Chloride 0.9% 100 ML IVPB SCH (19:15)
[2022-05-30] MEDS ORDERED: NS 0.9% w/ 20 MEQ KCL 1,000 ML IV PRN ×2 (19:15)
[2022-05-30] MEDS ORDERED: Ondansetron PF 4 MG/2 ML Vial IVP PRN (19:23)
[2022-05-30] MEDS ORDERED: INSULIN REGULAR IN 0.9 % NACL 100 UNIT/100 ML BAG ONE (19:34)
[2022-05-30] MEDS ORDERED: Labetalol HCl 100 MG/20 ML VIAL SLOW IVP PRN (19:58)
[2022-05-30 20:05] LABS: Anion Gap 28 mmol/L (10-20); BUN (Urea Nitrogen) 25 mg/dL (9.8-20.1); Calc. Creatinine Clearance 0 mL/min (70-130); Calcium 8.8 mg/dL (7.8-10.44); Carbon Dioxide 12 mmol/L (23-31); Chloride 107 mmol/L (98-107); Estimated GFR 30; Glucose 398 mg/dL (80-115); Magnesium 1.9 mg/dL (1.6-2.6); Phosphorus 5.9 mg/dL (2.3-4.7); Potassium 5.2 mmol/L (3.5-5.1); Sodium 142 mmol/L (136-145)
[2022-05-30 20:09] LABS: Bilirubin Negative (Negative); Blood, Urine Trace (Negative); Clarity Clear (Clear); Glucose, Urine (Dipstick) Greater than 1000 mg/dL (Negative); Ketone, Urine 80 mg/dL (Negative); Leukocyte 250 Leu/uL (Negative); Nitrite Negative (Negative); Protein, Urine (Dipstick) Negative (Neg-Trace); RBC/HPF 0-3 HPF (0-3); Specific Gravity, Urine 1.018 (1.002-1.036); Squamous Epithelial 0-3 HPF (0-3); Urobilinogen Normal mg/dL (Less than 2)
[2022-05-30] MEDS ORDERED: Electrolyte Replacement Protocol FS PRN (20:15)
[2022-05-30] MEDS ORDERED: Magnesium 2 GM/50 ML(in water) 2 GM in Premix Bag 1 BAG IVPB SCH (20:15)
[2022-05-30 20:16] LABS: Bacteria/HPF 2+ HPF (None Seen)
[2022-05-30] MEDS ORDERED: Famotidine/PF 20 mg/2ml Vial SLOW IVP SCH (21:00)
[2022-05-30 21:09] LABS: SARS-CoV-2 NAA Rapid Test Not Detected (NotDetected)
[2022-05-30] MEDS: Heparin 5,000 UNITS/ML VIAL SC SCH (21:13)
[2022-05-30 21:42] VITALS: BMI 20.9
[2022-05-30 21:50] LABS: Lactic Acid 3.3 mmol/L (0.5-2.2)
[2022-05-30] MEDS ORDERED: Dextrose 5% in Water 1,000 ML IV PRN (23:33)
[2022-05-30] MEDS ORDERED: Dextrose 50% Abboject 50 ML SYRINGE SLOW IVP PRN (23:33)
[2022-05-31 00:20] LABS: Anion Gap 19 mmol/L (10-20); BUN (Urea Nitrogen) 23 mg/dL (9.8-20.1); Calc. Creatinine Clearance 27 mL/min (70-130); Calcium 8.8 mg/dL (7.8-10.44); Carbon Dioxide 17 mmol/L (23-31); Chloride 113 mmol/L (98-107); Estimated GFR 32; Glucose 116 mg/dL (80-115); Potassium 3.7 mmol/L (3.5-5.1); Sodium 145 mmol/L (136-145)
[2022-05-31 04:02] LABS: Anion Gap 15 mmol/L (10-20); BUN (Urea Nitrogen) 20 mg/dL (9.8-20.1); Calc. Creatinine Clearance 26 mL/min (70-130); Calcium 8.6 mg/dL (7.8-10.44); Carbon Dioxide 16 mmol/L (23-31); Chloride 112 mmol/L (98-107); Estimated GFR 31; Glucose 204 mg/dL (80-115); Potassium 4.2 mmol/L (3.5-5.1); Sodium 139 mmol/L (136-145)
[2022-05-31] MEDS: Heparin 5,000 UNITS/ML VIAL SC SCH ×3 (08:12→20:13)
[2022-05-31] MEDS: Pantoprazole 40 MG VIAL IVP SCH (08:13)
[2022-05-31 08:19] LABS: Anion Gap 13 mmol/L (10-20); BUN (Urea Nitrogen) 18 mg/dL (9.8-20.1); Calc. Creatinine Clearance 30 mL/min (70-130); Calcium 8.6 mg/dL (7.8-10.44); Carbon Dioxide 19 mmol/L (23-31); Chloride 110 mmol/L (98-107); Estimated GFR 37; Glucose 122 mg/dL (80-115); Sodium 138 mmol/L (136-145)
[2022-05-31] MEDS ORDERED: Enoxaparin Sodium 30 MG/0.3 ML SYRINGE SC SCH (09:00)
[2022-05-31] MEDS ORDERED: Insulin Glargine 30 UNITS/0.3 ML VIAL SC SCH (11:00)
[2022-05-31] MEDS: HumaLOG 300 UNITS/3 ML VIAL SC SCH ×2 (12:37→16:51)
[2022-05-31] MEDS ORDERED: Acetaminophen 500 MG TAB PO PRN (21:01)
[2022-05-31] MEDS: traMADol HCl 50 MG TAB PO PRN (23:02)
[2022-06-01 03:14] LABS: Anion Gap 13 mmol/L (10-20); BUN (Urea Nitrogen) 11 mg/dL (9.8-20.1); Calc. Creatinine Clearance 35 mL/min (70-130); Calcium 8.5 mg/dL (7.8-10.44); Carbon Dioxide 22 mmol/L (23-31); Chloride 109 mmol/L (98-107); Estimated GFR 44; Glucose 62 mg/dL (80-115); Potassium 3.7 mmol/L (3.5-5.1); Sodium 140 mmol/L (136-145)
[2022-06-01] MEDS ORDERED: Insulin Glargine 30 UNITS/0.3 ML VIAL SC SCH ×2 (09:00→14:30)
[2022-06-01] MEDS: HumaLOG 300 UNITS/3 ML VIAL SC SCH ×3 (09:09→17:34)
[2022-06-01] MEDS: Pantoprazole 40 MG VIAL IVP SCH (09:09)
[2022-06-01] MEDS: Heparin 5,000 UNITS/ML VIAL SC SCH ×3 (09:09→20:40)
[2022-06-01] MEDS ORDERED: NIFEdipine XL 30 MG TAB PO SCH (14:00)
[2022-06-01] MEDS ORDERED: Promethazine 25 MG TAB PO PRN (14:12)
[2022-06-01 16:28] LABS: Bilirubin Negative (Negative); Blood, Urine Negative (Negative); CAUTI Indications for Culture Dysuria,urgency,freq; Clarity Turbid (Clear); Glucose, Urine (Dipstick) Greater than 1000 mg/dL (Negative); Ketone, Urine Negative (Negative); Leukocyte 500 Leu/uL (Negative); Nitrite 1+ (Negative); Protein, Urine (Dipstick) Negative (Neg-Trace); RBC/HPF 0-3 HPF (0-3); Squamous Epithelial 0-3 HPF (0-3); Urobilinogen Normal mg/dL (Less than 2); WBC/HPF Greater than 50 HPF (0-3); pH, Urine 6.5 (5.0-9.0)
[2022-06-01 16:29] LABS: Bacteria/HPF 1+ HPF (None Seen)
[2022-06-01 16:31] LABS: Urine Culture Reflex Yes Yes
[2022-06-01] MEDS ORDERED: Dextrose 50% Abboject 50 ML SYRINGE SLOW IVP PRN (17:20)
[2022-06-01] MEDS ORDERED: Dextrose 5% in Water 1,000 ML IV PRN (17:20)
[2022-06-01] MEDS ORDERED: HumaLOG 300 UNITS/3 ML VIAL SC PRN (17:20)
[2022-06-01] MEDS: traMADol HCl 50 MG TAB PO PRN (20:39)
[2022-06-01] MEDS: Gabapentin 300 MG CAP PO SCH (20:40)
[2022-06-01] MEDS: Polyethylene Glycol 3350 17 GM Packet PO SCH (20:43)
[2022-06-02 08:13] LABS: Anion Gap 14 mmol/L (10-20); BUN (Urea Nitrogen) 13 mg/dL (9.8-20.1); Calc. Creatinine Clearance 32 mL/min (70-130); Calcium 8.9 mg/dL (7.8-10.44); Carbon Dioxide 22 mmol/L (23-31); Chloride 104 mmol/L (98-107); Estimated GFR 39; Glucose 119 mg/dL (80-115); Potassium 3.8 mmol/L (3.5-5.1); Sodium 136 mmol/L (136-145)
[2022-06-02 08:49] VITALS: BP 147/73; TEMP 97.8
[2022-06-02] MEDS ORDERED: Empagliflozin 25 MG TAB PO SCH (09:00)
[2022-06-02] MEDS ORDERED: NIFEdipine XL 30 MG TAB PO SCH (09:00)
[2022-06-02] MEDS ORDERED: Enoxaparin Sodium 40 MG/0.4 ML SYRINGE SC SCH (09:00)
[2022-06-02] MEDS ORDERED: Senokot 8.6 MG TAB PO SCH (09:00)
[2022-06-02] MEDS ORDERED: Loratadine 10 MG TAB PO SCH (09:00)
[2022-06-02] MEDS: Gabapentin 300 MG CAP PO SCH (09:13)
[2022-06-02] MEDS: Polyethylene Glycol 3350 17 GM Packet PO SCH (09:14)
[2022-06-02] MEDS ORDERED: Insulin Glargine 30 UNITS/0.3 ML VIAL SC SCH ×2 (11:30→18:00)
[2022-06-02] MEDS ORDERED: HumaLOG 300 UNITS/3 ML VIAL SC SCH ×2 (11:30→21:00)
[2022-06-02] MEDS: traMADol HCl 50 MG TAB PO PRN (12:37)
[2022-06-03] MEDS ORDERED: Insulin Glargine 30 UNITS/0.3 ML VIAL SC SCH (09:00)
== END 2022-06-02 18:05 | disposition home or self-care (01) | DRG 638 ==
LOC: ERS 16:19 → IMCU/EMU 17:54 → T4-B 06-01 23:12
PROVIDERS: ADMIT Family Medicine; ATTEND Family Medicine
DX: E11.10 Type 2 diabetes mellitus with ketoacidosis without coma (principal); K86.1 Other chronic pancreatitis; N17.9 Acute kidney failure, unspecified; Z66 Do not resuscitate; Z20.822 Contact with and (suspected) exposure to COVID-19; I16.0 Hypertensive urgency; E87.5 Hyperkalemia; K02.9 Dental caries, unspecified; R82.71 Bacteriuria; I48.0 Paroxysmal atrial fibrillation; E11.22 Type 2 diabetes mellitus with diabetic chronic kidney disease; B18.2 Chronic viral hepatitis C; F41.9 Anxiety disorder, unspecified; J45.909 Unspecified asthma, uncomplicated; F32.A Depression, unspecified; Z96.643 Presence of artificial hip joint, bilateral; N18.9 Chronic kidney disease, unspecified; Z60.2 Problems related to living alone; Z88.0 Allergy status to penicillin; Z88.8 Allergy status to other drugs, medicaments and biological substances; Z79.899 Other long term (current) drug therapy; Z79.4 Long term (current) use of insulin; Z90.89 Acquired absence of other organs; Z90.711 Acquired absence of uterus with remaining cervical stump; Z82.3 Family history of stroke; Z82.49 Family history of ischemic heart disease and other diseases of the circulatory system; Z83.3 Family history of diabetes mellitus; Z84.1 Family history of disorders of kidney and ureter; Z87.891 Personal history of nicotine dependence; Z91.14 Patient's other noncompliance with medication regimen
CPT/HCPCS: 36415; 36416; 74176; 80048; 80053; 81001; 81003; 81015; 82010; 82805; 83605; 83690; 83735; 84100; 84484; 85025; 87040; 87077; 87086; 87186; 93005; 96361; 96374; 96375; C9113; J1644; J1650; J1815; J2405; J2765; J3475; J3480; J7042; J7999; U0002

== ENCOUNTER 2022-07-27 15:06 | Inpatient (IN) | payer MEDICARE ==
[2022-07-27 15:49] LABS: Base Excess -17.1 mEq/L (-2.0 to +3.0); Calcium, Ionized (venous) 1.14 mmol/L (1.16-1.32); Chloride (VBG) 88 mmol/L (98-106); Hemoglobin (Hb) 11.2 g/dL (11.7-16.1); Potassium (VBG) 5.87 mmol/L (3.70-5.30); Sodium 129.9 mmol/L (133-146)
[2022-07-27 15:50] LABS: pH (venous) 7.13 (7.32-7.43)
[2022-07-27 15:51] LABS: Actual Bicarbonate (HCO3v) 11 mEq/L (22-28)
[2022-07-27 15:55] LABS: Hemoglobin 10.6 g/dL (12.0-16.0); Mean Corpuscular HGB CONC 30.7 g/dL (32.0-36.0); Mean Corpuscular Hemoglobin 29.3 pg (27.0-31.0); Mean Corpuscular Volume 95.3 fl (78.0-98.0); Mean Platelet Volume 9.1 fL (7.4-10.4); Platelet Count 453 10x3/uL (130-400); RBC Distribution Width 15.9 % (11.5-14.5); Red Blood Cell (RBC) Count 3.63 mill/uL (4.20-5.40); White Blood Cell (WBC) Count 31.1 10x3/uL (4.8-10.8)
[2022-07-27] MEDS ORDERED: INSULIN REGULAR IN 0.9 % NACL 100 UNITS/100 ML BAG ONE (16:03)
[2022-07-27 16:14] LABS: Anisocytosis SLIGHT = 6-15 cells (100X) (0-5/hpf); Band 11 % (5-11); Lymphocytes 4 % (21-51); MDiff Complete? YES; Monocytes 4 % (0-10); Neutrophil 81 % (42-75); Platelet Morphology Comment Appears Increased; Polychromasia SLIGHT = 2-3 cells (100X) (0-2/hpf)
[2022-07-27 16:15] LABS: ALT (SGPT) 29 U/L (8-55); AST (SGOT) 18 U/L (5-34); Albumin 3.6 g/dL (3.4-4.8); Alkaline Phosphatase 260 U/L (40-110); Anion Gap 36 mmol/L (10-20); BUN (Urea Nitrogen) 59 mg/dL (9.8-20.1); Bilirubin, Total 0.4 mg/dL (0.2-1.2); Calc. Creatinine Clearance 0 mL/min (70-130); Calcium 8.9 mg/dL (7.8-10.44); Carbon Dioxide 10 mmol/L (23-31); Chloride 87 mmol/L (98-107); Estimated GFR 14; Globulin 4.4 g/dL (2.4-3.5); Potassium 5.9 mmol/L (3.5-5.1); Sodium 127 mmol/L (136-145)
[2022-07-27 16:33] LABS: CKMB 2.3 ng/mL (0-6.6)
[2022-07-27] MEDS ORDERED: Calcium Chloride 1 GM/10 ML Abboject SYRINGE ONE (17:05)
[2022-07-27 17:07] LABS: Glucose 1287 mg/dL (80-115)
[2022-07-27 17:11] LABS: Glucose 1181 mg/dL (80-115)
[2022-07-27] MEDS ORDERED: D5 1/2 NS w/20 mEq KCL 1,000 ML IV PRN (17:11)
[2022-07-27] MEDS ORDERED: NS 0.9% w/ 20 MEQ KCL 1,000 ML IV PRN (17:11)
[2022-07-27] MEDS ORDERED: Dextrose 5 %-0.45 % NaCl 1,000 ML IV PRN (17:11)
[2022-07-27] MEDS ORDERED: Electrolyte Replacement Protocol 1 EACH IVPB PRN (17:11)
[2022-07-27] MEDS ORDERED: Sodium Chloride 0.9% 1,000 ML IV PRN ×4 (17:11)
[2022-07-27] MEDS ORDERED: Dextrose 50% Abboject 50 ML SYRINGE SLOW IVP PRN (17:11)
[2022-07-27 17:15] LABS: Bacteria/HPF 4+ HPF (None Seen); Bilirubin Negative (Negative); Blood, Urine 3+ (Negative); Clarity Turbid (Clear); Glucose, Urine (Dipstick) Greater than 1000 mg/dL (Negative); Ketone, Urine 40 mg/dL (Negative); Leukocyte 250 Leu/uL (Negative); Nitrite Negative (Negative); Protein, Urine (Dipstick) 50 mg/dL (Neg-Trace); RBC/HPF Greater than 50 HPF (0-3); Specific Gravity, Urine 1.019 (1.002-1.036); Urobilinogen Normal mg/dL (Less than 2); Yeast-Budding 2+ HPF (None Seen)
[2022-07-27] MEDS ORDERED: HUMULIN R 100 UNITS in Sodium Chloride 0.9% 100 ML IVPB SCH (17:15)
[2022-07-27 17:20] LABS: Squamous Epithelial 0-3 HPF (0-3)
[2022-07-27] MEDS ORDERED: cefTRIAXone (ROCEPHIN) 1 GM VIAL ONE (17:41)
[2022-07-27 17:48] LABS: Anion Gap 33 mmol/L (10-20); BUN (Urea Nitrogen) 57 mg/dL (9.8-20.1); Calc. Creatinine Clearance 0 mL/min (70-130); Calcium 8.8 mg/dL (7.8-10.44); Chloride 94 mmol/L (98-107); Estimated GFR 13; Sodium 130 mmol/L (136-145)
[2022-07-27 17:54] LABS: Carbon Dioxide 8 mmol/L (23-31); Glucose 1231 mg/dL (80-115)
[2022-07-27 17:58] LABS: SARS-CoV-2 NAA Rapid Test Not Detected (NotDetected)
[2022-07-27] MEDS ORDERED: Sodium Chloride 0.9% 1,000 ML IV SCH (18:30)
[2022-07-27] MEDS ORDERED: Gentamicin Sulfate 100 MG in Premix Bag 1 BAG IVPB SCH (18:45)
[2022-07-27] MEDS ORDERED: Gentamicin Sulfate 120 MG in Premix Bag 1 BAG IVPB SCH (18:45)
[2022-07-27 19:36] LABS: Glucose 892 mg/dL (80-115)
[2022-07-27] MEDS: Heparin 5,000 UNITS/ML VIAL SC SCH (20:07)
[2022-07-27] MEDS ORDERED: Promethazine 25 MG TAB PO PRN (20:21)
[2022-07-27 21:35] LABS: Lactic Acid 2.7 mmol/L (0.5-2.2)
[2022-07-27 21:45] LABS: Troponin I 0.176 ng/mL (< 0.028)
[2022-07-27 22:24] LABS: Anion Gap 19 mmol/L (10-20); BUN (Urea Nitrogen) 45 mg/dL (9.8-20.1); Calc. Creatinine Clearance 15 mL/min (70-130); Carbon Dioxide 15 mmol/L (23-31); Chloride 111 mmol/L (98-107); Estimated GFR 18; Sodium 141 mmol/L (136-145)
[2022-07-27 22:29] LABS: Glucose 594 mg/dL (80-115)
[2022-07-28] MEDS: NS 0.9% w/ 20 MEQ KCL 1,000 ML IV PRN ×2 (01:27→04:52)
[2022-07-28 02:22] LABS: Hemoglobin 11.3 g/dL (12.0-16.0); Mean Corpuscular HGB CONC 32.6 g/dL (32.0-36.0); Mean Corpuscular Hemoglobin 28.6 pg (27.0-31.0); Mean Corpuscular Volume 87.6 fl (78.0-98.0); Mean Platelet Volume 8.9 fL (7.4-10.4); Platelet Count 334 10x3/uL (130-400); RBC Distribution Width 15.6 % (11.5-14.5); Red Blood Cell (RBC) Count 3.97 mill/uL (4.20-5.40); White Blood Cell (WBC) Count 28.3 10x3/uL (4.8-10.8)
[2022-07-28 02:36] LABS: Anion Gap 11 mmol/L (10-20); BUN (Urea Nitrogen) 44 mg/dL (9.8-20.1); Calc. Creatinine Clearance 17 mL/min (70-130); Calcium 9.1 mg/dL (7.8-10.44); Carbon Dioxide 15 mmol/L (23-31); Chloride 120 mmol/L (98-107); Estimated GFR 21; Glucose 385 mg/dL (80-115); Potassium 3.9 mmol/L (3.5-5.1); Sodium 142 mmol/L (136-145)
[2022-07-28 03:20] LABS: Band 34 % (5-11); Hypochromia SLIGHT = 6-15 cells (100X) (0-5/hpf); Lymphocytes 5 % (21-51); MDiff Complete? YES; Monocytes 4 % (0-10); Neutrophil 57 % (42-75); Platelet Morphology Comment Appears Adequate
[2022-07-28] MEDS ORDERED: Insulin Glargine 30 UNITS/0.3 ML VIAL SC SCH (06:00)
[2022-07-28] MEDS ORDERED: Dextrose 5% in Water 1,000 ML IV PRN (06:16)
[2022-07-28 07:21] LABS: Anion Gap 16 mmol/L (10-20); BUN (Urea Nitrogen) 39 mg/dL (9.8-20.1); Calc. Creatinine Clearance 20 mL/min (70-130); Calcium 9.1 mg/dL (7.8-10.44); Carbon Dioxide 17 mmol/L (23-31); Chloride 117 mmol/L (98-107); Estimated GFR 23; Glucose 237 mg/dL (80-115); Potassium 4.6 mmol/L (3.5-5.1); Sodium 145 mmol/L (136-145)
[2022-07-28 08:16] LABS: Troponin I 0.347 ng/mL (< 0.028)
[2022-07-28] MEDS: Heparin 5,000 UNITS/ML VIAL SC SCH ×3 (08:30→20:29)
[2022-07-28] MEDS: Loratadine 10 MG TAB PO SCH (08:32)
[2022-07-28] MEDS: NIFEdipine XL 30 MG TAB PO SCH (08:32)
[2022-07-28 10:29] LABS: Critical Call Chem Troponin I RESULT DECREASING; Troponin I 0.269 ng/mL (< 0.028)
[2022-07-28] MEDS: HumaLOG 300 UNITS/3 ML VIAL SC PRN ×3 (11:22→23:45)
[2022-07-28] MEDS ORDERED: Meropenem 1 GM in Sodium Chloride 0.9% 100 ML IVPB SCH (12:00)
[2022-07-28] MEDS ORDERED: Dextrose 5 %-0.45 % NaCl 1,000 ML IV SCH (12:00)
[2022-07-28 13:02] LABS: Hemoglobin A1c 12.9 % (4.0-6.0)
[2022-07-28 15:31] LABS: Anion Gap 18 mmol/L (10-20); BUN (Urea Nitrogen) 32 mg/dL (9.8-20.1); Calc. Creatinine Clearance 24 mL/min (70-130); Carbon Dioxide 18 mmol/L (23-31); Chloride 115 mmol/L (98-107); Estimated GFR 28; Glucose 281 mg/dL (80-115); Sodium 147 mmol/L (136-145)
[2022-07-28 15:42] LABS: Troponin I 0.219 ng/mL (< 0.028)
[2022-07-28 19:26] LABS: Anion Gap 13 mmol/L (10-20); BUN (Urea Nitrogen) 32 mg/dL (9.8-20.1); Calc. Creatinine Clearance 25 mL/min (70-130); Carbon Dioxide 16 mmol/L (23-31); Chloride 120 mmol/L (98-107); Estimated GFR 30; Glucose 292 mg/dL (80-115); Potassium 4.2 mmol/L (3.5-5.1); Sodium 145 mmol/L (136-145)
[2022-07-28] MEDS: Lactated Ringer's 1,000 ML IV SCH (20:29)
[2022-07-29] MEDS: Meropenem 500 MG in Sodium Chloride 0.9% 100 ML IVPB SCH ×2 (01:06→12:15)
[2022-07-29] MEDS: Heparin 5,000 UNITS/ML VIAL SC SCH ×3 (08:39→21:13)
[2022-07-29] MEDS: NIFEdipine XL 30 MG TAB PO SCH (08:39)
[2022-07-29] MEDS: Lactated Ringer's 1,000 ML IV SCH ×2 (08:42→16:58)
[2022-07-29] MEDS ORDERED: Insulin Glargine 30 UNITS/0.3 ML VIAL SC SCH ×3 (09:00→09:30)
[2022-07-29 12:02] LABS: Hemoglobin 11.9 g/dL (12.0-16.0); Mean Corpuscular Hemoglobin 28.8 pg (27.0-31.0); Mean Platelet Volume 9.1 fL (7.4-10.4); Platelet Count 276 10x3/uL (130-400); RBC Distribution Width 15.9 % (11.5-14.5); Red Blood Cell (RBC) Count 4.12 mill/uL (4.20-5.40); White Blood Cell (WBC) Count 21.7 10x3/uL (4.8-10.8)
[2022-07-29 12:13] LABS: Anion Gap 14 mmol/L (10-20); BUN (Urea Nitrogen) 24 mg/dL (9.8-20.1); Calc. Creatinine Clearance 29 mL/min (70-130); Calcium 8.4 mg/dL (7.8-10.44); Carbon Dioxide 18 mmol/L (23-31); Chloride 109 mmol/L (98-107); Estimated GFR 34; Glucose 348 mg/dL (80-115); Potassium 3.9 mmol/L (3.5-5.1); Sodium 137 mmol/L (136-145)
[2022-07-29] MEDS: HumaLOG 300 UNITS/3 ML VIAL SC PRN (12:15)
[2022-07-29 12:40] LABS: MDiff Complete? YES
[2022-07-29 12:41] LABS: Band 5 % (5-11); Lymphocytes 13 % (21-51); Monocytes 4 % (0-10); Neutrophil 78 % (42-75); Platelet Morphology Comment Appears Adequate; RBC Morphology Normal
[2022-07-29 13:56] LABS: Troponin I 0.089 ng/mL (< 0.028)
[2022-07-30] MEDS: Lactated Ringer's 1,000 ML IV SCH ×3 (00:21→21:00)
[2022-07-30] MEDS: Meropenem 500 MG in Sodium Chloride 0.9% 100 ML IVPB SCH (00:21)
[2022-07-30 04:38] LABS: Mean Corpuscular HGB CONC 32.5 g/dL (32.0-36.0); Mean Corpuscular Hemoglobin 28.6 pg (27.0-31.0); Mean Platelet Volume 9.6 fL (7.4-10.4); Platelet Count 251 10x3/uL (130-400); RBC Distribution Width 15.8 % (11.5-14.5); Red Blood Cell (RBC) Count 3.85 mill/uL (4.20-5.40); White Blood Cell (WBC) Count 21.9 10x3/uL (4.8-10.8)
[2022-07-30 04:39] LABS: Band 11 % (5-11); Hypochromia SLIGHT = 6-15 cells (100X) (0-5/hpf); Lymphocytes 13 % (21-51); MDiff Complete? YES; Monocytes 8 % (0-10); Neutrophil 67 % (42-75); Platelet Morphology Comment Appears Decreased; Reactive Lymphocytes 1 % (0-10); Target Cells SLIGHT = 2-5 cells (100X) (0-1/hpf)
[2022-07-30 04:41] LABS: Anion Gap 10 mmol/L (10-20); BUN (Urea Nitrogen) 23 mg/dL (9.8-20.1); Calc. Creatinine Clearance 32 mL/min (70-130); Calcium 8.4 mg/dL (7.8-10.44); Carbon Dioxide 25 mmol/L (23-31); Chloride 108 mmol/L (98-107); Estimated GFR 38; Potassium 2.8 mmol/L (3.5-5.1); Sodium 140 mmol/L (136-145)
[2022-07-30 04:48] LABS: Glucose 38 mg/dL (80-115)
[2022-07-30] MEDS ORDERED: Dextrose 10% in Water 250 ML IV SCH (05:30)
[2022-07-30] MEDS: Acetaminophen 325 MG TAB PO PRN (08:30)
[2022-07-30] MEDS: Potassium Chloride 20 MEQ TAB PO SCH ×2 (08:31→12:29)
[2022-07-30] MEDS: NIFEdipine XL 30 MG TAB PO SCH (08:31)
[2022-07-30] MEDS: Heparin 5,000 UNITS/ML VIAL SC SCH ×3 (08:32→20:59)
[2022-07-30] MEDS: Loratadine 10 MG TAB PO SCH (08:33)
[2022-07-30] MEDS ORDERED: Dextrose 50% Abboject 50 ML SYRINGE IVP PRN (08:45)
[2022-07-30] MEDS ORDERED: Dextrose 5% in Water 1,000 ML IV PRN (08:45)
[2022-07-30] MEDS ORDERED: Insulin Glargine 30 UNITS/0.3 ML VIAL SC SCH ×2 (09:00)
[2022-07-30] MEDS: Insulin Glargine 30 UNITS/0.3 ML VIAL SC SCH (09:27)
[2022-07-30] MEDS: Meropenem 1 GM in Sodium Chloride 0.9% 100 ML IVPB SCH (12:29)
[2022-07-30] MEDS: HumaLOG 300 UNITS/3 ML VIAL SC PRN ×2 (14:12→20:59)
[2022-07-30 20:32] LABS: Anion Gap 11 mmol/L (10-20); BUN (Urea Nitrogen) 24 mg/dL (9.8-20.1); Calc. Creatinine Clearance 28 mL/min (70-130); Carbon Dioxide 23 mmol/L (23-31); Chloride 106 mmol/L (98-107); Estimated GFR 33; Glucose 259 mg/dL (80-115); Potassium 3.8 mmol/L (3.5-5.1); Sodium 136 mmol/L (136-145)
[2022-07-31] MEDS: Meropenem 1 GM in Sodium Chloride 0.9% 100 ML IVPB SCH ×3 (00:24→23:40)
[2022-07-31 04:24] LABS: #Eosinphils 0.1 thou/uL (0.0-0.7); #Monocytes 1.2 thou/uL (0.11-0.59); #Neutrophils 10.3 thou/uL (1.40-6.50); %Basophils 0.2 % (0.0-1.0); %Lymphocytes 14.7 % (21.0-51.0); %Monocytes 8.7 % (0.0-10.0); %Neutrophils 75.3 % (42.0-75.0); Hemoglobin 9.1 g/dL (12.0-16.0); Mean Corpuscular HGB CONC 33.9 g/dL (32.0-36.0); Mean Corpuscular Hemoglobin 29.8 pg (27.0-31.0); Mean Corpuscular Volume 88.1 fl (78.0-98.0); Mean Platelet Volume 8.8 fL (7.4-10.4); Platelet Count 210 10x3/uL (130-400); RBC Distribution Width 15.7 % (11.5-14.5); Red Blood Cell (RBC) Count 3.05 mill/uL (4.20-5.40); White Blood Cell (WBC) Count 13.7 10x3/uL (4.8-10.8)
[2022-07-31 04:35] LABS: Anion Gap 9 mmol/L (10-20); BUN (Urea Nitrogen) 21 mg/dL (9.8-20.1); Calc. Creatinine Clearance 31 mL/min (70-130); Calcium 8.2 mg/dL (7.8-10.44); Carbon Dioxide 23 mmol/L (23-31); Chloride 106 mmol/L (98-107); Estimated GFR 37; Potassium 3.6 mmol/L (3.5-5.1); Sodium 134 mmol/L (136-145)
[2022-07-31 04:43] LABS: Glucose 53 mg/dL (80-115)
[2022-07-31] MEDS: NIFEdipine XL 30 MG TAB PO SCH (08:15)
[2022-07-31] MEDS: Heparin 5,000 UNITS/ML VIAL SC SCH ×2 (08:15→20:07)
[2022-07-31] MEDS: Lactated Ringer's 1,000 ML IV SCH ×2 (08:15→20:22)
[2022-07-31] MEDS: Insulin Glargine 30 UNITS/0.3 ML VIAL SC SCH ×2 (08:16→12:04)
[2022-07-31] MEDS: Acetaminophen 325 MG TAB PO PRN (20:07)
[2022-07-31] MEDS ORDERED: Insulin Glargine 30 UNITS/0.3 ML VIAL SC SCH (21:00)
[2022-07-31] MEDS ORDERED: Gabapentin 300 MG CAP PO SCH (23:45)
[2022-08-01] MEDS: Lactated Ringer's 1,000 ML IV SCH (04:19)
[2022-08-01 08:06] LABS: Anion Gap 14 mmol/L (10-20); BUN (Urea Nitrogen) 15 mg/dL (9.8-20.1); Calc. Creatinine Clearance 34 mL/min (70-130); Calcium 8.2 mg/dL (7.8-10.44); Carbon Dioxide 20 mmol/L (23-31); Chloride 107 mmol/L (98-107); Estimated GFR 40; Glucose 133 mg/dL (80-115); Potassium 4.4 mmol/L (3.5-5.1); Sodium 137 mmol/L (136-145)
[2022-08-01 08:17] LABS: Hemoglobin 9.4 g/dL (12.0-16.0); Mean Corpuscular HGB CONC 32.9 g/dL (32.0-36.0); Mean Corpuscular Hemoglobin 29.2 pg (27.0-31.0); Mean Corpuscular Volume 88.6 fl (78.0-98.0); Mean Platelet Volume 9.5 fL (7.4-10.4); Platelet Count 207 10x3/uL (130-400); RBC Distribution Width 15.8 % (11.5-14.5); Red Blood Cell (RBC) Count 3.24 mill/uL (4.20-5.40); White Blood Cell (WBC) Count 8.5 10x3/uL (4.8-10.8)
[2022-08-01 09:10] LABS: Band 5 % (5-11); Hypochromia SLIGHT = 6-15 cells (100X) (0-5/hpf); Lymphocytes 22 % (21-51); MDiff Complete? YES; Metamyelocyte 1 % (0-0); Neutrophil 72 % (42-75); Platelet Morphology Comment Appears Adequate
[2022-08-01] MEDS: Heparin 5,000 UNITS/ML VIAL SC SCH ×2 (10:29→20:33)
[2022-08-01] MEDS: NIFEdipine XL 30 MG TAB PO SCH (10:29)
[2022-08-01] MEDS: traMADol HCl 50 MG TAB PO PRN ×2 (10:29→20:34)
[2022-08-01] MEDS: Gabapentin 300 MG CAP PO SCH ×2 (10:29→20:33)
[2022-08-01] MEDS: Loratadine 10 MG TAB PO SCH (10:29)
[2022-08-01] MEDS: Insulin Glargine 30 UNITS/0.3 ML VIAL SC SCH (10:30)
[2022-08-01] MEDS: HumaLOG 300 UNITS/3 ML VIAL SC PRN ×2 (12:50→16:45)
[2022-08-01] MEDS: HumaLOG 300 UNITS/3 ML VIAL SC SCH ×2 (12:50→16:45)
[2022-08-01] MEDS: Meropenem 1 GM in Sodium Chloride 0.9% 100 ML IVPB SCH (12:51)
[2022-08-02] MEDS: Meropenem 1 GM in Sodium Chloride 0.9% 100 ML IVPB SCH ×3 (00:42→23:39)
[2022-08-02 08:02] LABS: #Eosinphils 0.2 thou/uL (0.0-0.7); #Lymphocytes 2.3 thou/uL (1.20-3.40); #Monocytes 1.3 thou/uL (0.11-0.59); #Neutrophils 5.4 thou/uL (1.40-6.50); %Basophils 0.3 % (0.0-1.0); %Eosinophils 2.6 % (0.0-10.0); %Lymphocytes 25.1 % (21.0-51.0); %Monocytes 13.8 % (0.0-10.0); %Neutrophils 58.2 % (42.0-75.0); Hemoglobin 10.3 g/dL (12.0-16.0); Mean Corpuscular HGB CONC 32.5 g/dL (32.0-36.0); Mean Corpuscular Volume 89.2 fl (78.0-98.0); Mean Platelet Volume 8.9 fL (7.4-10.4); Platelet Count 285 10x3/uL (130-400); Red Blood Cell (RBC) Count 3.54 mill/uL (4.20-5.40); White Blood Cell (WBC) Count 9.2 10x3/uL (4.8-10.8)
[2022-08-02 08:11] LABS: Anion Gap 17 mmol/L (10-20); BUN (Urea Nitrogen) 22 mg/dL (9.8-20.1); Calc. Creatinine Clearance 30 mL/min (70-130); Calcium 8.7 mg/dL (7.8-10.44); Carbon Dioxide 20 mmol/L (23-31); Chloride 102 mmol/L (98-107); Estimated GFR 34; Glucose 189 mg/dL (80-115); Potassium 4.5 mmol/L (3.5-5.1); Sodium 134 mmol/L (136-145)
[2022-08-02] MEDS: HumaLOG 300 UNITS/3 ML VIAL SC SCH ×2 (08:53→13:04)
[2022-08-02] MEDS: Gabapentin 300 MG CAP PO SCH ×2 (08:54→20:59)
[2022-08-02] MEDS: NIFEdipine XL 30 MG TAB PO SCH (08:54)
[2022-08-02] MEDS: Heparin 5,000 UNITS/ML VIAL SC SCH ×2 (09:04→20:59)
[2022-08-02] MEDS: Insulin Glargine 30 UNITS/0.3 ML VIAL SC SCH (09:12)
[2022-08-02] MEDS: traMADol HCl 50 MG TAB PO PRN ×2 (09:13→15:59)
[2022-08-03] MEDS: Insulin Glargine 30 UNITS/0.3 ML VIAL SC SCH (08:29)
[2022-08-03] MEDS: Gabapentin 300 MG CAP PO SCH ×2 (08:29→21:04)
[2022-08-03] MEDS: NIFEdipine XL 30 MG TAB PO SCH (08:29)
[2022-08-03] MEDS: Heparin 5,000 UNITS/ML VIAL SC SCH ×2 (08:31→21:04)
[2022-08-03] MEDS: HumaLOG 300 UNITS/3 ML VIAL SC SCH ×2 (08:31→13:19)
[2022-08-03] MEDS: traMADol HCl 50 MG TAB PO PRN ×2 (09:37→21:09)
[2022-08-03] MEDS: Loratadine 10 MG TAB PO SCH (09:38)
[2022-08-03 10:48] LABS: #Eosinphils 0.2 thou/uL (0.0-0.7); #Lymphocytes 2.3 thou/uL (1.20-3.40); #Monocytes 1.5 thou/uL (0.11-0.59); #Neutrophils 7.9 thou/uL (1.40-6.50); %Basophils 0.4 % (0.0-1.0); %Eosinophils 2.1 % (0.0-10.0); %Lymphocytes 19.1 % (21.0-51.0); %Monocytes 12.5 % (0.0-10.0); %Neutrophils 65.9 % (42.0-75.0); Hemoglobin 9.6 g/dL (12.0-16.0); Mean Corpuscular HGB CONC 32.9 g/dL (32.0-36.0); Mean Corpuscular Hemoglobin 29.1 pg (27.0-31.0); Mean Corpuscular Volume 88.5 fl (78.0-98.0); Mean Platelet Volume 8.1 fL (7.4-10.4); Platelet Count 348 10x3/uL (130-400); RBC Distribution Width 16.1 % (11.5-14.5); Red Blood Cell (RBC) Count 3.28 mill/uL (4.20-5.40); White Blood Cell (WBC) Count 11.9 10x3/uL (4.8-10.8)
[2022-08-03 10:55] LABS: Anion Gap 17 mmol/L (10-20); BUN (Urea Nitrogen) 22 mg/dL (9.8-20.1); Calc. Creatinine Clearance 24 mL/min (70-130); Calcium 8.9 mg/dL (7.8-10.44); Carbon Dioxide 20 mmol/L (23-31); Chloride 102 mmol/L (98-107); Estimated GFR 29; Glucose 169 mg/dL (80-115); Potassium 4.6 mmol/L (3.5-5.1); Sodium 134 mmol/L (136-145)
[2022-08-03] MEDS ORDERED: Lactated Ringer's 500 ML IV SCH (11:30)
[2022-08-03] MEDS: Meropenem 1 GM in Sodium Chloride 0.9% 100 ML IVPB SCH (13:17)
[2022-08-03] MEDS: HumaLOG 300 UNITS/3 ML VIAL SC PRN (21:09)
[2022-08-04] MEDS: traMADol HCl 50 MG TAB PO PRN ×3 (07:20→20:57)
[2022-08-04 07:32] LABS: Hemoglobin 9.2 g/dL (12.0-16.0); Mean Corpuscular HGB CONC 32.1 g/dL (32.0-36.0); Mean Corpuscular Hemoglobin 28.3 pg (27.0-31.0); Mean Corpuscular Volume 88.2 fl (78.0-98.0); Mean Platelet Volume 7.9 fL (7.4-10.4); Platelet Count 434 10x3/uL (130-400); RBC Distribution Width 16.2 % (11.5-14.5); Red Blood Cell (RBC) Count 3.26 mill/uL (4.20-5.40); White Blood Cell (WBC) Count 10.3 10x3/uL (4.8-10.8)
[2022-08-04 07:34] LABS: Anion Gap 15 mmol/L (10-20); BUN (Urea Nitrogen) 21 mg/dL (9.8-20.1); Calc. Creatinine Clearance 28 mL/min (70-130); Calcium 8.9 mg/dL (7.8-10.44); Carbon Dioxide 22 mmol/L (23-31); Chloride 101 mmol/L (98-107); Estimated GFR 34; Glucose 115 mg/dL (80-115); Potassium 4.7 mmol/L (3.5-5.1); Sodium 133 mmol/L (136-145)
[2022-08-04 08:14] LABS: Band 1 % (5-11); Eosinophils 1 % (0-10); Hypochromia SLIGHT = 6-15 cells (100X) (0-5/hpf); Lymphocytes 22 % (21-51); MDiff Complete? YES; Monocytes 13 % (0-10); Neutrophil 63 % (42-75); Platelet Morphology Comment Appears Increased; Polychromasia SLIGHT = 2-3 cells (100X) (0-2/hpf); Target Cells SLIGHT = 2-5 cells (100X) (0-1/hpf)
[2022-08-04] MEDS: Gabapentin 300 MG CAP PO SCH ×2 (08:49→20:53)
[2022-08-04] MEDS: HumaLOG 300 UNITS/3 ML VIAL SC SCH (08:51)
[2022-08-04] MEDS: Heparin 5,000 UNITS/ML VIAL SC SCH ×2 (08:51→20:53)
[2022-08-04] MEDS: NIFEdipine XL 30 MG TAB PO SCH (08:52)
[2022-08-04] MEDS: Insulin Glargine 30 UNITS/0.3 ML VIAL SC SCH (08:52)
[2022-08-04] MEDS: Meropenem 1 GM in Sodium Chloride 0.9% 100 ML IVPB SCH ×3 (11:35→23:54)
[2022-08-04] MEDS: HumaLOG 300 UNITS/3 ML VIAL SC PRN ×3 (12:03→20:54)
[2022-08-04 13:33] VITALS: BMI 19.5
[2022-08-04] MEDS ORDERED: Docusate 100 MG CAP PO PRN (13:38)
[2022-08-05 07:34] LABS: Anion Gap 15 mmol/L (10-20); BUN (Urea Nitrogen) 26 mg/dL (9.8-20.1); Calc. Creatinine Clearance 25 mL/min (70-130); Calcium 9.3 mg/dL (7.8-10.44); Carbon Dioxide 26 mmol/L (23-31); Chloride 97 mmol/L (98-107); Estimated GFR 28; Glucose 285 mg/dL (80-115); Potassium 5.7 mmol/L (3.5-5.1); Sodium 132 mmol/L (136-145)
[2022-08-05 07:46] LABS: #Basophils 0.1 thou/uL (0.0-0.2); #Eosinphils 0.2 thou/uL (0.0-0.7); #Lymphocytes 2.2 thou/uL (1.20-3.40); #Monocytes 1.2 thou/uL (0.11-0.59); #Neutrophils 5.5 thou/uL (1.40-6.50); %Basophils 0.5 % (0.0-1.0); %Eosinophils 2.6 % (0.0-10.0); %Monocytes 13.4 % (0.0-10.0); %Neutrophils 59.5 % (42.0-75.0); Hemoglobin 9.6 g/dL (12.0-16.0); Mean Corpuscular HGB CONC 32.6 g/dL (32.0-36.0); Mean Corpuscular Hemoglobin 28.7 pg (27.0-31.0); Mean Corpuscular Volume 88.2 fl (78.0-98.0); Mean Platelet Volume 8.2 fL (7.4-10.4); Platelet Count 466 10x3/uL (130-400); RBC Distribution Width 16.3 % (11.5-14.5); Red Blood Cell (RBC) Count 3.33 mill/uL (4.20-5.40); White Blood Cell (WBC) Count 9.3 10x3/uL (4.8-10.8)
[2022-08-05] MEDS: NIFEdipine XL 30 MG TAB PO SCH (09:08)
[2022-08-05] MEDS: Gabapentin 300 MG CAP PO SCH ×2 (09:08→20:05)
[2022-08-05] MEDS: traMADol HCl 50 MG TAB PO PRN ×2 (09:09→20:07)
[2022-08-05] MEDS: Heparin 5,000 UNITS/ML VIAL SC SCH ×2 (09:10→20:05)
[2022-08-05] MEDS: Insulin Glargine 30 UNITS/0.3 ML VIAL SC SCH (09:11)
[2022-08-05] MEDS: Loratadine 10 MG TAB PO SCH (09:18)
[2022-08-05] MEDS: HumaLOG 300 UNITS/3 ML VIAL SC PRN ×3 (12:43→20:51)
[2022-08-05] MEDS: Meropenem 1 GM in Sodium Chloride 0.9% 100 ML IVPB SCH (12:44)
[2022-08-05 13:53] LABS: Creatinine, Urine Less than 20.00 mg/dL (47-110); Sodium, Urine 72 mmol/L (Not Available)
[2022-08-06] MEDS: Meropenem 1 GM in Sodium Chloride 0.9% 100 ML IVPB SCH ×2 (00:29→12:03)
[2022-08-06 06:46] LABS: #Eosinphils 0.3 thou/uL (0.0-0.7); #Lymphocytes 2.8 thou/uL (1.20-3.40); #Monocytes 1.3 thou/uL (0.11-0.59); #Neutrophils 6.9 thou/uL (1.40-6.50); %Basophils 0.4 % (0.0-1.0); %Eosinophils 2.6 % (0.0-10.0); %Lymphocytes 24.7 % (21.0-51.0); %Monocytes 11.4 % (0.0-10.0); %Neutrophils 60.9 % (42.0-75.0); Hemoglobin 8.9 g/dL (12.0-16.0); Mean Corpuscular HGB CONC 32.2 g/dL (32.0-36.0); Mean Corpuscular Hemoglobin 28.1 pg (27.0-31.0); Mean Corpuscular Volume 87.2 fl (78.0-98.0); Mean Platelet Volume 7.6 fL (7.4-10.4); Platelet Count 512 10x3/uL (130-400); RBC Distribution Width 16.4 % (11.5-14.5); Red Blood Cell (RBC) Count 3.19 mill/uL (4.20-5.40); White Blood Cell (WBC) Count 11.3 10x3/uL (4.8-10.8)
[2022-08-06 07:12] LABS: Anion Gap 12 mmol/L (10-20); BUN (Urea Nitrogen) 27 mg/dL (9.8-20.1); Calc. Creatinine Clearance 24 mL/min (70-130); Calcium 9.3 mg/dL (7.8-10.44); Carbon Dioxide 29 mmol/L (23-31); Chloride 101 mmol/L (98-107); Estimated GFR 27; Glucose 126 mg/dL (80-115); Potassium 5.4 mmol/L (3.5-5.1); Sodium 137 mmol/L (136-145)
[2022-08-06] MEDS: Loratadine 10 MG TAB PO SCH (08:07)
[2022-08-06] MEDS: NIFEdipine XL 30 MG TAB PO SCH (08:07)
[2022-08-06] MEDS: Gabapentin 300 MG CAP PO SCH (08:08)
[2022-08-06] MEDS: Insulin Glargine 30 UNITS/0.3 ML VIAL SC SCH (08:08)
[2022-08-06] MEDS: Heparin 5,000 UNITS/ML VIAL SC SCH (08:09)
[2022-08-06] MEDS: traMADol HCl 50 MG TAB PO PRN ×2 (08:23→16:00)
[2022-08-06] MEDS: HumaLOG 300 UNITS/3 ML VIAL SC PRN (12:03)
[2022-08-06 17:06] VITALS: BP 127/72; TEMP 98.7
== END 2022-08-06 17:20 | DRG 871 ==
LOC: ERS 15:06 → IMCU/EMU 17:28 → T4-A 08-01 16:22
PROVIDERS: ADMIT Family Medicine; ATTEND Family Medicine
DX: A41.51 Sepsis due to Escherichia coli [E. coli] (principal); E11.10 Type 2 diabetes mellitus with ketoacidosis without coma; N17.0 Acute kidney failure with tubular necrosis; I24.8 Other forms of acute ischemic heart disease; N12 Tubulo-interstitial nephritis, not specified as acute or chronic; Z16.24 Resistance to multiple antibiotics; K86.1 Other chronic pancreatitis; N30.00 Acute cystitis without hematuria; Z66 Do not resuscitate; Z20.822 Contact with and (suspected) exposure to COVID-19; E78.5 Hyperlipidemia, unspecified; F41.9 Anxiety disorder, unspecified; J45.909 Unspecified asthma, uncomplicated; F32.A Depression, unspecified; I48.0 Paroxysmal atrial fibrillation; Z96.643 Presence of artificial hip joint, bilateral; Z60.2 Problems related to living alone; B18.2 Chronic viral hepatitis C; E11.22 Type 2 diabetes mellitus with diabetic chronic kidney disease; I12.9 Hypertensive chronic kidney disease with stage 1 through stage 4 chronic kidney disease, or unspecified chronic kidney disease; R53.81 Other malaise; L89.302 Pressure ulcer of unspecified buttock, stage 2; N18.32 Chronic kidney disease, stage 3b; E86.0 Dehydration; E87.5 Hyperkalemia; G89.29 Other chronic pain; M54.50 Low back pain, unspecified; Z79.4 Long term (current) use of insulin; Z91.14 Patient's other noncompliance with medication regimen; Z88.8 Allergy status to other drugs, medicaments and biological substances; Z88.6 Allergy status to analgesic agent; Z88.0 Allergy status to penicillin; Z79.899 Other long term (current) drug therapy; Z90.89 Acquired absence of other organs; Z90.711 Acquired absence of uterus with remaining cervical stump; Z82.49 Family history of ischemic heart disease and other diseases of the circulatory system; Z83.3 Family history of diabetes mellitus; Z87.891 Personal history of nicotine dependence; F12.10 Cannabis abuse, uncomplicated; B96.20 Unspecified Escherichia coli [E. coli] as the cause of diseases classified elsewhere
CPT/HCPCS: 36415; 36416; 51701; 72170; 74018; 80048; 80053; 81003; 81015; 82010; 82550; 82553; 82570; 82805; 83036; 83605; 83880; 83930; 84145; 84300; 84484; 85025; 87040; 87077; 87086; 87149; 87186; 93005; 93010; 96361; 96365; 96366; 96375; J0696; J1580; J1644; J1815; J2185; J3480; J3490; J7042; J7050; J7070; J7120; U0002; U0003; U0005

== ENCOUNTER 2022-08-25 15:14 | Inpatient (IN) | payer MEDICARE ==
[2022-08-25] MEDS ORDERED: Ondansetron PF 4 MG/2 ML Vial ONE (17:02)
[2022-08-25] MEDS ORDERED: hydrALAZINE 20 MG/ML VIAL ONE (17:02)
[2022-08-25 17:07] LABS: #Basophils 0.1 thou/uL (0.0-0.2); #Eosinphils 0.1 thou/uL (0.0-0.7); #Lymphocytes 1.8 thou/uL (1.20-3.40); #Monocytes 0.5 thou/uL (0.11-0.59); #Neutrophils 5.7 thou/uL (1.40-6.50); %Basophils 0.8 % (0.0-1.0); %Eosinophils 1.2 % (0.0-10.0); %Lymphocytes 22.2 % (21.0-51.0); %Monocytes 5.6 % (0.0-10.0); %Neutrophils 70.2 % (42.0-75.0); Hemoglobin 11.3 g/dL (12.0-16.0); Mean Corpuscular Hemoglobin 28.7 pg (27.0-31.0); Mean Corpuscular Volume 86.9 fl (78.0-98.0); Mean Platelet Volume 10.4 fL (7.4-10.4); Platelet Count 314 10x3/uL (130-400); RBC Distribution Width 16.6 % (11.5-14.5); Red Blood Cell (RBC) Count 3.92 mill/uL (4.20-5.40); White Blood Cell (WBC) Count 8.1 10x3/uL (4.8-10.8)
[2022-08-25 17:27] LABS: ALT (SGPT) 40 U/L (8-55); AST (SGOT) 31 U/L (5-34); Albumin 4.2 g/dL (3.4-4.8); Alkaline Phosphatase 303 U/L (40-110); Anion Gap 26 mmol/L (10-20); BUN (Urea Nitrogen) 59 mg/dL (9.8-20.1); Bilirubin, Total 0.3 mg/dL (0.2-1.2); Calc. Creatinine Clearance 0 mL/min (70-130); Calcium 10.2 mg/dL (7.8-10.44); Carbon Dioxide 17 mmol/L (23-31); Chloride 87 mmol/L (98-107); Estimated GFR 15; Globulin 5.6 g/dL (2.4-3.5); Lipase 46 U/L (8-78); Phosphorus 5.8 mg/dL (2.3-4.7); Protein, Total 9.8 g/dL (5.8-8.1); Sodium 124 mmol/L (136-145)
[2022-08-25 17:37] LABS: Potassium 6.2 mmol/L (3.5-5.1)
[2022-08-25 17:45] LABS: Glucose 967 mg/dL (80-115)
[2022-08-25] MEDS ORDERED: INSULIN REGULAR IN 0.9 % NACL 100 UNIT/100 ML BAG ONE (17:55)
[2022-08-25] MEDS ORDERED: Morphine 4 MG/ML VIAL ONE (17:55)
[2022-08-25] MEDS ORDERED: Calcium Chloride 1 GM/10 ML Abboject SYRINGE ONE (17:55)
[2022-08-25 18:58] LABS: Bilirubin Negative (Negative); Blood, Urine 1+ (Negative); Clarity Clear (Clear); Glucose, Urine (Dipstick) Greater than 1000 mg/dL (Negative); Ketone, Urine 10 mg/dL (Negative); Leukocyte 250 Leu/uL (Negative); Nitrite Negative (Negative); Protein, Urine (Dipstick) 10 mg/dL (Neg-Trace); Specific Gravity, Urine 1.019 (1.002-1.036); Squamous Epithelial 0-3 HPF (0-3); Urobilinogen Normal mg/dL (Less than 2); WBC/HPF 21-50 HPF (0-3)
[2022-08-25] MEDS ORDERED: Ondansetron PF 4 MG/2 ML Vial IVP PRN (18:58)
[2022-08-25] MEDS ORDERED: Dextrose 50% Abboject 50 ML SYRINGE SLOW IVP PRN ×2 (18:58→21:15)
[2022-08-25] MEDS ORDERED: Acetaminophen 650 MG Suppository PR PRN (18:58)
[2022-08-25] MEDS ORDERED: Dextrose 5% in Water 1,000 ML IV PRN ×2 (18:58→21:15)
[2022-08-25 18:59] LABS: Bacteria/HPF 1+ HPF (None Seen)
[2022-08-25] MEDS ORDERED: Electrolyte Replacement Protocol 1 EACH IVPB ONE (19:10)
[2022-08-25 20:01] LABS: Actual Bicarbonate (HCO3v) 17 mEq/L (22-28); Analyzer IN Cardio ER; Base Excess -9.3 mEq/L (-2.0 to +3.0); Calcium, Ionized (venous) 1.22 mmol/L (1.16-1.32); Chloride (VBG) 101 mmol/L (98-106); Hemoglobin (Hb) 10.2 g/dL (11.7-16.1); Potassium (VBG) 4.56 mmol/L (3.70-5.30); Sodium 136.6 mmol/L (133-146); pH (venous) 7.25 (7.32-7.43)
[2022-08-25 20:29] LABS: Anion Gap 23 mmol/L (10-20); Calc. Creatinine Clearance 0 mL/min (70-130); Calcium 9.3 mg/dL (7.8-10.44); Carbon Dioxide 14 mmol/L (23-31); Estimated GFR 17
[2022-08-25 20:30] LABS: BUN (Urea Nitrogen) 55 mg/dL (9.8-20.1); Chloride 101 mmol/L (98-107); Sodium 133 mmol/L (136-145)
[2022-08-25 20:37] LABS: Glucose 740 mg/dL (80-115)
[2022-08-25 20:39] LABS: Potassium 4.4 mmol/L (3.5-5.1)
[2022-08-25] MEDS ORDERED: Famotidine/PF 20 mg/2ml Vial SLOW IVP SCH (21:00)
[2022-08-25] MEDS ORDERED: NS 0.9% w/ 20 MEQ KCL 1,000 ML/1,000 ML BAG IV PRN (21:15)
[2022-08-25] MEDS ORDERED: HUMULIN R 100 UNITS in Sodium Chloride 0.9% 100 ML IVPB SCH (21:15)
[2022-08-25] MEDS ORDERED: ADD ELECTROLYTE REPLACEMENT SET TO PROFILE FS SCH (21:15)
[2022-08-25] MEDS ORDERED: Sodium Chloride 0.9% 1,000 ML IV PRN ×4 (21:15)
[2022-08-25] MEDS ORDERED: Insulin Regular 300 UNITS/3 ML VIAL IVP SCH (21:15)
[2022-08-25] MEDS ORDERED: Dextrose 5 %-0.45 % NaCl 1,000 ML IV PRN (21:15)
[2022-08-25] MEDS ORDERED: D5 1/2 NS w/20 mEq KCL 1,000 ML IV PRN (21:15)
[2022-08-25] MEDS: NS 0.9% w/ 20 MEQ KCL 1,000 ML/1,000 ML BAG IV PRN (21:25)
[2022-08-25 22:50] LABS: Anion Gap 15 mmol/L (10-20); BUN (Urea Nitrogen) 50 mg/dL (9.8-20.1); Calc. Creatinine Clearance 0 mL/min (70-130); Calcium 8.9 mg/dL (7.8-10.44); Carbon Dioxide 20 mmol/L (23-31); Chloride 107 mmol/L (98-107); Estimated GFR 21; Potassium 4.2 mmol/L (3.5-5.1); Sodium 138 mmol/L (136-145)
[2022-08-25 22:57] LABS: Glucose 528 mg/dL (80-115)
[2022-08-26] MEDS: NS 0.9% w/ 20 MEQ KCL 1,000 ML/1,000 ML BAG IV PRN (01:33)
[2022-08-26] MEDS: Heparin 5,000 UNITS/ML VIAL SC SCH ×4 (01:34→22:04)
[2022-08-26 02:08] LABS: Anion Gap 14 mmol/L (10-20); BUN (Urea Nitrogen) 48 mg/dL (9.8-20.1); Calc. Creatinine Clearance 20 mL/min (70-130); Calcium 9.2 mg/dL (7.8-10.44); Carbon Dioxide 22 mmol/L (23-31); Chloride 111 mmol/L (98-107); Estimated GFR 22; Glucose 359 mg/dL (80-115); Sodium 142 mmol/L (136-145)
[2022-08-26 05:30] LABS: Anion Gap 12 mmol/L (10-20); BUN (Urea Nitrogen) 41 mg/dL (9.8-20.1); Calc. Creatinine Clearance 23 mL/min (70-130); Calcium 8.9 mg/dL (7.8-10.44); Carbon Dioxide 21 mmol/L (23-31); Chloride 114 mmol/L (98-107); Estimated GFR 27; Glucose 213 mg/dL (80-115); Potassium 4.8 mmol/L (3.5-5.1); Sodium 142 mmol/L (136-145)
[2022-08-26] MEDS ORDERED: Insulin Glargine 30 UNITS/0.3 ML VIAL SC SCH (05:30)
[2022-08-26] MEDS ORDERED: Non-Formulary Item 1 EACH (Promethazine Hcl [Promethazine Hcl] 12.5 MG Tablet) PO PRN (09:14)
[2022-08-26] MEDS ORDERED: Promethazine 25 MG TAB PO PRN (09:33)
[2022-08-26 10:19] LABS: Anion Gap 14 mmol/L (10-20); BUN (Urea Nitrogen) 38 mg/dL (9.8-20.1); Calc. Creatinine Clearance 23 mL/min (70-130); Calcium 9.2 mg/dL (7.8-10.44); Carbon Dioxide 22 mmol/L (23-31); Chloride 113 mmol/L (98-107); Estimated GFR 28; Glucose 124 mg/dL (80-115); Potassium 4.8 mmol/L (3.5-5.1); Sodium 144 mmol/L (136-145)
[2022-08-26] MEDS ORDERED: NIFEdipine XL 30 MG TAB PO SCH ×2 (11:00→18:00)
[2022-08-26] MEDS ORDERED: HumaLOG 300 UNITS/3 ML VIAL SC PRN (15:39)
[2022-08-26] MEDS ORDERED: Dextrose 5% in Water 1,000 ML IV PRN (15:39)
[2022-08-26] MEDS ORDERED: HumaLOG 300 UNITS/3 ML VIAL SC SCH ×2 (16:45→17:45)
[2022-08-26 17:19] LABS: Anion Gap 13 mmol/L (10-20); BUN (Urea Nitrogen) 34 mg/dL (9.8-20.1); Calc. Creatinine Clearance 20 mL/min (70-130); Calcium 8.8 mg/dL (7.8-10.44); Carbon Dioxide 20 mmol/L (23-31); Chloride 103 mmol/L (98-107); Estimated GFR 23; Potassium 5.4 mmol/L (3.5-5.1); Sodium 131 mmol/L (136-145)
[2022-08-26 17:23] LABS: Glucose 672 mg/dL (80-115)
[2022-08-26] MEDS: Lactated Ringer's 1,000 ML IV SCH ×2 (17:50→22:04)
[2022-08-26] MEDS ORDERED: Amlodipine 5 MG TAB PO SCH (18:00)
[2022-08-26] MEDS ORDERED: Non-Formulary Item 1 EACH (Gabapentin [Neurontin] 600 MG Tablet) PO SCH (21:00)
[2022-08-26] MEDS: Gabapentin 300 MG CAP PO SCH (22:04)
[2022-08-26 23:16] LABS: Anion Gap 13 mmol/L (10-20); BUN (Urea Nitrogen) 30 mg/dL (9.8-20.1); Calc. Creatinine Clearance 23 mL/min (70-130); Carbon Dioxide 22 mmol/L (23-31); Chloride 106 mmol/L (98-107); Estimated GFR 27; Glucose 57 mg/dL (80-115); Potassium 3.8 mmol/L (3.5-5.1); Sodium 137 mmol/L (136-145)
[2022-08-27] MEDS: Lactated Ringer's 1,000 ML IV SCH (06:12)
[2022-08-27 06:39] LABS: Anion Gap 11 mmol/L (10-20); BUN (Urea Nitrogen) 26 mg/dL (9.8-20.1); Calc. Creatinine Clearance 24 mL/min (70-130); Calcium 8.9 mg/dL (7.8-10.44); Carbon Dioxide 23 mmol/L (23-31); Chloride 106 mmol/L (98-107); Estimated GFR 28; Glucose 171 mg/dL (80-115); Potassium 4.1 mmol/L (3.5-5.1); Sodium 136 mmol/L (136-145)
[2022-08-27] MEDS ORDERED: NIFEdipine XL 30 MG TAB PO SCH (09:00)
[2022-08-27] MEDS ORDERED: Amlodipine 5 MG TAB PO SCH (09:00)
[2022-08-27] MEDS ORDERED: Insulin Glargine 30 UNITS/0.3 ML VIAL SC SCH (09:00)
[2022-08-27] MEDS: Gabapentin 300 MG CAP PO SCH ×2 (09:32→21:20)
[2022-08-27] MEDS: Loratadine 10 MG TAB PO SCH (09:32)
[2022-08-27] MEDS: NIFEdipine XL 60 MG TAB PO SCH (09:32)
[2022-08-27] MEDS: Heparin 5,000 UNITS/ML VIAL SC SCH ×3 (09:33→21:21)
[2022-08-27 12:37] LABS: #Eosinphils 0.3 thou/uL (0.0-0.7); #Lymphocytes 3.6 thou/uL (1.20-3.40); #Monocytes 0.7 thou/uL (0.11-0.59); #Neutrophils 4.2 thou/uL (1.40-6.50); %Basophils 0.4 % (0.0-1.0); %Eosinophils 3.9 % (0.0-10.0); %Lymphocytes 40.9 % (21.0-51.0); %Monocytes 8.2 % (0.0-10.0); %Neutrophils 46.6 % (42.0-75.0); Hemoglobin 8.9 g/dL (12.0-16.0); Mean Corpuscular HGB CONC 34.2 g/dL (32.0-36.0); Mean Corpuscular Hemoglobin 29.8 pg (27.0-31.0); Mean Corpuscular Volume 87.1 fl (78.0-98.0); Mean Platelet Volume 10.9 fL (7.4-10.4); Platelet Count 227 10x3/uL (130-400); RBC Distribution Width 16.4 % (11.5-14.5); Red Blood Cell (RBC) Count 2.99 mill/uL (4.20-5.40); White Blood Cell (WBC) Count 8.9 10x3/uL (4.8-10.8)
[2022-08-27] MEDS ORDERED: HumaLOG 300 UNITS/3 ML VIAL SC SCH (13:00)
[2022-08-27 16:24] LABS: Anion Gap 12 mmol/L (10-20); BUN (Urea Nitrogen) 21 mg/dL (9.8-20.1); Calc. Creatinine Clearance 24 mL/min (70-130); Calcium 8.6 mg/dL (7.8-10.44); Carbon Dioxide 23 mmol/L (23-31); Chloride 100 mmol/L (98-107); Estimated GFR 28; Glucose 382 mg/dL (80-115); Potassium 4.4 mmol/L (3.5-5.1); Sodium 131 mmol/L (136-145)
[2022-08-27] MEDS: Docusate 100 MG CAP PO PRN (21:24)
[2022-08-28] MEDS: HumaLOG 300 UNITS/3 ML VIAL SC PRN ×3 (00:14→20:36)
[2022-08-28 06:02] LABS: #Basophils 0.1 thou/uL (0.0-0.2); #Eosinphils 0.2 thou/uL (0.0-0.7); #Lymphocytes 3.1 thou/uL (1.20-3.40); #Monocytes 0.5 thou/uL (0.11-0.59); #Neutrophils 2.5 thou/uL (1.40-6.50); %Basophils 1.5 % (0.0-1.0); %Eosinophils 3.6 % (0.0-10.0); %Lymphocytes 48.4 % (21.0-51.0); %Monocytes 8.2 % (0.0-10.0); %Neutrophils 38.3 % (42.0-75.0); Hemoglobin 8.6 g/dL (12.0-16.0); Mean Corpuscular HGB CONC 33.4 g/dL (32.0-36.0); Mean Corpuscular Hemoglobin 28.5 pg (27.0-31.0); Mean Corpuscular Volume 85.4 fl (78.0-98.0); Platelet Count 189 10x3/uL (130-400); RBC Distribution Width 15.9 % (11.5-14.5); Red Blood Cell (RBC) Count 3.01 mill/uL (4.20-5.40); White Blood Cell (WBC) Count 6.4 10x3/uL (4.8-10.8)
[2022-08-28 06:19] LABS: Anion Gap 11 mmol/L (10-20); BUN (Urea Nitrogen) 24 mg/dL (9.8-20.1); Calc. Creatinine Clearance 23 mL/min (70-130); Calcium 8.6 mg/dL (7.8-10.44); Carbon Dioxide 23 mmol/L (23-31); Chloride 104 mmol/L (98-107); Estimated GFR 26; Glucose 112 mg/dL (80-115); Sodium 134 mmol/L (136-145)
[2022-08-28] MEDS ORDERED: Insulin Glargine 30 UNITS/0.3 ML VIAL SC SCH (09:00)
[2022-08-28] MEDS: Gabapentin 300 MG CAP PO SCH (09:00)
[2022-08-28] MEDS: Docusate 100 MG CAP PO PRN (09:01)
[2022-08-28] MEDS: Heparin 5,000 UNITS/ML VIAL SC SCH ×3 (09:01→20:34)
[2022-08-28] MEDS: NIFEdipine XL 60 MG TAB PO SCH (09:01)
[2022-08-28] MEDS: Loratadine 10 MG TAB PO SCH (09:01)
[2022-08-28] MEDS ORDERED: Gabapentin 300 MG CAP PO SCH (21:00)
[2022-08-29] MEDS: traMADol HCl 50 MG TAB PO PRN ×3 (04:16→20:46)
[2022-08-29 04:30] LABS: Hemoglobin 8.4 g/dL (12.0-16.0); Mean Corpuscular HGB CONC 34.7 g/dL (32.0-36.0); Mean Corpuscular Hemoglobin 29.6 pg (27.0-31.0); Mean Corpuscular Volume 85.4 fl (78.0-98.0); Mean Platelet Volume 9.8 fL (7.4-10.4); Platelet Count 172 10x3/uL (130-400); RBC Distribution Width 15.8 % (11.5-14.5); Red Blood Cell (RBC) Count 2.84 mill/uL (4.20-5.40); White Blood Cell (WBC) Count 7.4 10x3/uL (4.8-10.8)
[2022-08-29 04:43] LABS: Anion Gap 11 mmol/L (10-20); BUN (Urea Nitrogen) 30 mg/dL (9.8-20.1); Calc. Creatinine Clearance 18 mL/min (70-130); Calcium 8.8 mg/dL (7.8-10.44); Carbon Dioxide 24 mmol/L (23-31); Chloride 107 mmol/L (98-107); Estimated GFR 20; Glucose 158 mg/dL (80-115); Potassium 4.6 mmol/L (3.5-5.1); Sodium 137 mmol/L (136-145)
[2022-08-29 05:19] LABS: Band 1 % (5-11); Eosinophils 3 % (0-10); Lymphocytes 53 % (21-51); MDiff Complete? YES; Monocytes 4 % (0-10); Neutrophil 39 % (42-75)
[2022-08-29] MEDS: HumaLOG 300 UNITS/3 ML VIAL SC PRN ×3 (06:12→20:46)
[2022-08-29] MEDS: NIFEdipine XL 60 MG TAB PO SCH (08:20)
[2022-08-29] MEDS: Polyethylene Glycol 3350 17 GM Packet PO SCH (08:20)
[2022-08-29] MEDS: Heparin 5,000 UNITS/ML VIAL SC SCH ×3 (08:21→20:47)
[2022-08-29] MEDS: Gabapentin 100 MG CAP PO SCH ×2 (08:21→20:45)
[2022-08-29] MEDS ORDERED: Insulin Glargine 30 UNITS/0.3 ML VIAL SC SCH (09:00)
[2022-08-29] MEDS: Fluticasone Propionate Nasal Spray 16 gm Bottle NASAL SCH (09:05)
[2022-08-30 04:37] LABS: Creatinine, Urine 23.41 mg/dL (47-110)
[2022-08-30] MEDS: Gabapentin 100 MG CAP PO SCH ×2 (08:45→20:23)
[2022-08-30] MEDS: NIFEdipine XL 60 MG TAB PO SCH (08:46)
[2022-08-30] MEDS: Fluticasone Propionate Nasal Spray 16 gm Bottle NASAL SCH (08:46)
[2022-08-30] MEDS: Polyethylene Glycol 3350 17 GM Packet PO SCH (08:47)
[2022-08-30] MEDS: Heparin 5,000 UNITS/ML VIAL SC SCH ×3 (08:48→20:24)
[2022-08-30] MEDS ORDERED: Insulin Glargine 30 UNITS/0.3 ML VIAL SC SCH (09:00)
[2022-08-30] MEDS: Insulin Glargine 30 UNITS/0.3 ML VIAL SC SCH ×2 (10:02→20:24)
[2022-08-30 10:53] LABS: #Eosinphils 0.2 thou/uL (0.0-0.7); #Lymphocytes 2.1 thou/uL (1.20-3.40); #Monocytes 0.6 thou/uL (0.11-0.59); #Neutrophils 3.1 thou/uL (1.40-6.50); %Basophils 0.6 % (0.0-1.0); %Eosinophils 3.7 % (0.0-10.0); %Lymphocytes 34.4 % (21.0-51.0); %Monocytes 10.2 % (0.0-10.0); Mean Corpuscular HGB CONC 32.4 g/dL (32.0-36.0); Mean Corpuscular Hemoglobin 28.8 pg (27.0-31.0); Mean Corpuscular Volume 88.8 fl (78.0-98.0); Mean Platelet Volume 9.7 fL (7.4-10.4); Platelet Count 216 10x3/uL (130-400); RBC Distribution Width 16.1 % (11.5-14.5); Red Blood Cell (RBC) Count 3.48 mill/uL (4.20-5.40); White Blood Cell (WBC) Count 6.1 10x3/uL (4.8-10.8)
[2022-08-30 11:12] LABS: Anion Gap 14 mmol/L (10-20); BUN (Urea Nitrogen) 31 mg/dL (9.8-20.1); Calc. Creatinine Clearance 20 mL/min (70-130); Calcium 9.2 mg/dL (7.8-10.44); Carbon Dioxide 20 mmol/L (23-31); Chloride 101 mmol/L (98-107); Estimated GFR 21; Glucose 366 mg/dL (80-115); Potassium 5.4 mmol/L (3.5-5.1); Sodium 130 mmol/L (136-145)
[2022-08-30] MEDS ORDERED: Lactated Ringer's 1,000 ML IV SCH (11:45)
[2022-08-30] MEDS: HumaLOG 300 UNITS/3 ML VIAL SC PRN ×2 (12:46→17:07)
[2022-08-30] MEDS: traMADol HCl 50 MG TAB PO PRN (20:21)
[2022-08-31 08:39] LABS: #Basophils 0.1 thou/uL (0.0-0.2); #Eosinphils 0.3 thou/uL (0.0-0.7); #Lymphocytes 2.7 thou/uL (1.20-3.40); #Monocytes 0.9 thou/uL (0.11-0.59); #Neutrophils 5.2 thou/uL (1.40-6.50); %Basophils 0.6 % (0.0-1.0); %Eosinophils 3.2 % (0.0-10.0); %Lymphocytes 29.7 % (21.0-51.0); %Monocytes 9.9 % (0.0-10.0); %Neutrophils 56.6 % (42.0-75.0); Hemoglobin 10.4 g/dL (12.0-16.0); Mean Corpuscular HGB CONC 32.6 g/dL (32.0-36.0); Mean Corpuscular Hemoglobin 28.5 pg (27.0-31.0); Mean Corpuscular Volume 87.5 fl (78.0-98.0); Mean Platelet Volume 9.5 fL (7.4-10.4); Platelet Count 239 10x3/uL (130-400); RBC Distribution Width 16.5 % (11.5-14.5); Red Blood Cell (RBC) Count 3.64 mill/uL (4.20-5.40); White Blood Cell (WBC) Count 9.1 10x3/uL (4.8-10.8)
[2022-08-31] MEDS ORDERED: HumaLOG 300 UNITS/3 ML VIAL SC SCH (09:00)
[2022-08-31] MEDS: Fluticasone Propionate Nasal Spray 16 gm Bottle NASAL SCH (09:09)
[2022-08-31] MEDS: Polyethylene Glycol 3350 17 GM Packet PO SCH (09:10)
[2022-08-31] MEDS: Gabapentin 100 MG CAP PO SCH ×2 (09:10→20:29)
[2022-08-31] MEDS: NIFEdipine XL 60 MG TAB PO SCH (09:10)
[2022-08-31] MEDS: Insulin Glargine 30 UNITS/0.3 ML VIAL SC SCH ×2 (09:18→20:36)
[2022-08-31] MEDS: Heparin 5,000 UNITS/ML VIAL SC SCH ×3 (09:23→20:30)
[2022-08-31 09:55] LABS: Anion Gap 14 mmol/L (10-20); BUN (Urea Nitrogen) 34 mg/dL (9.8-20.1); Calc. Creatinine Clearance 22 mL/min (70-130); Calcium 9.7 mg/dL (7.8-10.44); Carbon Dioxide 23 mmol/L (23-31); Chloride 104 mmol/L (98-107); Estimated GFR 25; Glucose 87 mg/dL (80-115); Potassium 4.8 mmol/L (3.5-5.1); Sodium 136 mmol/L (136-145)
[2022-08-31] MEDS: traMADol HCl 50 MG TAB PO PRN ×2 (11:36→20:34)
[2022-08-31] MEDS: HumaLOG 300 UNITS/3 ML VIAL SC PRN ×2 (14:17→17:34)
[2022-08-31] MEDS: Acetaminophen 325 MG TAB PO PRN (17:34)
[2022-09-01] MEDS: HumaLOG 300 UNITS/3 ML VIAL SC PRN ×2 (05:56→12:42)
[2022-09-01] MEDS: Acetaminophen 325 MG TAB PO PRN ×2 (06:00→12:42)
[2022-09-01] MEDS: traMADol HCl 50 MG TAB PO PRN (06:01)
[2022-09-01 06:32] LABS: #Eosinphils 0.3 thou/uL (0.0-0.7); #Neutrophils 4.5 thou/uL (1.40-6.50); %Basophils 0.4 % (0.0-1.0); %Eosinophils 3.1 % (0.0-10.0); %Lymphocytes 34.1 % (21.0-51.0); %Monocytes 11.4 % (0.0-10.0); %Neutrophils 50.9 % (42.0-75.0); Hemoglobin 8.9 g/dL (12.0-16.0); Mean Corpuscular HGB CONC 33.9 g/dL (32.0-36.0); Mean Corpuscular Hemoglobin 29.2 pg (27.0-31.0); Mean Platelet Volume 10.1 fL (7.4-10.4); Platelet Count 227 10x3/uL (130-400); RBC Distribution Width 16.7 % (11.5-14.5); Red Blood Cell (RBC) Count 3.05 mill/uL (4.20-5.40); White Blood Cell (WBC) Count 8.9 10x3/uL (4.8-10.8)
[2022-09-01 06:37] LABS: Anion Gap 12 mmol/L (10-20); BUN (Urea Nitrogen) 36 mg/dL (9.8-20.1); Calc. Creatinine Clearance 21 mL/min (70-130); Calcium 9.2 mg/dL (7.8-10.44); Carbon Dioxide 24 mmol/L (23-31); Chloride 103 mmol/L (98-107); Estimated GFR 24; Glucose 277 mg/dL (80-115); Potassium 5.1 mmol/L (3.5-5.1); Sodium 134 mmol/L (136-145)
[2022-09-01] MEDS ORDERED: HumaLOG 300 UNITS/3 ML VIAL SC SCH (07:30)
[2022-09-01] MEDS ORDERED: Insulin Glargine 30 UNITS/0.3 ML VIAL SC SCH (09:00)
[2022-09-01] MEDS ORDERED: Lidocaine 4% Patch TD SCH (09:00)
[2022-09-01] MEDS: Fluticasone Propionate Nasal Spray 16 gm Bottle NASAL SCH (09:52)
[2022-09-01] MEDS: NIFEdipine XL 60 MG TAB PO SCH (09:56)
[2022-09-01] MEDS: Gabapentin 100 MG CAP PO SCH (09:56)
[2022-09-01] MEDS: Heparin 5,000 UNITS/ML VIAL SC SCH ×2 (09:57→15:17)
[2022-09-01] MEDS: Polyethylene Glycol 3350 17 GM Packet PO SCH (10:01)
[2022-09-01] MEDS ORDERED: Gabapentin 100 MG CAP PO SCH (10:30)
[2022-09-01] MEDS: HumaLOG 300 UNITS/3 ML VIAL SC SCH ×2 (11:36→12:41)
[2022-09-01 11:55] VITALS: BMI 21.4
[2022-09-01] MEDS ORDERED: traMADol HCl 50 MG TAB PO SCH (14:45)
[2022-09-01 15:23] VITALS: BP 158/78; TEMP 98.4
[2022-09-01] MEDS ORDERED: Gabapentin 300 MG CAP PO SCH (21:00)
[2022-09-01] MEDS ORDERED: Transdermal Patch Removal TOP SCH (21:00)
== END 2022-09-01 15:11 | DRG 638 ==
LOC: ERS 15:14 → ERHOLD 19:05 → IMCU/EMU 22:20 → T4-B 08-28 11:02
PROVIDERS: ADMIT Family Medicine; ATTEND Family Medicine
PROC: 02HV33Z Insertion of Infusion Device into Superior Vena Cava, Percutaneous Approach (ICD-10-PCS; principal; 2022-08-25)
DX: E11.10 Type 2 diabetes mellitus with ketoacidosis without coma (principal); N17.9 Acute kidney failure, unspecified; I48.0 Paroxysmal atrial fibrillation; F32.A Depression, unspecified; F41.9 Anxiety disorder, unspecified; J45.909 Unspecified asthma, uncomplicated; E78.5 Hyperlipidemia, unspecified; B18.2 Chronic viral hepatitis C; N18.32 Chronic kidney disease, stage 3b; G89.29 Other chronic pain; M54.50 Low back pain, unspecified; I95.9 Hypotension, unspecified; E87.8 Other disorders of electrolyte and fluid balance, not elsewhere classified; K59.00 Constipation, unspecified; S80.821A Blister (nonthermal), right lower leg, initial encounter; I12.9 Hypertensive chronic kidney disease with stage 1 through stage 4 chronic kidney disease, or unspecified chronic kidney disease; E86.0 Dehydration; Z96.643 Presence of artificial hip joint, bilateral; Z98.890 Other specified postprocedural states; Z79.4 Long term (current) use of insulin; Z88.0 Allergy status to penicillin; Z88.8 Allergy status to other drugs, medicaments and biological substances; Z79.899 Other long term (current) drug therapy; Z90.710 Acquired absence of both cervix and uterus; Z91.14 Patient's other noncompliance with medication regimen; Z90.89 Acquired absence of other organs; Z98.51 Tubal ligation status; Z87.891 Personal history of nicotine dependence
CPT/HCPCS: 36415; 36416; 36556; 71045; 80048; 80053; 81003; 81015; 82010; 82570; 82805; 83690; 83735; 83930; 83935; 84100; 84300; 84484; 85025; 87070; 87077; 87086; 87186; 87205; 93005; 94760; 96360; 96361; 96365; 96366; 96375; 97139; J0360; J1644; J1815; J2270; J2405; J3480; J7120

== ENCOUNTER 2022-09-03 15:02 | Inpatient (IN) | payer MEDICARE ==
[2022-09-03 15:55] LABS: #Basophils 0.1 thou/uL (0.0-0.2); #Lymphocytes 1.2 thou/uL (1.20-3.40); #Monocytes 1.6 thou/uL (0.11-0.59); #Neutrophils 9.4 thou/uL (1.40-6.50); %Basophils 0.5 % (0.0-1.0); %Eosinophils 0.4 % (0.0-10.0); %Lymphocytes 9.5 % (21.0-51.0); %Monocytes 13.2 % (0.0-10.0); %Neutrophils 76.3 % (42.0-75.0); Hemoglobin 10.6 g/dL (12.0-16.0); Mean Corpuscular HGB CONC 32.7 g/dL (32.0-36.0); Mean Corpuscular Hemoglobin 28.5 pg (27.0-31.0); Mean Corpuscular Volume 87.3 fl (78.0-98.0); Mean Platelet Volume 9.1 fL (7.4-10.4); Platelet Count 295 10x3/uL (130-400); RBC Distribution Width 17.3 % (11.5-14.5); White Blood Cell (WBC) Count 12.4 10x3/uL (4.8-10.8)
[2022-09-03 16:07] LABS: Actual Bicarbonate (HCO3v) 23 mEq/L (22-28); Analyzer IN Cardio ER; Calcium, Ionized (venous) 1.09 mmol/L (1.16-1.32); Chloride (VBG) 101 mmol/L (98-106); Hemoglobin (Hb) 11.5 g/dL (11.7-16.1); Potassium (VBG) 4.24 mmol/L (3.70-5.30); Sodium 134.4 mmol/L (133-146); pH (venous) 7.42 (7.32-7.43)
[2022-09-03 16:20] LABS: ALT (SGPT) 41 U/L (8-55); AST (SGOT) 43 U/L (5-34); Albumin 3.6 g/dL (3.4-4.8); Alkaline Phosphatase 231 U/L (40-110); Anion Gap 16 mmol/L (10-20); BUN (Urea Nitrogen) 32 mg/dL (9.8-20.1); Bilirubin, Total 0.3 mg/dL (0.2-1.2); Calc. Creatinine Clearance 0 mL/min (70-130); Calcium 9.6 mg/dL (7.8-10.44); Carbon Dioxide 23 mmol/L (23-31); Chloride 101 mmol/L (98-107); Estimated GFR 23; Globulin 4.7 g/dL (2.4-3.5); Glucose 59 mg/dL (80-115); Lipase 11 U/L (8-78); Potassium 4.4 mmol/L (3.5-5.1); Protein, Total 8.3 g/dL (5.8-8.1); Sodium 136 mmol/L (136-145)
[2022-09-03] MEDS ORDERED: Morphine 2 MG/ML VIAL ONE (16:29)
[2022-09-03] MEDS ORDERED: Dextrose 50% Abboject 50 ML SYRINGE ONE (18:01)
[2022-09-03 18:47] LABS: Bacteria/HPF 4+ HPF (None Seen); Bilirubin Negative (Negative); Blood, Urine Negative (Negative); Clarity Turbid (Clear); Glucose, Urine (Dipstick) Normal (Negative); Ketone, Urine Negative (Negative); Leukocyte 500 Leu/uL (Negative); Nitrite 1+ (Negative); Protein, Urine (Dipstick) 50 mg/dL (Neg-Trace); RBC/HPF 0-3 HPF (0-3); Specific Gravity, Urine 1.012 (1.002-1.036); Urobilinogen Normal mg/dL (Less than 2); WBC/HPF Greater than 50 HPF (0-3); pH, Urine 5.5 (5.0-9.0)
[2022-09-03 18:48] LABS: Renal Epithelial 0-3 HPF (None Seen); Transitional Epithelial 0-3 HPF (None Seen)
[2022-09-03 19:36] LABS: Glucose 184 mg/dL (80-115)
[2022-09-03 19:39] LABS: Lactic Acid 3.5 mmol/L (0.5-2.2)
[2022-09-03] MEDS ORDERED: cefTRIAXone (ROCEPHIN) 1 GM VIAL ONE (20:29)
[2022-09-03] MEDS ORDERED: Dextrose 5% in Water 1,000 ML IV PRN (20:44)
[2022-09-03] MEDS ORDERED: Ondansetron ODT 4 MG TAB PO PRN (20:44)
[2022-09-03] MEDS ORDERED: Acetaminophen 325 MG TAB PO PRN (20:44)
[2022-09-03] MEDS ORDERED: HumaLOG 300 UNITS/3 ML VIAL SC PRN (20:44)
[2022-09-03] MEDS ORDERED: Dextrose 50% Abboject 50 ML SYRINGE SLOW IVP PRN (20:44)
[2022-09-03] MEDS ORDERED: Docusate 100 MG CAP PO PRN (20:58)
[2022-09-03] MEDS ORDERED: Promethazine 25 MG TAB PO PRN (21:07)
[2022-09-03] MEDS ORDERED: Morphine 4 MG/ML VIAL ONE (23:04)
[2022-09-03 23:54] VITALS: BMI 22.5
[2022-09-04] MEDS: Gabapentin 300 MG CAP PO SCH ×3 (00:26→21:52)
[2022-09-04] MEDS: Clindamycin 150 MG CAP PO SCH ×4 (00:26→21:53)
[2022-09-04] MEDS: Heparin 5,000 UNITS/ML VIAL SC SCH ×4 (00:27→21:53)
[2022-09-04] MEDS: Insulin Glargine 30 UNITS/0.3 ML VIAL SC SCH ×2 (00:27→21:53)
[2022-09-04] MEDS: traMADol HCl 50 MG TAB PO PRN ×3 (00:27→23:42)
[2022-09-04 04:58] LABS: Hemoglobin 8.4 g/dL (12.0-16.0); Mean Corpuscular HGB CONC 33.6 g/dL (32.0-36.0); Mean Corpuscular Hemoglobin 29.2 pg (27.0-31.0); Mean Platelet Volume 9.4 fL (7.4-10.4); Platelet Count 298 10x3/uL (130-400); RBC Distribution Width 16.6 % (11.5-14.5); Red Blood Cell (RBC) Count 2.89 mill/uL (4.20-5.40); White Blood Cell (WBC) Count 10.5 10x3/uL (4.8-10.8)
[2022-09-04 05:21] LABS: Anion Gap 13 mmol/L (10-20); BUN (Urea Nitrogen) 29 mg/dL (9.8-20.1); Calc. Creatinine Clearance 24 mL/min (70-130); Calcium 9.1 mg/dL (7.8-10.44); Carbon Dioxide 23 mmol/L (23-31); Chloride 105 mmol/L (98-107); Estimated GFR 26; Potassium 4.4 mmol/L (3.5-5.1); Sodium 137 mmol/L (136-145)
[2022-09-04 05:25] LABS: Glucose 28 mg/dL (80-115)
[2022-09-04 05:36] LABS: Band 3 % (5-11); Lymphocytes 26 % (21-51); MDiff Complete? YES; Monocytes 19 % (0-10); Neutrophil 52 % (42-75)
[2022-09-04] MEDS ORDERED: HumaLOG 300 UNITS/3 ML VIAL SC SCH (08:00)
[2022-09-04] MEDS: NIFEdipine XL 60 MG TAB PO SCH (08:52)
[2022-09-04] MEDS: Polyethylene Glycol 3350 17 GM Packet PO SCH (08:52)
[2022-09-04] MEDS: LIDOCAINE PATCH TOP SCH ×2 (08:53→21:55)
[2022-09-04] MEDS: Fluticasone Propionate Nasal Spray 16 gm Bottle NASAL SCH (11:28)
[2022-09-04] MEDS ORDERED: Insulin Glargine 30 UNITS/0.3 ML VIAL SC SCH (12:00)
[2022-09-04] MEDS: Acetaminophen 325 MG TAB PO PRN (21:52)
[2022-09-05] MEDS: Clindamycin 150 MG CAP PO SCH ×3 (05:39→21:40)
[2022-09-05 08:19] LABS: Hemoglobin 9.9 g/dL (12.0-16.0); Mean Corpuscular HGB CONC 32.4 g/dL (32.0-36.0); Mean Corpuscular Hemoglobin 28.3 pg (27.0-31.0); Mean Corpuscular Volume 87.2 fl (78.0-98.0); Mean Platelet Volume 8.6 fL (7.4-10.4); Platelet Count 357 10x3/uL (130-400); RBC Distribution Width 16.4 % (11.5-14.5); White Blood Cell (WBC) Count 7.8 10x3/uL (4.8-10.8)
[2022-09-05 08:38] LABS: Lactic Acid 1.1 mmol/L (0.5-2.2)
[2022-09-05] MEDS: Insulin Glargine 30 UNITS/0.3 ML VIAL SC SCH ×2 (08:38→21:40)
[2022-09-05] MEDS: Gabapentin 300 MG CAP PO SCH ×2 (08:39→20:23)
[2022-09-05] MEDS: NIFEdipine XL 60 MG TAB PO SCH (08:40)
[2022-09-05] MEDS: Polyethylene Glycol 3350 17 GM Packet PO SCH (08:40)
[2022-09-05] MEDS: Heparin 5,000 UNITS/ML VIAL SC SCH ×3 (08:42→20:23)
[2022-09-05 08:43] LABS: ALT (SGPT) 41 U/L (8-55); AST (SGOT) 54 U/L (5-34); Albumin 3.4 g/dL (3.4-4.8); Alkaline Phosphatase 209 U/L (40-110); Anion Gap 13 mmol/L (10-20); BUN (Urea Nitrogen) 29 mg/dL (9.8-20.1); Bilirubin, Total Less than 0.2 mg/dL (0.2-1.2); Calc. Creatinine Clearance 22 mL/min (70-130); Calcium 9.7 mg/dL (7.8-10.44); Carbon Dioxide 24 mmol/L (23-31); Chloride 102 mmol/L (98-107); Estimated GFR 23; Globulin 4.8 g/dL (2.4-3.5); Glucose 169 mg/dL (80-115); Potassium 5.1 mmol/L (3.5-5.1); Protein, Total 8.2 g/dL (5.8-8.1); Sodium 134 mmol/L (136-145)
[2022-09-05] MEDS: Lidocaine 4% Patch TD PRN (08:46)
[2022-09-05] MEDS: LIDOCAINE PATCH TOP SCH ×2 (08:46→21:41)
[2022-09-05] MEDS: Fluticasone Propionate Nasal Spray 16 gm Bottle NASAL SCH (09:51)
[2022-09-05 09:56] LABS: Band 3 % (5-11); Eosinophils 6 % (0-10); Lymphocytes 40 % (21-51); MDiff Complete? YES; Monocytes 14 % (0-10); Neutrophil 37 % (42-75); Platelet Morphology Comment Appears Adequate; Polychromasia SLIGHT = 2-3 cells (100X) (0-2/hpf)
[2022-09-05] MEDS: traMADol HCl 50 MG TAB PO PRN ×2 (10:03→21:39)
[2022-09-05] MEDS: HumaLOG 300 UNITS/3 ML VIAL SC SCH (11:59)
[2022-09-05] MEDS: HumaLOG 300 UNITS/3 ML VIAL SC PRN (17:08)
[2022-09-05] MEDS: Acetaminophen 325 MG TAB PO PRN ×2 (18:14→21:38)
[2022-09-06 05:28] LABS: #Basophils 0.1 thou/uL (0.0-0.2); #Eosinphils 0.5 thou/uL (0.0-0.7); #Lymphocytes 2.8 thou/uL (1.20-3.40); #Neutrophils 2.7 thou/uL (1.40-6.50); %Basophils 1.3 % (0.0-1.0); %Eosinophils 6.6 % (0.0-10.0); %Lymphocytes 39.2 % (21.0-51.0); %Monocytes 14.5 % (0.0-10.0); %Neutrophils 38.5 % (42.0-75.0); Hemoglobin 8.7 g/dL (12.0-16.0); Mean Corpuscular HGB CONC 33.3 g/dL (32.0-36.0); Mean Corpuscular Hemoglobin 28.8 pg (27.0-31.0); Mean Corpuscular Volume 86.7 fl (78.0-98.0); Mean Platelet Volume 8.5 fL (7.4-10.4); Platelet Count 314 10x3/uL (130-400); RBC Distribution Width 16.2 % (11.5-14.5); Red Blood Cell (RBC) Count 3.03 mill/uL (4.20-5.40); White Blood Cell (WBC) Count 7.1 10x3/uL (4.8-10.8)
[2022-09-06] MEDS: Clindamycin 150 MG CAP PO SCH ×2 (05:39→13:47)
[2022-09-06 06:01] LABS: ALT (SGPT) 38 U/L (8-55); AST (SGOT) 50 U/L (5-34); Albumin 3.1 g/dL (3.4-4.8); Alkaline Phosphatase 185 U/L (40-110); Anion Gap 14 mmol/L (10-20); BUN (Urea Nitrogen) 30 mg/dL (9.8-20.1); Bilirubin, Total Less than 0.2 mg/dL (0.2-1.2); Calc. Creatinine Clearance 23 mL/min (70-130); Calcium 9.2 mg/dL (7.8-10.44); Carbon Dioxide 24 mmol/L (23-31); Chloride 103 mmol/L (98-107); Estimated GFR 24; Globulin 4.3 g/dL (2.4-3.5); Glucose 57 mg/dL (80-115); Potassium 4.8 mmol/L (3.5-5.1); Protein, Total 7.4 g/dL (5.8-8.1); Sodium 136 mmol/L (136-145)
[2022-09-06] MEDS: traMADol HCl 50 MG TAB PO PRN ×2 (08:40→20:09)
[2022-09-06] MEDS: Gabapentin 300 MG CAP PO SCH ×2 (08:40→20:08)
[2022-09-06] MEDS: Fluticasone Propionate Nasal Spray 16 gm Bottle NASAL SCH (08:40)
[2022-09-06] MEDS: NIFEdipine XL 60 MG TAB PO SCH (08:41)
[2022-09-06] MEDS: LIDOCAINE PATCH TOP SCH ×2 (08:41→23:45)
[2022-09-06] MEDS: Heparin 5,000 UNITS/ML VIAL SC SCH ×3 (08:41→20:10)
[2022-09-06] MEDS: Polyethylene Glycol 3350 17 GM Packet PO SCH (08:41)
[2022-09-06] MEDS: Insulin Glargine 30 UNITS/0.3 ML VIAL SC SCH (11:44)
[2022-09-06] MEDS ORDERED: Insulin Glargine 30 UNITS/0.3 ML VIAL SC SCH ×4 (11:45→21:00)
[2022-09-06] MEDS: HumaLOG 300 UNITS/3 ML VIAL SC SCH (11:48)
[2022-09-06] MEDS: HumaLOG 300 UNITS/3 ML VIAL SC PRN (17:01)
[2022-09-07] MEDS: Clindamycin 150 MG CAP PO SCH ×4 (00:14→21:37)
[2022-09-07 05:08] LABS: #Eosinphils 0.4 thou/uL (0.0-0.7); #Lymphocytes 3.5 thou/uL (1.20-3.40); #Monocytes 1.1 thou/uL (0.11-0.59); #Neutrophils 4.8 thou/uL (1.40-6.50); %Basophils 0.5 % (0.0-1.0); %Lymphocytes 35.5 % (21.0-51.0); %Monocytes 11.3 % (0.0-10.0); %Neutrophils 48.7 % (42.0-75.0); Hemoglobin 9.2 g/dL (12.0-16.0); Mean Corpuscular HGB CONC 33.7 g/dL (32.0-36.0); Mean Corpuscular Hemoglobin 29.1 pg (27.0-31.0); Mean Corpuscular Volume 86.4 fl (78.0-98.0); Mean Platelet Volume 8.4 fL (7.4-10.4); Platelet Count 362 10x3/uL (130-400); Red Blood Cell (RBC) Count 3.17 mill/uL (4.20-5.40); White Blood Cell (WBC) Count 9.8 10x3/uL (4.8-10.8)
[2022-09-07 05:30] LABS: ALT (SGPT) 33 U/L (8-55); AST (SGOT) 40 U/L (5-34); Albumin 3.1 g/dL (3.4-4.8); Alkaline Phosphatase 175 U/L (40-110); Anion Gap 13 mmol/L (10-20); BUN (Urea Nitrogen) 34 mg/dL (9.8-20.1); Bilirubin, Total 0.2 mg/dL (0.2-1.2); Calc. Creatinine Clearance 22 mL/min (70-130); Calcium 9.1 mg/dL (7.8-10.44); Carbon Dioxide 24 mmol/L (23-31); Chloride 103 mmol/L (98-107); Estimated GFR 23; Globulin 4.2 g/dL (2.4-3.5); Glucose 61 mg/dL (80-115); Protein, Total 7.3 g/dL (5.8-8.1); Sodium 135 mmol/L (136-145)
[2022-09-07] MEDS: Polyethylene Glycol 3350 17 GM Packet PO SCH (08:53)
[2022-09-07] MEDS: Insulin Glargine 30 UNITS/0.3 ML VIAL SC SCH (08:54)
[2022-09-07] MEDS: Gabapentin 300 MG CAP PO SCH ×2 (08:54→21:39)
[2022-09-07] MEDS: Heparin 5,000 UNITS/ML VIAL SC SCH ×3 (08:54→21:40)
[2022-09-07] MEDS: Fluticasone Propionate Nasal Spray 16 gm Bottle NASAL SCH (08:54)
[2022-09-07] MEDS: NIFEdipine XL 60 MG TAB PO SCH (08:54)
[2022-09-07] MEDS: LIDOCAINE PATCH TOP SCH ×2 (08:55→21:40)
[2022-09-07] MEDS: HumaLOG 300 UNITS/3 ML VIAL SC PRN (12:15)
[2022-09-07] MEDS: traMADol HCl 50 MG TAB PO PRN (13:06)
[2022-09-07] MEDS: Lidocaine 4% Patch TD PRN (14:31)
[2022-09-07] MEDS: Acetaminophen 325 MG TAB PO PRN (17:30)
[2022-09-07] MEDS ORDERED: Cyclobenzaprine 10 MG TAB PO PRN (20:44)
[2022-09-07] MEDS: Acetaminophen 500 MG TAB PO SCH (21:37)
[2022-09-08 04:43] LABS: #Basophils 0.1 thou/uL (0.0-0.2); #Eosinphils 0.4 thou/uL (0.0-0.7); #Lymphocytes 3.8 thou/uL (1.20-3.40); #Monocytes 0.8 thou/uL (0.11-0.59); #Neutrophils 2.8 thou/uL (1.40-6.50); %Basophils 1.7 % (0.0-1.0); %Eosinophils 4.9 % (0.0-10.0); %Lymphocytes 47.6 % (21.0-51.0); %Monocytes 9.8 % (0.0-10.0); Hemoglobin 10.4 g/dL (12.0-16.0); Mean Corpuscular HGB CONC 32.1 g/dL (32.0-36.0); Mean Corpuscular Hemoglobin 28.1 pg (27.0-31.0); Mean Corpuscular Volume 87.7 fl (78.0-98.0); Mean Platelet Volume 8.7 fL (7.4-10.4); Platelet Count 306 10x3/uL (130-400); RBC Distribution Width 16.4 % (11.5-14.5); Red Blood Cell (RBC) Count 3.71 mill/uL (4.20-5.40); White Blood Cell (WBC) Count 7.9 10x3/uL (4.8-10.8)
[2022-09-08 05:11] LABS: ALT (SGPT) 30 U/L (8-55); AST (SGOT) 44 U/L (5-34); Albumin 3.2 g/dL (3.4-4.8); Alkaline Phosphatase 176 U/L (40-110); Anion Gap 16 mmol/L (10-20); BUN (Urea Nitrogen) 37 mg/dL (9.8-20.1); Bilirubin, Total Less than 0.2 mg/dL (0.2-1.2); Calc. Creatinine Clearance 21 mL/min (70-130); Calcium 9.6 mg/dL (7.8-10.44); Carbon Dioxide 17 mmol/L (23-31); Chloride 106 mmol/L (98-107); Estimated GFR 22; Globulin 4.7 g/dL (2.4-3.5); Glucose 81 mg/dL (80-115); Potassium 5.2 mmol/L (3.5-5.1); Protein, Total 7.9 g/dL (5.8-8.1); Sodium 134 mmol/L (136-145)
[2022-09-08] MEDS: Clindamycin 150 MG CAP PO SCH ×3 (06:11→21:15)
[2022-09-08] MEDS: Acetaminophen 500 MG TAB PO SCH ×3 (06:11→21:18)
[2022-09-08] MEDS ORDERED: Lactated Ringer's 500 ML IV SCH ×2 (07:00→09:45)
[2022-09-08] MEDS: NIFEdipine XL 60 MG TAB PO SCH (09:27)
[2022-09-08] MEDS: Gabapentin 300 MG CAP PO SCH ×2 (09:28→21:15)
[2022-09-08] MEDS: Heparin 5,000 UNITS/ML VIAL SC SCH ×3 (09:28→21:15)
[2022-09-08] MEDS: Insulin Glargine 30 UNITS/0.3 ML VIAL SC SCH (09:29)
[2022-09-08] MEDS: Polyethylene Glycol 3350 17 GM Packet PO SCH (09:29)
[2022-09-08] MEDS: Fluticasone Propionate Nasal Spray 16 gm Bottle NASAL SCH (09:48)
[2022-09-08] MEDS: LIDOCAINE PATCH TOP SCH ×2 (09:50→23:57)
[2022-09-08] MEDS ORDERED: Lactated Ringer's 1,000 ML IV SCH (10:30)
[2022-09-08] MEDS: HumaLOG 300 UNITS/3 ML VIAL SC PRN ×2 (11:20→21:15)
[2022-09-08 16:07] LABS: Anion Gap 14 mmol/L (10-20); BUN (Urea Nitrogen) 36 mg/dL (9.8-20.1); Calc. Creatinine Clearance 21 mL/min (70-130); Calcium 9.1 mg/dL (7.8-10.44); Carbon Dioxide 20 mmol/L (23-31); Chloride 102 mmol/L (98-107); Estimated GFR 22; Glucose 140 mg/dL (80-115); Potassium 5.3 mmol/L (3.5-5.1); Sodium 131 mmol/L (136-145)
[2022-09-08] MEDS ORDERED: LOKELMA 5 GM PACKET PO SCH (16:30)
[2022-09-08] MEDS: traMADol HCl 50 MG TAB PO PRN (21:16)
[2022-09-09 05:18] LABS: ALT (SGPT) 39 U/L (8-55); AST (SGOT) 61 U/L (5-34); Albumin 3.2 g/dL (3.4-4.8); Alkaline Phosphatase 199 U/L (40-110); Anion Gap 11 mmol/L (10-20); BUN (Urea Nitrogen) 36 mg/dL (9.8-20.1); Bilirubin, Total 0.2 mg/dL (0.2-1.2); Calc. Creatinine Clearance 23 mL/min (70-130); Calcium 9.3 mg/dL (7.8-10.44); Carbon Dioxide 28 mmol/L (23-31); Chloride 103 mmol/L (98-107); Estimated GFR 25; Globulin 4.6 g/dL (2.4-3.5); Glucose 138 mg/dL (80-115); Potassium 5.2 mmol/L (3.5-5.1); Protein, Total 7.8 g/dL (5.8-8.1); Sodium 137 mmol/L (136-145)
[2022-09-09] MEDS: Clindamycin 150 MG CAP PO SCH ×3 (05:49→22:34)
[2022-09-09] MEDS: Acetaminophen 500 MG TAB PO SCH ×4 (05:50→23:04)
[2022-09-09] MEDS: NIFEdipine XL 60 MG TAB PO SCH (09:27)
[2022-09-09] MEDS: Insulin Glargine 30 UNITS/0.3 ML VIAL SC SCH (09:28)
[2022-09-09] MEDS: Heparin 5,000 UNITS/ML VIAL SC SCH ×3 (09:28→22:35)
[2022-09-09] MEDS: Gabapentin 300 MG CAP PO SCH ×2 (09:28→22:34)
[2022-09-09] MEDS: Fluticasone Propionate Nasal Spray 16 gm Bottle NASAL SCH (09:29)
[2022-09-09] MEDS: Polyethylene Glycol 3350 17 GM Packet PO SCH (09:29)
[2022-09-09] MEDS: LIDOCAINE PATCH TOP SCH ×2 (09:30→22:36)
[2022-09-09] MEDS ORDERED: Lactated Ringer's 1,000 ML IV SCH (09:45)
[2022-09-09] MEDS ORDERED: hydrALAZINE 20 MG/ML VIAL SLOW IVP PRN ×2 (10:09→10:11)
[2022-09-09] MEDS: HumaLOG 300 UNITS/3 ML VIAL SC PRN ×2 (12:41→17:15)
[2022-09-09] MEDS: traMADol HCl 50 MG TAB PO PRN (12:47)
[2022-09-09 19:53] LABS: Anion Gap 14 mmol/L (10-20); BUN (Urea Nitrogen) 36 mg/dL (9.8-20.1); Calc. Creatinine Clearance 23 mL/min (70-130); Carbon Dioxide 23 mmol/L (23-31); Chloride 101 mmol/L (98-107); Estimated GFR 24; Glucose 178 mg/dL (80-115); Sodium 133 mmol/L (136-145)
[2022-09-09 23:55] VITALS: TEMP 97.8
[2022-09-10] MEDS: traMADol HCl 50 MG TAB PO PRN (01:19)
[2022-09-10 04:33] LABS: ALT (SGPT) 33 U/L (8-55); AST (SGOT) 41 U/L (5-34); Alkaline Phosphatase 175 U/L (40-110); Anion Gap 13 mmol/L (10-20); BUN (Urea Nitrogen) 35 mg/dL (9.8-20.1); Bilirubin, Total 0.2 mg/dL (0.2-1.2); Calc. Creatinine Clearance 23 mL/min (70-130); Calcium 9.1 mg/dL (7.8-10.44); Carbon Dioxide 25 mmol/L (23-31); Chloride 102 mmol/L (98-107); Estimated GFR 24; Globulin 4.4 g/dL (2.4-3.5); Glucose 179 mg/dL (80-115); Potassium 4.9 mmol/L (3.5-5.1); Protein, Total 7.4 g/dL (5.8-8.1); Sodium 135 mmol/L (136-145)
[2022-09-10] MEDS: Clindamycin 150 MG CAP PO SCH ×2 (05:54→14:08)
[2022-09-10] MEDS: Gabapentin 300 MG CAP PO SCH (12:00)
[2022-09-10] MEDS: Acetaminophen 500 MG TAB PO SCH ×2 (12:11→14:08)
[2022-09-10] MEDS: Fluticasone Propionate Nasal Spray 16 gm Bottle NASAL SCH (12:13)
[2022-09-10] MEDS: Insulin Glargine 30 UNITS/0.3 ML VIAL SC SCH (12:14)
[2022-09-10] MEDS: Polyethylene Glycol 3350 17 GM Packet PO SCH (12:15)
[2022-09-10] MEDS: NIFEdipine XL 60 MG TAB PO SCH (12:15)
[2022-09-10] MEDS: Heparin 5,000 UNITS/ML VIAL SC SCH ×2 (12:37→18:27)
[2022-09-10] MEDS: Lidocaine 4% Patch TD PRN (12:38)
[2022-09-10] MEDS: LIDOCAINE PATCH TOP SCH (12:40)
[2022-09-10] MEDS: HumaLOG 300 UNITS/3 ML VIAL SC PRN ×2 (12:47→14:09)
[2022-09-10 15:41] VITALS: BP 160/75
[2022-09-11] MEDS ORDERED: LIDOCAINE PATCH TOP SCH (01:00)
== END 2022-09-10 18:32 | DRG 638 ==
LOC: ERS 15:02 → 2NO 20:15 → OBSVTOIN 09-05 09:38
PROVIDERS: ADMIT Family Medicine; ATTEND Family Medicine
DX: E11.649 Type 2 diabetes mellitus with hypoglycemia without coma (principal); E87.20 Acidosis, unspecified; L97.819 Non-pressure chronic ulcer of other part of right lower leg with unspecified severity; Z66 Do not resuscitate; I48.0 Paroxysmal atrial fibrillation; E78.5 Hyperlipidemia, unspecified; F41.9 Anxiety disorder, unspecified; J45.909 Unspecified asthma, uncomplicated; F32.A Depression, unspecified; N18.30 Chronic kidney disease, stage 3 unspecified; K59.00 Constipation, unspecified; E86.0 Dehydration; E11.22 Type 2 diabetes mellitus with diabetic chronic kidney disease; I12.9 Hypertensive chronic kidney disease with stage 1 through stage 4 chronic kidney disease, or unspecified chronic kidney disease; N17.9 Acute kidney failure, unspecified; E87.5 Hyperkalemia; G89.29 Other chronic pain; M54.50 Low back pain, unspecified; B18.2 Chronic viral hepatitis C; Z98.890 Other specified postprocedural states; Z90.89 Acquired absence of other organs; Z88.8 Allergy status to other drugs, medicaments and biological substances; Z88.0 Allergy status to penicillin; Z79.899 Other long term (current) drug therapy; Z79.4 Long term (current) use of insulin; Z79.84 Long term (current) use of oral hypoglycemic drugs; Z90.710 Acquired absence of both cervix and uterus; Z83.3 Family history of diabetes mellitus; Z82.49 Family history of ischemic heart disease and other diseases of the circulatory system; Z87.891 Personal history of nicotine dependence; Z96.643 Presence of artificial hip joint, bilateral; Z98.51 Tubal ligation status
CPT/HCPCS: 36415; 36416; 51701; 70450; 71045; 80048; 80053; 81003; 81015; 82805; 83605; 83690; 84484; 85025; 87040; 93005; 96372; 96374; 96375; 97139; G0378; J0696; J1611; J1644; J1815; J2270; J2272; J7120; J7999

== ENCOUNTER 2022-09-17 09:42 | Inpatient (IN) | payer MEDICARE ==
[2022-09-17 10:43] LABS: Bilirubin Negative (Negative); Blood, Urine 1+ (Negative); Clarity Clear (Clear); Glucose, Urine (Dipstick) Greater than 1000 mg/dL (Negative); Ketone, Urine Negative (Negative); Leukocyte 25 Leu/uL (Negative); Nitrite Negative (Negative); Protein, Urine (Dipstick) 10 mg/dL (Neg-Trace); RBC/HPF 0-3 HPF (0-3); Specific Gravity, Urine 1.019 (1.002-1.036); Squamous Epithelial None Seen HPF (0-3); Urobilinogen Normal mg/dL (Less than 2); WBC/HPF 21-50 HPF (0-3)
[2022-09-17 10:44] LABS: Bacteria/HPF Rare-Few HPF (None Seen)
[2022-09-17 10:51] LABS: #Basophils 0.1 thou/uL (0.0-0.2); #Eosinphils 0.1 thou/uL (0.0-0.7); #Lymphocytes 1.4 thou/uL (1.20-3.40); #Monocytes 0.4 thou/uL (0.11-0.59); #Neutrophils 5.7 thou/uL (1.40-6.50); %Basophils 0.7 % (0.0-1.0); %Eosinophils 1.8 % (0.0-10.0); %Lymphocytes 18.6 % (21.0-51.0); %Monocytes 5.2 % (0.0-10.0); %Neutrophils 73.8 % (42.0-75.0); Hemoglobin 11.1 g/dL (12.0-16.0); Mean Corpuscular HGB CONC 33.6 g/dL (32.0-36.0); Mean Corpuscular Hemoglobin 28.5 pg (27.0-31.0); Mean Platelet Volume 8.7 fL (7.4-10.4); Platelet Count 457 10x3/uL (130-400); RBC Distribution Width 17.2 % (11.5-14.5); Red Blood Cell (RBC) Count 3.88 mill/uL (4.20-5.40); White Blood Cell (WBC) Count 7.7 10x3/uL (4.8-10.8)
[2022-09-17 12:36] LABS: ALT (SGPT) 37 U/L (8-55); AST (SGOT) 39 U/L (5-34); Albumin 4.2 g/dL (3.4-4.8); Alkaline Phosphatase 210 U/L (40-110); Anion Gap 24 mmol/L (10-20); BUN (Urea Nitrogen) 49 mg/dL (9.8-20.1); Bilirubin, Total 0.4 mg/dL (0.2-1.2); CK (CPK) 346 U/L (29-168); Calc. Creatinine Clearance 0 mL/min (70-130); Calcium 9.8 mg/dL (7.8-10.44); Carbon Dioxide 16 mmol/L (23-31); Chloride 91 mmol/L (98-107); Estimated GFR 16; Globulin 5.3 g/dL (2.4-3.5); Lipase 29 U/L (8-78); Magnesium 1.9 mg/dL (1.6-2.6); Phosphorus 5.2 mg/dL (2.3-4.7); Potassium 5.3 mmol/L (3.5-5.1); Protein, Total 9.5 g/dL (5.8-8.1); Sodium 126 mmol/L (136-145)
[2022-09-17] MEDS ORDERED: INSULIN REGULAR IN 0.9 % NACL 100 UNITS/100 ML BAG ONE (12:57)
[2022-09-17 12:58] LABS: Glucose 892 mg/dL (80-115)
[2022-09-17 13:17] LABS: Actual Bicarbonate (HCO3v) 22 mEq/L (22-28); Analyzer IN Cardio ER; Base Excess -3.6 mEq/L (-2.0 to +3.0); Calcium, Ionized (venous) 1.14 mmol/L (1.16-1.32); Chloride (VBG) 94 mmol/L (98-106); Hemoglobin (Hb) 10.3 g/dL (11.7-16.1); Potassium (VBG) 5.46 mmol/L (3.70-5.30); Sodium 128.6 mmol/L (133-146); pH (venous) 7.32 (7.32-7.43)
[2022-09-17] MEDS ORDERED: Morphine 4 MG/ML VIAL ONE (13:33)
[2022-09-17] MEDS ORDERED: cefTRIAXone (ROCEPHIN) 1 GM VIAL ONE (13:34)
[2022-09-17 14:07] LABS: Lactic Acid 1.5 mmol/L (0.5-2.2)
[2022-09-17] MEDS ORDERED: Sodium Chloride 0.9% 1,000 ML IV PRN ×4 (14:35)
[2022-09-17] MEDS ORDERED: Dextrose 5% in Water 1,000 ML IV PRN (14:35)
[2022-09-17] MEDS ORDERED: Dextrose 50% Abboject 50 ML SYRINGE SLOW IVP PRN ×2 (14:35)
[2022-09-17] MEDS ORDERED: Electrolyte Replacement Protocol 1 EACH IVPB ONE (14:35)
[2022-09-17] MEDS ORDERED: Dextrose 5 %-0.45 % NaCl 1,000 ML IV PRN (14:35)
[2022-09-17] MEDS ORDERED: NS 0.9% w/ 20 MEQ KCL 1,000 ML IV PRN ×2 (14:35)
[2022-09-17] MEDS ORDERED: Ondansetron ODT 4 MG TAB PO PRN (14:38)
[2022-09-17] MEDS ORDERED: Ondansetron PF 4 MG/2 ML Vial IVP PRN (14:38)
[2022-09-17] MEDS ORDERED: Acetaminophen 325 MG TAB PO PRN (14:38)
[2022-09-17] MEDS ORDERED: HUMULIN R 100 UNITS in Sodium Chloride 0.9% 100 ML IVPB SCH (14:45)
[2022-09-17] MEDS ORDERED: Docusate 100 MG CAP PO PRN (16:41)
[2022-09-17] MEDS ORDERED: hydrALAZINE 20 MG/ML VIAL SLOW IVP PRN (16:44)
[2022-09-17] MEDS ORDERED: Promethazine 25 MG TAB PO PRN (16:45)
[2022-09-17] MEDS ORDERED: Transdermal Patch Removal TOP PRN (16:47)
[2022-09-17 16:49] LABS: ALT (SGPT) 35 U/L (8-55); AST (SGOT) 33 U/L (5-34); Albumin 4.1 g/dL (3.4-4.8); Alkaline Phosphatase 199 U/L (40-110); BUN (Urea Nitrogen) 43 mg/dL (9.8-20.1); Bilirubin, Total 0.3 mg/dL (0.2-1.2); Calc. Creatinine Clearance 20 mL/min (70-130); Calcium 9.7 mg/dL (7.8-10.44); Carbon Dioxide 19 mmol/L (23-31); Chloride 102 mmol/L (98-107); Estimated GFR 21; Globulin 5.2 g/dL (2.4-3.5); Glucose 537 mg/dL (80-115); Phosphorus 3.8 mg/dL (2.3-4.7); Potassium 4.4 mmol/L (3.5-5.1); Protein, Total 9.3 g/dL (5.8-8.1); Sodium 137 mmol/L (136-145)
[2022-09-17 17:13] LABS: Magnesium 1.8 mg/dL (1.6-2.6)
[2022-09-17] MEDS ORDERED: NIFEdipine XL 60 MG TAB PO SCH (18:30)
[2022-09-17] MEDS: D5 1/2 NS w/20 mEq KCL 1,000 ML IV PRN ×2 (18:44→22:40)
[2022-09-17] MEDS: Gabapentin 300 MG CAP PO SCH (20:18)
[2022-09-17] MEDS: Acetaminophen 325 MG TAB PO PRN (20:20)
[2022-09-17] MEDS: traMADol HCl 50 MG TAB PO PRN (20:21)
[2022-09-17 21:23] LABS: Anion Gap 18 mmol/L (10-20); BUN (Urea Nitrogen) 35 mg/dL (9.8-20.1); Calc. Creatinine Clearance 25 mL/min (70-130); Calcium 9.5 mg/dL (7.8-10.44); Carbon Dioxide 19 mmol/L (23-31); Chloride 109 mmol/L (98-107); Estimated GFR 28; Glucose 113 mg/dL (80-115); Potassium 3.8 mmol/L (3.5-5.1); Sodium 142 mmol/L (136-145)
[2022-09-17 23:49] LABS: Anion Gap 15 mmol/L (10-20); BUN (Urea Nitrogen) 30 mg/dL (9.8-20.1); Calc. Creatinine Clearance 28 mL/min (70-130); Carbon Dioxide 19 mmol/L (23-31); Chloride 110 mmol/L (98-107); Estimated GFR 32; Glucose 76 mg/dL (80-115); Potassium 4.1 mmol/L (3.5-5.1); Sodium 140 mmol/L (136-145)
[2022-09-18] MEDS: D5 1/2 NS w/20 mEq KCL 1,000 ML IV PRN ×2 (03:06→06:40)
[2022-09-18 04:07] LABS: #Basophils 0.1 thou/uL (0.0-0.2); #Eosinphils 0.4 thou/uL (0.0-0.7); #Lymphocytes 2.8 thou/uL (1.20-3.40); #Monocytes 0.7 thou/uL (0.11-0.59); #Neutrophils 4.4 thou/uL (1.40-6.50); %Basophils 0.8 % (0.0-1.0); %Eosinophils 4.4 % (0.0-10.0); %Lymphocytes 33.6 % (21.0-51.0); %Monocytes 8.5 % (0.0-10.0); %Neutrophils 52.8 % (42.0-75.0); Hemoglobin 9.5 g/dL (12.0-16.0); Mean Corpuscular HGB CONC 33.5 g/dL (32.0-36.0); Mean Corpuscular Hemoglobin 29.1 pg (27.0-31.0); Mean Corpuscular Volume 86.7 fl (78.0-98.0); Platelet Count 344 10x3/uL (130-400); Red Blood Cell (RBC) Count 3.27 mill/uL (4.20-5.40); White Blood Cell (WBC) Count 8.3 10x3/uL (4.8-10.8)
[2022-09-18 04:27] LABS: ALT (SGPT) 25 U/L (8-55); AST (SGOT) 31 U/L (5-34); Albumin 3.2 g/dL (3.4-4.8); Alkaline Phosphatase 139 U/L (40-110); Anion Gap 12 mmol/L (10-20); BUN (Urea Nitrogen) 26 mg/dL (9.8-20.1); Bilirubin, Total 0.2 mg/dL (0.2-1.2); Calc. Creatinine Clearance 30 mL/min (70-130); Calcium 8.6 mg/dL (7.8-10.44); Carbon Dioxide 19 mmol/L (23-31); Chloride 108 mmol/L (98-107); Estimated GFR 34; Glucose 239 mg/dL (80-115); Potassium 4.2 mmol/L (3.5-5.1); Protein, Total 7.2 g/dL (5.8-8.1); Sodium 135 mmol/L (136-145)
[2022-09-18] MEDS ORDERED: Insulin Glargine 30 UNITS/0.3 ML VIAL SC SCH (07:45)
[2022-09-18] MEDS: Gabapentin 300 MG CAP PO SCH ×2 (08:35→21:26)
[2022-09-18] MEDS: NIFEdipine XL 60 MG TAB PO SCH (08:35)
[2022-09-18] MEDS: Fluticasone Propionate Nasal Spray 16 gm Bottle NASAL SCH (09:21)
[2022-09-18] MEDS: Polyethylene Glycol 3350 17 GM Packet PO SCH (09:21)
[2022-09-18] MEDS: HumaLOG 300 UNITS/3 ML VIAL SC SCH ×3 (13:16→17:44)
[2022-09-18] MEDS ORDERED: cefTRIAXone\\ROCEPHIN 1 GM in Sodium Chloride 0.9% 100 ML IVPB SCH (14:00)
[2022-09-18] MEDS: traMADol HCl 50 MG TAB PO PRN ×2 (14:32→21:28)
[2022-09-18] MEDS: Acetaminophen 325 MG TAB PO PRN (18:35)
[2022-09-19 04:44] LABS: #Basophils 0.1 thou/uL (0.0-0.2); #Eosinphils 0.2 thou/uL (0.0-0.7); #Lymphocytes 2.9 thou/uL (1.20-3.40); #Monocytes 0.6 thou/uL (0.11-0.59); #Neutrophils 4.5 thou/uL (1.40-6.50); %Basophils 0.9 % (0.0-1.0); %Eosinophils 2.8 % (0.0-10.0); %Lymphocytes 34.8 % (21.0-51.0); %Monocytes 6.6 % (0.0-10.0); %Neutrophils 54.8 % (42.0-75.0); Mean Corpuscular HGB CONC 32.7 g/dL (32.0-36.0); Mean Corpuscular Hemoglobin 28.2 pg (27.0-31.0); Mean Corpuscular Volume 86.3 fl (78.0-98.0); Mean Platelet Volume 8.5 fL (7.4-10.4); Platelet Count 302 10x3/uL (130-400); RBC Distribution Width 17.3 % (11.5-14.5); Red Blood Cell (RBC) Count 3.19 mill/uL (4.20-5.40); White Blood Cell (WBC) Count 8.2 10x3/uL (4.8-10.8)
[2022-09-19 05:10] LABS: ALT (SGPT) 40 U/L (8-55); AST (SGOT) 68 U/L (5-34); Albumin 3.1 g/dL (3.4-4.8); Alkaline Phosphatase 154 U/L (40-110); Anion Gap 13 mmol/L (10-20); BUN (Urea Nitrogen) 24 mg/dL (9.8-20.1); Bilirubin, Total Less than 0.2 mg/dL (0.2-1.2); Calc. Creatinine Clearance 23 mL/min (70-130); Calcium 8.6 mg/dL (7.8-10.44); Carbon Dioxide 18 mmol/L (23-31); Chloride 106 mmol/L (98-107); Estimated GFR 26; Glucose 359 mg/dL (80-115); Potassium 5.6 mmol/L (3.5-5.1); Protein, Total 7.1 g/dL (5.8-8.1); Sodium 131 mmol/L (136-145)
[2022-09-19] MEDS: HumaLOG 300 UNITS/3 ML VIAL SC SCH ×3 (06:56→21:44)
[2022-09-19] MEDS ORDERED: Lactated Ringer's 500 ML IV SCH ×2 (08:00→17:15)
[2022-09-19] MEDS ORDERED: Senokot 8.6 MG TAB PO PRN (08:03)
[2022-09-19] MEDS: NIFEdipine XL 60 MG TAB PO SCH (08:08)
[2022-09-19] MEDS: Gabapentin 300 MG CAP PO SCH ×2 (08:08→19:29)
[2022-09-19] MEDS: Insulin Glargine 30 UNITS/0.3 ML VIAL SC SCH (08:09)
[2022-09-19] MEDS: Polyethylene Glycol 3350 17 GM Packet PO SCH (08:12)
[2022-09-19] MEDS: Fluticasone Propionate Nasal Spray 16 gm Bottle NASAL SCH (09:56)
[2022-09-19 12:19] LABS: Anion Gap 17 mmol/L (10-20); BUN (Urea Nitrogen) 23 mg/dL (9.8-20.1); Calc. Creatinine Clearance 24 mL/min (70-130); Calcium 9.1 mg/dL (7.8-10.44); Carbon Dioxide 17 mmol/L (23-31); Chloride 103 mmol/L (98-107); Estimated GFR 28; Glucose 235 mg/dL (80-115); Potassium 5.6 mmol/L (3.5-5.1); Sodium 131 mmol/L (136-145)
[2022-09-19] MEDS: Lidocaine 4% Patch TD PRN (14:17)
[2022-09-19] MEDS: traMADol HCl 50 MG TAB PO PRN (19:30)
[2022-09-20] MEDS: traMADol HCl 50 MG TAB PO PRN ×3 (03:00→17:19)
[2022-09-20] MEDS: HumaLOG 300 UNITS/3 ML VIAL SC SCH ×2 (06:29→17:12)
[2022-09-20 08:21] LABS: #Basophils 0.1 thou/uL (0.0-0.2); #Eosinphils 0.3 thou/uL (0.0-0.7); #Lymphocytes 3.2 thou/uL (1.20-3.40); #Monocytes 0.5 thou/uL (0.11-0.59); #Neutrophils 2.5 thou/uL (1.40-6.50); %Basophils 1.4 % (0.0-1.0); %Eosinophils 3.9 % (0.0-10.0); %Lymphocytes 48.4 % (21.0-51.0); %Monocytes 7.9 % (0.0-10.0); %Neutrophils 38.5 % (42.0-75.0); Hemoglobin 9.5 g/dL (12.0-16.0); Mean Corpuscular HGB CONC 33.9 g/dL (32.0-36.0); Mean Corpuscular Hemoglobin 29.3 pg (27.0-31.0); Mean Corpuscular Volume 86.7 fl (78.0-98.0); Mean Platelet Volume 8.5 fL (7.4-10.4); Platelet Count 296 10x3/uL (130-400); RBC Distribution Width 17.2 % (11.5-14.5); Red Blood Cell (RBC) Count 3.25 mill/uL (4.20-5.40); White Blood Cell (WBC) Count 6.6 10x3/uL (4.8-10.8)
[2022-09-20] MEDS: Polyethylene Glycol 3350 17 GM Packet PO SCH (08:54)
[2022-09-20] MEDS: Gabapentin 300 MG CAP PO SCH ×2 (08:55→20:18)
[2022-09-20] MEDS: NIFEdipine XL 60 MG TAB PO SCH (08:56)
[2022-09-20] MEDS: Insulin Glargine 30 UNITS/0.3 ML VIAL SC SCH (09:14)
[2022-09-20] MEDS: Fluticasone Propionate Nasal Spray 16 gm Bottle NASAL SCH (09:29)
[2022-09-20] MEDS: Acetaminophen 325 MG TAB PO PRN ×2 (10:23→17:18)
[2022-09-20 10:31] LABS: ALT (SGPT) 64 U/L (8-55); AST (SGOT) 110 U/L (5-34); Albumin 3.4 g/dL (3.4-4.8); Alkaline Phosphatase 184 U/L (40-110); Anion Gap 14 mmol/L (10-20); BUN (Urea Nitrogen) 24 mg/dL (9.8-20.1); Bilirubin, Total 0.3 mg/dL (0.2-1.2); Calc. Creatinine Clearance 24 mL/min (70-130); Calcium 9.3 mg/dL (7.8-10.44); Carbon Dioxide 20 mmol/L (23-31); Chloride 104 mmol/L (98-107); Estimated GFR 26; Globulin 4.4 g/dL (2.4-3.5); Glucose 155 mg/dL (80-115); Potassium 5.1 mmol/L (3.5-5.1); Protein, Total 7.8 g/dL (5.8-8.1); Sodium 133 mmol/L (136-145)
[2022-09-20] MEDS: Lidocaine 4% Patch TD PRN (17:24)
[2022-09-21] MEDS: HumaLOG 300 UNITS/3 ML VIAL SC SCH ×4 (04:43→18:19)
[2022-09-21 07:21] LABS: Anion Gap 16 mmol/L (10-20); BUN (Urea Nitrogen) 33 mg/dL (9.8-20.1); Calc. Creatinine Clearance 21 mL/min (70-130); Calcium 9.6 mg/dL (7.8-10.44); Carbon Dioxide 20 mmol/L (23-31); Chloride 102 mmol/L (98-107); Estimated GFR 22; Glucose 189 mg/dL (80-115); Sodium 133 mmol/L (136-145)
[2022-09-21 07:43] LABS: #Eosinphils 0.3 thou/uL (0.0-0.7); #Lymphocytes 3.6 thou/uL (1.20-3.40); #Monocytes 0.6 thou/uL (0.11-0.59); #Neutrophils 3.6 thou/uL (1.40-6.50); %Basophils 0.5 % (0.0-1.0); %Eosinophils 3.7 % (0.0-10.0); %Lymphocytes 44.6 % (21.0-51.0); %Monocytes 6.9 % (0.0-10.0); %Neutrophils 44.4 % (42.0-75.0); Hemoglobin 10.5 g/dL (12.0-16.0); Mean Corpuscular HGB CONC 33.4 g/dL (32.0-36.0); Mean Corpuscular Hemoglobin 29.1 pg (27.0-31.0); Mean Corpuscular Volume 87.1 fl (78.0-98.0); Mean Platelet Volume 9.4 fL (7.4-10.4); Platelet Count 304 10x3/uL (130-400); RBC Distribution Width 17.3 % (11.5-14.5); White Blood Cell (WBC) Count 8.1 10x3/uL (4.8-10.8)
[2022-09-21] MEDS: Fluticasone Propionate Nasal Spray 16 gm Bottle NASAL SCH (08:02)
[2022-09-21] MEDS: NIFEdipine XL 60 MG TAB PO SCH (08:23)
[2022-09-21] MEDS: traMADol HCl 50 MG TAB PO PRN ×2 (08:24→20:49)
[2022-09-21] MEDS: Gabapentin 300 MG CAP PO SCH ×2 (08:25→20:49)
[2022-09-21] MEDS: Acetaminophen 325 MG TAB PO PRN (08:25)
[2022-09-21] MEDS: Polyethylene Glycol 3350 17 GM Packet PO SCH (08:26)
[2022-09-21] MEDS: Insulin Glargine 30 UNITS/0.3 ML VIAL SC SCH (09:18)
[2022-09-22 07:09] LABS: Anion Gap 15 mmol/L (10-20); BUN (Urea Nitrogen) 35 mg/dL (9.8-20.1); Calc. Creatinine Clearance 21 mL/min (70-130); Calcium 9.5 mg/dL (7.8-10.44); Carbon Dioxide 22 mmol/L (23-31); Chloride 104 mmol/L (98-107); Estimated GFR 23; Glucose 119 mg/dL (80-115); Potassium 5.2 mmol/L (3.5-5.1); Sodium 136 mmol/L (136-145)
[2022-09-22] MEDS: Insulin Glargine 30 UNITS/0.3 ML VIAL SC SCH (08:09)
[2022-09-22] MEDS: Gabapentin 300 MG CAP PO SCH ×2 (08:09→21:15)
[2022-09-22] MEDS: NIFEdipine XL 60 MG TAB PO SCH (08:09)
[2022-09-22] MEDS: Polyethylene Glycol 3350 17 GM Packet PO SCH (08:10)
[2022-09-22] MEDS: Fluticasone Propionate Nasal Spray 16 gm Bottle NASAL SCH (08:10)
[2022-09-22] MEDS: traMADol HCl 50 MG TAB PO PRN (14:46)
[2022-09-22] MEDS: Lidocaine 4% Patch TD PRN (21:15)
[2022-09-22] MEDS ORDERED: traMADol HCl 50 MG TAB PO SCH (21:30)
[2022-09-23] MEDS: HumaLOG 300 UNITS/3 ML VIAL SC SCH ×3 (00:27→17:49)
[2022-09-23] MEDS: NIFEdipine XL 60 MG TAB PO SCH (08:11)
[2022-09-23] MEDS: Gabapentin 300 MG CAP PO SCH ×2 (08:12→20:26)
[2022-09-23] MEDS: Polyethylene Glycol 3350 17 GM Packet PO SCH (08:14)
[2022-09-23] MEDS: Fluticasone Propionate Nasal Spray 16 gm Bottle NASAL SCH (08:15)
[2022-09-23] MEDS: Insulin Glargine 30 UNITS/0.3 ML VIAL SC SCH (10:42)
[2022-09-23] MEDS: traMADol HCl 50 MG TAB PO PRN (14:49)
[2022-09-23] MEDS ORDERED: traMADol HCl 50 MG TAB PO SCH (21:00)
[2022-09-24] MEDS: NIFEdipine XL 60 MG TAB PO SCH (08:17)
[2022-09-24] MEDS: Gabapentin 300 MG CAP PO SCH ×2 (08:18→20:20)
[2022-09-24] MEDS: Lidocaine 4% Patch TD PRN (08:20)
[2022-09-24] MEDS: Insulin Glargine 30 UNITS/0.3 ML VIAL SC SCH (08:20)
[2022-09-24] MEDS: Polyethylene Glycol 3350 17 GM Packet PO SCH (08:20)
[2022-09-24] MEDS: Fluticasone Propionate Nasal Spray 16 gm Bottle NASAL SCH (08:21)
[2022-09-24] MEDS: traMADol HCl 50 MG TAB PO PRN ×2 (11:18→23:46)
[2022-09-24] MEDS: HumaLOG 300 UNITS/3 ML VIAL SC SCH ×2 (12:21→21:09)
[2022-09-24] MEDS: Acetaminophen 325 MG TAB PO PRN ×2 (16:45→20:21)
[2022-09-25] MEDS: traMADol HCl 50 MG TAB PO PRN ×3 (00:55→23:30)
[2022-09-25] MEDS: HumaLOG 300 UNITS/3 ML VIAL SC SCH ×4 (01:00→21:08)
[2022-09-25] MEDS: Gabapentin 300 MG CAP PO SCH ×2 (08:43→21:03)
[2022-09-25] MEDS: Lidocaine 4% Patch TD PRN (08:43)
[2022-09-25] MEDS: NIFEdipine XL 60 MG TAB PO SCH (08:43)
[2022-09-25] MEDS: Insulin Glargine 30 UNITS/0.3 ML VIAL SC SCH (08:43)
[2022-09-25] MEDS: Polyethylene Glycol 3350 17 GM Packet PO SCH (08:45)
[2022-09-25] MEDS: Fluticasone Propionate Nasal Spray 16 gm Bottle NASAL SCH (08:46)
[2022-09-25] MEDS ORDERED: HumaLOG 300 UNITS/3 ML VIAL SC SCH (11:15)
[2022-09-25] MEDS: Acetaminophen 325 MG TAB PO PRN (21:04)
[2022-09-26] MEDS: HumaLOG 300 UNITS/3 ML VIAL SC SCH ×2 (05:39→08:43)
[2022-09-26] MEDS: Insulin Glargine 30 UNITS/0.3 ML VIAL SC SCH (08:42)
[2022-09-26] MEDS: NIFEdipine XL 60 MG TAB PO SCH (08:43)
[2022-09-26] MEDS: Gabapentin 300 MG CAP PO SCH ×2 (08:44→21:07)
[2022-09-26] MEDS: Fluticasone Propionate Nasal Spray 16 gm Bottle NASAL SCH (08:46)
[2022-09-26] MEDS: Polyethylene Glycol 3350 17 GM Packet PO SCH (08:46)
[2022-09-26] MEDS: Acetaminophen 325 MG TAB PO PRN ×2 (10:34→21:08)
[2022-09-26] MEDS: traMADol HCl 50 MG TAB PO PRN ×2 (10:34→22:04)
[2022-09-27] MEDS: HumaLOG 300 UNITS/3 ML VIAL SC SCH ×4 (01:04→18:07)
[2022-09-27] MEDS: Polyethylene Glycol 3350 17 GM Packet PO SCH (08:08)
[2022-09-27] MEDS: Fluticasone Propionate Nasal Spray 16 gm Bottle NASAL SCH (08:08)
[2022-09-27] MEDS: Insulin Glargine 30 UNITS/0.3 ML VIAL SC SCH (08:10)
[2022-09-27] MEDS: NIFEdipine XL 60 MG TAB PO SCH (08:10)
[2022-09-27] MEDS: Gabapentin 300 MG CAP PO SCH ×2 (08:11→20:27)
[2022-09-27] MEDS: Acetaminophen 325 MG TAB PO PRN ×2 (08:11→14:55)
[2022-09-27] MEDS: traMADol HCl 50 MG TAB PO PRN (09:30)
[2022-09-28] MEDS: Gabapentin 300 MG CAP PO SCH ×2 (09:13→20:24)
[2022-09-28] MEDS: Polyethylene Glycol 3350 17 GM Packet PO SCH (09:13)
[2022-09-28] MEDS: Fluticasone Propionate Nasal Spray 16 gm Bottle NASAL SCH (09:14)
[2022-09-28] MEDS: NIFEdipine XL 60 MG TAB PO SCH (09:14)
[2022-09-28] MEDS: Insulin Glargine 30 UNITS/0.3 ML VIAL SC SCH (09:14)
[2022-09-28] MEDS: traMADol HCl 50 MG TAB PO PRN ×2 (09:42→20:42)
[2022-09-28] MEDS: HumaLOG 300 UNITS/3 ML VIAL SC SCH ×3 (13:13→20:23)
[2022-09-28] MEDS: Acetaminophen 325 MG TAB PO PRN (13:13)
[2022-09-29] MEDS: Gabapentin 300 MG CAP PO SCH ×2 (09:21→20:10)
[2022-09-29] MEDS: NIFEdipine XL 60 MG TAB PO SCH (09:21)
[2022-09-29] MEDS: Polyethylene Glycol 3350 17 GM Packet PO SCH (09:21)
[2022-09-29] MEDS: traMADol HCl 50 MG TAB PO PRN ×2 (09:21→20:38)
[2022-09-29] MEDS: Insulin Glargine 30 UNITS/0.3 ML VIAL SC SCH (09:22)
[2022-09-29] MEDS: Fluticasone Propionate Nasal Spray 16 gm Bottle NASAL SCH (09:23)
[2022-09-29 11:49] LABS: #Basophils 0.1 thou/uL (0.0-0.2); #Eosinphils 0.2 thou/uL (0.0-0.7); #Lymphocytes 2.5 thou/uL (1.20-3.40); #Monocytes 0.5 thou/uL (0.11-0.59); #Neutrophils 3.8 thou/uL (1.40-6.50); %Basophils 1.1 % (0.0-1.0); %Eosinophils 3.4 % (0.0-10.0); %Lymphocytes 34.9 % (21.0-51.0); %Monocytes 6.7 % (0.0-10.0); %Neutrophils 53.9 % (42.0-75.0); Hemoglobin 10.3 g/dL (12.0-16.0); Mean Corpuscular HGB CONC 32.9 g/dL (32.0-36.0); Mean Corpuscular Hemoglobin 28.6 pg (27.0-31.0); Mean Corpuscular Volume 87.1 fl (78.0-98.0); Platelet Count 297 10x3/uL (130-400); RBC Distribution Width 16.7 % (11.5-14.5); Red Blood Cell (RBC) Count 3.58 mill/uL (4.20-5.40); White Blood Cell (WBC) Count 7.1 10x3/uL (4.8-10.8)
[2022-09-29 12:06] LABS: Anion Gap 17 mmol/L (10-20); BUN (Urea Nitrogen) 38 mg/dL (9.8-20.1); Calc. Creatinine Clearance 21 mL/min (70-130); Calcium 9.4 mg/dL (7.8-10.44); Carbon Dioxide 20 mmol/L (23-31); Chloride 101 mmol/L (98-107); Estimated GFR 21; Sodium 132 mmol/L (136-145)
[2022-09-29 12:13] LABS: Glucose 432 mg/dL (80-115)
[2022-09-29] MEDS: HumaLOG 300 UNITS/3 ML VIAL SC SCH (12:32)
[2022-09-29 17:26] LABS: Anion Gap 16 mmol/L (10-20); BUN (Urea Nitrogen) 39 mg/dL (9.8-20.1); Calc. Creatinine Clearance 21 mL/min (70-130); Calcium 9.5 mg/dL (7.8-10.44); Carbon Dioxide 21 mmol/L (23-31); Chloride 103 mmol/L (98-107); Estimated GFR 22; Glucose 134 mg/dL (80-115); Potassium 4.9 mmol/L (3.5-5.1); Sodium 135 mmol/L (136-145)
[2022-09-30] MEDS: traMADol HCl 50 MG TAB PO PRN ×2 (09:19→20:15)
[2022-09-30] MEDS: Polyethylene Glycol 3350 17 GM Packet PO SCH (09:19)
[2022-09-30] MEDS: Gabapentin 300 MG CAP PO SCH ×2 (09:19→20:14)
[2022-09-30] MEDS: NIFEdipine XL 60 MG TAB PO SCH (09:19)
[2022-09-30] MEDS: Insulin Glargine 30 UNITS/0.3 ML VIAL SC SCH (09:20)
[2022-09-30] MEDS: HumaLOG 300 UNITS/3 ML VIAL SC SCH ×3 (09:20→20:16)
[2022-09-30] MEDS: Fluticasone Propionate Nasal Spray 16 gm Bottle NASAL SCH (09:21)
[2022-09-30 12:09] LABS: Anion Gap 15 mmol/L (10-20); BUN (Urea Nitrogen) 37 mg/dL (9.8-20.1); Calc. Creatinine Clearance 24 mL/min (70-130); Calcium 9.6 mg/dL (7.8-10.44); Carbon Dioxide 21 mmol/L (23-31); Chloride 103 mmol/L (98-107); Estimated GFR 26; Glucose 258 mg/dL (80-115); Potassium 4.9 mmol/L (3.5-5.1); Sodium 134 mmol/L (136-145)
[2022-10-01 07:21] LABS: Anion Gap 15 mmol/L (10-20); BUN (Urea Nitrogen) 39 mg/dL (9.8-20.1); Calc. Creatinine Clearance 23 mL/min (70-130); Calcium 9.5 mg/dL (7.8-10.44); Carbon Dioxide 22 mmol/L (23-31); Chloride 107 mmol/L (98-107); Estimated GFR 23; Glucose 132 mg/dL (80-115); Potassium 4.5 mmol/L (3.5-5.1); Sodium 139 mmol/L (136-145)
[2022-10-01] MEDS: NIFEdipine XL 60 MG TAB PO SCH (08:32)
[2022-10-01] MEDS: Gabapentin 300 MG CAP PO SCH ×2 (08:34→19:35)
[2022-10-01] MEDS: traMADol HCl 50 MG TAB PO PRN ×2 (08:35→19:36)
[2022-10-01] MEDS: Fluticasone Propionate Nasal Spray 16 gm Bottle NASAL SCH (08:37)
[2022-10-01] MEDS: Insulin Glargine 30 UNITS/0.3 ML VIAL SC SCH (08:38)
[2022-10-01] MEDS: Polyethylene Glycol 3350 17 GM Packet PO SCH (08:38)
[2022-10-01] MEDS: HumaLOG 300 UNITS/3 ML VIAL SC SCH ×2 (13:00→21:10)
[2022-10-01 13:56] VITALS: BMI 22.8
[2022-10-01] MEDS ORDERED: traMADol HCl 50 MG TAB PO SCH (22:45)
[2022-10-01] MEDS ORDERED: traMADol HCl 50 MG TAB PO PRN (22:46)
[2022-10-01] MEDS: Acetaminophen 325 MG TAB PO PRN (22:58)
[2022-10-02] MEDS: HumaLOG 300 UNITS/3 ML VIAL SC SCH (00:35)
[2022-10-02 07:24] VITALS: BP 161/83; TEMP 97.7
[2022-10-02 08:28] LABS: Anion Gap 15 mmol/L (10-20); BUN (Urea Nitrogen) 43 mg/dL (9.8-20.1); Calc. Creatinine Clearance 20 mL/min (70-130); Calcium 9.1 mg/dL (7.8-10.44); Carbon Dioxide 21 mmol/L (23-31); Chloride 105 mmol/L (98-107); Estimated GFR 20; Glucose 137 mg/dL (80-115); Potassium 4.6 mmol/L (3.5-5.1); Sodium 136 mmol/L (136-145)
[2022-10-02] MEDS: Polyethylene Glycol 3350 17 GM Packet PO SCH (08:55)
[2022-10-02] MEDS: NIFEdipine XL 60 MG TAB PO SCH (08:55)
[2022-10-02] MEDS: Insulin Glargine 30 UNITS/0.3 ML VIAL SC SCH (08:55)
[2022-10-02] MEDS: Gabapentin 300 MG CAP PO SCH (08:55)
[2022-10-02] MEDS: Fluticasone Propionate Nasal Spray 16 gm Bottle NASAL SCH (08:56)
== END 2022-10-02 14:47 | DRG 638 ==
LOC: ERS 09:42 → IMCU/EMU 13:32 → T4-B 09-19 15:49
PROVIDERS: ADMIT Student in an Organized Health Care Education/Training Program; ATTEND Student in an Organized Health Care Education/Training Program
DX: E11.10 Type 2 diabetes mellitus with ketoacidosis without coma (principal); E87.1 Hypo-osmolality and hyponatremia; N39.0 Urinary tract infection, site not specified; N17.9 Acute kidney failure, unspecified; N18.4 Chronic kidney disease, stage 4 (severe); J45.909 Unspecified asthma, uncomplicated; M19.90 Unspecified osteoarthritis, unspecified site; Z96.643 Presence of artificial hip joint, bilateral; B18.2 Chronic viral hepatitis C; F32.A Depression, unspecified; I48.0 Paroxysmal atrial fibrillation; F41.9 Anxiety disorder, unspecified; E78.5 Hyperlipidemia, unspecified; E87.5 Hyperkalemia; D75.839 Thrombocytosis, unspecified; D63.1 Anemia in chronic kidney disease; M25.552 Pain in left hip; Z98.890 Other specified postprocedural states; Z90.49 Acquired absence of other specified parts of digestive tract; Z98.51 Tubal ligation status; Z87.891 Personal history of nicotine dependence; Z88.0 Allergy status to penicillin; Z91.148 Patient's other noncompliance with medication regimen for other reason; Z91.09 Other allergy status, other than to drugs and biological substances; Z88.8 Allergy status to other drugs, medicaments and biological substances; Z79.899 Other long term (current) drug therapy; Z79.4 Long term (current) use of insulin; I12.9 Hypertensive chronic kidney disease with stage 1 through stage 4 chronic kidney disease, or unspecified chronic kidney disease
CPT/HCPCS: 36415; 36416; 51701; 80048; 80053; 81003; 81015; 82010; 82550; 82805; 83605; 83690; 83735; 83930; 84100; 84484; 85025; 87040; 87086; 93005; 93010; 96365; 96366; 96375; 97139; J0696; J1815; J2270; J3480; J7050; J7120; J7999; Q0169

== ENCOUNTER 2022-12-25 15:01 | Inpatient (IN) | payer MEDICARE, MEDICAID ==
[2022-12-25 15:47] LABS: Hemoglobin 11.2 g/dL (12.0-16.0); Mean Corpuscular HGB CONC 33.7 g/dL (32.0-36.0); Mean Corpuscular Hemoglobin 26.2 pg (27.0-31.0); Mean Corpuscular Volume 77.6 fl (78.0-98.0); Mean Platelet Volume 10.4 fL (7.4-10.4); Platelet Count 317 10x3/uL (130-400); RBC Distribution Width 15.4 % (11.5-14.5); Red Blood Cell (RBC) Count 4.28 mill/uL (4.20-5.40); White Blood Cell (WBC) Count 26.3 10x3/uL (4.8-10.8)
[2022-12-25 15:49] LABS: Delete Auto Diff?? YES; Manual Diff?? YES
[2022-12-25 16:09] LABS: ALT (SGPT) 30 U/L (8-55); AST (SGOT) 35 U/L (5-34); Alkaline Phosphatase 221 U/L (40-110); Anion Gap 14 mmol/L (10-20); BUN (Urea Nitrogen) 28 mg/dL (9.8-20.1); Bilirubin, Total 0.4 mg/dL (0.2-1.2); Calc. Creatinine Clearance 0 mL/min (70-130); Calcium 10.2 mg/dL (7.8-10.44); Carbon Dioxide 25 mmol/L (23-31); Chloride 103 mmol/L (98-107); Estimated GFR 21; Globulin 4.9 g/dL (2.4-3.5); Glucose 123 mg/dL (80-115); Potassium 4.6 mmol/L (3.5-5.1); Protein, Total 8.9 g/dL (5.8-8.1); Sodium 137 mmol/L (136-145)
[2022-12-25 16:11] LABS: Anisocytosis SLIGHT = 6-15 cells HPF (0-5); Band 12 % (5-11); CellaVision Operator ID LAB.MJL; Hypochromia SLIGHT = 6-15 cells HPF (0-5); Lymphocytes 9 % (21-51); Microcytosis SLIGHT = 6-15 cells HPF (0-5); Monocytes 8 % (0-10); Neutrophil 71 % (42-75); Platelet Adequacy Comment Platelets Normal; Polychromasia SLIGHT = 2-3 cells HPF (0-2); Target Cells SLIGHT = 2-5 cells HPF (0-1); Total Cell Count 100
[2022-12-25 17:39] LABS: Bacteria/HPF 4+ HPF (None Seen); Bilirubin Negative (Negative); Blood, Urine Negative (Negative); CAUTI Indications for Culture Alt mental st,lethar; Clarity Clear (Clear); Glucose, Urine (Dipstick) Normal (Negative); Ketone, Urine Negative (Negative); Leukocyte 25 Leu/uL (Negative); Nitrite Negative (Negative); Protein, Urine (Dipstick) 100 mg/dL (Neg-Trace); RBC/HPF 0-3 HPF (0-3); Specific Gravity, Urine 1.012 (1.002-1.036); Squamous Epithelial 0-3 HPF (0-3); Urobilinogen Normal mg/dL (Less than 2); pH, Urine 6.5 (5.0-9.0)
[2022-12-25 17:53] LABS: Urine Culture Reflex No No
[2022-12-25] MEDS ORDERED: cefTRIAXone (ROCEPHIN) 2 GM VIAL ONE (18:28)
[2022-12-25] MEDS ORDERED: HumaLOG 300 UNITS/3 ML VIAL SC PRN (19:20)
[2022-12-25] MEDS ORDERED: Dextrose 50% Abboject 50 ML SYRINGE SLOW IVP PRN (19:20)
[2022-12-25] MEDS ORDERED: Dextrose 5% in Water 1,000 ML IV PRN (19:20)
[2022-12-25] MEDS ORDERED: Ondansetron PF 4 MG/2 ML Vial IVP PRN (19:20)
[2022-12-25] MEDS ORDERED: Glucagon 1 MG/ML KIT IM PRN (19:20)
[2022-12-25] MEDS ORDERED: Ondansetron ODT 4 MG TAB PO PRN (19:20)
[2022-12-25] MEDS ORDERED: Sodium Chloride 0.9% 1,000 ML IV SCH (19:30)
[2022-12-25] MEDS: Famotidine 20 MG TAB PO SCH (21:12)
[2022-12-25] MEDS: Famotidine/PF 20 mg/2ml Vial SLOW IVP SCH (21:13)
[2022-12-25] MEDS: Heparin 5,000 UNITS/ML VIAL SC SCH (21:14)
[2022-12-25] MEDS ORDERED: Dextrose 5 % And 0.9 % NaCl 1,000 ML IV SCH (21:15)
[2022-12-25] MEDS ORDERED: Meropenem 1 GM in Sodium Chloride 0.9% 100 ML IVPB SCH (22:00)
[2022-12-25 22:25] VITALS: BMI 26.2
[2022-12-25] MEDS: Acetaminophen 325 MG TAB PO PRN (23:44)
[2022-12-26] MEDS ORDERED: Lidocaine 4% Patch TD PRN (00:33)
[2022-12-26] MEDS ORDERED: MENTHOL TOP PRN (00:33)
[2022-12-26] MEDS ORDERED: Transdermal Patch Removal TOP PRN (01:26)
[2022-12-26] MEDS: Meropenem 500 MG in Sodium Chloride 0.9% 100 ML IVPB SCH ×2 (05:16→17:24)
[2022-12-26] MEDS: HumaLOG 300 UNITS/3 ML VIAL SC PRN (05:17)
[2022-12-26 06:42] LABS: #Eosinphils 0.1 thou/uL (0.0-0.7); #Monocytes 1.3 thou/uL (0.11-0.59); #Neutrophils 13.3 thou/uL (1.40-6.50); %Basophils 0.2 % (0.0-1.0); %Eosinophils 0.8 % (0.0-10.0); %Lymphocytes 10.5 % (21.0-51.0); %Monocytes 8.1 % (0.0-10.0); Hemoglobin 10.3 g/dL (12.0-16.0); Mean Corpuscular HGB CONC 32.7 g/dL (32.0-36.0); Mean Corpuscular Hemoglobin 26.3 pg (27.0-31.0); Mean Platelet Volume 10.4 fL (7.4-10.4); Platelet Count 281 10x3/uL (130-400); RBC Distribution Width 15.6 % (11.5-14.5); Red Blood Cell (RBC) Count 3.91 mill/uL (4.20-5.40); White Blood Cell (WBC) Count 16.6 10x3/uL (4.8-10.8)
[2022-12-26 06:52] LABS: Mean Corpuscular Volume 80.6 fl (78.0-98.0)
[2022-12-26 07:03] LABS: Anion Gap 17 mmol/L (10-20); BUN (Urea Nitrogen) 25 mg/dL (9.8-20.1); Calc. Creatinine Clearance 26 mL/min (70-130); Calcium 9.6 mg/dL (7.8-10.44); Carbon Dioxide 19 mmol/L (23-31); Chloride 106 mmol/L (98-107); Estimated GFR 23; Glucose 126 mg/dL (80-115); Potassium 4.1 mmol/L (3.5-5.1); Sodium 138 mmol/L (136-145)
[2022-12-26] MEDS: Ferrous Sulfate 325 MG TAB PO SCH (08:14)
[2022-12-26] MEDS: Insulin Glargine 30 UNITS/0.3 ML VIAL SC SCH (08:14)
[2022-12-26] MEDS: Gabapentin 300 MG CAP PO SCH ×2 (08:14→20:23)
[2022-12-26] MEDS: Zinc Sulfate 220 MG CAP PO SCH (08:14)
[2022-12-26] MEDS: Ascorbic Acid 500 mg Chewable Tablet PO SCH ×2 (08:14→20:23)
[2022-12-26] MEDS: Heparin 5,000 UNITS/ML VIAL SC SCH ×3 (08:14→20:24)
[2022-12-26] MEDS ORDERED: hydrALAZINE 20 MG/ML VIAL SLOW IVP PRN (09:49)
[2022-12-26] MEDS: Acetaminophen 325 MG TAB PO PRN (13:57)
[2022-12-26] MEDS: traMADol HCl 50 MG TAB PO PRN (17:26)
[2022-12-26] MEDS: Famotidine/PF 20 mg/2ml Vial SLOW IVP SCH (20:24)
[2022-12-26] MEDS: Famotidine 20 MG TAB PO SCH (20:24)
[2022-12-26] MEDS ORDERED: hydrALAZINE 10 MG TAB PO SCH (21:00)
[2022-12-27 03:00] LABS: Campy jejuni + coli by PCR Negative (Negative); STEC Shiga Toxin 1+2 Negative (Negative); Salmonella spp. by PCR Negative (Negative); Shigella spp + EIEC by PCR Negative (Negative)
[2022-12-27] MEDS: traMADol HCl 50 MG TAB PO PRN ×3 (03:57→21:10)
[2022-12-27] MEDS: Acetaminophen 325 MG TAB PO PRN ×3 (04:54→21:10)
[2022-12-27] MEDS: Meropenem 500 MG in Sodium Chloride 0.9% 100 ML IVPB SCH ×2 (04:55→17:42)
[2022-12-27] MEDS: HumaLOG 300 UNITS/3 ML VIAL SC PRN ×3 (04:55→15:58)
[2022-12-27 06:49] LABS: #Eosinphils 0.2 thou/uL (0.0-0.7); #Monocytes 1.4 thou/uL (0.11-0.59); #Neutrophils 9.9 thou/uL (1.40-6.50); %Basophils 0.2 % (0.0-1.0); %Eosinophils 1.6 % (0.0-10.0); %Monocytes 10.1 % (0.0-10.0); %Neutrophils 72.8 % (42.0-75.0); Hemoglobin 8.6 g/dL (12.0-16.0); Mean Corpuscular HGB CONC 32.7 g/dL (32.0-36.0); Mean Corpuscular Hemoglobin 25.9 pg (27.0-31.0); Mean Corpuscular Volume 79.2 fl (78.0-98.0); Mean Platelet Volume 10.6 fL (7.4-10.4); Platelet Count 268 10x3/uL (130-400); RBC Distribution Width 15.7 % (11.5-14.5); Red Blood Cell (RBC) Count 3.32 mill/uL (4.20-5.40); White Blood Cell (WBC) Count 13.6 10x3/uL (4.8-10.8)
[2022-12-27 07:08] LABS: Anion Gap 11 mmol/L (10-20); BUN (Urea Nitrogen) 22 mg/dL (9.8-20.1); Calc. Creatinine Clearance 26 mL/min (70-130); Calcium 8.8 mg/dL (7.8-10.44); Carbon Dioxide 24 mmol/L (23-31); Chloride 109 mmol/L (98-107); Estimated GFR 23; Glucose 147 mg/dL (80-115); Potassium 4.2 mmol/L (3.5-5.1); Sodium 140 mmol/L (136-145)
[2022-12-27] MEDS: hydrALAZINE 10 MG TAB PO SCH ×3 (09:01→21:11)
[2022-12-27] MEDS: Heparin 5,000 UNITS/ML VIAL SC SCH ×3 (09:01→21:11)
[2022-12-27] MEDS: NIFEdipine XL 60 MG TAB PO SCH (09:01)
[2022-12-27] MEDS: Zinc Sulfate 220 MG CAP PO SCH (09:02)
[2022-12-27] MEDS: Ascorbic Acid 500 mg Chewable Tablet PO SCH ×2 (09:02→21:10)
[2022-12-27] MEDS: Ferrous Sulfate 325 MG TAB PO SCH (09:02)
[2022-12-27] MEDS: Insulin Glargine 30 UNITS/0.3 ML VIAL SC SCH (09:03)
[2022-12-27] MEDS: Gabapentin 300 MG CAP PO SCH ×2 (09:03→21:10)
[2022-12-27] MEDS: Polyethylene Glycol 3350 17 GM Packet PO SCH (09:03)
[2022-12-27] MEDS: Famotidine/PF 20 mg/2ml Vial SLOW IVP SCH (18:57)
[2022-12-27] MEDS: Famotidine 20 MG TAB PO SCH (21:10)
[2022-12-28] MEDS: Meropenem 500 MG in Sodium Chloride 0.9% 100 ML IVPB SCH (06:34)
[2022-12-28 07:26] LABS: #Eosinphils 0.3 thou/uL (0.0-0.7); #Monocytes 1.6 thou/uL (0.11-0.59); #Neutrophils 8.6 thou/uL (1.40-6.50); %Basophils 0.2 % (0.0-1.0); %Eosinophils 2.6 % (0.0-10.0); %Lymphocytes 17.4 % (21.0-51.0); %Monocytes 12.3 % (0.0-10.0); %Neutrophils 67.1 % (42.0-75.0); Hemoglobin 8.6 g/dL (12.0-16.0); Mean Corpuscular Hemoglobin 25.7 pg (27.0-31.0); Mean Corpuscular Volume 80.5 fl (78.0-98.0); Mean Platelet Volume 10.2 fL (7.4-10.4); Platelet Count 274 10x3/uL (130-400); RBC Distribution Width 15.6 % (11.5-14.5); Red Blood Cell (RBC) Count 3.34 mill/uL (4.20-5.40); White Blood Cell (WBC) Count 12.8 10x3/uL (4.8-10.8)
[2022-12-28 07:53] LABS: Anion Gap 14 mmol/L (10-20); BUN (Urea Nitrogen) 35 mg/dL (9.8-20.1); Calc. Creatinine Clearance 21 mL/min (70-130); Calcium 8.9 mg/dL (7.8-10.44); Carbon Dioxide 21 mmol/L (23-31); Chloride 105 mmol/L (98-107); Estimated GFR 18; Glucose 203 mg/dL (80-115); Potassium 4.6 mmol/L (3.5-5.1); Sodium 135 mmol/L (136-145)
[2022-12-28] MEDS: Ferrous Sulfate 325 MG TAB PO SCH (09:05)
[2022-12-28] MEDS: Zinc Sulfate 220 MG CAP PO SCH (09:05)
[2022-12-28] MEDS: Gabapentin 300 MG CAP PO SCH ×2 (09:05→20:07)
[2022-12-28] MEDS: NIFEdipine XL 60 MG TAB PO SCH (09:05)
[2022-12-28] MEDS: traMADol HCl 50 MG TAB PO PRN ×2 (09:05→21:49)
[2022-12-28] MEDS: Ascorbic Acid 500 mg Chewable Tablet PO SCH ×2 (09:05→20:07)
[2022-12-28] MEDS: Insulin Glargine 30 UNITS/0.3 ML VIAL SC SCH (09:06)
[2022-12-28] MEDS: hydrALAZINE 10 MG TAB PO SCH ×3 (09:06→20:08)
[2022-12-28] MEDS: Polyethylene Glycol 3350 17 GM Packet PO SCH (09:06)
[2022-12-28] MEDS: Heparin 5,000 UNITS/ML VIAL SC SCH ×3 (09:06→20:08)
[2022-12-28] MEDS ORDERED: VANCOMYCIN 1.75 GM/500 ML BAG 1.75 GM in Premix Bag 1 BAG IVPB SCH (12:30)
[2022-12-28] MEDS: HumaLOG 300 UNITS/3 ML VIAL SC PRN (12:41)
[2022-12-28] MEDS ORDERED: VANCOMYCIN FS SCH (12:45)
[2022-12-28] MEDS: Famotidine 20 MG TAB PO SCH (20:07)
[2022-12-28] MEDS: Famotidine/PF 20 mg/2ml Vial SLOW IVP SCH (20:07)
[2022-12-28] MEDS: Acetaminophen 325 MG TAB PO PRN (20:09)
[2022-12-28] MEDS ORDERED: Vancomycin 1 GM in Premix Bag 1 BAG IVPB SCH (21:00)
[2022-12-29] MEDS: traMADol HCl 50 MG TAB PO PRN ×3 (03:50→15:53)
[2022-12-29] MEDS: Acetaminophen 325 MG TAB PO PRN ×2 (04:44→20:19)
[2022-12-29 06:39] LABS: #Eosinphils 0.3 thou/uL (0.0-0.7); #Monocytes 1.4 thou/uL (0.11-0.59); #Neutrophils 8.4 thou/uL (1.40-6.50); %Basophils 0.3 % (0.0-1.0); %Eosinophils 2.2 % (0.0-10.0); %Lymphocytes 18.8 % (21.0-51.0); %Monocytes 11.1 % (0.0-10.0); %Neutrophils 67.2 % (42.0-75.0); Hemoglobin 9.2 g/dL (12.0-16.0); Mean Corpuscular HGB CONC 31.9 g/dL (32.0-36.0); Mean Corpuscular Volume 81.4 fl (78.0-98.0); Mean Platelet Volume 11.5 fL (7.4-10.4); Platelet Count 276 10x3/uL (130-400); RBC Distribution Width 15.6 % (11.5-14.5); Red Blood Cell (RBC) Count 3.54 mill/uL (4.20-5.40); White Blood Cell (WBC) Count 12.5 10x3/uL (4.8-10.8)
[2022-12-29] MEDS: Polyethylene Glycol 3350 17 GM Packet PO SCH (09:40)
[2022-12-29] MEDS: NIFEdipine XL 60 MG TAB PO SCH (09:40)
[2022-12-29] MEDS: Zinc Sulfate 220 MG CAP PO SCH (09:40)
[2022-12-29] MEDS: Ascorbic Acid 500 mg Chewable Tablet PO SCH ×2 (09:40→20:17)
[2022-12-29] MEDS: Ferrous Sulfate 325 MG TAB PO SCH (09:41)
[2022-12-29] MEDS: hydrALAZINE 10 MG TAB PO SCH ×3 (09:41→20:18)
[2022-12-29] MEDS: Gabapentin 300 MG CAP PO SCH ×2 (09:41→20:17)
[2022-12-29] MEDS: Heparin 5,000 UNITS/ML VIAL SC SCH ×3 (09:42→20:18)
[2022-12-29] MEDS: Insulin Glargine 30 UNITS/0.3 ML VIAL SC SCH (09:42)
[2022-12-29 10:14] LABS: Anion Gap 13 mmol/L (10-20); BUN (Urea Nitrogen) 37 mg/dL (9.8-20.1); Calc. Creatinine Clearance 22 mL/min (70-130); Calcium 8.9 mg/dL (7.8-10.44); Carbon Dioxide 22 mmol/L (23-31); Chloride 105 mmol/L (98-107); Estimated GFR 19; Glucose 159 mg/dL (80-115); Potassium 5.2 mmol/L (3.5-5.1); Sodium 135 mmol/L (136-145)
[2022-12-29] MEDS ORDERED: Dextrose 50% Abboject 50 ML SYRINGE SLOW IVP SCH (10:30)
[2022-12-29] MEDS ORDERED: Insulin Regular 300 UNITS/3 ML VIAL IVP SCH (10:30)
[2022-12-29 13:51] LABS: Vancomycin, Random 20.3 ug/mL (See Comment)
[2022-12-29] MEDS ORDERED: VANCOMYCIN 1.75 GM/500 ML BAG 1.75 GM in Premix Bag 1 BAG IVPB SCH (14:15)
[2022-12-29] MEDS ORDERED: Vancomycin Dose by Levels Sliding Scale (Wt <71) FS SCH (15:15)
[2022-12-29] MEDS ORDERED: HOLD VANCOMYCIN FOR LEVEL >20 SLOW IVP SCH (15:15)
[2022-12-29] MEDS: HumaLOG 300 UNITS/3 ML VIAL SC PRN (17:42)
[2022-12-29] MEDS ORDERED: metroNIDAZOLE 500 MG TAB PO SCH (18:00)
[2022-12-29] MEDS: cefTRIAXone\\ROCEPHIN 1 GM in Sodium Chloride 0.9% 100 ML IVPB SCH (18:14)
[2022-12-29] MEDS: metroNIDAZOLE 500 MG TAB PO SCH (20:17)
[2022-12-29] MEDS: Famotidine 20 MG TAB PO SCH (20:18)
[2022-12-29] MEDS: Famotidine/PF 20 mg/2ml Vial SLOW IVP SCH (20:19)
[2022-12-30] MEDS: Acetaminophen 325 MG TAB PO PRN ×3 (06:05→20:20)
[2022-12-30 08:05] LABS: #Eosinphils 0.2 thou/uL (0.0-0.7); #Monocytes 1.4 thou/uL (0.11-0.59); %Basophils 0.3 % (0.0-1.0); %Eosinophils 1.8 % (0.0-10.0); %Lymphocytes 17.9 % (21.0-51.0); %Monocytes 12.1 % (0.0-10.0); %Neutrophils 67.4 % (42.0-75.0); Hemoglobin 8.9 g/dL (12.0-16.0); Mean Corpuscular HGB CONC 32.6 g/dL (32.0-36.0); Mean Corpuscular Hemoglobin 25.9 pg (27.0-31.0); Mean Corpuscular Volume 79.4 fl (78.0-98.0); Platelet Count 341 10x3/uL (130-400); RBC Distribution Width 15.5 % (11.5-14.5); Red Blood Cell (RBC) Count 3.44 mill/uL (4.20-5.40); White Blood Cell (WBC) Count 11.9 10x3/uL (4.8-10.8)
[2022-12-30 08:20] LABS: Anion Gap 15 mmol/L (10-20); BUN (Urea Nitrogen) 33 mg/dL (9.8-20.1); Calc. Creatinine Clearance 24 mL/min (70-130); Calcium 8.7 mg/dL (7.8-10.44); Carbon Dioxide 23 mmol/L (23-31); Chloride 103 mmol/L (98-107); Estimated GFR 21; Glucose 181 mg/dL (80-115); Potassium 5.4 mmol/L (3.5-5.1); Sodium 136 mmol/L (136-145)
[2022-12-30] MEDS: Heparin 5,000 UNITS/ML VIAL SC SCH ×3 (08:33→20:20)
[2022-12-30] MEDS: NIFEdipine XL 60 MG TAB PO SCH (08:33)
[2022-12-30] MEDS: metroNIDAZOLE 500 MG TAB PO SCH ×3 (08:33→20:19)
[2022-12-30] MEDS: Ferrous Sulfate 325 MG TAB PO SCH (08:33)
[2022-12-30] MEDS: Gabapentin 300 MG CAP PO SCH ×2 (08:33→20:20)
[2022-12-30] MEDS: Ascorbic Acid 500 mg Chewable Tablet PO SCH ×2 (08:33→20:19)
[2022-12-30] MEDS: Zinc Sulfate 220 MG CAP PO SCH (08:33)
[2022-12-30] MEDS: hydrALAZINE 10 MG TAB PO SCH ×3 (08:34→20:19)
[2022-12-30] MEDS: Polyethylene Glycol 3350 17 GM Packet PO SCH (08:34)
[2022-12-30] MEDS: Insulin Glargine 30 UNITS/0.3 ML VIAL SC SCH (08:34)
[2022-12-30] MEDS: traMADol HCl 50 MG TAB PO PRN ×2 (08:44→17:07)
[2022-12-30] MEDS ORDERED: traMADol HCl 50 MG TAB PO PRN (11:34)
[2022-12-30] MEDS: HumaLOG 300 UNITS/3 ML VIAL SC PRN (13:13)
[2022-12-30] MEDS ORDERED: Dextrose 50% Abboject 50 ML SYRINGE SLOW IVP SCH (15:15)
[2022-12-30] MEDS ORDERED: Albuterol 2.5 MG/0.5 ML NEB NEB SCH (15:15)
[2022-12-30] MEDS ORDERED: Insulin Regular 300 UNITS/3 ML VIAL IVP SCH (15:15)
[2022-12-30 15:16] LABS: Vancomycin, Random 12.5 ug/mL (See Comment)
[2022-12-30] MEDS ORDERED: Vancomycin HCl 500 MG in Sodium Chloride 0.9% 100 ML IV SCH (16:30)
[2022-12-30] MEDS: cefTRIAXone\\ROCEPHIN 1 GM in Sodium Chloride 0.9% 100 ML IVPB SCH (18:32)
[2022-12-30] MEDS: Famotidine/PF 20 mg/2ml Vial SLOW IVP SCH (20:02)
[2022-12-30] MEDS: Famotidine 20 MG TAB PO SCH (20:19)
[2022-12-31] MEDS: Ferrous Sulfate 325 MG TAB PO SCH (08:26)
[2022-12-31] MEDS: Zinc Sulfate 220 MG CAP PO SCH (08:26)
[2022-12-31] MEDS: NIFEdipine XL 60 MG TAB PO SCH (08:26)
[2022-12-31] MEDS: metroNIDAZOLE 500 MG TAB PO SCH ×3 (08:26→20:08)
[2022-12-31] MEDS: Ascorbic Acid 500 mg Chewable Tablet PO SCH ×2 (08:27→20:09)
[2022-12-31] MEDS: Gabapentin 300 MG CAP PO SCH ×2 (08:27→20:10)
[2022-12-31] MEDS: Polyethylene Glycol 3350 17 GM Packet PO SCH (08:28)
[2022-12-31] MEDS: hydrALAZINE 10 MG TAB PO SCH ×3 (08:29→20:10)
[2022-12-31] MEDS: Heparin 5,000 UNITS/ML VIAL SC SCH ×3 (08:29→20:10)
[2022-12-31] MEDS: Insulin Glargine 30 UNITS/0.3 ML VIAL SC SCH (08:30)
[2022-12-31] MEDS: traMADol HCl 50 MG TAB PO PRN ×2 (08:35→20:09)
[2022-12-31] MEDS ORDERED: Magnesium Citrate 300 ML BOT PO SCH (08:45)
[2022-12-31 09:05] LABS: #Eosinphils 0.3 thou/uL (0.0-0.7); #Monocytes 1.2 thou/uL (0.11-0.59); #Neutrophils 7.8 thou/uL (1.40-6.50); %Basophils 0.3 % (0.0-1.0); %Eosinophils 2.4 % (0.0-10.0); %Lymphocytes 24.2 % (21.0-51.0); %Monocytes 9.4 % (0.0-10.0); %Neutrophils 63.4 % (42.0-75.0); Hemoglobin 10.5 g/dL (12.0-16.0); Mean Corpuscular HGB CONC 32.9 g/dL (32.0-36.0); Mean Corpuscular Hemoglobin 25.7 pg (27.0-31.0); Mean Corpuscular Volume 78.2 fl (78.0-98.0); Platelet Count 441 10x3/uL (130-400); RBC Distribution Width 15.3 % (11.5-14.5); Red Blood Cell (RBC) Count 4.08 mill/uL (4.20-5.40); White Blood Cell (WBC) Count 12.2 10x3/uL (4.8-10.8)
[2022-12-31 11:27] LABS: Anion Gap 20 mmol/L (10-20); BUN (Urea Nitrogen) 31 mg/dL (9.8-20.1); Calc. Creatinine Clearance 24 mL/min (70-130); Calcium 9.2 mg/dL (7.8-10.44); Carbon Dioxide 20 mmol/L (23-31); Chloride 103 mmol/L (98-107); Estimated GFR 22; Glucose 189 mg/dL (80-115); Potassium 5.9 mmol/L (3.5-5.1); Sodium 137 mmol/L (136-145)
[2022-12-31] MEDS ORDERED: Insulin Regular 300 UNITS/3 ML VIAL IVP SCH (16:15)
[2022-12-31] MEDS ORDERED: Dextrose 50% Abboject 50 ML SYRINGE SLOW IVP SCH (16:15)
[2022-12-31 17:38] LABS: Vancomycin, Random 12.5 ug/mL (See Comment)
[2022-12-31] MEDS: cefTRIAXone\\ROCEPHIN 1 GM in Sodium Chloride 0.9% 100 ML IVPB SCH (18:29)
[2022-12-31] MEDS: Famotidine/PF 20 mg/2ml Vial SLOW IVP SCH (19:11)
[2022-12-31] MEDS ORDERED: Vancomycin HCl 500 MG in Sodium Chloride 0.9% 100 ML IV SCH (19:45)
[2022-12-31] MEDS: Famotidine 20 MG TAB PO SCH (20:08)
[2022-12-31 20:52] LABS: Potassium 4.3 mmol/L (3.5-5.1)
[2023-01-01 07:16] LABS: #Basophils 0.1 thou/uL (0.0-0.2); #Eosinphils 0.3 thou/uL (0.0-0.7); #Monocytes 1.3 thou/uL (0.11-0.59); #Neutrophils 6.8 thou/uL (1.40-6.50); %Basophils 0.4 % (0.0-1.0); %Eosinophils 2.6 % (0.0-10.0); %Lymphocytes 24.9 % (21.0-51.0); %Monocytes 11.7 % (0.0-10.0); Mean Corpuscular HGB CONC 32.8 g/dL (32.0-36.0); Mean Corpuscular Hemoglobin 25.9 pg (27.0-31.0); Mean Platelet Volume 9.9 fL (7.4-10.4); Platelet Count 411 10x3/uL (130-400); RBC Distribution Width 15.7 % (11.5-14.5); Red Blood Cell (RBC) Count 3.47 mill/uL (4.20-5.40); White Blood Cell (WBC) Count 11.3 10x3/uL (4.8-10.8)
[2023-01-01 08:00] LABS: Anion Gap 16 mmol/L (10-20); BUN (Urea Nitrogen) 26 mg/dL (9.8-20.1); Calc. Creatinine Clearance 27 mL/min (70-130); Carbon Dioxide 25 mmol/L (23-31); Chloride 101 mmol/L (98-107); Sodium 137 mmol/L (136-145)
[2023-01-01 08:01] LABS: Calcium 8.9 mg/dL (7.8-10.44); Estimated GFR 24; Glucose 145 mg/dL (80-115)
[2023-01-01] MEDS: NIFEdipine XL 60 MG TAB PO SCH (09:04)
[2023-01-01] MEDS: Zinc Sulfate 220 MG CAP PO SCH (09:05)
[2023-01-01] MEDS: Gabapentin 300 MG CAP PO SCH ×2 (09:05→20:35)
[2023-01-01] MEDS: metroNIDAZOLE 500 MG TAB PO SCH ×3 (09:05→20:37)
[2023-01-01] MEDS: Ascorbic Acid 500 mg Chewable Tablet PO SCH ×2 (09:05→20:35)
[2023-01-01] MEDS: Ferrous Sulfate 325 MG TAB PO SCH (09:05)
[2023-01-01] MEDS: traMADol HCl 50 MG TAB PO PRN ×2 (09:06→20:50)
[2023-01-01] MEDS: Acetaminophen 325 MG TAB PO PRN (09:06)
[2023-01-01] MEDS: Insulin Glargine 30 UNITS/0.3 ML VIAL SC SCH (09:07)
[2023-01-01] MEDS: Heparin 5,000 UNITS/ML VIAL SC SCH ×3 (09:07→20:36)
[2023-01-01] MEDS: hydrALAZINE 10 MG TAB PO SCH ×3 (09:07→20:37)
[2023-01-01] MEDS: Polyethylene Glycol 3350 17 GM Packet PO SCH (09:08)
[2023-01-01] MEDS: cefTRIAXone\\ROCEPHIN 1 GM in Sodium Chloride 0.9% 100 ML IVPB SCH (17:36)
[2023-01-01 19:46] LABS: Vancomycin, Random 12.8 ug/mL (See Comment)
[2023-01-01] MEDS ORDERED: Vancomycin HCl 750 MG in Sodium Chloride 0.9% 250 ML 250 ML IVPB SCH (20:30)
[2023-01-01] MEDS: Famotidine 20 MG TAB PO SCH (20:35)
[2023-01-01] MEDS: Famotidine/PF 20 mg/2ml Vial SLOW IVP SCH (20:36)
[2023-01-02] MEDS: Polyethylene Glycol 3350 17 GM Packet PO SCH (08:23)
[2023-01-02] MEDS: Ascorbic Acid 500 mg Chewable Tablet PO SCH (08:23)
[2023-01-02] MEDS: metroNIDAZOLE 500 MG TAB PO SCH ×2 (08:23→15:19)
[2023-01-02] MEDS: Zinc Sulfate 220 MG CAP PO SCH (08:23)
[2023-01-02] MEDS: Ferrous Sulfate 325 MG TAB PO SCH (08:23)
[2023-01-02] MEDS: Heparin 5,000 UNITS/ML VIAL SC SCH ×2 (08:24→15:19)
[2023-01-02] MEDS: Gabapentin 300 MG CAP PO SCH (08:24)
[2023-01-02] MEDS: NIFEdipine XL 60 MG TAB PO SCH (08:25)
[2023-01-02] MEDS: hydrALAZINE 10 MG TAB PO SCH ×2 (08:25→15:20)
[2023-01-02] MEDS: Insulin Glargine 30 UNITS/0.3 ML VIAL SC SCH (08:26)
[2023-01-02] MEDS: HumaLOG 300 UNITS/3 ML VIAL SC PRN ×2 (13:04→17:07)
[2023-01-02] MEDS: cefTRIAXone\\ROCEPHIN 1 GM in Sodium Chloride 0.9% 100 ML IVPB SCH (15:20)
[2023-01-02] MEDS: traMADol HCl 50 MG TAB PO PRN (15:28)
[2023-01-02] MEDS: Acetaminophen 325 MG TAB PO PRN (15:28)
[2023-01-02 16:21] VITALS: BP 110/65; TEMP 98.4
== END 2023-01-02 18:03 | DRG 871 ==
LOC: ERS 15:01 → INTOOBSV 18:43 → T4-A 18:43 → OBSVTOIN 18:46
PROVIDERS: ADMIT Family Medicine; ATTEND Internal Medicine
PROC: 3E03329 Introduction of Other Anti-infective into Peripheral Vein, Percutaneous Approach (ICD-10-PCS; 2022-12-28)
PROC: 02HV33Z Insertion of Infusion Device into Superior Vena Cava, Percutaneous Approach (ICD-10-PCS; principal; 2023-01-02)
PROC: B5181ZA Fluoroscopy of Superior Vena Cava using Low Osmolar Contrast, Guidance (ICD-10-PCS; 2023-01-02)
PROC: B548ZZA Ultrasonography of Superior Vena Cava, Guidance (ICD-10-PCS; 2023-01-02)
DX: A41.81 Sepsis due to Enterococcus (principal); G93.41 Metabolic encephalopathy; N39.0 Urinary tract infection, site not specified; N17.9 Acute kidney failure, unspecified; N18.4 Chronic kidney disease, stage 4 (severe); E87.1 Hypo-osmolality and hyponatremia; L97.419 Non-pressure chronic ulcer of right heel and midfoot with unspecified severity; M86.8X7 Other osteomyelitis, ankle and foot; K21.9 Gastro-esophageal reflux disease without esophagitis; E11.22 Type 2 diabetes mellitus with diabetic chronic kidney disease; I48.0 Paroxysmal atrial fibrillation; I12.9 Hypertensive chronic kidney disease with stage 1 through stage 4 chronic kidney disease, or unspecified chronic kidney disease; E78.5 Hyperlipidemia, unspecified; F41.9 Anxiety disorder, unspecified; J45.909 Unspecified asthma, uncomplicated; F32.9 Major depressive disorder, single episode, unspecified; B18.2 Chronic viral hepatitis C; L08.9 Local infection of the skin and subcutaneous tissue, unspecified; E11.621 Type 2 diabetes mellitus with foot ulcer; E87.5 Hyperkalemia; Z88.8 Allergy status to other drugs, medicaments and biological substances; Z88.0 Allergy status to penicillin; Z88.6 Allergy status to analgesic agent; Z79.899 Other long term (current) drug therapy; Z79.4 Long term (current) use of insulin; Z96.643 Presence of artificial hip joint, bilateral; Z98.890 Other specified postprocedural states; Z90.89 Acquired absence of other organs; Z83.3 Family history of diabetes mellitus; Z84.1 Family history of disorders of kidney and ureter; Z82.49 Family history of ischemic heart disease and other diseases of the circulatory system; Z98.51 Tubal ligation status; Z87.891 Personal history of nicotine dependence; Z79.01 Long term (current) use of anticoagulants; Z90.711 Acquired absence of uterus with remaining cervical stump; R53.81 Other malaise
CPT/HCPCS: 36415; 36416; 36569; 51701; 70450; 71045; 74019; 80048; 80053; 80202; 81001; 83605; 83880; 85025; 85652; 86140; 87040; 87077; 87086; 87186; 87324; 87449; 87505; 93005; 94640; 94760; 96361; 96365; 97139; C1751; J0696; J1644; J1815; J2185; J2405; J3370; J3490; J7042; J7050; J7611; J7999

== ENCOUNTER 2023-02-09 06:18 | Inpatient (IN) | payer MEDICARE, MEDICAID ==
[2023-02-09 06:51] LABS: #Basophils 0.1 thou/uL (0.0-0.2); #Eosinphils 0.3 thou/uL (0.0-0.7); #Monocytes 0.9 thou/uL (0.11-0.59); #Neutrophils 4.7 thou/uL (1.40-6.50); %Basophils 0.6 % (0.0-1.0); %Lymphocytes 27.8 % (21.0-51.0); %Monocytes 10.8 % (0.0-10.0); %Neutrophils 56.6 % (42.0-75.0); Hematocrit 27.7 % (36.0-47.0); Hemoglobin 9.1 g/dL (12.0-16.0); Mean Corpuscular HGB CONC 32.9 g/dL (32.0-36.0); Mean Corpuscular Hemoglobin 27.2 pg (27.0-31.0); Mean Corpuscular Volume 82.9 fl (78.0-98.0); Mean Platelet Volume 10.4 fL (7.4-10.4); Platelet Count 307 10x3/uL (130-400); RBC Distribution Width 18.7 % (11.5-14.5); Red Blood Cell (RBC) Count 3.34 mill/uL (4.20-5.40); White Blood Cell (WBC) Count 8.4 10x3/uL (4.8-10.8)
[2023-02-09] MEDS ORDERED: Cefepime 2 GM VIAL ONE (06:55)
[2023-02-09 07:12] LABS: ALT (SGPT) 22 U/L (8-55); AST (SGOT) 40 U/L (5-34); Albumin 3.3 g/dL (3.4-4.8); Alkaline Phosphatase 413 U/L (40-110); Anion Gap 15 mmol/L (10-20); BUN (Urea Nitrogen) 24 mg/dL (9.8-20.1); Bilirubin, Total 0.3 mg/dL (0.2-1.2); Calc. Creatinine Clearance 0 mL/min (70-130); Calcium 9.3 mg/dL (7.8-10.44); Carbon Dioxide 18 mmol/L (23-31); Chloride 109 mmol/L (98-107); Estimated GFR 25; Globulin 4.3 g/dL (2.4-3.5); Glucose 226 mg/dL (80-115); Potassium 4.7 mmol/L (3.5-5.1); Protein, Total 7.6 g/dL (5.8-8.1); Sodium 137 mmol/L (136-145)
[2023-02-09 07:17] LABS: Troponin I 0.017 ng/mL (< 0.028)
[2023-02-09 08:05] LABS: SARS-CoV-2 NAA Rapid Test Not Detected (NotDetected)
[2023-02-09] MEDS ORDERED: Vancomycin 1 GM/200 ML (FROZEN) BAG ONE (09:22)
[2023-02-09] MEDS ORDERED: Sodium Chloride 0.9% 1,000 ML IV SCH (11:15)
[2023-02-09] MEDS ORDERED: Ipratropium/Albuterol 3 ML NEB NEB SCH (12:00)
[2023-02-09] MEDS ORDERED: Lidocaine 4% Patch TD PRN (12:10)
[2023-02-09] MEDS ORDERED: MENTHOL TOP PRN (12:56)
[2023-02-09] MEDS ORDERED: Methocarbamol 500 MG TAB PO PRN (12:56)
[2023-02-09] MEDS ORDERED: Promethazine 25 MG TAB PO PRN (12:58)
[2023-02-09] MEDS ORDERED: NIFEdipine XL 60 MG ER.TAB PO SCH (13:00)
[2023-02-09] MEDS ORDERED: Glucagon 1 MG/ML KIT IM PRN ×2 (13:00→13:11)
[2023-02-09] MEDS ORDERED: hydrALAZINE 10 MG TAB PO SCH (13:00)
[2023-02-09] MEDS ORDERED: Dextrose 5% in Water 1,000 ML IV PRN ×2 (13:00→13:11)
[2023-02-09] MEDS ORDERED: Dextrose 50% Abboject 50 ML SYRINGE IVP PRN (13:00)
[2023-02-09] MEDS ORDERED: Dextrose 50% Abboject 50 ML SYRINGE SLOW IVP PRN (13:11)
[2023-02-09] MEDS ORDERED: HumaLOG 300 UNITS/3 ML VIAL SC PRN (13:11)
[2023-02-09] MEDS: cefTRIAXone (ROCEPHIN) 1 GM VIAL IVPB SCH (13:12)
[2023-02-09] MEDS: HYDROcodone/Acetaminophen 5/325 mg Tablet PO PRN (14:22)
[2023-02-09] MEDS: metroNIDAZOLE 500 MG TAB PO SCH ×2 (14:25→20:53)
[2023-02-09] MEDS: Ipratropium/Albuterol 3 ML NEB NEB SCH ×2 (15:06→19:19)
[2023-02-09] MEDS ORDERED: Insulin Glargine 30 UNITS/0.3 ML VIAL SC SCH (18:00)
[2023-02-09] MEDS: hydrALAZINE 10 MG TAB PO SCH (20:52)
[2023-02-09] MEDS: Gabapentin 300 MG CAP PO SCH (20:53)
[2023-02-09] MEDS: Transdermal Patch Removal TOP SCH (20:54)
[2023-02-09] MEDS: HumaLOG 300 UNITS/3 ML VIAL SC PRN (20:56)
[2023-02-10] MEDS: Ipratropium/Albuterol 3 ML NEB NEB SCH (06:24)
[2023-02-10] MEDS: HumaLOG 300 UNITS/3 ML VIAL SC PRN ×3 (06:37→17:17)
[2023-02-10] MEDS: Polyethylene Glycol 3350 17 GM Packet PO SCH (08:13)
[2023-02-10] MEDS: Gabapentin 300 MG CAP PO SCH ×2 (08:14→21:53)
[2023-02-10] MEDS: NIFEdipine XL 60 MG ER.TAB PO SCH (08:15)
[2023-02-10] MEDS: hydrALAZINE 10 MG TAB PO SCH ×2 (08:15→21:53)
[2023-02-10] MEDS: metroNIDAZOLE 500 MG TAB PO SCH ×3 (08:15→21:54)
[2023-02-10] MEDS: Zinc Sulfate 220 MG CAP PO SCH (08:15)
[2023-02-10] MEDS: Multivitamin W/ Minerals 1 TAB PO SCH (08:15)
[2023-02-10] MEDS: Saccharomyces boulardii 250 MG CAP PO SCH (08:15)
[2023-02-10] MEDS: Ferrous Sulfate 325 MG TAB PO SCH (08:15)
[2023-02-10] MEDS ORDERED: Insulin Glargine 30 UNITS/0.3 ML VIAL SC SCH (09:00)
[2023-02-10] MEDS: Fluticasone Propionate Nasal Spray 16 gm Bottle NASAL SCH (11:09)
[2023-02-10] MEDS ORDERED: Lactated Ringer's 250 ML IV SCH (12:45)
[2023-02-10] MEDS: cefTRIAXone (ROCEPHIN) 1 GM VIAL IVPB SCH (14:12)
[2023-02-10] MEDS: Acetaminophen 325 MG TAB PO PRN (17:11)
[2023-02-10] MEDS: Transdermal Patch Removal TOP SCH (21:54)
[2023-02-10] MEDS: HYDROcodone/Acetaminophen 5/325 mg Tablet PO PRN (21:54)
[2023-02-10] MEDS: Insulin Glargine 30 UNITS/0.3 ML VIAL SC SCH (21:54)
[2023-02-10] MEDS ORDERED: Digoxin 0.5 MG/2 ML AMP SLOW IVP SCH (23:45)
[2023-02-10] MEDS: Ipratropium/Albuterol 3 ML NEB NEB PRN (23:47)
[2023-02-11 07:41] LABS: Anion Gap 13 mmol/L (10-20); BUN (Urea Nitrogen) 27 mg/dL (9.8-20.1); Calc. Creatinine Clearance 25 mL/min (70-130); Calcium 9.2 mg/dL (7.8-10.44); Carbon Dioxide 20 mmol/L (23-31); Chloride 110 mmol/L (98-107); Estimated GFR 23; Glucose 60 mg/dL (80-115); Magnesium 1.6 mg/dL (1.6-2.6); Phosphorus 4.4 mg/dL (2.3-4.7); Potassium 4.5 mmol/L (3.5-5.1); Sodium 138 mmol/L (136-145)
[2023-02-11] MEDS: metroNIDAZOLE 500 MG TAB PO SCH ×3 (09:00→20:54)
[2023-02-11] MEDS ORDERED: Digoxin 0.5 MG/2 ML AMP SLOW IVP SCH (09:00)
[2023-02-11] MEDS: Zinc Sulfate 220 MG CAP PO SCH (09:00)
[2023-02-11] MEDS: Ferrous Sulfate 325 MG TAB PO SCH (09:00)
[2023-02-11] MEDS: hydrALAZINE 10 MG TAB PO SCH ×2 (09:01→20:54)
[2023-02-11] MEDS: Gabapentin 300 MG CAP PO SCH ×2 (09:01→20:54)
[2023-02-11] MEDS: NIFEdipine XL 60 MG ER.TAB PO SCH (09:01)
[2023-02-11] MEDS: Saccharomyces boulardii 250 MG CAP PO SCH (09:02)
[2023-02-11] MEDS: Multivitamin W/ Minerals 1 TAB PO SCH (09:02)
[2023-02-11] MEDS: Polyethylene Glycol 3350 17 GM Packet PO SCH (09:04)
[2023-02-11] MEDS: Fluticasone Propionate Nasal Spray 16 gm Bottle NASAL SCH (10:25)
[2023-02-11] MEDS: cefTRIAXone (ROCEPHIN) 1 GM VIAL IVPB SCH (15:12)
[2023-02-11] MEDS: Docusate 100 MG CAP PO PRN (15:14)
[2023-02-11] MEDS: HYDROcodone/Acetaminophen 5/325 mg Tablet PO PRN (15:14)
[2023-02-11] MEDS ORDERED: Bisacodyl 10 MG SUPP PR PRN (17:33)
[2023-02-11] MEDS: HumaLOG 300 UNITS/3 ML VIAL SC PRN (18:01)
[2023-02-11] MEDS: Ipratropium/Albuterol 3 ML NEB NEB PRN (19:06)
[2023-02-11] MEDS: Senokot 8.6 MG TAB PO PRN (20:54)
[2023-02-11] MEDS: Transdermal Patch Removal TOP SCH (20:55)
[2023-02-11] MEDS: Insulin Glargine 30 UNITS/0.3 ML VIAL SC SCH (20:55)
[2023-02-11] MEDS: Acetaminophen 325 MG TAB PO PRN (23:56)
[2023-02-12 07:11] LABS: Digoxin 0.61 ng/mL (0.8-2.0)
[2023-02-12] MEDS: NIFEdipine XL 60 MG ER.TAB PO SCH (09:21)
[2023-02-12] MEDS: hydrALAZINE 10 MG TAB PO SCH ×2 (09:21→20:40)
[2023-02-12] MEDS: HYDROcodone/Acetaminophen 5/325 mg Tablet PO PRN ×2 (09:21→19:00)
[2023-02-12] MEDS: Fluticasone Propionate Nasal Spray 16 gm Bottle NASAL SCH (09:21)
[2023-02-12] MEDS: Multivitamin W/ Minerals 1 TAB PO SCH (09:22)
[2023-02-12] MEDS: Saccharomyces boulardii 250 MG CAP PO SCH (09:22)
[2023-02-12] MEDS: Gabapentin 300 MG CAP PO SCH ×2 (09:22→20:41)
[2023-02-12] MEDS: Dronedarone HCl 400 MG TAB PO SCH ×2 (09:22→16:17)
[2023-02-12] MEDS: Polyethylene Glycol 3350 17 GM Packet PO SCH (09:22)
[2023-02-12] MEDS: Zinc Sulfate 220 MG CAP PO SCH (09:22)
[2023-02-12] MEDS: Ferrous Sulfate 325 MG TAB PO SCH (09:22)
[2023-02-12] MEDS ORDERED: Famotidine 20 MG TAB PO SCH (09:30)
[2023-02-12 09:47] LABS: Anion Gap 12 mmol/L (10-20); BUN (Urea Nitrogen) 28 mg/dL (9.8-20.1); Calc. Creatinine Clearance 25 mL/min (70-130); Calcium 9.3 mg/dL (7.8-10.44); Carbon Dioxide 22 mmol/L (23-31); Chloride 109 mmol/L (98-107); Estimated GFR 23; Glucose 92 mg/dL (80-115); Potassium 4.9 mmol/L (3.5-5.1); Sodium 138 mmol/L (136-145)
[2023-02-12] MEDS: Ipratropium/Albuterol 3 ML NEB NEB PRN (10:00)
[2023-02-12 10:06] LABS: #Eosinphils 0.4 thou/uL (0.0-0.7); #Monocytes 0.9 thou/uL (0.11-0.59); #Neutrophils 3.5 thou/uL (1.40-6.50); %Basophils 0.6 % (0.0-1.0); %Eosinophils 5.2 % (0.0-10.0); %Lymphocytes 30.2 % (21.0-51.0); %Monocytes 12.6 % (0.0-10.0); %Neutrophils 51.3 % (42.0-75.0); Hematocrit 25.5 % (36.0-47.0); Hemoglobin 8.6 g/dL (12.0-16.0); Mean Corpuscular HGB CONC 33.7 g/dL (32.0-36.0); Mean Corpuscular Hemoglobin 27.7 pg (27.0-31.0); Mean Corpuscular Volume 82.3 fl (78.0-98.0); Mean Platelet Volume 11.4 fL (7.4-10.4); Platelet Count 271 10x3/uL (130-400); RBC Distribution Width 18.1 % (11.5-14.5); White Blood Cell (WBC) Count 6.9 10x3/uL (4.8-10.8)
[2023-02-12] MEDS ORDERED: hydrALAZINE 20 MG/ML VIAL ONE (10:34)
[2023-02-12] MEDS: Ondansetron PF 4 MG/2 ML Vial IVP PRN (10:42)
[2023-02-12] MEDS ORDERED: hydrALAZINE 20 MG/ML VIAL SLOW IVP SCH ×2 (10:45→11:30)
[2023-02-12] MEDS ORDERED: Furosemide 20 MG/2 ML VIAL SLOW IVP SCH (11:30)
[2023-02-12] MEDS: HumaLOG 300 UNITS/3 ML VIAL SC PRN (18:02)
[2023-02-12] MEDS ORDERED: Ipratropium/Albuterol 3 ML NEB ONE (18:03)
[2023-02-12] MEDS: Insulin Glargine 30 UNITS/0.3 ML VIAL SC SCH (20:46)
[2023-02-12] MEDS: Transdermal Patch Removal TOP SCH (20:53)
[2023-02-13] MEDS ORDERED: Digoxin 0.5 MG/2 ML AMP SLOW IVP SCH (01:00)
[2023-02-13] MEDS: HYDROcodone/Acetaminophen 5/325 mg Tablet PO PRN ×4 (01:10→20:40)
[2023-02-13 05:06] LABS: Anion Gap 13 mmol/L (10-20); BUN (Urea Nitrogen) 32 mg/dL (9.8-20.1); Calc. Creatinine Clearance 25 mL/min (70-130); Calcium 8.9 mg/dL (7.8-10.44); Carbon Dioxide 21 mmol/L (23-31); Chloride 107 mmol/L (98-107); Estimated GFR 23; Glucose 127 mg/dL (80-115); Potassium 5.3 mmol/L (3.5-5.1); Sodium 136 mmol/L (136-145)
[2023-02-13] MEDS: Multivitamin W/ Minerals 1 TAB PO SCH (08:48)
[2023-02-13] MEDS: Zinc Sulfate 220 MG CAP PO SCH (08:49)
[2023-02-13] MEDS: NIFEdipine XL 60 MG ER.TAB PO SCH (08:49)
[2023-02-13] MEDS: Polyethylene Glycol 3350 17 GM Packet PO SCH (08:49)
[2023-02-13] MEDS: Fluticasone Propionate Nasal Spray 16 gm Bottle NASAL SCH (08:49)
[2023-02-13] MEDS: Gabapentin 300 MG CAP PO SCH ×2 (08:49→20:22)
[2023-02-13] MEDS: hydrALAZINE 10 MG TAB PO SCH ×2 (08:49→21:23)
[2023-02-13] MEDS: Saccharomyces boulardii 250 MG CAP PO SCH (08:49)
[2023-02-13] MEDS: Dronedarone HCl 400 MG TAB PO SCH ×2 (08:49→17:42)
[2023-02-13] MEDS: Ferrous Sulfate 325 MG TAB PO SCH (08:49)
[2023-02-13] MEDS ORDERED: tiZANidine HCl 4 MG TAB PO SCH (14:00)
[2023-02-13 15:30] LABS: Magnesium 1.8 mg/dL (1.6-2.6)
[2023-02-13] MEDS ORDERED: Atropine Sulfate 1 mg/10 ml Syringe ONE (16:14)
[2023-02-13] MEDS ORDERED: DOPamine 400 MG/D5W 250 ML 250 ML ONE (16:41)
[2023-02-13] MEDS ORDERED: DOPamine 400 MG/D5W 250 ML 250 ML IVPB SCH ×3 (16:45→22:00)
[2023-02-13 17:32] LABS: #Eosinphils 0.3 thou/uL (0.0-0.7); #Monocytes 0.9 thou/uL (0.11-0.59); #Neutrophils 3.6 thou/uL (1.40-6.50); %Basophils 0.5 % (0.0-1.0); %Eosinophils 4.4 % (0.0-10.0); %Lymphocytes 34.2 % (21.0-51.0); %Monocytes 12.2 % (0.0-10.0); %Neutrophils 48.4 % (42.0-75.0); Hematocrit 28.2 % (36.0-47.0); Hemoglobin 9.3 g/dL (12.0-16.0); Mean Corpuscular Hemoglobin 27.4 pg (27.0-31.0); Mean Corpuscular Volume 82.9 fl (78.0-98.0); Mean Platelet Volume 10.8 fL (7.4-10.4); Platelet Count 287 10x3/uL (130-400); RBC Distribution Width 18.3 % (11.5-14.5); White Blood Cell (WBC) Count 7.5 10x3/uL (4.8-10.8)
[2023-02-13] MEDS ORDERED: Atropine Sulfate 1 mg/10 ml Syringe IVP SCH (17:45)
[2023-02-13 17:58] LABS: ALT (SGPT) 27 U/L (8-55); AST (SGOT) 52 U/L (5-34); Albumin 3.4 g/dL (3.4-4.8); Alkaline Phosphatase 405 U/L (40-110); Anion Gap 15 mmol/L (10-20); BUN (Urea Nitrogen) 31 mg/dL (9.8-20.1); Bilirubin, Total 0.2 mg/dL (0.2-1.2); Calc. Creatinine Clearance 21 mL/min (70-130); Carbon Dioxide 19 mmol/L (23-31); Chloride 102 mmol/L (98-107); Estimated GFR 18; Globulin 4.2 g/dL (2.4-3.5); Glucose 339 mg/dL (80-115); Magnesium 1.7 mg/dL (1.6-2.6); Phosphorus 4.1 mg/dL (2.3-4.7); Protein, Total 7.6 g/dL (5.8-8.1); Sodium 129 mmol/L (136-145)
[2023-02-13] MEDS ORDERED: Lactated Ringer's 500 ML IV SCH (18:15)
[2023-02-13] MEDS: HumaLOG 300 UNITS/3 ML VIAL SC PRN (18:21)
[2023-02-13 18:43] LABS: Potassium 6.5 mmol/L (3.5-5.1)
[2023-02-13] MEDS ORDERED: Magnesium 2 GM/50 ML(in water) 2 GM in Premix Bag 1 BAG IVPB SCH (19:00)
[2023-02-13] MEDS ORDERED: LOKELMA 10 GM PACKET PO SCH ×2 (19:00→23:00)
[2023-02-13] MEDS: Insulin Glargine 30 UNITS/0.3 ML VIAL SC SCH (20:22)
[2023-02-13] MEDS: Ondansetron PF 4 MG/2 ML Vial IVP PRN (20:34)
[2023-02-13] MEDS: Transdermal Patch Removal TOP SCH (20:36)
[2023-02-13 22:24] LABS: Anion Gap 12 mmol/L (10-20); BUN (Urea Nitrogen) 34 mg/dL (9.8-20.1); Calc. Creatinine Clearance 22 mL/min (70-130); Calcium 9.3 mg/dL (7.8-10.44); Carbon Dioxide 24 mmol/L (23-31); Chloride 105 mmol/L (98-107); Estimated GFR 19; Glucose 112 mg/dL (80-115); Magnesium 2.7 mg/dL (1.6-2.6); Phosphorus 4.3 mg/dL (2.3-4.7); Sodium 135 mmol/L (136-145)
[2023-02-13] MEDS ORDERED: Sodium Bicarb 50 MEQ/50 ML VIAL IVP SCH (23:00)
[2023-02-14 01:00] LABS: Anion Gap 13 mmol/L (10-20); BUN (Urea Nitrogen) 34 mg/dL (9.8-20.1); Calc. Creatinine Clearance 23 mL/min (70-130); Calcium 9.2 mg/dL (7.8-10.44); Carbon Dioxide 25 mmol/L (23-31); Chloride 104 mmol/L (98-107); Estimated GFR 20; Glucose 73 mg/dL (80-115); Potassium 5.1 mmol/L (3.5-5.1); Sodium 137 mmol/L (136-145)
[2023-02-14 05:22] LABS: Anion Gap 12 mmol/L (10-20); BUN (Urea Nitrogen) 33 mg/dL (9.8-20.1); Calc. Creatinine Clearance 23 mL/min (70-130); Calcium 9.1 mg/dL (7.8-10.44); Carbon Dioxide 25 mmol/L (23-31); Chloride 105 mmol/L (98-107); Estimated GFR 20; Glucose 97 mg/dL (80-115); Potassium 4.7 mmol/L (3.5-5.1); Sodium 137 mmol/L (136-145)
[2023-02-14] MEDS: HYDROcodone/Acetaminophen 5/325 mg Tablet PO PRN ×3 (07:25→22:35)
[2023-02-14] MEDS: Dronedarone HCl 400 MG TAB PO SCH ×2 (07:25→17:00)
[2023-02-14] MEDS: Ferrous Sulfate 325 MG TAB PO SCH (07:25)
[2023-02-14] MEDS: Gabapentin 300 MG CAP PO SCH ×2 (08:27→21:34)
[2023-02-14] MEDS: Zinc Sulfate 220 MG CAP PO SCH (08:28)
[2023-02-14] MEDS: Saccharomyces boulardii 250 MG CAP PO SCH (08:28)
[2023-02-14] MEDS: Multivitamin W/ Minerals 1 TAB PO SCH (08:28)
[2023-02-14] MEDS: Fluticasone Propionate Nasal Spray 16 gm Bottle NASAL SCH (08:29)
[2023-02-14] MEDS: Polyethylene Glycol 3350 17 GM Packet PO SCH (08:29)
[2023-02-14] MEDS ORDERED: NIFEdipine XL 60 MG ER.TAB PO SCH (10:00)
[2023-02-14] MEDS: HumaLOG 300 UNITS/3 ML VIAL SC PRN (17:00)
[2023-02-14] MEDS: Insulin Glargine 30 UNITS/0.3 ML VIAL SC SCH (21:36)
[2023-02-14] MEDS: Transdermal Patch Removal TOP SCH (21:38)
[2023-02-14] MEDS: Ipratropium/Albuterol 3 ML NEB NEB PRN (22:19)
[2023-02-15 05:18] LABS: Anion Gap 11 mmol/L (10-20); BUN (Urea Nitrogen) 38 mg/dL (9.8-20.1); Calc. Creatinine Clearance 19 mL/min (70-130); Carbon Dioxide 27 mmol/L (23-31); Chloride 104 mmol/L (98-107); Estimated GFR 16; Glucose 188 mg/dL (80-115); Potassium 5.3 mmol/L (3.5-5.1); Sodium 137 mmol/L (136-145)
[2023-02-15] MEDS ORDERED: Lactated Ringer's 500 ML IV SCH (08:45)
[2023-02-15] MEDS: Saccharomyces boulardii 250 MG CAP PO SCH (09:17)
[2023-02-15] MEDS: Gabapentin 300 MG CAP PO SCH ×2 (09:17→21:03)
[2023-02-15] MEDS: Zinc Sulfate 220 MG CAP PO SCH (09:19)
[2023-02-15] MEDS: Ferrous Sulfate 325 MG TAB PO SCH (09:19)
[2023-02-15] MEDS: Multivitamin W/ Minerals 1 TAB PO SCH (09:19)
[2023-02-15] MEDS: Dronedarone HCl 400 MG TAB PO SCH ×2 (09:20→17:51)
[2023-02-15] MEDS: NIFEdipine XL 60 MG ER.TAB PO SCH (09:20)
[2023-02-15] MEDS: Polyethylene Glycol 3350 17 GM Packet PO SCH (09:22)
[2023-02-15] MEDS: Fluticasone Propionate Nasal Spray 16 gm Bottle NASAL SCH ×2 (09:23→09:43)
[2023-02-15] MEDS: Ipratropium/Albuterol 3 ML NEB NEB PRN ×2 (09:44→14:29)
[2023-02-15] MEDS: Docusate 100 MG CAP PO PRN (10:55)
[2023-02-15] MEDS ORDERED: Furosemide 40 MG/4 ML VIAL SLOW IVP SCH (11:30)
[2023-02-15] MEDS: HumaLOG 300 UNITS/3 ML VIAL SC PRN ×3 (11:54→21:04)
[2023-02-15] MEDS ORDERED: Calcium Carbonate 500 MG ChewTAB PO PRN (13:41)
[2023-02-15] MEDS: Acetaminophen 325 MG TAB PO PRN (14:19)
[2023-02-15] MEDS: Lactated Ringer's 1,000 ML IV SCH ×2 (18:00→23:17)
[2023-02-15 20:26] LABS: Anion Gap 16 mmol/L (10-20); BUN (Urea Nitrogen) 42 mg/dL (9.8-20.1); Calc. Creatinine Clearance 19 mL/min (70-130); Carbon Dioxide 19 mmol/L (23-31); Chloride 102 mmol/L (98-107); Estimated GFR 16; Glucose 290 mg/dL (80-115); Potassium 5.6 mmol/L (3.5-5.1); Sodium 131 mmol/L (136-145)
[2023-02-15] MEDS: Insulin Glargine 30 UNITS/0.3 ML VIAL SC SCH (21:04)
[2023-02-16] MEDS ORDERED: HumaLOG 300 UNITS/3 ML VIAL SC SCH ×2 (01:00→20:30)
[2023-02-16] MEDS: Transdermal Patch Removal TOP SCH ×2 (01:20→20:37)
[2023-02-16 04:34] LABS: Anion Gap 12 mmol/L (10-20); BUN (Urea Nitrogen) 42 mg/dL (9.8-20.1); Calc. Creatinine Clearance 20 mL/min (70-130); Calcium 9.2 mg/dL (7.8-10.44); Carbon Dioxide 25 mmol/L (23-31); Chloride 104 mmol/L (98-107); Estimated GFR 17; Glucose 165 mg/dL (80-115); Potassium 5.3 mmol/L (3.5-5.1); Sodium 136 mmol/L (136-145)
[2023-02-16] MEDS: Ipratropium/Albuterol 3 ML NEB NEB PRN ×2 (06:10→14:10)
[2023-02-16 06:16] LABS: #Eosinphils 0.2 thou/uL (0.0-0.7); #Monocytes 0.8 thou/uL (0.11-0.59); #Neutrophils 3.8 thou/uL (1.40-6.50); %Basophils 0.3 % (0.0-1.0); %Eosinophils 3.4 % (0.0-10.0); %Lymphocytes 30.6 % (21.0-51.0); %Monocytes 11.6 % (0.0-10.0); Hematocrit 24.2 % (36.0-47.0); Mean Corpuscular HGB CONC 33.1 g/dL (32.0-36.0); Mean Corpuscular Hemoglobin 27.4 pg (27.0-31.0); Mean Corpuscular Volume 82.9 fl (78.0-98.0); Mean Platelet Volume 11.4 fL (7.4-10.4); Platelet Count 267 10x3/uL (130-400); RBC Distribution Width 17.4 % (11.5-14.5); Red Blood Cell (RBC) Count 2.92 mill/uL (4.20-5.40); White Blood Cell (WBC) Count 7.1 10x3/uL (4.8-10.8)
[2023-02-16] MEDS: NIFEdipine XL 60 MG ER.TAB PO SCH (08:58)
[2023-02-16] MEDS: Polyethylene Glycol 3350 17 GM Packet PO SCH (08:58)
[2023-02-16] MEDS: Dronedarone HCl 400 MG TAB PO SCH ×2 (08:58→17:00)
[2023-02-16] MEDS: Gabapentin 300 MG CAP PO SCH ×2 (08:59→20:20)
[2023-02-16] MEDS: Ferrous Sulfate 325 MG TAB PO SCH (08:59)
[2023-02-16] MEDS: Saccharomyces boulardii 250 MG CAP PO SCH (08:59)
[2023-02-16] MEDS: Zinc Sulfate 220 MG CAP PO SCH (08:59)
[2023-02-16] MEDS: Multivitamin W/ Minerals 1 TAB PO SCH (09:00)
[2023-02-16] MEDS: Fluticasone Propionate Nasal Spray 16 gm Bottle NASAL SCH (09:00)
[2023-02-16] MEDS ORDERED: LOKELMA 5 GM PACKET PO SCH ×2 (09:30→14:00)
[2023-02-16] MEDS: Lactated Ringer's 1,000 ML IV SCH (10:14)
[2023-02-16 13:38] LABS: Anion Gap 13 mmol/L (10-20); BUN (Urea Nitrogen) 40 mg/dL (9.8-20.1); Calc. Creatinine Clearance 21 mL/min (70-130); Calcium 9.5 mg/dL (7.8-10.44); Carbon Dioxide 26 mmol/L (23-31); Chloride 103 mmol/L (98-107); Estimated GFR 18; Glucose 195 mg/dL (80-115); Potassium 5.9 mmol/L (3.5-5.1); Sodium 136 mmol/L (136-145)
[2023-02-16] MEDS: Senokot 8.6 MG TAB PO PRN (13:57)
[2023-02-16] MEDS: Docusate 100 MG CAP PO PRN (13:57)
[2023-02-16] MEDS: HYDROcodone/Acetaminophen 5/325 mg Tablet PO PRN (13:58)
[2023-02-16 14:51] LABS: ALT (SGPT) 28 U/L (8-55); AST (SGOT) 49 U/L (5-34)
[2023-02-16] MEDS: HumaLOG 300 UNITS/3 ML VIAL SC PRN (19:13)
[2023-02-16 19:58] LABS: Anion Gap 13 mmol/L (10-20); BUN (Urea Nitrogen) 45 mg/dL (9.8-20.1); Calc. Creatinine Clearance 18 mL/min (70-130); Calcium 8.9 mg/dL (7.8-10.44); Carbon Dioxide 23 mmol/L (23-31); Chloride 101 mmol/L (98-107); Estimated GFR 15; Sodium 131 mmol/L (136-145)
[2023-02-16 20:14] LABS: Glucose 408 mg/dL (80-115); Potassium 6.4 mmol/L (3.5-5.1)
[2023-02-16] MEDS: Insulin Glargine 30 UNITS/0.3 ML VIAL SC SCH (20:19)
[2023-02-16] MEDS ORDERED: Insulin Glargine 30 UNITS/0.3 ML VIAL SC SCH ×2 (20:24→20:27)
[2023-02-16] MEDS ORDERED: LOKELMA 10 GM PACKET PO SCH (20:30)
[2023-02-17 01:15] LABS: Anion Gap 15 mmol/L (10-20); BUN (Urea Nitrogen) 45 mg/dL (9.8-20.1); Calc. Creatinine Clearance 19 mL/min (70-130); Calcium 9.3 mg/dL (7.8-10.44); Carbon Dioxide 23 mmol/L (23-31); Chloride 103 mmol/L (98-107); Estimated GFR 16; Glucose 87 mg/dL (80-115); Potassium 5.4 mmol/L (3.5-5.1); Sodium 136 mmol/L (136-145)
[2023-02-17] MEDS ORDERED: LOKELMA 10 GM PACKET PO SCH (01:45)
[2023-02-17 07:37] LABS: Anion Gap 16 mmol/L (10-20); BUN (Urea Nitrogen) 45 mg/dL (9.8-20.1); Calc. Creatinine Clearance 19 mL/min (70-130); Calcium 9.3 mg/dL (7.8-10.44); Carbon Dioxide 23 mmol/L (23-31); Chloride 102 mmol/L (98-107); Estimated GFR 16; Glucose 83 mg/dL (80-115); Potassium 5.5 mmol/L (3.5-5.1); Sodium 135 mmol/L (136-145)
[2023-02-17] MEDS ORDERED: Communication Order-Pharmacy FS SCH (09:00)
[2023-02-17] MEDS: HYDROcodone/Acetaminophen 5/325 mg Tablet PO PRN ×3 (10:01→21:03)
[2023-02-17] MEDS: Gabapentin 300 MG CAP PO SCH ×2 (10:03→19:37)
[2023-02-17] MEDS: Multivitamin W/ Minerals 1 TAB PO SCH (10:04)
[2023-02-17] MEDS: NIFEdipine XL 60 MG ER.TAB PO SCH (10:04)
[2023-02-17] MEDS: Zinc Sulfate 220 MG CAP PO SCH (10:04)
[2023-02-17] MEDS: Saccharomyces boulardii 250 MG CAP PO SCH (10:04)
[2023-02-17] MEDS: Dronedarone HCl 400 MG TAB PO SCH ×2 (10:05→16:54)
[2023-02-17] MEDS: Polyethylene Glycol 3350 17 GM Packet PO SCH (10:06)
[2023-02-17] MEDS: Insulin Glargine 30 UNITS/0.3 ML VIAL SC SCH (10:06)
[2023-02-17] MEDS: Ferrous Sulfate 325 MG TAB PO SCH (10:13)
[2023-02-17] MEDS: Sodium Chloride 0.9% 1,000 ML IV SCH ×2 (10:18→19:40)
[2023-02-17] MEDS: Fluticasone Propionate Nasal Spray 16 gm Bottle NASAL SCH (12:01)
[2023-02-17 13:07] LABS: Anion Gap 14 mmol/L (10-20); BUN (Urea Nitrogen) 42 mg/dL (9.8-20.1); Calc. Creatinine Clearance 20 mL/min (70-130); Calcium 9.2 mg/dL (7.8-10.44); Carbon Dioxide 25 mmol/L (23-31); Chloride 103 mmol/L (98-107); Estimated GFR 17; Glucose 243 mg/dL (80-115); Potassium 5.1 mmol/L (3.5-5.1); Sodium 137 mmol/L (136-145)
[2023-02-17] MEDS: Docusate 100 MG CAP PO PRN ×2 (16:50→19:38)
[2023-02-17 17:29] LABS: Iron 42 ug/dL (50-170); Iron Binding Capacity, Total 255 mcg/dL (265-497)
[2023-02-17] MEDS: HumaLOG 300 UNITS/3 ML VIAL SC PRN ×2 (17:57→21:02)
[2023-02-17] MEDS: Transdermal Patch Removal TOP SCH (19:42)
[2023-02-18 05:14] LABS: Anion Gap 13 mmol/L (10-20); BUN (Urea Nitrogen) 41 mg/dL (9.8-20.1); Calc. Creatinine Clearance 22 mL/min (70-130); Carbon Dioxide 25 mmol/L (23-31); Chloride 108 mmol/L (98-107); Estimated GFR 19; Potassium 4.5 mmol/L (3.5-5.1); Sodium 141 mmol/L (136-145)
[2023-02-18 05:31] LABS: Glucose 48 mg/dL (80-115)
[2023-02-18] MEDS: Sodium Chloride 0.9% 1,000 ML IV SCH ×2 (05:40→21:02)
[2023-02-18] MEDS: Zinc Sulfate 220 MG CAP PO SCH (08:14)
[2023-02-18] MEDS: Gabapentin 300 MG CAP PO SCH ×2 (08:14→21:01)
[2023-02-18] MEDS: Fluticasone Propionate Nasal Spray 16 gm Bottle NASAL SCH (08:14)
[2023-02-18] MEDS: Multivitamin W/ Minerals 1 TAB PO SCH (08:14)
[2023-02-18] MEDS: LOKELMA 5 GM PACKET PO SCH (08:14)
[2023-02-18] MEDS: Saccharomyces boulardii 250 MG CAP PO SCH (08:14)
[2023-02-18] MEDS: NIFEdipine XL 60 MG ER.TAB PO SCH (08:14)
[2023-02-18] MEDS: Ferrous Sulfate 325 MG TAB PO SCH (08:14)
[2023-02-18] MEDS: Dronedarone HCl 400 MG TAB PO SCH ×2 (08:14→21:02)
[2023-02-18] MEDS: Insulin Glargine 30 UNITS/0.3 ML VIAL SC SCH (08:15)
[2023-02-18] MEDS: Acetaminophen 325 MG TAB PO PRN ×2 (08:21→22:54)
[2023-02-18] MEDS: Ipratropium/Albuterol 3 ML NEB NEB PRN (09:25)
[2023-02-18] MEDS ORDERED: Lidocaine 1% (PF) 30 ML VIAL ONE (11:13)
[2023-02-18] MEDS ORDERED: Heparin 10,000 UNITS/ 10 ML VIAL ONE (11:13)
[2023-02-18] MEDS ORDERED: Atropine Sulfate 1 mg/10 ml Syringe ONE (11:30)
[2023-02-18] MEDS ORDERED: Adenosine 6 MG/2 ML VIAL ONE (11:30)
[2023-02-18] MEDS ORDERED: Midazolam HCl 2 mg/2 ml Vial ONE (12:23)
[2023-02-18] MEDS ORDERED: fentaNYL 50 mcg/mL 1 mL Vial ONE ×2 (12:23→18:51)
[2023-02-18] MEDS ORDERED: Iopamidol 300 61% 100 ML VIAL FS ONE (14:44)
[2023-02-18 16:20] VITALS: BMI 27.8
[2023-02-18] MEDS: Polyethylene Glycol 3350 17 GM Packet PO SCH (17:45)
[2023-02-18] MEDS: HYDROcodone/Acetaminophen 5/325 mg Tablet PO PRN (21:01)
[2023-02-18] MEDS: Transdermal Patch Removal TOP SCH (21:03)
[2023-02-19] MEDS: Sodium Chloride 0.9% 1,000 ML IV SCH (01:15)
[2023-02-19 04:48] LABS: #Eosinphils 0.4 thou/uL (0.0-0.7); %Basophils 0.5 % (0.0-1.0); %Eosinophils 4.7 % (0.0-10.0); %Lymphocytes 31.8 % (21.0-51.0); %Monocytes 12.2 % (0.0-10.0); %Neutrophils 50.7 % (42.0-75.0); Hematocrit 23.9 % (36.0-47.0); Hemoglobin 7.9 g/dL (12.0-16.0); Mean Corpuscular HGB CONC 33.1 g/dL (32.0-36.0); Mean Corpuscular Hemoglobin 27.3 pg (27.0-31.0); Mean Corpuscular Volume 82.7 fl (78.0-98.0); Mean Platelet Volume 11.3 fL (7.4-10.4); Platelet Count 278 10x3/uL (130-400); RBC Distribution Width 17.7 % (11.5-14.5); Red Blood Cell (RBC) Count 2.89 mill/uL (4.20-5.40); White Blood Cell (WBC) Count 7.9 10x3/uL (4.8-10.8)
[2023-02-19 05:08] LABS: ALT (SGPT) 28 U/L (8-55); AST (SGOT) 45 U/L (5-34); Albumin 3.2 g/dL (3.4-4.8); Alkaline Phosphatase 354 U/L (40-110); Anion Gap 12 mmol/L (10-20); BUN (Urea Nitrogen) 33 mg/dL (9.8-20.1); Bilirubin, Total 0.2 mg/dL (0.2-1.2); Calc. Creatinine Clearance 26 mL/min (70-130); Calcium 8.8 mg/dL (7.8-10.44); Carbon Dioxide 24 mmol/L (23-31); Chloride 108 mmol/L (98-107); Estimated GFR 24; Globulin 4.2 g/dL (2.4-3.5); Glucose 214 mg/dL (80-115); Potassium 5.4 mmol/L (3.5-5.1); Protein, Total 7.4 g/dL (5.8-8.1); Sodium 139 mmol/L (136-145)
[2023-02-19] MEDS: HYDROcodone/Acetaminophen 5/325 mg Tablet PO PRN ×3 (05:53→19:46)
[2023-02-19] MEDS: Saccharomyces boulardii 250 MG CAP PO SCH (08:36)
[2023-02-19] MEDS: NIFEdipine XL 60 MG ER.TAB PO SCH (08:36)
[2023-02-19] MEDS: Gabapentin 300 MG CAP PO SCH ×2 (08:36→19:46)
[2023-02-19] MEDS: Zinc Sulfate 220 MG CAP PO SCH (08:37)
[2023-02-19] MEDS: Insulin Glargine 30 UNITS/0.3 ML VIAL SC SCH (08:37)
[2023-02-19] MEDS: Polyethylene Glycol 3350 17 GM Packet PO SCH (08:37)
[2023-02-19] MEDS: Multivitamin W/ Minerals 1 TAB PO SCH (08:37)
[2023-02-19] MEDS: Fluticasone Propionate Nasal Spray 16 gm Bottle NASAL SCH (08:37)
[2023-02-19] MEDS: Dronedarone HCl 400 MG TAB PO SCH ×2 (08:37→18:13)
[2023-02-19] MEDS: LOKELMA 5 GM PACKET PO SCH (08:37)
[2023-02-19] MEDS: Ferrous Sulfate 325 MG TAB PO SCH (08:37)
[2023-02-19] MEDS ORDERED: Furosemide 40 MG/4 ML VIAL SLOW IVP SCH (09:00)
[2023-02-19] MEDS ORDERED: LOKELMA 5 GM PACKET PO SCH (09:45)
[2023-02-19] MEDS: Ipratropium/Albuterol 3 ML NEB NEB PRN (10:21)
[2023-02-19] MEDS: HumaLOG 300 UNITS/3 ML VIAL SC PRN ×2 (11:10→18:15)
[2023-02-19] MEDS: Acetaminophen 325 MG TAB PO PRN (18:22)
[2023-02-19] MEDS: Apixaban 2.5 MG TAB PO SCH (19:46)
[2023-02-19] MEDS: Transdermal Patch Removal TOP SCH (19:47)
[2023-02-20] MEDS: Ipratropium/Albuterol 3 ML NEB NEB PRN ×2 (02:24→10:55)
[2023-02-20 04:58] LABS: Anion Gap 13 mmol/L (10-20); BUN (Urea Nitrogen) 31 mg/dL (9.8-20.1); Calc. Creatinine Clearance 25 mL/min (70-130); Calcium 9.7 mg/dL (7.8-10.44); Carbon Dioxide 26 mmol/L (23-31); Chloride 106 mmol/L (98-107); Estimated GFR 22; Glucose 160 mg/dL (83-110); Potassium 4.6 mmol/L (3.5-5.1); Sodium 140 mmol/L (136-145)
[2023-02-20] MEDS: Ferrous Sulfate 325 MG TAB PO SCH (08:24)
[2023-02-20] MEDS: Insulin Glargine 30 UNITS/0.3 ML VIAL SC SCH (08:24)
[2023-02-20] MEDS: LOKELMA 5 GM PACKET PO SCH (08:24)
[2023-02-20] MEDS: Dronedarone HCl 400 MG TAB PO SCH ×2 (08:24→16:11)
[2023-02-20] MEDS: Saccharomyces boulardii 250 MG CAP PO SCH (08:24)
[2023-02-20] MEDS: Apixaban 2.5 MG TAB PO SCH ×2 (08:24→20:18)
[2023-02-20] MEDS: NIFEdipine XL 90 MG ER.TAB PO SCH (08:24)
[2023-02-20] MEDS: Polyethylene Glycol 3350 17 GM Packet PO SCH (08:24)
[2023-02-20] MEDS: Zinc Sulfate 220 MG CAP PO SCH (08:24)
[2023-02-20] MEDS: Multivitamin W/ Minerals 1 TAB PO SCH (08:24)
[2023-02-20] MEDS: Gabapentin 300 MG CAP PO SCH ×2 (08:24→20:17)
[2023-02-20] MEDS: Fluticasone Propionate Nasal Spray 16 gm Bottle NASAL SCH (08:30)
[2023-02-20] MEDS: HumaLOG 300 UNITS/3 ML VIAL SC PRN ×2 (11:20→18:14)
[2023-02-20] MEDS ORDERED: Ipratropium/Albuterol 3 ML NEB IPPB SCH (12:15)
[2023-02-20] MEDS: HYDROcodone/Acetaminophen 5/325 mg Tablet PO PRN ×2 (13:24→20:18)
[2023-02-20] MEDS: Transdermal Patch Removal TOP SCH (20:18)
[2023-02-21 05:34] LABS: Hematocrit 23.1 % (36.0-47.0); Hemoglobin 7.6 g/dL (12.0-16.0); Mean Corpuscular HGB CONC 32.9 g/dL (32.0-36.0); Mean Corpuscular Hemoglobin 27.6 pg (27.0-31.0); Mean Platelet Volume 11.2 fL (7.4-10.4); Platelet Count 261 10x3/uL (130-400); RBC Distribution Width 17.2 % (11.5-14.5); Red Blood Cell (RBC) Count 2.75 mill/uL (4.20-5.40); White Blood Cell (WBC) Count 8.5 10x3/uL (4.8-10.8)
[2023-02-21 05:57] LABS: Anion Gap 13 mmol/L (10-20); BUN (Urea Nitrogen) 32 mg/dL (9.8-20.1); Calc. Creatinine Clearance 23 mL/min (70-130); Carbon Dioxide 22 mmol/L (23-31); Chloride 108 mmol/L (98-107); Potassium 4.9 mmol/L (3.5-5.1); Sodium 138 mmol/L (136-145)
[2023-02-21 05:58] LABS: Calcium 9.2 mg/dL (7.8-10.44); Estimated GFR 21; Glucose 64 mg/dL (83-110)
[2023-02-21] MEDS: HYDROcodone/Acetaminophen 5/325 mg Tablet PO PRN ×3 (09:22→23:27)
[2023-02-21] MEDS: Saccharomyces boulardii 250 MG CAP PO SCH (09:24)
[2023-02-21] MEDS: Polyethylene Glycol 3350 17 GM Packet PO SCH (09:24)
[2023-02-21] MEDS: Ferrous Sulfate 325 MG TAB PO SCH (09:24)
[2023-02-21] MEDS: Zinc Sulfate 220 MG CAP PO SCH (09:24)
[2023-02-21] MEDS: Apixaban 2.5 MG TAB PO SCH ×2 (09:24→20:18)
[2023-02-21] MEDS: Gabapentin 300 MG CAP PO SCH ×2 (09:24→20:17)
[2023-02-21] MEDS: NIFEdipine XL 90 MG ER.TAB PO SCH (09:25)
[2023-02-21] MEDS: Multivitamin W/ Minerals 1 TAB PO SCH (09:25)
[2023-02-21] MEDS: Insulin Glargine 30 UNITS/0.3 ML VIAL SC SCH (09:25)
[2023-02-21] MEDS: Fluticasone Propionate Nasal Spray 16 gm Bottle NASAL SCH (09:26)
[2023-02-21] MEDS: Dronedarone HCl 400 MG TAB PO SCH ×2 (09:27→16:09)
[2023-02-21] MEDS: LOKELMA 5 GM PACKET PO SCH (10:52)
[2023-02-21] MEDS ORDERED: Nitroglycerin 0.4 MG TAB (25 Tab Bottle) ONE (11:17)
[2023-02-21] MEDS ORDERED: Morphine 4 MG/ML VIAL ONE ×2 (11:22→11:24)
[2023-02-21] MEDS ORDERED: Nitroglycerin 2% Ointment 1 INCH/1 GM Packet ONE ×2 (11:22→11:24)
[2023-02-21] MEDS ORDERED: Metoprolol Tartrate 5 MG/5 ML VIAL ONE (11:43)
[2023-02-21] MEDS ORDERED: Metoprolol Tartrate 5 MG/5 ML VIAL IVP SCH (12:00)
[2023-02-21] MEDS ORDERED: Nitroglycerin 0.4 MG TAB 1 EACH SL PRN (12:17)
[2023-02-21 12:39] LABS: Troponin I 0.014 ng/mL (< 0.028)
[2023-02-21] MEDS: HumaLOG 300 UNITS/3 ML VIAL SC PRN ×2 (18:12→20:27)
[2023-02-21] MEDS: Nitroglycerin 2% Ointment 1 INCH/1 GM Packet TOP SCH ×2 (18:12→23:28)
[2023-02-21] MEDS: Acetaminophen 325 MG TAB PO PRN (20:17)
[2023-02-21] MEDS: Transdermal Patch Removal TOP SCH ×2 (20:42→20:47)
[2023-02-22] MEDS: Ipratropium/Albuterol 3 ML NEB NEB PRN ×2 (00:59→22:05)
[2023-02-22 04:48] LABS: Anion Gap 17 mmol/L (10-20); BUN (Urea Nitrogen) 43 mg/dL (9.8-20.1); Calc. Creatinine Clearance 18 mL/min (70-130); Calcium 9.3 mg/dL (7.8-10.44); Carbon Dioxide 21 mmol/L (23-31); Chloride 105 mmol/L (98-107); Estimated GFR 15; Glucose 104 mg/dL (83-110); Potassium 5.9 mmol/L (3.5-5.1); Sodium 137 mmol/L (136-145)
[2023-02-22] MEDS: Nitroglycerin 2% Ointment 1 INCH/1 GM Packet TOP SCH ×4 (05:42→23:12)
[2023-02-22] MEDS: Polyethylene Glycol 3350 17 GM Packet PO SCH (09:41)
[2023-02-22] MEDS: Zinc Sulfate 220 MG CAP PO SCH (09:41)
[2023-02-22] MEDS: Gabapentin 300 MG CAP PO SCH ×2 (09:41→20:26)
[2023-02-22] MEDS: Dronedarone HCl 400 MG TAB PO SCH ×2 (09:42→18:01)
[2023-02-22] MEDS: Ferrous Sulfate 325 MG TAB PO SCH (09:42)
[2023-02-22] MEDS: Saccharomyces boulardii 250 MG CAP PO SCH (09:42)
[2023-02-22] MEDS: Multivitamin W/ Minerals 1 TAB PO SCH (09:42)
[2023-02-22] MEDS: Apixaban 2.5 MG TAB PO SCH ×2 (09:43→20:26)
[2023-02-22] MEDS: NIFEdipine XL 90 MG ER.TAB PO SCH (09:43)
[2023-02-22] MEDS: LOKELMA 5 GM PACKET PO SCH (09:46)
[2023-02-22] MEDS: Insulin Glargine 30 UNITS/0.3 ML VIAL SC SCH (09:53)
[2023-02-22] MEDS: Fluticasone Propionate Nasal Spray 16 gm Bottle NASAL SCH (09:54)
[2023-02-22] MEDS ORDERED: Dextrose 50% Abboject 50 ML SYRINGE SLOW IVP SCH (10:30)
[2023-02-22] MEDS ORDERED: Insulin Regular 300 UNITS/3 ML VIAL IVP SCH ×2 (10:30→20:15)
[2023-02-22] MEDS: HumaLOG 300 UNITS/3 ML VIAL SC PRN (11:35)
[2023-02-22 16:42] LABS: #Eosinphils 0.2 thou/uL (0.0-0.7); #Monocytes 0.9 thou/uL (0.11-0.59); #Neutrophils 4.2 thou/uL (1.40-6.50); %Basophils 0.6 % (0.0-1.0); %Eosinophils 2.7 % (0.0-10.0); %Lymphocytes 24.6 % (21.0-51.0); %Monocytes 12.6 % (0.0-10.0); %Neutrophils 59.4 % (42.0-75.0); Hematocrit 21.2 % (36.0-47.0); Hemoglobin 6.9 g/dL (12.0-16.0); Mean Corpuscular HGB CONC 32.5 g/dL (32.0-36.0); Mean Corpuscular Hemoglobin 27.5 pg (27.0-31.0); Mean Corpuscular Volume 84.5 fl (78.0-98.0); Mean Platelet Volume 10.3 fL (7.4-10.4); Platelet Count 277 10x3/uL (130-400); RBC Distribution Width 16.9 % (11.5-14.5); Red Blood Cell (RBC) Count 2.51 mill/uL (4.20-5.40); White Blood Cell (WBC) Count 7.1 10x3/uL (4.8-10.8)
[2023-02-22] MEDS ORDERED: Epoetin (ESRD) 10,000 UNITS/ML VIAL SC SCH (17:15)
[2023-02-22] MEDS: Acetaminophen 325 MG TAB PO PRN (18:10)
[2023-02-22 19:34] LABS: Potassium 5.8 mmol/L (3.5-5.1)
[2023-02-22] MEDS: HYDROcodone/Acetaminophen 5/325 mg Tablet PO PRN (19:38)
[2023-02-22] MEDS ORDERED: LOKELMA 10 GM PACKET PO SCH (20:15)
[2023-02-22] MEDS: Transdermal Patch Removal TOP SCH (20:27)
[2023-02-23] MEDS: HYDROcodone/Acetaminophen 5/325 mg Tablet PO PRN ×3 (01:53→21:20)
[2023-02-23 04:15] LABS: #Eosinphils 0.3 thou/uL (0.0-0.7); #Monocytes 0.9 thou/uL (0.11-0.59); #Neutrophils 4.1 thou/uL (1.40-6.50); %Basophils 0.4 % (0.0-1.0); %Eosinophils 3.4 % (0.0-10.0); %Lymphocytes 29.9 % (21.0-51.0); %Monocytes 11.9 % (0.0-10.0); %Neutrophils 54.1 % (42.0-75.0); Hemoglobin 7.6 g/dL (12.0-16.0); Mean Corpuscular Hemoglobin 27.4 pg (27.0-31.0); Mean Platelet Volume 10.2 fL (7.4-10.4); Platelet Count 263 10x3/uL (130-400); RBC Distribution Width 15.8 % (11.5-14.5); Red Blood Cell (RBC) Count 2.77 mill/uL (4.20-5.40); White Blood Cell (WBC) Count 7.6 10x3/uL (4.8-10.8)
[2023-02-23 04:35] LABS: Anion Gap 14 mmol/L (10-20); BUN (Urea Nitrogen) 43 mg/dL (9.8-20.1); Calc. Creatinine Clearance 18 mL/min (70-130); Calcium 8.9 mg/dL (7.8-10.44); Carbon Dioxide 25 mmol/L (23-31); Chloride 100 mmol/L (98-107); Estimated GFR 16; Glucose 144 mg/dL (83-110); Potassium 4.9 mmol/L (3.5-5.1); Sodium 134 mmol/L (136-145)
[2023-02-23] MEDS: Nitroglycerin 2% Ointment 1 INCH/1 GM Packet TOP SCH ×3 (05:16→17:09)
[2023-02-23] MEDS: Insulin Glargine 30 UNITS/0.3 ML VIAL SC SCH (09:12)
[2023-02-23] MEDS: Multivitamin W/ Minerals 1 TAB PO SCH (09:13)
[2023-02-23] MEDS: Polyethylene Glycol 3350 17 GM Packet PO SCH (09:13)
[2023-02-23] MEDS: Ferrous Sulfate 325 MG TAB PO SCH (09:13)
[2023-02-23] MEDS: Dronedarone HCl 400 MG TAB PO SCH ×2 (09:13→17:09)
[2023-02-23] MEDS: Zinc Sulfate 220 MG CAP PO SCH (09:13)
[2023-02-23] MEDS: Apixaban 2.5 MG TAB PO SCH ×2 (09:14→19:50)
[2023-02-23] MEDS: Gabapentin 300 MG CAP PO SCH ×2 (09:14→19:50)
[2023-02-23] MEDS: Saccharomyces boulardii 250 MG CAP PO SCH (09:14)
[2023-02-23] MEDS: NIFEdipine XL 90 MG ER.TAB PO SCH (09:14)
[2023-02-23] MEDS: Fluticasone Propionate Nasal Spray 16 gm Bottle NASAL SCH (09:15)
[2023-02-23] MEDS: Acetaminophen 325 MG TAB PO PRN (09:45)
[2023-02-23] MEDS: LOKELMA 5 GM PACKET PO SCH (15:50)
[2023-02-23] MEDS: Ipratropium/Albuterol 3 ML NEB NEB PRN (19:59)
[2023-02-23] MEDS: Transdermal Patch Removal TOP SCH (20:04)
[2023-02-23] MEDS: HumaLOG 300 UNITS/3 ML VIAL SC PRN (20:55)
[2023-02-24] MEDS: Nitroglycerin 2% Ointment 1 INCH/1 GM Packet TOP SCH ×4 (00:40→17:22)
[2023-02-24] MEDS: HYDROcodone/Acetaminophen 5/325 mg Tablet PO PRN ×2 (03:52→22:03)
[2023-02-24 04:19] LABS: #Eosinphils 0.3 thou/uL (0.0-0.7); %Basophils 0.5 % (0.0-1.0); %Eosinophils 3.6 % (0.0-10.0); %Lymphocytes 30.8 % (21.0-51.0); %Neutrophils 51.7 % (42.0-75.0); Hematocrit 25.1 % (36.0-47.0); Hemoglobin 8.2 g/dL (12.0-16.0); Mean Corpuscular HGB CONC 32.7 g/dL (32.0-36.0); Mean Corpuscular Hemoglobin 27.1 pg (27.0-31.0); Mean Corpuscular Volume 82.8 fl (78.0-98.0); Mean Platelet Volume 10.5 fL (7.4-10.4); Platelet Count 286 10x3/uL (130-400); RBC Distribution Width 16.5 % (11.5-14.5); Red Blood Cell (RBC) Count 3.03 mill/uL (4.20-5.40); White Blood Cell (WBC) Count 7.8 10x3/uL (4.8-10.8)
[2023-02-24 04:51] LABS: Anion Gap 15 mmol/L (10-20); BUN (Urea Nitrogen) 48 mg/dL (9.8-20.1); Calc. Creatinine Clearance 17 mL/min (70-130); Calcium 9.1 mg/dL (7.8-10.44); Carbon Dioxide 24 mmol/L (23-31); Chloride 100 mmol/L (98-107); Estimated GFR 15; Glucose 101 mg/dL (83-110); Sodium 134 mmol/L (136-145)
[2023-02-24] MEDS: Polyethylene Glycol 3350 17 GM Packet PO SCH (08:42)
[2023-02-24] MEDS: Saccharomyces boulardii 250 MG CAP PO SCH (08:42)
[2023-02-24] MEDS: Multivitamin W/ Minerals 1 TAB PO SCH (08:42)
[2023-02-24] MEDS: Insulin Glargine 30 UNITS/0.3 ML VIAL SC SCH (08:42)
[2023-02-24] MEDS: Zinc Sulfate 220 MG CAP PO SCH (08:43)
[2023-02-24] MEDS: Ferrous Sulfate 325 MG TAB PO SCH (08:43)
[2023-02-24] MEDS: Apixaban 2.5 MG TAB PO SCH ×2 (08:43→22:02)
[2023-02-24] MEDS: Gabapentin 300 MG CAP PO SCH ×2 (08:43→22:02)
[2023-02-24] MEDS: NIFEdipine XL 90 MG ER.TAB PO SCH (08:43)
[2023-02-24] MEDS: Dronedarone HCl 400 MG TAB PO SCH ×2 (08:43→17:22)
[2023-02-24] MEDS: Fluticasone Propionate Nasal Spray 16 gm Bottle NASAL SCH (09:53)
[2023-02-24] MEDS: HumaLOG 300 UNITS/3 ML VIAL SC PRN ×2 (11:15→17:22)
[2023-02-24] MEDS: LOKELMA 5 GM PACKET PO SCH (11:16)
[2023-02-24] MEDS: Acetaminophen 325 MG TAB PO PRN (13:38)
[2023-02-24] MEDS: Ipratropium/Albuterol 3 ML NEB NEB PRN (18:38)
[2023-02-24] MEDS: Docusate 100 MG CAP PO PRN (22:03)
[2023-02-24] MEDS: Transdermal Patch Removal TOP SCH (22:04)
[2023-02-25] MEDS: Nitroglycerin 2% Ointment 1 INCH/1 GM Packet TOP SCH ×3 (00:51→13:05)
[2023-02-25 05:59] LABS: #Eosinphils 0.3 thou/uL (0.0-0.7); #Monocytes 0.8 thou/uL (0.11-0.59); #Neutrophils 3.8 thou/uL (1.40-6.50); %Basophils 0.5 % (0.0-1.0); %Eosinophils 4.1 % (0.0-10.0); %Lymphocytes 35.1 % (21.0-51.0); %Monocytes 10.8 % (0.0-10.0); %Neutrophils 49.4 % (42.0-75.0); Hematocrit 24.7 % (36.0-47.0); Hemoglobin 8.1 g/dL (12.0-16.0); Mean Corpuscular HGB CONC 32.8 g/dL (32.0-36.0); Mean Corpuscular Hemoglobin 27.6 pg (27.0-31.0); Mean Platelet Volume 10.4 fL (7.4-10.4); Platelet Count 296 10x3/uL (130-400); RBC Distribution Width 16.2 % (11.5-14.5); Red Blood Cell (RBC) Count 2.94 mill/uL (4.20-5.40); White Blood Cell (WBC) Count 7.6 10x3/uL (4.8-10.8)
[2023-02-25 06:37] LABS: Anion Gap 13 mmol/L (10-20); BUN (Urea Nitrogen) 51 mg/dL (9.8-20.1); Calc. Creatinine Clearance 16 mL/min (70-130); Carbon Dioxide 25 mmol/L (23-31); Chloride 102 mmol/L (98-107); Estimated GFR 14; Glucose 73 mg/dL (83-110); Potassium 4.7 mmol/L (3.5-5.1); Sodium 135 mmol/L (136-145)
[2023-02-25] MEDS: NIFEdipine XL 90 MG ER.TAB PO SCH (09:45)
[2023-02-25] MEDS: Fluticasone Propionate Nasal Spray 16 gm Bottle NASAL SCH (09:45)
[2023-02-25] MEDS: Gabapentin 300 MG CAP PO SCH (09:45)
[2023-02-25] MEDS: Zinc Sulfate 220 MG CAP PO SCH (09:45)
[2023-02-25] MEDS: Apixaban 2.5 MG TAB PO SCH (09:45)
[2023-02-25] MEDS: LOKELMA 5 GM PACKET PO SCH (09:46)
[2023-02-25] MEDS: Dronedarone HCl 400 MG TAB PO SCH (09:46)
[2023-02-25] MEDS: Multivitamin W/ Minerals 1 TAB PO SCH (09:46)
[2023-02-25] MEDS: Saccharomyces boulardii 250 MG CAP PO SCH (09:46)
[2023-02-25] MEDS: Ferrous Sulfate 325 MG TAB PO SCH (09:46)
[2023-02-25] MEDS: Polyethylene Glycol 3350 17 GM Packet PO SCH (09:46)
[2023-02-25] MEDS: Insulin Glargine 30 UNITS/0.3 ML VIAL SC SCH (09:47)
[2023-02-25] MEDS: Nitroglycerin 0.4 MG TAB (25 Tab Bottle) SL PRN ×3 (12:35→12:45)
[2023-02-25] MEDS: Ipratropium/Albuterol 3 ML NEB NEB PRN (15:49)
[2023-02-25 20:37] VITALS: BP 142/79; TEMP 99
== END 2023-02-25 16:03 | DRG 252 ==
LOC: ERS 06:18 → T4-A 09:50 → INTOOBSV 09:50 → OBSVTOIN 02-10 14:21 → 2NO 02-10 16:07 → CCU 02-13 19:51 → 2NO 02-14 10:40
PROVIDERS: ADMIT Family Medicine; ATTEND Internal Medicine
PROC: 047L3ZZ Dilation of Left Femoral Artery, Percutaneous Approach (ICD-10-PCS; principal; 2023-02-18)
PROC: B41D1ZZ Fluoroscopy of Aorta and Bilateral Lower Extremity Arteries using Low Osmolar Contrast (ICD-10-PCS; 2023-02-18)
PROC: 30233N1 Transfusion of Nonautologous Red Blood Cells into Peripheral Vein, Percutaneous Approach (ICD-10-PCS; 2023-02-22)
DX: I48.0 Paroxysmal atrial fibrillation (principal); I50.33 Acute on chronic diastolic (congestive) heart failure; J96.01 Acute respiratory failure with hypoxia; J44.1 Chronic obstructive pulmonary disease with (acute) exacerbation; M86.9 Osteomyelitis, unspecified; K86.1 Other chronic pancreatitis; I13.0 Hypertensive heart and chronic kidney disease with heart failure and stage 1 through stage 4 chronic kidney disease, or unspecified chronic kidney disease; N17.9 Acute kidney failure, unspecified; N18.4 Chronic kidney disease, stage 4 (severe); E11.51 Type 2 diabetes mellitus with diabetic peripheral angiopathy without gangrene; I48.92 Unspecified atrial flutter; E11.69 Type 2 diabetes mellitus with other specified complication; I49.5 Sick sinus syndrome; E11.22 Type 2 diabetes mellitus with diabetic chronic kidney disease; B18.2 Chronic viral hepatitis C; F41.9 Anxiety disorder, unspecified; F32.A Depression, unspecified; Z79.899 Other long term (current) drug therapy; E87.5 Hyperkalemia; D63.1 Anemia in chronic kidney disease; L89.619 Pressure ulcer of right heel, unspecified stage; Z79.4 Long term (current) use of insulin; Z88.8 Allergy status to other drugs, medicaments and biological substances; Z88.6 Allergy status to analgesic agent; Z88.0 Allergy status to penicillin; Z20.822 Contact with and (suspected) exposure to COVID-19; Z87.891 Personal history of nicotine dependence; F12.90 Cannabis use, unspecified, uncomplicated; Z98.51 Tubal ligation status; Z96.643 Presence of artificial hip joint, bilateral; Z90.89 Acquired absence of other organs; Z90.710 Acquired absence of both cervix and uterus
CPT/HCPCS: 36140; 36245; 36247; 36415; 36416; 36430; 37224; 37246; 70450; 70551; 71045; 75710; 75736; 75774; 80048; 80053; 80162; 82140; 82728; 83540; 83550; 83605; 83735; 83880; 84100; 84450; 84460; 84484; 85025; 85027; 85347; 86850; 86900; 86901; 87040; 87070; 87186; 87205; 93005; 93010; 93306; 93923; 94640; 96365; 96367; 96372; 96375; 96376; 97139; C1725; C1769; C1887; C1894; G0378; J0153; J0360; J0461; J0692; J0696; J1160; J1265; J1644; J1650; J1815; J1940; J2001; J2250; J2270; J2405; J3010; J3370-JW; J3475; J3490; J7050; J7120; J7611; J7620; J7999; P9016; Q4081; Q9967

== ENCOUNTER 2023-03-08 10:20 | Inpatient (IN) | payer MEDICARE, MEDICAID ==
[2023-03-08] MEDS ORDERED: Furosemide 40 MG/4 ML VIAL ONE (10:35)
[2023-03-08 10:59] LABS: Actual Bicarbonate (HCO3a) 21.4 mEq/L (22-28); Analyzer IN Cardio ER; Base Excess (BEa) -3.9 mEq/L (-2.0 to +3.0); CO2 Tension 39.8 mmHg (35.0-45.0); Calcium, Ionized (arterial) 1.22 mmol/L (1.12-1.30); Carboxyhemoglobin (COHb) 0.3 gm% (0.0-3.0); Hematocrit-ABG 34 % (36.0-47.0); Hemoglobin (Hb) 11.5 g/dL (12.0-16.0); Potassium - ABG Lab 4.33 mmol/L (3.70-5.30); pH, Arterial 7.349 (7.35-7.45)
[2023-03-08 10:59] LABS: #Eosinphils 0.2 thou/uL (0.0-0.7); #Monocytes 0.5 thou/uL (0.11-0.59); #Neutrophils 2.9 thou/uL (1.40-6.50); %Basophils 0.5 % (0.0-1.0); %Eosinophils 3.3 % (0.0-10.0); %Lymphocytes 38.4 % (21.0-51.0); %Monocytes 7.9 % (0.0-10.0); %Neutrophils 49.7 % (42.0-75.0); Hematocrit 37.2 % (36.0-47.0); Hemoglobin 12.2 g/dL (12.0-16.0); Mean Corpuscular HGB CONC 32.8 g/dL (32.0-36.0); Mean Corpuscular Hemoglobin 27.8 pg (27.0-31.0); Mean Corpuscular Volume 84.7 fl (78.0-98.0); Platelet Count 296 10x3/uL (130-400); RBC Distribution Width 15.8 % (11.5-14.5); Red Blood Cell (RBC) Count 4.39 mill/uL (4.20-5.40); White Blood Cell (WBC) Count 5.8 10x3/uL (4.8-10.8)
[2023-03-08 11:00] LABS: Puncture Site LRA
[2023-03-08 11:12] LABS: Prothrombin Time 13.8 sec (12.0-14.7)
[2023-03-08 11:27] LABS: ALT (SGPT) 29 U/L (8-55); AST (SGOT) 51 U/L (5-34); Albumin 4.2 g/dL (3.4-4.8); Alkaline Phosphatase 312 U/L (40-110); Anion Gap 18 mmol/L (10-20); BUN (Urea Nitrogen) 20 mg/dL (9.8-20.1); Bilirubin, Total 0.2 mg/dL (0.2-1.2); Calc. Creatinine Clearance 0 mL/min (70-130); Calcium 9.6 mg/dL (7.8-10.44); Carbon Dioxide 19 mmol/L (23-31); Chloride 107 mmol/L (98-107); Estimated GFR 30; Globulin 4.8 g/dL (2.4-3.5); Glucose 94 mg/dL (83-110); Lipase 16 U/L (8-78); Potassium 4.5 mmol/L (3.5-5.1); Sodium 139 mmol/L (136-145)
[2023-03-08 11:35] LABS: Bacteria/HPF 3+ HPF (None Seen); Bilirubin Negative (Negative); Blood, Urine 1+ (Negative); CAUTI Indications for Culture Alt mental st,lethar; Clarity Extra Turbid (Clear); Glucose, Urine (Dipstick) Normal (Negative); Ketone, Urine Negative (Negative); Leukocyte 500 Leu/uL (Negative); Nitrite Negative (Negative); Protein, Urine (Dipstick) 200 mg/dL (Neg-Trace); Specific Gravity, Urine 1.011 (1.002-1.036); Squamous Epithelial 0-3 HPF (0-3); Urobilinogen Normal mg/dL (Less than 2); WBC/HPF Greater than 50 HPF (0-3)
[2023-03-08 11:41] LABS: Yeast-Budding 1+ HPF (None Seen); Yeast-Hyphae 2+ HPF (None Seen)
[2023-03-08 11:44] LABS: Urine Culture Reflex Yes Yes
[2023-03-08] MEDS ORDERED: Vancomycin 1 GM/200 ML (FROZEN) BAG ONE (11:49)
[2023-03-08] MEDS ORDERED: Nitroglycerin 2% Ointment 1 INCH/1 GM Packet ONE (11:49)
[2023-03-08 12:17] LABS: SARS-CoV-2 NAA Rapid Test Not Detected (NotDetected)
[2023-03-08 12:22] LABS: Troponin I 0.127 ng/mL (< 0.028)
[2023-03-08] MEDS ORDERED: Acetaminophen 500 MG TAB ONE (12:22)
[2023-03-08] MEDS ORDERED: LevoFLOXacin 750 mg/D5W 150 ml Premix Bag ONE ×2 (12:59→13:02)
[2023-03-08] MEDS ORDERED: Ondansetron PF 4 MG/2 ML Vial IVP PRN (13:07)
[2023-03-08] MEDS ORDERED: Senokot S 8.6-50 MG TAB PO PRN (13:07)
[2023-03-08] MEDS ORDERED: dilTIAZem 125 MG/25 ML SDV ONE (13:47)
[2023-03-08] MEDS ORDERED: Promethazine 25 MG TAB PO PRN (13:51)
[2023-03-08] MEDS ORDERED: dilTIAZem 125 MG in Sodium Chloride 0.9% 100 ML IVPB SCH ×3 (14:15→16:30)
[2023-03-08] MEDS ORDERED: Docusate 100 MG CAP PO PRN (14:41)
[2023-03-08] MEDS ORDERED: Senokot 8.6 MG TAB PO PRN (14:41)
[2023-03-08] MEDS ORDERED: Dextrose 5% in Water 1,000 ML IV PRN (14:46)
[2023-03-08] MEDS ORDERED: Dextrose 50% Abboject 50 ML SYRINGE SLOW IVP PRN (14:46)
[2023-03-08] MEDS ORDERED: Glucagon 1 MG/ML KIT IM PRN (14:46)
[2023-03-08] MEDS: HYDROcodone/Acetaminophen 5/325 mg Tablet PO PRN (15:49)
[2023-03-08] MEDS ORDERED: FLU VACC QS2023(65UP)/MF59C/PF 60 MCG/0.5 ML SYRINGE IM ONE (16:15)
[2023-03-08 17:16] LABS: Troponin I 0.133 ng/mL (< 0.028)
[2023-03-08] MEDS: Dronedarone HCl 400 MG TAB PO SCH (17:59)
[2023-03-08] MEDS: cefTRIAXone\\ROCEPHIN 1 GM in Sodium Chloride 0.9% 100 ML IVPB SCH (17:59)
[2023-03-08 19:45] LABS: Troponin I 0.137 ng/mL (< 0.028)
[2023-03-08] MEDS: Gabapentin 300 MG CAP PO SCH (20:03)
[2023-03-08] MEDS: Apixaban 2.5 MG TAB PO SCH (20:04)
[2023-03-08] MEDS: Furosemide 40 MG/4 ML VIAL SLOW IVP SCH (20:06)
[2023-03-08] MEDS: Melatonin 3 MG TAB PO SCH (20:59)
[2023-03-08] MEDS: hydrALAZINE 10 MG TAB PO SCH (20:59)
[2023-03-09 04:17] LABS: #Eosinphils 0.3 thou/uL (0.0-0.7); #Monocytes 0.5 thou/uL (0.11-0.59); #Neutrophils 3.8 thou/uL (1.40-6.50); %Basophils 0.3 % (0.0-1.0); %Eosinophils 5.4 % (0.0-10.0); %Lymphocytes 20.2 % (21.0-51.0); %Neutrophils 64.9 % (42.0-75.0); Hemoglobin 9.3 g/dL (12.0-16.0); Mean Corpuscular Hemoglobin 27.6 pg (27.0-31.0); Mean Corpuscular Volume 83.7 fl (78.0-98.0); Mean Platelet Volume 10.4 fL (7.4-10.4); Platelet Count 278 10x3/uL (130-400); RBC Distribution Width 15.4 % (11.5-14.5); Red Blood Cell (RBC) Count 3.37 mill/uL (4.20-5.40); White Blood Cell (WBC) Count 5.9 10x3/uL (4.8-10.8)
[2023-03-09 04:23] LABS: Hematocrit 28.2 % (36.0-47.0)
[2023-03-09 04:41] LABS: Anion Gap 14 mmol/L (10-20); BUN (Urea Nitrogen) 23 mg/dL (9.8-20.1); Calc. Creatinine Clearance 26 mL/min (70-130); Calcium 9.2 mg/dL (7.8-10.44); Carbon Dioxide 23 mmol/L (23-31); Chloride 106 mmol/L (98-107); Estimated GFR 23; Glucose 142 mg/dL (83-110); Potassium 5.2 mmol/L (3.5-5.1); Sodium 138 mmol/L (136-145)
[2023-03-09] MEDS ORDERED: NIFEdipine XL 90 MG ER.TAB PO SCH (09:00)
[2023-03-09] MEDS ORDERED: Furosemide 40 MG/4 ML VIAL SLOW IVP SCH ×2 (09:00→16:45)
[2023-03-09] MEDS: Floranex 1 GM Packet PO SCH (09:02)
[2023-03-09] MEDS: Polyethylene Glycol 3350 17 GM Packet PO SCH (09:02)
[2023-03-09] MEDS: Dronedarone HCl 400 MG TAB PO SCH ×2 (09:03→16:12)
[2023-03-09] MEDS: Insulin Glargine 30 UNITS/0.3 ML VIAL SC SCH (09:03)
[2023-03-09] MEDS: HYDROcodone/Acetaminophen 5/325 mg Tablet PO PRN (09:03)
[2023-03-09] MEDS: Gabapentin 300 MG CAP PO SCH ×2 (09:05→20:03)
[2023-03-09] MEDS: Apixaban 2.5 MG TAB PO SCH ×2 (09:06→20:03)
[2023-03-09] MEDS: hydrALAZINE 10 MG TAB PO SCH ×2 (09:06→20:03)
[2023-03-09] MEDS: Ferrous Sulfate 325 MG TAB PO SCH (09:06)
[2023-03-09] MEDS: LOKELMA 5 GM PACKET PO SCH (09:06)
[2023-03-09] MEDS: FLUoxetine HCl 10 MG CAP PO SCH (09:06)
[2023-03-09] MEDS ORDERED: Electrolyte Replacement Protocol 1 EACH FS SCH (09:45)
[2023-03-09] MEDS: Acetaminophen 325 MG TAB PO PRN (12:05)
[2023-03-09] MEDS: HumaLOG 300 UNITS/3 ML VIAL SC PRN (12:05)
[2023-03-09 14:59] LABS: ALT (SGPT) 25 U/L (8-55); AST (SGOT) 41 U/L (5-34); Albumin 3.5 g/dL (3.4-4.8); Alkaline Phosphatase 231 U/L (40-110); Bilirubin, Direct 0.2 mg/dL (0.1-0.3); Bilirubin, Total 0.2 mg/dL (0.2-1.2); Lipase 20 U/L (8-78); Magnesium 1.6 mg/dL (1.6-2.6); Protein, Total 7.6 g/dL (5.8-8.1)
[2023-03-09] MEDS: cefTRIAXone\\ROCEPHIN 1 GM in Sodium Chloride 0.9% 100 ML IVPB SCH (16:12)
[2023-03-09] MEDS ORDERED: Ipratropium/Albuterol 3 ML NEB NEB PRN (16:20)
[2023-03-09 18:34] LABS: Legionella Urinary Ag Negative (Negative); Strep pneumo Urine Ag NEGATIVE (NEGATIVE)
[2023-03-09] MEDS: Furosemide 40 MG/4 ML VIAL SLOW IVP SCH (20:02)
[2023-03-09] MEDS: Amiodarone 200 MG TAB PO SCH (20:03)
[2023-03-09] MEDS: Melatonin 3 MG TAB PO SCH (20:03)
[2023-03-09] MEDS ORDERED: Magnesium 2 GM/50 ML(in water) 2 GM in Premix Bag 1 BAG IVPB SCH (21:00)
[2023-03-10] MEDS: Furosemide 40 MG/4 ML VIAL SLOW IVP SCH ×2 (05:44→14:34)
[2023-03-10] MEDS: Dronedarone HCl 400 MG TAB PO SCH (08:44)
[2023-03-10] MEDS: Floranex 1 GM Packet PO SCH (08:44)
[2023-03-10] MEDS: Polyethylene Glycol 3350 17 GM Packet PO SCH (08:44)
[2023-03-10] MEDS: hydrALAZINE 10 MG TAB PO SCH ×2 (08:45→20:41)
[2023-03-10] MEDS: Ferrous Sulfate 325 MG TAB PO SCH (08:45)
[2023-03-10] MEDS: HYDROcodone/Acetaminophen 5/325 mg Tablet PO PRN ×2 (08:46→20:40)
[2023-03-10] MEDS: FLUoxetine HCl 10 MG CAP PO SCH (08:46)
[2023-03-10] MEDS: Gabapentin 300 MG CAP PO SCH ×2 (08:48→20:40)
[2023-03-10] MEDS: Amiodarone 200 MG TAB PO SCH ×3 (08:48→20:41)
[2023-03-10] MEDS: Insulin Glargine 30 UNITS/0.3 ML VIAL SC SCH (08:49)
[2023-03-10] MEDS: LOKELMA 5 GM PACKET PO SCH (08:50)
[2023-03-10] MEDS: Apixaban 2.5 MG TAB PO SCH ×2 (08:50→20:41)
[2023-03-10] MEDS: cefTRIAXone\\ROCEPHIN 1 GM in Sodium Chloride 0.9% 100 ML IVPB SCH (14:31)
[2023-03-10] MEDS: HumaLOG 300 UNITS/3 ML VIAL SC PRN ×2 (14:33→16:50)
[2023-03-10] MEDS: Acetaminophen 325 MG TAB PO PRN (16:44)
[2023-03-10 16:56] LABS: #Eosinphils 0.3 thou/uL (0.0-0.7); #Monocytes 0.8 thou/uL (0.11-0.59); #Neutrophils 2.8 thou/uL (1.40-6.50); %Basophils 0.5 % (0.0-1.0); %Lymphocytes 38.3 % (21.0-51.0); %Monocytes 12.1 % (0.0-10.0); %Neutrophils 44.9 % (42.0-75.0); Hematocrit 28.7 % (36.0-47.0); Hemoglobin 9.7 g/dL (12.0-16.0); Mean Corpuscular HGB CONC 33.8 g/dL (32.0-36.0); Mean Corpuscular Hemoglobin 27.9 pg (27.0-31.0); Mean Corpuscular Volume 82.5 fl (78.0-98.0); Mean Platelet Volume 10.1 fL (7.4-10.4); Platelet Count 247 10x3/uL (130-400); RBC Distribution Width 15.2 % (11.5-14.5); Red Blood Cell (RBC) Count 3.48 mill/uL (4.20-5.40); White Blood Cell (WBC) Count 6.2 10x3/uL (4.8-10.8)
[2023-03-10 17:22] LABS: ALT (SGPT) 27 U/L (8-55); AST (SGOT) 48 U/L (5-34); Albumin 3.3 g/dL (3.4-4.8); Alkaline Phosphatase 240 U/L (40-110); Anion Gap 15 mmol/L (10-20); BUN (Urea Nitrogen) 27 mg/dL (9.8-20.1); Bilirubin, Direct 0.1 mg/dL (0.1-0.3); Bilirubin, Total Less than 0.2 mg/dL (0.2-1.2); Calc. Creatinine Clearance 20 mL/min (70-130); Calcium 9.3 mg/dL (7.8-10.44); Carbon Dioxide 20 mmol/L (23-31); Chloride 103 mmol/L (98-107); Estimated GFR 17; Glucose 142 mg/dL (83-110); Protein, Total 7.6 g/dL (5.8-8.1); Sodium 133 mmol/L (136-145)
[2023-03-10] MEDS: Melatonin 3 MG TAB PO SCH (20:41)
[2023-03-10] MEDS: Clotrimazole 2% 3 Day Vag Cr 22.2 GM TUBE VAG SCH (21:29)
[2023-03-11] MEDS: Furosemide 40 MG/4 ML VIAL SLOW IVP SCH (05:44)
[2023-03-11 08:19] LABS: #Eosinphils 0.3 thou/uL (0.0-0.7); #Monocytes 0.7 thou/uL (0.11-0.59); #Neutrophils 2.4 thou/uL (1.40-6.50); %Basophils 0.7 % (0.0-1.0); %Eosinophils 5.2 % (0.0-10.0); %Lymphocytes 38.6 % (21.0-51.0); %Monocytes 12.6 % (0.0-10.0); %Neutrophils 42.7 % (42.0-75.0); Hemoglobin 10.4 g/dL (12.0-16.0); Mean Corpuscular HGB CONC 33.5 g/dL (32.0-36.0); Mean Corpuscular Hemoglobin 27.3 pg (27.0-31.0); Mean Corpuscular Volume 81.4 fl (78.0-98.0); Mean Platelet Volume 10.7 fL (7.4-10.4); Platelet Count 257 10x3/uL (130-400); RBC Distribution Width 15.2 % (11.5-14.5); Red Blood Cell (RBC) Count 3.81 mill/uL (4.20-5.40); White Blood Cell (WBC) Count 5.7 10x3/uL (4.8-10.8)
[2023-03-11 08:28] LABS: Anion Gap 15 mmol/L (10-20); BUN (Urea Nitrogen) 32 mg/dL (9.8-20.1); Calc. Creatinine Clearance 19 mL/min (70-130); Calcium 9.5 mg/dL (7.8-10.44); Carbon Dioxide 26 mmol/L (23-31); Chloride 101 mmol/L (98-107); Estimated GFR 16; Glucose 85 mg/dL (83-110); Potassium 4.8 mmol/L (3.5-5.1); Sodium 137 mmol/L (136-145)
[2023-03-11] MEDS: Polyethylene Glycol 3350 17 GM Packet PO SCH (10:09)
[2023-03-11] MEDS: Ferrous Sulfate 325 MG TAB PO SCH (10:11)
[2023-03-11] MEDS: LOKELMA 5 GM PACKET PO SCH (10:11)
[2023-03-11] MEDS: Amiodarone 200 MG TAB PO SCH ×3 (10:11→20:02)
[2023-03-11] MEDS: Gabapentin 300 MG CAP PO SCH ×2 (10:12→20:02)
[2023-03-11] MEDS: Apixaban 2.5 MG TAB PO SCH (10:12)
[2023-03-11] MEDS: hydrALAZINE 10 MG TAB PO SCH ×2 (10:12→20:07)
[2023-03-11] MEDS: Floranex 1 GM Packet PO SCH (10:12)
[2023-03-11] MEDS: FLUoxetine HCl 10 MG CAP PO SCH (10:12)
[2023-03-11] MEDS: Insulin Glargine 30 UNITS/0.3 ML VIAL SC SCH (10:13)
[2023-03-11] MEDS: HYDROcodone/Acetaminophen 5/325 mg Tablet PO PRN ×2 (10:14→15:48)
[2023-03-11] MEDS ORDERED: Furosemide 20 MG TAB PO SCH (14:00)
[2023-03-11] MEDS: cefTRIAXone\\ROCEPHIN 1 GM in Sodium Chloride 0.9% 100 ML IVPB SCH (15:27)
[2023-03-11] MEDS: Bisacodyl 5 MG TAB PO PRN (15:48)
[2023-03-11] MEDS: Acetaminophen 325 MG TAB PO PRN (20:02)
[2023-03-11] MEDS: Apixaban 5 MG TAB PO SCH (20:02)
[2023-03-11] MEDS: Melatonin 3 MG TAB PO SCH (20:03)
[2023-03-11] MEDS: Clotrimazole 2% 3 Day Vag Cr 22.2 GM TUBE VAG SCH (20:04)
[2023-03-12 04:27] LABS: #Eosinphils 0.3 thou/uL (0.0-0.7); #Monocytes 0.7 thou/uL (0.11-0.59); #Neutrophils 2.7 thou/uL (1.40-6.50); %Basophils 0.5 % (0.0-1.0); %Eosinophils 4.9 % (0.0-10.0); %Lymphocytes 36.8 % (21.0-51.0); %Monocytes 11.8 % (0.0-10.0); %Neutrophils 45.8 % (42.0-75.0); Hematocrit 28.9 % (36.0-47.0); Hemoglobin 9.6 g/dL (12.0-16.0); Mean Corpuscular HGB CONC 33.2 g/dL (32.0-36.0); Mean Corpuscular Volume 81.4 fl (78.0-98.0); Mean Platelet Volume 10.9 fL (7.4-10.4); Platelet Count 249 10x3/uL (130-400); RBC Distribution Width 14.8 % (11.5-14.5); Red Blood Cell (RBC) Count 3.55 mill/uL (4.20-5.40)
[2023-03-12 04:55] LABS: Anion Gap 13 mmol/L (10-20); BUN (Urea Nitrogen) 34 mg/dL (9.8-20.1); Calc. Creatinine Clearance 20 mL/min (70-130); Calcium 9.1 mg/dL (7.8-10.44); Carbon Dioxide 27 mmol/L (23-31); Chloride 100 mmol/L (98-107); Estimated GFR 17; Glucose 134 mg/dL (83-110); Potassium 4.4 mmol/L (3.5-5.1); Sodium 136 mmol/L (136-145)
[2023-03-12] MEDS: Gabapentin 300 MG CAP PO SCH ×2 (08:32→19:52)
[2023-03-12] MEDS: Insulin Glargine 30 UNITS/0.3 ML VIAL SC SCH (08:33)
[2023-03-12] MEDS: hydrALAZINE 10 MG TAB PO SCH (08:33)
[2023-03-12] MEDS: Furosemide 20 MG TAB PO SCH ×2 (08:33→13:55)
[2023-03-12] MEDS: LOKELMA 5 GM PACKET PO SCH (08:34)
[2023-03-12] MEDS: Amiodarone 200 MG TAB PO SCH ×3 (08:34→19:52)
[2023-03-12] MEDS: FLUoxetine HCl 10 MG CAP PO SCH (08:34)
[2023-03-12] MEDS: Ferrous Sulfate 325 MG TAB PO SCH (08:34)
[2023-03-12] MEDS: Apixaban 5 MG TAB PO SCH ×2 (08:34→19:52)
[2023-03-12] MEDS: Floranex 1 GM Packet PO SCH (08:34)
[2023-03-12] MEDS: Polyethylene Glycol 3350 17 GM Packet PO SCH (08:38)
[2023-03-12] MEDS ORDERED: NIFEdipine XL 60 MG ER.TAB PO SCH (09:00)
[2023-03-12] MEDS: Bisacodyl 5 MG TAB PO PRN (10:24)
[2023-03-12] MEDS: HumaLOG 300 UNITS/3 ML VIAL SC PRN ×2 (10:24→20:55)
[2023-03-12 13:28] VITALS: BMI 26.6
[2023-03-12] MEDS: cefTRIAXone\\ROCEPHIN 1 GM in Sodium Chloride 0.9% 100 ML IVPB SCH (13:55)
[2023-03-12] MEDS: hydrALAZINE 25 MG TAB PO SCH ×2 (16:09→19:52)
[2023-03-12] MEDS: HYDROcodone/Acetaminophen 5/325 mg Tablet PO PRN (19:51)
[2023-03-12] MEDS: Melatonin 3 MG TAB PO SCH (19:52)
[2023-03-12] MEDS: Clotrimazole 2% 3 Day Vag Cr 22.2 GM TUBE VAG SCH (20:02)
[2023-03-12 23:12] VITALS: BP 126/59; TEMP 98.8
[2023-03-13 21:12] LABS: Mycoplasma pneumoniae IgG AB 264 U/mL (0-99); Mycoplasma pneumoniae IgM AB Less than 770 U/mL (0-769)
== END 2023-03-12 21:50 | DRG 291 ==
LOC: ERS 10:20 → 2NO 13:33
PROVIDERS: ADMIT Internal Medicine; ATTEND Family Medicine
PROC: 0T9B70Z Drainage of Bladder with Drainage Device, Via Natural or Artificial Opening (ICD-10-PCS; principal; 2023-03-08)
PROC: 4A033R1 Measurement of Arterial Saturation, Peripheral, Percutaneous Approach (ICD-10-PCS; 2023-03-08)
DX: I13.0 Hypertensive heart and chronic kidney disease with heart failure and stage 1 through stage 4 chronic kidney disease, or unspecified chronic kidney disease (principal); I50.33 Acute on chronic diastolic (congestive) heart failure; J96.01 Acute respiratory failure with hypoxia; N18.4 Chronic kidney disease, stage 4 (severe); N39.0 Urinary tract infection, site not specified; I48.92 Unspecified atrial flutter; N17.9 Acute kidney failure, unspecified; J98.11 Atelectasis; I48.91 Unspecified atrial fibrillation; E78.5 Hyperlipidemia, unspecified; Z51.5 Encounter for palliative care; E87.5 Hyperkalemia; I5A Non-ischemic myocardial injury (non-traumatic); Z20.822 Contact with and (suspected) exposure to COVID-19; K21.9 Gastro-esophageal reflux disease without esophagitis; E11.22 Type 2 diabetes mellitus with diabetic chronic kidney disease; Z96.643 Presence of artificial hip joint, bilateral; F41.9 Anxiety disorder, unspecified; F32.A Depression, unspecified; Z79.4 Long term (current) use of insulin; Z88.6 Allergy status to analgesic agent; Z88.0 Allergy status to penicillin; Z98.51 Tubal ligation status; Z90.89 Acquired absence of other organs; Z88.8 Allergy status to other drugs, medicaments and biological substances; Z79.899 Other long term (current) drug therapy; Z87.891 Personal history of nicotine dependence; Z99.3 Dependence on wheelchair; R00.1 Bradycardia, unspecified; Z79.01 Long term (current) use of anticoagulants; J45.909 Unspecified asthma, uncomplicated; Z90.711 Acquired absence of uterus with remaining cervical stump; L89.619 Pressure ulcer of right heel, unspecified stage
CPT/HCPCS: 36415; 36416; 36600; 51702; 71045; 71250; 74177; 74230; 76705; 80048; 80053; 80076; 81001; 82805; 83605; 83690; 83735; 83880; 84145; 84484; 85025; 85610; 85730; 86850; 86860; 86870; 86880; 86900; 86901; 86905; 86922; 87040; 87081; 87086; 87449; 87899; 93005; 93010; 94640; 94660; 96365; 96366; 96367; 96368; 96375; 97139; J0696; J1815; J1940; J1956; J3370-JW; J3475; J3490; J7620

== ENCOUNTER 2023-07-23 18:54 | Emergency (ER) | payer MEDICARE, OTHER ==
[2023-07-23 20:08] LABS: #Eosinphils 0.1 thou/uL (0.0-0.7); #Monocytes 1.6 thou/uL (0.11-0.59); #Neutrophils 10.6 thou/uL (1.40-6.50); %Basophils 0.2 % (0.0-1.0); %Eosinophils 0.6 % (0.0-10.0); %Lymphocytes 19.3 % (21.0-51.0); %Monocytes 10.5 % (0.0-10.0); %Neutrophils 69.1 % (42.0-75.0); Hematocrit 32.5 % (36.0-47.0); Mean Corpuscular HGB CONC 33.8 g/dL (32.0-36.0); Mean Corpuscular Hemoglobin 30.2 pg (27.0-31.0); Mean Corpuscular Volume 89.3 fl (78.0-98.0); Mean Platelet Volume 10.1 fL (7.4-10.4); Platelet Count 294 10x3/uL (130-400); RBC Distribution Width 14.4 % (11.5-14.5); Red Blood Cell (RBC) Count 3.64 mill/uL (4.20-5.40); White Blood Cell (WBC) Count 15.3 10x3/uL (4.8-10.8)
[2023-07-23 20:31] LABS: ALT (SGPT) 26 U/L (8-55); AST (SGOT) 23 U/L (5-34); Albumin 3.9 g/dL (3.4-4.8); Alkaline Phosphatase 159 U/L (40-110); Anion Gap 14 mmol/L (10-20); BUN (Urea Nitrogen) 32 mg/dL (9.8-20.1); Bilirubin, Total 0.4 mg/dL (0.2-1.2); Calc. Creatinine Clearance 0 mL/min (70-130); Calcium 9.6 mg/dL (7.8-10.44); Carbon Dioxide 26 mmol/L (23-31); Chloride 102 mmol/L (98-107); Estimated GFR 20; Globulin 4.5 g/dL (2.4-3.5); Glucose 66 mg/dL (83-110); Potassium 4.7 mmol/L (3.5-5.1); Protein, Total 8.4 g/dL (5.8-8.1); Sodium 137 mmol/L (136-145)
[2023-07-23 20:40] LABS: SARS-CoV-2 NAA Rapid Test Not Detected (NotDetected)
[2023-07-23 22:30] LABS: Bacteria/HPF 4+ HPF (None Seen); Bilirubin Negative (Negative); Blood, Urine 2+ (Negative); CAUTI Indications for Culture Alt mental st,lethar; Clarity Extra Turbid (Clear); Glucose, Urine (Dipstick) Normal (Negative); Ketone, Urine Negative (Negative); Leukocyte 500 Leu/uL (Negative); Nitrite Negative (Negative); Protein, Urine (Dipstick) 100 mg/dL (Neg-Trace); RBC/HPF Greater than 50 HPF (0-3); Squamous Epithelial None Seen HPF (0-3); Urobilinogen 3 mg/dL (Less than 2); WBC/HPF Greater than 50 HPF (0-3)
[2023-07-23 22:31] LABS: Urine Culture Reflex Yes Yes
[2023-07-23] MEDS ORDERED: cefTRIAXone (ROCEPHIN) 1 GM VIAL ONE (22:37)
[2023-07-23] MEDS ORDERED: Sodium Chloride 0.9% 100 ML ONE (22:37)
== END 2023-07-23 23:34 ==
LOC: ERS 18:54
DX: N39.0 Urinary tract infection, site not specified (principal); Z55.6 Problems related to health literacy; E11.22 Type 2 diabetes mellitus with diabetic chronic kidney disease; I12.9 Hypertensive chronic kidney disease with stage 1 through stage 4 chronic kidney disease, or unspecified chronic kidney disease; N18.4 Chronic kidney disease, stage 4 (severe); E78.5 Hyperlipidemia, unspecified; Z87.891 Personal history of nicotine dependence; Z79.899 Other long term (current) drug therapy
CPT/HCPCS: 36415; 36416; 51701; 71045; 74176; 80053; 81001; 83605; 85025; 87040; 87077; 87086; 93005; 96361; 96365; J0696; J3490